=== PATIENT | male | born 1985 | race Hispanic/Latino ===

== ENCOUNTER 2017-10-23 07:31 | Inpatient (IN) | payer BC, OTHER ==
[2017-10-23 07:38] VITALS: BMI 24.3
[2017-10-23] MEDS ORDERED: Sodium Chloride 0.9% 1,000 ML IV ONE ×2 (07:45→07:54)
--- NOTE | 2017-10-23 07:45 | C.PDOC ---
History Of Present Illness 31 year old male, with history of substance abuse, is brought to ED by EMS for evaluation of reported overdose. Pt was found unresponsive on the floor at home by EMS. Pt was given Narcan 1mg IVP on field. Upon waking up, pt admits to heroin abuse. In ED, pt complains of shortness of breath associated with mild cough for the past 2 days. Denies fever, or any other complaints at this time. Time Seen by Provider: 10/23/17 07:33 Chief Complaint (Nursing): Substance Abuse History Per: Patient History/Exam Limitations: no limitations Onset/Duration Of Symptoms: Sudden Onset Current Symptoms Are (Timing): Still Present Suicide/Self Injury Attempted (Context): None Severity: None Pain Scale Rating Of: 0 Associated Symptoms: denies: Suicidal Thoughts, Suicidal Plan Involuntary Hold By: None Recent travel outside of the [place]: No Additional History Per: EMS, Family Past Medical History Reviewed: Historical Data, Nursing Documentation, Vital Signs Vital Signs: Last Vital Signs Temp 98.3 F 10/25/17 12:00 Pulse 94 H 10/25/17 11:51 Resp 26 H 10/25/17 11:51 BP 110/74 10/25/17 11:51 Pulse Ox 98 10/25/17 12:00 Family History: States: Unknown Family Hx Review Of Systems Except As Marked, All Systems Reviewed And Found Negative. Constitutional: Negative for: Fever, Chills Cardiovascular: Negative for: Chest Pain, Palpitations, Light Headedness Respiratory: Positive for: Cough, Shortness of Breath. Negative for: Hemoptysis , Sputum Gastrointestinal: Negative for: Nausea, Vomiting, Abdominal Pain Neurological: Negative for: Headache, Dizziness Psych: Negative for: Suicidal ideation Physical Exam - Physical Exam Appears: Non-toxic, No Acute Distress Skin: Normal Color, Warm, Dry Head: Atraumatic, Normacephalic Eye(s): bilateral: Abnormal Pupil (pinpoint pupils) Oral Mucosa: Moist Neck: Supple Cardiovascular: Other (tachycardic) Respiratory: Normal Breath Sounds, No Accessory Muscle Use, No Rales, No Rhonchi , No Wheezing Gastrointestinal/Abdominal: Soft, No Tenderness Extremity: Normal ROM, No Deformity Neurological/Psych: Oriented x3, Normal Speech ED Course And Treatment - Laboratory Results Result Diagrams: 10/25/17 05:59 10/25/17 05:59 ECG: Interpreted By Me, Viewed By Me ECG Rhythm: Sinus Tachycardia ECG Interpretation: No Acute Changes Rate From EC (bpm) Critical Care Time - Critical Care Note Total Time (in mins): 40 Documented critical care: time excludes all time spent performing seperately billable procedures. Medical Decision Making Medical Decision Making: Plan: Blood work Urinalysis Chest X-ray EKG Influenza AB IV fluids Reassess Disposition - Disposition Disposition: HOSPITALIZED Disposition Time: 01:00 Condition: CRITICAL - Clinical Impression Clinical Impression: Overdose, Pneumonia, CHF (congestive heart failure), NYHA class I, NSTEMI (non- ST elevated myocardial infarction) - Scribe Statement The provider has reviewed the documentation as recorded by the Scribe Rajani Luis All medical record entries made by the Scribe were at my direction and personally dictated by me. I have reviewed the chart and agree that the record accurately reflects my personal performance of the history, physical exam, medical decision making, and the department course for this patient. I have also personally directed, reviewed, and agree with the discharge instructions and disposition. Decision To Admit - Pt Status Changed To: Hospital Disposition Of: Inpatient - Admit Certification Admit to Inpatient:: After my assessment, the patient will require hospitalization for at least two midnights. This is because of the severity of symptoms shown, intensity of services needed, and/or the medical risk in this patient being treated as an outpatient. - InPatient: Physician Admission Certification: I certify that this patient requires 2 or more midnights of care for the following reason:: needs icu - . Bed Request Type: ICU Admitting Physician: Vinod Luis Patient Diagnosis: Overdose, Pneumonia, CHF (congestive heart failure), NYHA class I, NSTEMI (non- ST elevated myocardial infarction)
[2017-10-23 07:51] LABS: VENOUS BLOOD GAS BASE EXCESS -3.7 mmol/L (0.0-2.0); VENOUS BLOOD GAS PCO2 50 mmHg (40-60); VENOUS BLOOD GAS PO2 16 mm/Hg (30-55); VENOUS BLOOD PH 7.28 (7.32-7.43)
[2017-10-23] MEDS ORDERED: Azithromycin 500 MG in Sodium Chloride 0.9% 250 ML IVPB STA (07:52)
[2017-10-23] MEDS ORDERED: cefTRIAXone 2 GM in Sodium Chloride 0.9% 100 ML IVPB STA (07:52)
[2017-10-23] MEDS ORDERED: Sodium Chloride 0.9% 2,000 ML ONE (07:55)
[2017-10-23 07:57] LABS: BASO % 0.2 % (0.0-2.0); EOS % 0.1 % (0.0-4.0); HEMOGLOBIN 14.6 g/dL (12.0-18.0); LYMPH # 0.5 K/uL (1.0-4.3); LYMPH % 5.7 % (20.0-40.0); MEAN CELL VOLUME 78.3 fL (80.0-94.0); MEAN CORPUSCULAR HEMOGLOBIN 26.9 pg (27.0-31.0); MEAN CORPUSCULAR HGB CONC 34.3 g/dL (33.0-37.0); MEAN PLATELET VOLUME 8.3 fL (7.2-11.7); MONO # 0.5 K/uL (0.0-0.8); MONO % 5.1 % (0.0-10.0); NEUT # 8.4 K/uL (1.8-7.0); NEUT % 88.9 % (50.0-75.0); NRBC % 0.2 % (0.0-2.0); PLATELET COUNT 175 K/uL (130-400); RBC 5.45 Mil/uL (4.40-5.90); RED CELL DISTRIBUTION WIDTH 15.5 % (11.5-14.5); WHITE BLOOD COUNT 9.4 K/uL (4.8-10.8)
[2017-10-23 08:06] LABS: ACETAMINOPHEN < 10.0 ug/mL (10.0-30.0); ALB/GLOB RATIO 1.3 (1.0-2.1); ALBUMIN 4.1 g/dL (3.5-5.0); ALT/SGPT 277 U/L (21-72); AST/SGOT 189 U/L (17-59); BLOOD UREA NITROGEN 22 mg/dL (9-20); CALCIUM 8.6 mg/dl (8.6-10.4); GFR AFRICAN-AMERICAN > 60; GFR NON-AFRICAN AMERICAN 58; SALICYLATE < 1.0 mg/dL 1
[2017-10-23] MEDS ORDERED: metroNIDAZOLE IV 500 mg/100 ml 500 MG/100 ML BAG IVPB STA (08:14)
[2017-10-23 08:19] LABS: B-TYPE NATRIURETIC PEPTIDE 4670 pg/mL (0-450)
[2017-10-23 08:21] LABS: INR 1.4; PROTHROMBIN TIME 16.2 SECONDS (9.7-12.2)
--- NOTE | 2017-10-23 08:22 | RAD ---
HISTORY: chest pain COMPARISON: None available. TECHNIQUE: Chest, one view. FINDINGS: LUNGS: Patchy airspace opacities throughout the right darlene thorax with slight sparing of the right lung apex ; appearance worrisome for pneumonia/ edema. Correlate clinically. Recommend continued close interval follow-up to resolution. Please note that chest x-ray has limited sensitivity for the detection of pulmonary masses. PLEURA: No significant pleural effusion identified. No definite pneumothorax . CARDIOVASCULAR: The cardiomediastinal silhouette appears within normal limits of size. OSSEOUS STRUCTURES: No acute osseous abnormality identified. VISUALIZED UPPER ABDOMEN: Unremarkable. OTHER FINDINGS: None. IMPRESSION: Patchy airspace opacities throughout the right darlene thorax with slight sparing of the right lung apex ; appearance worrisome for pneumonia/ edema. Correlate clinically. Recommend continued close interval follow-up to resolution.
[2017-10-23 08:28] LABS: SQUAMOUS EPITHIAL 2 /hpf (0-5); URINE BACTERIA RARE (<OCC); URINE BILIRUBIN NEGATIVE (NEGATIVE); URINE BLOOD 1+ (NEGATIVE); URINE CLARITY Clear (Clear); URINE COLOR Yellow (YELLOW); URINE GLUCOSE (UA) NORMAL (Normal); URINE LEUKOCYTE ESTERASE NEG Leu/uL (Negative); URINE NITRATE NEGATIVE (NEGATIVE); URINE PROTEIN 1+ mg/dL (NEGATIVE); URINE UROBILINOGEN NORMAL mg/dL (0.2-1.0)
[2017-10-23] MEDS ORDERED: Iodixanol 320 MG/ML 100 ML BOTTLE IV ONE (08:38)
[2017-10-23 08:40] LABS: BANDS 1 % (0-2); LYMPHOCYTE 4 % (20-40); MONOCYTE 2 % (0-10); NEUTROPHIL 93 % (50-75); NUCLEATED RED BLOOD CELL 1 % (0-0); PLATELET ESTIMATE NORMAL (NORMAL); TOTAL CELLS COUNTED 100
[2017-10-23 08:40] LABS: BARBITURATES, UR NEGATIVE (NEGATIVE); BENZODIAZEPINES, UR NEGATIVE (NEGATIVE); PHENCYCLIDINE, UR NEGATIVE (NEGATIVE)
[2017-10-23 08:41] LABS: ANISOCYTOSIS SLIGHT
[2017-10-23] MEDS ORDERED: Enoxaparin 150 mg Syringe SC STA (08:42)
[2017-10-23 08:44] LABS: OPIATES, UR POSITIVE (NEGATIVE)
[2017-10-23 08:46] LABS: ABG ALLEN TEST POS; ARTERIAL BLOOD GAS HCO3 22.7 mmol/L (21-28); ARTERIAL BLOOD GAS O2 SAT 94.2 % (95-98); ARTERIAL BLOOD GAS PCO2 46 mm/Hg (35-45); ARTERIAL BLOOD GAS PH 7.32 (7.35-7.45); ARTERIAL BLOOD GAS PO2 60 mm/Hg (80-100); ARTERIAL BLOOD GAS TCO2 25.1 mmol/L (22-28)
[2017-10-23] MEDS ORDERED: Enoxaparin 80 mg Syringe ONE (09:03)
[2017-10-23] MEDS ORDERED: Piperacillin/Tazobact 3.375 GM in Sodium Chloride 100 ML IVPB STA (09:10)
[2017-10-23] MEDS ORDERED: Piperacill/Tazo 3.375gm in Dex 3.375 GM/50 ML BAG IVPB ONE (10:00)
--- NOTE | 2017-10-23 10:07 | CP.PCM.CON ---
History of Present Illness - History of Present Illness History of Present Illness: 31 y/o male with pmx of polysubstance abuse presents to [facility] after being found down on the floor after snorting heroin. Patient denies ever being admitted to hospital for heroin relates medical complications. Patient notes he was off heroin for 6 weeks and tried 2 bags today. Patient c/o left chest pain, denies cocaine,denies any fevers, denies any chest pain, denies any headaches, ( +)cough, tolerating bi-pap. denies having tremors when not using heroin Review of Systems - Review of Systems Systems not reviewed;Unavailable: Altered Mental Status - Constitutional Constitutional: absent: Sleep Apnea, Weight Loss, Weakness - Cardiovascular Cardiovascular: absent: Chest Pain, Chest Pain with Activity - Respiratory Respiratory: Cough, Pain on Inspiration - Gastrointestinal Gastrointestinal: absent: Diarrhea, Hematochezia Past Patient History - Past Social History Smoking Status: Never Smoked - PSYCHIATRIC Hx Substance Use: Yes - SURGICAL HISTORY Hx Surgeries: No - ANESTHESIA Hx Anesthesia: No Meds Allergies/Adverse Reactions: Allergies Allergy/AdvReac Type Severity Reaction Status Date / Time No Known Allergies Allergy Verified 10/23/17 07:39 - Medications Medications: Current Medications Famotidine (Pepcid) 20 mg IVP Q12 [facility] Azithromycin 500 mg/ Sodium (Chloride) 250 mls @ 250 mls/hr IVPB DAILY [facility] Ceftriaxone Sodium 1 gm/ (Sodium Chloride) 100 mls @ 100 mls/hr IVPB Q12H [facility] Metronidazole (Flagyl) 500 mg in 100 mls @ 100 mls/hr IVPB Q8H [facility] Piperacillin Sod/Tazobactam Sod (Zosyn 3.375 Gm Iv Premix) 3.375 gm in 50 mls @ 50 mls/hr IVPB ONCE ONE Stop: 10/23/17 10:59 Saccharomyces Boulardii (Florastor) 250 mg PO BID [facility] Physical Exam - Constitutional Appears: Non-toxic - Head Exam Head Exam: ATRAUMATIC, NORMAL INSPECTION, NORMOCEPHALIC - Eye Exam Eye Exam: Normal appearance Pupil Exam: PERRL - ENT Exam ENT Exam: Mucous Membranes Moist - Respiratory Exam Respiratory Exam: Rhonchi - Cardiovascular Exam Cardiovascular Exam: REGULAR RHYTHM, +S1, +S2, Systolic Murmur - GI/Abdominal Exam GI & Abdominal Exam: Normal Bowel Sounds, Soft - Extremities Exam Extremities exam: Positive for: normal inspection Results - Vital Signs Recent Vital Signs: Last Vital Signs Temp 99.8 F H 10/23/17 08:17 Pulse 146 H 10/23/17 09:20 Resp 49 H 10/23/17 09:20 BP 111/69 10/23/17 09:20 Pulse Ox 90 L 10/23/17 09:20 - Labs Result Diagrams: 10/23/17 07:46 10/23/17 07:46 Labs: Laboratory Results - last 24 hr 10/23/17 10/23/17 10/23/17 07:46 07:46 07:46 WBC 9.4 RBC 5.45 Hgb 14.6 Hct 42.7 MCV 78.3 L MCH 26.9 L MCHC 34.3 RDW 15.5 H Plt Count 175 MPV 8.3 Neut % (Auto) 88.9 H Lymph % (Auto) 5.7 L [place] % (Auto) 5.1 Eos % (Auto) 0.1 Baso % (Auto) 0.2 Neut # 8.4 H Lymph # 0.5 L [place] # 0.5 Eos # 0.0 Baso # 0.0 Neutrophils % (Manual) 93 H Band Neutrophils % 1 Lymphocytes % (Manual) 4 L Monocytes % (Manual) 2 Nucleated RBC % 1 H Platelet Estimate Normal Anisocytosis (manual) Slight PT 16.2 H INR 1.4 APTT 27 D-Dimer, Quantitative 2034 H Puncture Site pCO2 pO2 HCO3 ABG pH ABG Total CO2 ABG O2 Saturation ABG Base Excess Jamarcus Test ABG Potassium VBG pH VBG pCO2 VBG HCO3 VBG Total CO2 VBG O2 Sat (Calc) VBG Base Excess VBG Potassium A-a O2 Difference Respiratory Index Glucose Lactate Vent Mode FiO2 Inspiratory BiPAP Expiratory BiPAP Crit Value Called To Crit Value Called By Crit Value Read Back Blood Gas Notified Time Sodium 133 Potassium 4.8 Chloride 92 L Carbon Dioxide 23 Anion Gap 22 H BUN 22 H Creatinine 1.4 Est GFR ( Amer) > 60 Est GFR (Non-Af Amer) 58 Random Glucose 178 H Calcium 8.6 Total Bilirubin 3.0 H AST 189 H ALT 277 H Alkaline Phosphatase 73 Troponin I 0.6920 H* NT-Pro-B Natriuret Pep 4670 H Total Protein 7.2 Albumin 4.1 Globulin 3.1 Albumin/Globulin Ratio 1.3 Arterial Blood Potassium Venous Blood Potassium Urine Color Urine Clarity Urine pH Ur Specific [place] Urine Protein Urine Glucose (UA) Urine Ketones Urine Blood Urine Nitrate Urine Bilirubin Urine Urobilinogen Ur Leukocyte Esterase Urine WBC (Auto) Urine RBC (Auto) Ur Squamous Epith Cells Urine Bacteria Hyaline Casts Salicylates Urine Opiates Screen Urine Methadone Screen Acetaminophen Ur Barbiturates Screen Ur Phencyclidine Scrn Ur Amphetamines Screen U Benzodiazepines Scrn U Oth Cocaine Metabols U Cannabinoids Screen Alcohol, Quantitative < 10 Influenza Typ A,B (EIA) 10/23/17 10/23/17 10/23/17 07:46 07:47 08:10 WBC RBC Hgb Hct MCV MCH MCHC RDW Plt Count MPV Neut % (Auto) Lymph % (Auto) [place] % (Auto) Eos % (Auto) Baso % (Auto) Neut # Lymph # [place] # Eos # Baso # Neutrophils % (Manual) Band Neutrophils % Lymphocytes % (Manual) Monocytes % (Manual) Nucleated RBC % Platelet Estimate Anisocytosis (manual) PT INR APTT D-Dimer, Quantitative Puncture Site pCO2 pO2 16 L HCO3 ABG pH ABG Total CO2 ABG O2 Saturation ABG Base Excess Jamarcus Test ABG Potassium VBG pH 7.28 L VBG pCO2 50 VBG HCO3 19.8 VBG Total CO2 25.0 VBG O2 Sat (Calc) 25.5 L VBG Base Excess -3.7 L VBG Potassium 4.7 A-a O2 Difference Respiratory Index Glucose 192 H Lactate 8.2 H* Vent Mode FiO2 Inspiratory BiPAP Expiratory BiPAP Crit Value Called To Dr valadez Crit Value Called By Daniel petty mohs surgeon/general dermatologist Crit Value Read Back Y Blood Gas Notified Time 750 Sodium 133.0 Potassium Chloride 96.0 L Carbon Dioxide Anion Gap BUN Creatinine Est GFR ( Amer) Est GFR (Non-Af Amer) Random Glucose Calcium Total Bilirubin AST ALT Alkaline Phosphatase Troponin I NT-Pro-B Natriuret Pep Total Protein Albumin Globulin Albumin/Globulin Ratio Arterial Blood Potassium Venous Blood Potassium 4.7 Urine Color Urine Clarity Urine pH Ur Specific [place] Urine Protein Urine Glucose (UA) Urine Ketones Urine Blood Urine Nitrate Urine Bilirubin Urine Urobilinogen Ur Leukocyte Esterase Urine WBC (Auto) Urine RBC (Auto) Ur Squamous Epith Cells Urine Bacteria Hyaline Casts Salicylates < 1.0 Urine Opiates Screen Urine Methadone Screen Acetaminophen < 10.0 L Ur Barbiturates Screen Ur Phencyclidine Scrn Ur Amphetamines Screen U Benzodiazepines Scrn U Oth Cocaine Metabols U Cannabinoids Screen Alcohol, Quantitative Influenza Typ A,B (EIA) Negative for flu a/b 10/23/17 10/23/17 10/23/17 08:14 08:14 08:43 WBC RBC Hgb Hct MCV MCH MCHC RDW Plt Count MPV Neut % (Auto) Lymph % (Auto) [place] % (Auto) Eos % (Auto) Baso % (Auto) Neut # Lymph # [place] # Eos # Baso # Neutrophils % (Manual) Band Neutrophils % Lymphocytes % (Manual) Monocytes % (Manual) Nucleated RBC % Platelet Estimate Anisocytosis (manual) PT INR APTT D-Dimer, Quantitative Puncture Site Rra pCO2 46 H pO2 60 L HCO3 22.7 ABG pH 7.32 L ABG Total CO2 25.1 ABG O2 Saturation 94.2 L ABG Base Excess -2.6 L Jamarcus Test Pos ABG Potassium 3.8 VBG pH VBG pCO2 VBG HCO3 VBG Total CO2 VBG O2 Sat (Calc) VBG Base Excess VBG Potassium A-a O2 Difference 596.0 Respiratory Index 9.9 Glucose 140 H Lactate 2.1 Vent Mode Bipap FiO2 100.0 Inspiratory BiPAP 10 Expiratory BiPAP 5 Crit Value Called To Crit Value Called By Crit Value Read Back Blood Gas Notified Time Sodium 134.0 Potassium Chloride 106.0 Carbon Dioxide Anion Gap BUN Creatinine Est GFR ( Amer) Est GFR (Non-Af Amer) Random Glucose Calcium Total Bilirubin AST ALT Alkaline Phosphatase Troponin I NT-Pro-B Natriuret Pep Total Protein Albumin Globulin Albumin/Globulin Ratio Arterial Blood Potassium 3.8 Venous Blood Potassium Urine Color Yellow Urine Clarity Clear Urine pH 5.0 Ur Specific [place] 1.013 Urine Protein 1+ H Urine Glucose (UA) Normal Urine Ketones Trace Urine Blood 1+ H Urine Nitrate Negative Urine Bilirubin Negative Urine Urobilinogen Normal Ur Leukocyte Esterase Neg Urine WBC (Auto) 2 Urine RBC (Auto) 3 Ur Squamous Epith Cells 2 Urine Bacteria Rare Hyaline Casts 6-10 H Salicylates Urine Opiates Screen Positive H Urine Methadone Screen Negative Acetaminophen Ur Barbiturates Screen Negative Ur Phencyclidine Scrn Negative Ur Amphetamines Screen Negative U Benzodiazepines Scrn Negative U Oth Cocaine Metabols Negative U Cannabinoids Screen Negative Alcohol, Quantitative Influenza Typ A,B (EIA) Assessment & Plan (1) Respiratory failure with hypoxia and hypercapnia Status: Acute (2) Heroin abuse Status: Acute (3) Systolic heart failure secondary to coronary artery disease Status: Acute (4) CAD (coronary artery disease), elim ira coronary artery Status: Acute - Assessment and Plan (Free Text) Assessment: HYpoxic and hypercapneci respiratory failure: continue bi-pap to keep spo2 >92 and pH b/w 7.35-7.45, continue bronchodilatros (atrovent), solumedrol -severe aspiration/sepsis: contineu vanco + zosyn, check sputum culture and obtain serial lactic, -CAD/NSTEMI: start asa, lovenox theraputic and b-blockers, obtain cardiology eval, likely cocaine induced r/o ischemic, check utox, no signs of shock -cardiology eval, echo pending -DVT ppx lovenox -PUD ppx protonix -heroin abuse: Patient notes he does not inject only snorts--check utox, patient advised to not use any recreation al drugs and consider drug rehab -Patient remains critical and will benefit from ICU level care -avoid fluid overloaded states cc time 36 minutes - - Date & Time Date: 10/23/17 Time: 10:19
--- NOTE | 2017-10-23 10:26 | CP.PCM.HP ---
Addendum entered and electronically signed by Cassie Mendoza DO 10/23/17 18:08: please disregard Assessment/plan in signed note please use Addendum for Assessment and plan 31 yo male present to the ER by ambulance after he was found down by his unconscious around 6am, last seen normal around 3am.. Pt responded to 1 mg narcan on the field. Pt admints doing 2 bags of heroins after being off it for the past 6 weeks. Patient states he had heroin and (10/21 and 10/22). Pt has been complaining of SOB and fever 102.2 10/22/17 for the past 2day. Pt denies any PMH or surgical Hx, denies in other substance abuse disorder and currently complaining of retrosternal non radiating chest pain, SOB , non productive cough. Pt in ICU on bipap. Neuro Neurologically intact A&Ox3 UDS: + for opiates Psych - history of substance abuse disorder Consult psych: Dr. Kramer Cardio: NSTEMI w/ elevated troponin 0.6920 HR: 139 BP: 137/71 Serial troponin 2pm and 8pm Serial ekg 2pm and 8pm Meds: Therapeutic lovenox 70mg, ASA 325 mg PO single dose, ASA 81 mg PO daily MERCEDEZ, coreg 3.125 mg PO BID MERCEDEZ, Elevated ProBnp 4670 2D echo waiting official read Consult play writer: Dr Ibrahim Respiratory: Respiratory distress O2 sat: 93% on bipap Vent Settings I/E: 12/5 FIO2: 100 ABG: pH 7.41/pCO2 39/pO2 56/ HCO3 24.8 CXray: right sided pneumonia, secondary to aspiration most likely Labs: order urine legionella, urine strep pneumoniae, mycoplasama IgG and IgM, neg. Influenza typ A and B Meds: start ceftriaxone 100mls @ 100mls/hr, Azithromycin 250 mls @ 250 mls/hr, zosyn @ 200mls/Hr IVPb Q6H MERCEDEZ, solu-medrol 125 mg IV Q12 MERCEDEZ, Atrovent Hfa 2puff IH RQ6 MERCEDEZ, lasix 20 mg IVP daily MERCEDEZ, lovenox 70 mg Elevated D-dimer: 2035 CT chest: no evidence of central or segmental pulmonary embolism. Extensive airspace consolidations worrisome for pneumonia right greater than left. B/L lower extremities venous doppler: pending official read Renal BUN/Cr: 22/1.4 Fluids, electrolytes, nutrition Electrolytes WNL except for mentioned below: Cl: 92 Fluids: d/c normal saline Nutrition: Follow chemistry Infectious disease WBC: 9.4, gas lactate 8.2 now 1.6 Cultures: (-) influenza type A and B Urine legionella pending result Urine strep pneumoniae pending result Mycoplasma IgG and IgM pending result Meds: start ceftriaxone 100mls @ 100mls/hr, Azithromycin 250 mls @ 250 mls/ hr, zosyn @ 200mls/Hr IVPb Q6H MERCEDEZ, Consult ID Dr. aTdeo Hematology H&H: 14.6/42.7 follow H&H Plt: 175 PT/PTT/INR: 16.2/27/1.4 D-Dimer: 2035 CT chest: no evidence of central or segmental pulmonary embolism. Extensive airspace consolidations worrisome for pneumonia right greater than left. B/L lower extremities venous doppler: pending official read Meds: start lovenox 70mg GI AST/ALT: 189/277 Tbili: 3.0 Prophylaxis GI: pepcid DVT: lovenox , SCDs Original Note: <Cassie Mendoza - Last Filed: 10/23/17 14:05> History of Present Illness - History of Present Illness History of Present Illness: CC: AMS, respiratory distress 31 yo male present to the ER by ambulance after he was found down by his unconscious around 6am. stated vomitted food. He was last seen normal around 3am. Pt responded to 1 mg narcan on the field. Pt admints doing 2 bags of heroins after being off it for the past 6 weeks. Patient states he had heroin and (10/21 and 10/22) per . Pt has been complaining of SOB and fever 102.2 10/22/17 for the past 2day. Pt denies any PMH or surgical Hx , denies in other substance abuse disorder and currently complaining of retrosternal non radiating chest pain, SOB, non productive cough. Denies any headache, fevers, cocaine use. Pt in ICU on BiPAP. Present on Admission - Present on Admission Any Indicators Present on Admission: No History of DVT/PE: No History of Uncontrolled Diabetes: No Urinary Catheter: No Decubitus Ulcer Present: No Past Patient History - Past Social History Smoking Status: Never Smoked - PSYCHIATRIC Hx Substance Use: Yes - SURGICAL HISTORY Hx Surgeries: No - ANESTHESIA Hx Anesthesia: No Meds Allergies/Adverse Reactions: Allergies Allergy/AdvReac Type Severity Reaction Status Date / Time No Known Allergies Allergy Verified 10/23/17 07:39 Physical Exam - Head Exam Head Exam: ATRAUMATIC, NORMAL INSPECTION - Eye Exam Eye Exam: EOMI, Normal appearance - ENT Exam ENT Exam: Mucous Membranes Moist - Neck Exam Neck exam: Positive for: Full Rom, Normal Inspection. Negative for: Tenderness , Thyromegaly - Respiratory Exam Respiratory Exam: Clear to Auscultation Bilateral, NORMAL BREATHING PATTERN. absent: Accessory Muscle Use - Cardiovascular Exam Cardiovascular Exam: Tachycardia, REGULAR RHYTHM, +S1, +S2. absent: Bradycardia - GI/Abdominal Exam GI & Abdominal Exam: Normal Bowel Sounds, Soft. absent: Organomegaly, Rebound, Rigid, Tenderness - Rectal Exam Rectal Exam: NORMAL INSPECTION. absent: Bloody Stool, Hemorrhoids - Extremities Exam Extremities exam: Positive for: full ROM. Negative for: pedal edema - Neurological Exam Neurological exam: Alert, CN II-XII Intact - Psychiatric Exam Psychiatric exam: Normal Affect, Normal Mood - Skin Skin Exam: Dry, Intact, Normal Color Results - Vital Signs Recent Vital Signs: Last Vital Signs Temp 99.8 F H 10/23/17 08:17 Pulse 146 H 10/23/17 09:20 Resp 49 H 10/23/17 09:20 BP 111/69 10/23/17 09:20 Pulse Ox 90 L 10/23/17 09:20 - Labs Result Diagrams: 10/23/17 07:46 10/23/17 07:46 Labs: Laboratory Results - last 24 hr 10/23/17 10/23/17 10/23/17 07:43 07:46 07:46 WBC 9.4 RBC 5.45 Hgb 14.6 Hct 42.7 MCV 78.3 L MCH 26.9 L MCHC 34.3 RDW 15.5 H Plt Count 175 MPV 8.3 Neut % (Auto) 88.9 H Lymph % (Auto) 5.7 L [place] % (Auto) 5.1 Eos % (Auto) 0.1 Baso % (Auto) 0.2 Neut # 8.4 H Lymph # 0.5 L [place] # 0.5 Eos # 0.0 Baso # 0.0 Neutrophils % (Manual) 93 H Band Neutrophils % 1 Lymphocytes % (Manual) 4 L Monocytes % (Manual) 2 Nucleated RBC % 1 H Platelet Estimate Normal Anisocytosis (manual) Slight PT 16.2 H INR 1.4 APTT 27 D-Dimer, Quantitative 2034 H Puncture Site pCO2 pO2 HCO3 ABG pH ABG Total CO2 ABG O2 Saturation ABG Base Excess Jamarcus Test ABG Potassium VBG pH VBG pCO2 VBG HCO3 VBG Total CO2 VBG O2 Sat (Calc) VBG Base Excess VBG Potassium A-a O2 Difference Respiratory Index Glucose Lactate Vent Mode FiO2 Inspiratory BiPAP Expiratory BiPAP Crit Value Called To Crit Value Called By Crit Value Read Back Blood Gas Notified Time Sodium Potassium Chloride Carbon Dioxide Anion Gap BUN Creatinine Est GFR ( Amer) Est GFR (Non-Af Amer) POC Glucose (mg/dL) 165 H Random Glucose Calcium Total Bilirubin AST ALT Alkaline Phosphatase Troponin I NT-Pro-B Natriuret Pep Total Protein Albumin Globulin Albumin/Globulin Ratio Arterial Blood Potassium Venous Blood Potassium Urine Color Urine Clarity Urine pH Ur Specific [place] Urine Protein Urine Glucose (UA) Urine Ketones Urine Blood Urine Nitrate Urine Bilirubin Urine Urobilinogen Ur Leukocyte Esterase Urine WBC (Auto) Urine RBC (Auto) Ur Squamous Epith Cells Urine Bacteria Hyaline Casts Salicylates Urine Opiates Screen Urine Methadone Screen Acetaminophen Ur Barbiturates Screen Ur Phencyclidine Scrn Ur Amphetamines Screen U Benzodiazepines Scrn U Oth Cocaine Metabols U Cannabinoids Screen Alcohol, Quantitative Influenza Typ A,B (EIA) 10/23/17 10/23/17 10/23/17 07:46 07:46 07:47 WBC RBC Hgb Hct MCV MCH MCHC RDW Plt Count MPV Neut % (Auto) Lymph % (Auto) [place] % (Auto) Eos % (Auto) Baso % (Auto) Neut # Lymph # [place] # Eos # Baso # Neutrophils % (Manual) Band Neutrophils % Lymphocytes % (Manual) Monocytes % (Manual) Nucleated RBC % Platelet Estimate Anisocytosis (manual) PT INR APTT D-Dimer, Quantitative Puncture Site pCO2 pO2 16 L HCO3 ABG pH ABG Total CO2 ABG O2 Saturation ABG Base Excess Jamarcus Test ABG Potassium VBG pH 7.28 L VBG pCO2 50 VBG HCO3 19.8 VBG Total CO2 25.0 VBG O2 Sat (Calc) 25.5 L VBG Base Excess -3.7 L VBG Potassium 4.7 A-a O2 Difference Respiratory Index Glucose 192 H Lactate 8.2 H* Vent Mode FiO2 Inspiratory BiPAP Expiratory BiPAP Crit Value Called To Dr valadez Crit Value Called By Daniel petty account retention representative Crit Value Read Back Y Blood Gas Notified Time 750 Sodium 133 133.0 Potassium 4.8 Chloride 92 L 96.0 L Carbon Dioxide 23 Anion Gap 22 H BUN 22 H Creatinine 1.4 Est GFR ( Amer) > 60 Est GFR (Non-Af Amer) 58 POC Glucose (mg/dL) Random Glucose 178 H Calcium 8.6 Total Bilirubin 3.0 H AST 189 H ALT 277 H Alkaline Phosphatase 73 Troponin I 0.6920 H* NT-Pro-B Natriuret Pep 4670 H Total Protein 7.2 Albumin 4.1 Globulin 3.1 Albumin/Globulin Ratio 1.3 Arterial Blood Potassium Venous Blood Potassium 4.7 Urine Color Urine Clarity Urine pH Ur Specific [place] Urine Protein Urine Glucose (UA) Urine Ketones Urine Blood Urine Nitrate Urine Bilirubin Urine Urobilinogen Ur Leukocyte Esterase Urine WBC (Auto) Urine RBC (Auto) Ur Squamous Epith Cells Urine Bacteria Hyaline Casts Salicylates < 1.0 Urine Opiates Screen Urine Methadone Screen Acetaminophen < 10.0 L Ur Barbiturates Screen Ur Phencyclidine Scrn Ur Amphetamines Screen U Benzodiazepines Scrn U Oth Cocaine Metabols U Cannabinoids Screen Alcohol, Quantitative < 10 Influenza Typ A,B (EIA) 10/23/17 10/23/17 10/23/17 08:10 08:14 08:14 WBC RBC Hgb Hct MCV MCH MCHC RDW Plt Count MPV Neut % (Auto) Lymph % (Auto) [place] % (Auto) Eos % (Auto) Baso % (Auto) Neut # Lymph # [place] # Eos # Baso # Neutrophils % (Manual) Band Neutrophils % Lymphocytes % (Manual) Monocytes % (Manual) Nucleated RBC % Platelet Estimate Anisocytosis (manual) PT INR APTT D-Dimer, Quantitative Puncture Site pCO2 pO2 HCO3 ABG pH ABG Total CO2 ABG O2 Saturation ABG Base Excess Jamarcus Test ABG Potassium VBG pH VBG pCO2 VBG HCO3 VBG Total CO2 VBG O2 Sat (Calc) VBG Base Excess VBG Potassium A-a O2 Difference Respiratory Index Glucose Lactate Vent Mode FiO2 Inspiratory BiPAP Expiratory BiPAP Crit Value Called To Crit Value Called By Crit Value Read Back Blood Gas Notified Time Sodium Potassium Chloride Carbon Dioxide Anion Gap BUN Creatinine Est GFR ( Amer) Est GFR (Non-Af Amer) POC Glucose (mg/dL) Random Glucose Calcium Total Bilirubin AST ALT Alkaline Phosphatase Troponin I NT-Pro-B Natriuret Pep Total Protein Albumin Globulin Albumin/Globulin Ratio Arterial Blood Potassium Venous Blood Potassium Urine Color Yellow Urine Clarity Clear Urine pH 5.0 Ur Specific [place] 1.013 Urine Protein 1+ H Urine Glucose (UA) Normal Urine Ketones Trace Urine Blood 1+ H Urine Nitrate Negative Urine Bilirubin Negative Urine Urobilinogen Normal Ur Leukocyte Esterase Neg Urine WBC (Auto) 2 Urine RBC (Auto) 3 Ur Squamous Epith Cells 2 Urine Bacteria Rare Hyaline Casts 6-10 H Salicylates Urine Opiates Screen Positive H Urine Methadone Screen Negative Acetaminophen Ur Barbiturates Screen Negative Ur Phencyclidine Scrn Negative Ur Amphetamines Screen Negative U Benzodiazepines Scrn Negative U Oth Cocaine Metabols Negative U Cannabinoids Screen Negative Alcohol, Quantitative Influenza Typ A,B (EIA) Negative for flu a/b 10/23/17 08:43 WBC RBC Hgb Hct MCV MCH MCHC RDW Plt Count MPV Neut % (Auto) Lymph % (Auto) [place] % (Auto) Eos % (Auto) Baso % (Auto) Neut # Lymph # [place] # Eos # Baso # Neutrophils % (Manual) Band Neutrophils % Lymphocytes % (Manual) Monocytes % (Manual) Nucleated RBC % Platelet Estimate Anisocytosis (manual) PT INR APTT D-Dimer, Quantitative Puncture Site Rra pCO2 46 H pO2 60 L HCO3 22.7 ABG pH 7.32 L ABG Total CO2 25.1 ABG O2 Saturation 94.2 L ABG Base Excess -2.6 L Jamarcus Test Pos ABG Potassium 3.8 VBG pH VBG pCO2 VBG HCO3 VBG Total CO2 VBG O2 Sat (Calc) VBG Base Excess VBG Potassium A-a O2 Difference 596.0 Respiratory Index 9.9 Glucose 140 H Lactate 2.1 Vent Mode Bipap FiO2 100.0 Inspiratory BiPAP 10 Expiratory BiPAP 5 Crit Value Called To Crit Value Called By Crit Value Read Back Blood Gas Notified Time Sodium 134.0 Potassium Chloride 106.0 Carbon Dioxide Anion Gap BUN Creatinine Est GFR ( Amer) Est GFR (Non-Af Amer) POC Glucose (mg/dL) Random Glucose Calcium Total Bilirubin AST ALT Alkaline Phosphatase Troponin I NT-Pro-B Natriuret Pep Total Protein Albumin Globulin Albumin/Globulin Ratio Arterial Blood Potassium 3.8 Venous Blood Potassium Urine Color Urine Clarity Urine pH Ur Specific [place] Urine Protein Urine Glucose (UA) Urine Ketones Urine Blood Urine Nitrate Urine Bilirubin Urine Urobilinogen Ur Leukocyte Esterase Urine WBC (Auto) Urine RBC (Auto) Ur Squamous Epith Cells Urine Bacteria Hyaline Casts Salicylates Urine Opiates Screen Urine Methadone Screen Acetaminophen Ur Barbiturates Screen Ur Phencyclidine Scrn Ur Amphetamines Screen U Benzodiazepines Scrn U Oth Cocaine Metabols U Cannabinoids Screen Alcohol, Quantitative Influenza Typ A,B (EIA) Assessment & Plan - Assessment and Plan (Free Text) Assessment: Assessment Hypokalemia s/p Cardiac Arrest UTI Septic shock Hypertension (chronic) Arthritis Hyperparathyroidism Vesico-cecal fistula Ileostomy w/ Colostomy bag GERD b/l nephrostomy tubes Neuro: off sedation for extubation Cardio s/p ROSC from PEA Pulm 10/22 extubation HiFlow 40%, no stridor ABG post extubation: Duonebs 3cc INH RQ6H Hydrocoritsone 100mg IV Q8H GI wound care for ileostomy 10/22 per deck supervisor: Glucerna 1.5 to goal rate of 30cc/hr for 720cc total, 1080 kcal, 59 gm protein, 546cc free H2O Reglan 10mg PO Q6H PRN : wound care for nephrostomies. No discharge as per nursing. Renal: Anticipating todays CMP. Arterial blood potassium 2.2. Ordered 6 bags of potassium 20 meq in 100 mls @ 50 mls/hr IVPB Q2H I/O: +270.8 Endo Novolog SC Q6H Nephro I/O ID Lactobacillus acidophilus 1 cap QD Merrem 500mg Q12H Vancomycin 1gm Q12H Prophylaxis: DVT: Heparin SC Q8. SCDs GI: Protonix 40mg PO QAM 1/2 NS @75cc/hr Dr. Samuel Mendoza DO PGY1 - Date & Time Date: 10/23/17 Time: 14:05 <Vinod Luis - Last Filed: 10/24/17 12:51> Results - Vital Signs Recent Vital Signs: Last Vital Signs Temp 99.5 F 10/24/17 12:00 Pulse 118 H 10/24/17 12:00 Resp 44 H 10/24/17 12:00 BP 112/64 10/24/17 11:50 Pulse Ox 94 L 10/24/17 12:00 - Labs Result Diagrams: 10/24/17 06:38 10/24/17 06:38 Labs: Laboratory Results - last 24 hr 10/23/17 10/23/17 10/23/17 14:52 14:52 14:52 WBC RBC Hgb Hct MCV MCH MCHC RDW Plt Count MPV Neut % (Auto) Lymph % (Auto) [place] % (Auto) Eos % (Auto) Baso % (Auto) Neut # Lymph # [place] # Eos # Baso # Neutrophils % (Manual) Band Neutrophils % Lymphocytes % (Manual) Monocytes % (Manual) Toxic Granulation Platelet Estimate Large Platelets Polychromasia Hypochromasia (manual) Anisocytosis (manual) Microcytosis (manual) Puncture Site pCO2 pO2 HCO3 ABG pH ABG Total CO2 ABG O2 Saturation ABG Base Excess Jamarcus Test ABG Potassium Sodium Chloride Glucose Lactate Liter Flow Potassium Carbon Dioxide Anion Gap BUN Creatinine Est GFR ( Amer) Est GFR (Non-Af Amer) Random Glucose Calcium Phosphorus Magnesium Total Bilirubin AST ALT Alkaline Phosphatase Troponin I 0.9940 H* Total Protein Albumin Globulin Albumin/Globulin Ratio Triglycerides Cholesterol LDL Cholesterol Direct HDL Cholesterol Free T4 TSH 3rd Generation Arterial Blood Potassium Hepatitis A IgM Ab Negative Hep Bs Antigen Negative Hep B Core IgM Ab Negative Hepatitis C Antibody Negative HIV 1&2 Antibody Screen Negative 10/23/17 10/24/17 10/24/17 20:12 00:32 06:38 WBC RBC Hgb Hct MCV MCH MCHC RDW Plt Count MPV Neut % (Auto) Lymph % (Auto) [place] % (Auto) Eos % (Auto) Baso % (Auto) Neut # Lymph # [place] # Eos # Baso # Neutrophils % (Manual) Band Neutrophils % Lymphocytes % (Manual) Monocytes % (Manual) Toxic Granulation Platelet Estimate Large Platelets Polychromasia Hypochromasia (manual) Anisocytosis (manual) Microcytosis (manual) Puncture Site Rr pCO2 40 pO2 63 L HCO3 29.3 H ABG pH 7.48 H ABG Total CO2 31.0 H ABG O2 Saturation 96.0 ABG Base Excess 5.8 H Jamarcus Test Pos ABG Potassium 3.3 L Sodium 135.0 133 Chloride 100.0 95 L Glucose 171 H Lactate 1.7 Liter Flow 15.0 Potassium 3.8 Carbon Dioxide 30 Anion Gap 12 BUN 18 Creatinine 0.7 L Est GFR ( Amer) > 60 Est GFR (Non-Af Amer) > 60 Random Glucose 143 H Calcium 9.0 Phosphorus 2.0 L Magnesium 1.6 Total Bilirubin 2.3 H AST 145 H D ALT 264 H Alkaline Phosphatase 41 Troponin I 0.6540 H* Total Protein 6.9 Albumin 3.7 Globulin 3.2 Albumin/Globulin Ratio 1.1 Triglycerides 55 D Cholesterol 124 LDL Cholesterol Direct < 30 HDL Cholesterol 47 Free T4 TSH 3rd Generation 0.15 L Arterial Blood Potassium 3.3 L Hepatitis A IgM Ab Hep Bs Antigen Hep B Core IgM Ab Hepatitis C Antibody HIV 1&2 Antibody Screen 10/24/17 10/24/17 06:38 06:38 WBC 7.4 RBC 4.99 Hgb 13.5 Hct 38.8 MCV 77.8 L MCH 27.0 MCHC 34.7 RDW 15.4 H Plt Count 166 MPV 9.2 Neut % (Auto) 89.1 H Lymph % (Auto) 7.0 L [place] % (Auto) 3.8 Eos % (Auto) 0.0 Baso % (Auto) 0.1 Neut # 6.6 Lymph # 0.5 L [place] # 0.3 Eos # 0.0 Baso # 0.0 Neutrophils % (Manual) 69 Band Neutrophils % 21 H* Lymphocytes % (Manual) 6 L Monocytes % (Manual) 4 Toxic Granulation Present Platelet Estimate Normal Large Platelets Present Polychromasia Slight Hypochromasia (manual) Slight Anisocytosis (manual) Slight Microcytosis (manual) Slight Puncture Site pCO2 pO2 HCO3 ABG pH ABG Total CO2 ABG O2 Saturation ABG Base Excess Jamarcus Test ABG Potassium Sodium Chloride Glucose Lactate Liter Flow Potassium Carbon Dioxide Anion Gap BUN Creatinine Est GFR ( Amer) Est GFR (Non-Af Amer) Random Glucose Calcium Phosphorus Magnesium Total Bilirubin AST ALT Alkaline Phosphatase Troponin I Total Protein Albumin Globulin Albumin/Globulin Ratio Triglycerides Cholesterol LDL Cholesterol Direct HDL Cholesterol Free T4 0.83 TSH 3rd Generation Arterial Blood Potassium Hepatitis A IgM Ab Hep Bs Antigen Hep B Core IgM Ab Hepatitis C Antibody HIV 1&2 Antibody Screen Attending/Attestation - Attestation I have personally seen and examined this patient.: Yes I have fully participated in the care of the patient.: Yes I have reviewed all pertinent clinical information: Yes Notes (Text): 10/24/17 12:50 Patient was seen and examined in the ICU Bed 5 shortly after his arrival there on 10/23/17. History, Physical, Assessment and Plan were thoroughly gone over with Dr. Eng. Vinod Luis D.O.
--- NOTE | 2017-10-23 10:32 | CT ---
CTA chest PE protocol Indication: sob elevated dimer Technique: Contiguous axial images were obtained through the chest with intravenous contrast enhancement. Sagittal and coronal reconstructions were generated and reviewed. This CT exam was performed using 1 or more of the falling dose reduction techniques: Automated exposure control, adjustment of the MAA and/or kV according to patient size, and/or use of iterative reconstruction technique. IV Contrast: 100 mL Visipaque Radiation dose (DLP): 417.75 MGy-cm. Comparison: Chest x-ray performed earlier the same day. Findings: Visualized portions of the inferior thyroid gland appear unremarkable. The mediastinal and hilar vascular structures appear within normal limits. The heart appears within normal limits of size. No large central or segmental pulmonary embolus evident. Confluent airspace consolidations throughout the right greater than left darlene thoraces with relative sparing of the apices. No pleural effusion. No pneumothorax. Limited visualized portions of the upper abdomen appear grossly unremarkable. No acute osseous abnormality is detected. Impression: Extensive confluent airspace consolidations worrisome for pneumonia throughout the right greater than left darlene thoraces with relative sparing of the apices. Recommend follow-up to complete resolution. No large central or segmental pulmonary embolus evident.
[2017-10-23] MEDS ORDERED: Ipratropium 17 mcg/puff-200 puff/12.5 gm HFA Inh IH SCH (10:45)
[2017-10-23] MEDS: Saccharomyces Boulardi 250 mg Cap PO SCH ×2 (10:56→17:27)
[2017-10-23 11:17] LABS: ABG ALLEN TEST POS; ARTERIAL BLOOD GAS HCO3 24.8 mmol/L (21-28); ARTERIAL BLOOD GAS PCO2 39 mm/Hg (35-45); ARTERIAL BLOOD GAS PH 7.41 (7.35-7.45); ARTERIAL BLOOD GAS PO2 56 mm/Hg (80-100); ARTERIAL BLOOD GAS TCO2 25.9 mmol/L (22-28)
[2017-10-23] MEDS ORDERED: metroNIDAZOLE IV 500 mg/100 ml 500 MG/100 ML BAG IVPB SCH (14:00)
[2017-10-23] MEDS: Piperacill/Tazo 3.375gm in Dex 3.375 GM/50 ML BAG IVPB SCH ×2 (14:23→19:37)
[2017-10-23 15:40] LABS: HEPATITIS B SURFACE AG NEGATIVE (NEGATIVE)
[2017-10-23 15:46] LABS: HEPATITIS A IGM NEGATIVE (NEGATIVE); HEPATITIS B CORE AB Negative (NEGATIVE)
[2017-10-23 15:57] LABS: HEPATITIS C ANTIBODY Negative (NEGATIVE)
--- NOTE | 2017-10-23 18:41 | CP.PCM.CON ---
History of Present Illness - History of Present Illness History of Present Illness: 31 yo male with hx of substance abuse has been having fever and progressive SOB x 2- 3 days admits to periods of unconsciousness and vomiting after eating denies travel, pets, ill contacts Uses heroin but denies IVDU Review of Systems - Constitutional Constitutional: As Per HPI, Chills, Fatigue, Fever - EENT Eyes: absent: As Per HPI, Blind Spots, Blurred Vision, Change in Vision, Decreased Night Vision, Diplopia, Discharge, Dry Eye, Exophthalmos, Floaters, Irritation, Itchy Eyes, Loss of Peripheral Vision, Pain, Photophobia, Requires Corrective Lenses, Sees Flashes, Spots in Vision, Tunnel Vision, Other Visual Disturbances, Loss of Vision, Other Ears: absent: As Per HPI, Decreased Hearing, Ear Discharge, Ear Pain, Tinnitus, Abnormal Hearing, Disequilibrium, Dizziness, Other Nose/Mouth/Throat: absent: As Per HPI, Epistaxis, Nasal Congestion, Nasal Discharge, Nasal Obstruction, Nasal Trauma, Nose Pain, Post Nasal Drip, Sinus Pain, Sinus Pressure, Bleeding Gums, Change in Voice, Dental Pain, Dry Mouth, Dysphagia, Halitosis, Hoarsness, Lip Swelling, Mouth Lesions, Mouth Pain, Odynophagia, Sore Throat, Throat Swelling, Tongue Swelling, Facial Pain, Neck Pain, Neck Mass, Other - Cardiovascular Cardiovascular: absent: As Per HPI, Acrocyanosis, Chest Pain, Chest Pain at Rest , Chest Pain with Activity, Claudication, Diaphoresis, Dyspnea, Dyspnea on Exertion, Edema, Irregular Heart Rhythm, Pain Radiating to Arm/Neck/Jaw, Leg Edema, Leg Ulcers, Lightheadedness, Orthopnea, Palpitations, Paroxysmal Nocturnal Dyspnea, Pedal Edema, Radiating Pain, Rapid Heart Rate, Slow Heart Rate, Syncope, Other - Respiratory Respiratory: As Per HPI, Cough, Dyspnea. absent: Hemoptysis - Gastrointestinal Gastrointestinal: absent: As Per HPI, Abdominal Pain, Belching, Bloating, Change in Bowel Habits, Change in Stool Character, Coffee Ground Emesis, Constipation, Cramping, Diarrhea, Dyspepsia, Dysphagia, Early Satiety, Excessive Flatus, Fecal Incontinence, Heartburn, Hematemesis, Hematochezia, Loose Stools, Melena, Nausea, Odynophagia, Temesmus, Vomiting, Other - Genitourinary Genitourinary: absent: As Per HPI, Change in Urinary Stream, Difficulty Urinating, Dysuria, Flank Pain, Hematuria, Pyuria, Nocturia, Urinary Incontinence, Urinary Frequency, Urinary Hesitance, Urinary Urgency, Voiding Freq/Small Amts, Freq UTI, Hx Renal/Bladder Calculi, Hx /Renal Surgery, Bladder Distension, Other - Musculoskeletal Musculoskeletal: absent: As Per HPI, Abnormal Gait, Arthralgias, Atrophy, Back Pain, Deformity, Joint Swelling, Limited Range of Motion, Loss of Height, Muscle Cramps, Muscle Weakness, Myalgias, Neck Pain, Numbness, Radiating Pain into Limb, Stiffness, Tingling, Other - Integumentary Integumentary: absent: As Per HPI, Acne, Alopecia, Bleeding Lesions, Change in Hair, Change in Nails, Change in Pigmentation, Changing Lesions, Dry Skin, Erythema, Furuncle, Hirsutism, Lesions, New Lesions, Non-Healing Lesions, Photosensitivity, Pruritus, Rash, Skin Pain, Skin Ulcer, Sores, Striae, Swelling , Unusual Bruising, Wounds, Jaundice, Other - Neurological Neurological: As Per HPI - Psychiatric Psychiatric: absent: As Per HPI, Abnormal Sleep Pattern, Anhedonia, Anxiety, Auditory Hallucinations, Behavioral Changes, Change in Appetite, Change in Libido, Confusion, Depression, Difficulty Concentrating, Hallucinations, Homicidal Ideation, Hopelessness, Irritability, Memory Loss, Mood Swings, Panic Attacks, Paranoia, Suicidal Ideation, Visual Hallucinations, Tactile Hallucinations, Other - Endocrine Endocrine: absent: As Per HPI, Change in Body Appearance, Change in Libido, Cold Intolorance, Deepening of Voice, Excessive Sweating, Fatigue, Flushing, Heat Intolorance, Increase in Ring/Shoe/Hat Size, Palpitations, Polydipsia, Polyphagia, Polyuria, Other - Hematologic/Lymphatic Hematologic: absent: As Per HPI, Easy Bleeding, Easy Bruising, Lymphadenopathy, Other Past Patient History - Past Medical History & Family History Past Medical History?: No - Past Social History Smoking Status: Never Smoked - MUSCULOSKELETAL/RHEUMATOLOGICAL Hx Falls: No - PSYCHIATRIC Hx Substance Use: Yes (heroin every few weeks x1year) - SURGICAL HISTORY Hx Surgeries: No - ANESTHESIA Hx Anesthesia: No Meds Allergies/Adverse Reactions: Allergies Allergy/AdvReac Type Severity Reaction Status Date / Time No Known Allergies Allergy Verified 10/23/17 07:39 - Medications Medications: Current Medications Aspirin (Aspirin Chewable) 81 mg PO DAILY [facility] Last Admin: 10/23/17 14:19 Dose: 81 mg Carvedilol (Coreg) 3.125 mg PO BID [facility] Last Admin: 10/23/17 17:27 Dose: Not Given Enoxaparin Sodium (Lovenox) 70 mg SC Q12H [facility] Famotidine (Pepcid) 20 mg IVP Q12 [facility] Last Admin: 10/23/17 12:20 Dose: 20 mg Furosemide (Lasix) 20 mg IVP DAILY [facility] Last Admin: 10/23/17 14:14 Dose: Not Given Azithromycin 500 mg/ Sodium (Chloride) 250 mls @ 250 mls/hr IVPB DAILY [facility] Piperacillin Sod/Tazobactam Sod (Zosyn 3.375 Gm Iv Premix) 3.375 gm in 50 mls @ 200 mls/hr IVPB Q6H [facility] Last Admin: 10/23/17 14:23 Dose: Not Given Ipratropium Sage (Atrovent) 0.5 mg IH RQ6 PRN PRN Reason: Shortness of Breath Methylprednisolone (Solu-Medrol) 125 mg IV Q12 [facility] Last Admin: 10/23/17 11:20 Dose: 125 mg Saccharomyces Boulardii (Florastor) 250 mg PO BID [facility] Last Admin: 10/23/17 17:27 Dose: Not Given Physical Exam - Constitutional Appears: In Acute Distress - Head Exam Head Exam: ATRAUMATIC, NORMAL INSPECTION, NORMOCEPHALIC - Eye Exam Eye Exam: PERRL. absent: Scleral icterus - ENT Exam ENT Exam: Mucous Membranes Dry - Neck Exam Neck exam: Negative for: Lymphadenopathy, Thyromegaly - Respiratory Exam Respiratory Exam: Decreased Breath Sounds, Rales, Rhonchi - Cardiovascular Exam Cardiovascular Exam: Tachycardia, REGULAR RHYTHM, +S1, +S2 - GI/Abdominal Exam GI & Abdominal Exam: Diminished Bowel Sounds, Distended, Soft. absent: Guarding , Rebound, Rigid, Tenderness - Rectal Exam Rectal Exam: Deferred - Exam Exam: NORMAL INSPECTION - Extremities Exam Extremities exam: Positive for: pedal pulses present. Negative for: calf tenderness, pedal edema, tenderness - Back Exam Back exam: absent: CVA tenderness (L), CVA tenderness (R) - Neurological Exam Neurological exam: Alert, CN II-XII Intact, Oriented x3, Reflexes Normal - Psychiatric Exam Psychiatric exam: Depressed - Skin Skin Exam: Dry, Intact Results - Vital Signs Recent Vital Signs: Last Vital Signs Temp 98.3 F 10/23/17 12:00 Pulse 121 H 10/23/17 18:20 Resp 51 H 10/23/17 18:20 BP 119/78 10/23/17 18:20 Pulse Ox 87 L 10/23/17 18:20 - Labs Result Diagrams: 10/23/17 07:46 10/23/17 07:46 Labs: Laboratory Results - last 24 hr 10/23/17 10/23/17 10/23/17 07:43 07:46 07:46 WBC 9.4 RBC 5.45 Hgb 14.6 Hct 42.7 MCV 78.3 L MCH 26.9 L MCHC 34.3 RDW 15.5 H Plt Count 175 MPV 8.3 Neut % (Auto) 88.9 H Lymph % (Auto) 5.7 L [place] % (Auto) 5.1 Eos % (Auto) 0.1 Baso % (Auto) 0.2 Neut # 8.4 H Lymph # 0.5 L [place] # 0.5 Eos # 0.0 Baso # 0.0 Neutrophils % (Manual) 93 H Band Neutrophils % 1 Lymphocytes % (Manual) 4 L Monocytes % (Manual) 2 Nucleated RBC % 1 H Platelet Estimate Normal Anisocytosis (manual) Slight PT 16.2 H INR 1.4 APTT 27 D-Dimer, Quantitative 2034 H Puncture Site pCO2 pO2 HCO3 ABG pH ABG Total CO2 ABG O2 Saturation ABG Base Excess Jamarcus Test ABG Potassium VBG pH VBG pCO2 VBG HCO3 VBG Total CO2 VBG O2 Sat (Calc) VBG Base Excess VBG Potassium A-a O2 Difference Respiratory Index Glucose Lactate Vent Mode FiO2 Inspiratory BiPAP Expiratory BiPAP Crit Value Called To Crit Value Called By Crit Value Read Back Blood Gas Notified Time Sodium Potassium Chloride Carbon Dioxide Anion Gap BUN Creatinine Est GFR ( Amer) Est GFR (Non-Af Amer) POC Glucose (mg/dL) 165 H Random Glucose Calcium Total Bilirubin AST ALT Alkaline Phosphatase Troponin I NT-Pro-B Natriuret Pep Total Protein Albumin Globulin Albumin/Globulin Ratio Arterial Blood Potassium Venous Blood Potassium Urine Color Urine Clarity Urine pH Ur Specific [place] Urine Protein Urine Glucose (UA) Urine Ketones Urine Blood Urine Nitrate Urine Bilirubin Urine Urobilinogen Ur Leukocyte Esterase Urine WBC (Auto) Urine RBC (Auto) Ur Squamous Epith Cells Urine Bacteria Hyaline Casts Salicylates Urine Opiates Screen Urine Methadone Screen Acetaminophen Ur Barbiturates Screen Ur Phencyclidine Scrn Ur Amphetamines Screen U Benzodiazepines Scrn U Oth Cocaine Metabols U Cannabinoids Screen Alcohol, Quantitative Hepatitis A IgM Ab Hep Bs Antigen Hep B Core IgM Ab Hepatitis C Antibody HIV 1&2 Antibody Screen Influenza Typ A,B (EIA) 10/23/17 10/23/17 10/23/17 07:46 07:46 07:47 WBC RBC Hgb Hct MCV MCH MCHC RDW Plt Count MPV Neut % (Auto) Lymph % (Auto) [place] % (Auto) Eos % (Auto) Baso % (Auto) Neut # Lymph # [place] # Eos # Baso # Neutrophils % (Manual) Band Neutrophils % Lymphocytes % (Manual) Monocytes % (Manual) Nucleated RBC % Platelet Estimate Anisocytosis (manual) PT INR APTT D-Dimer, Quantitative Puncture Site pCO2 pO2 16 L HCO3 ABG pH ABG Total CO2 ABG O2 Saturation ABG Base Excess Jamarcus Test ABG Potassium VBG pH 7.28 L VBG pCO2 50 VBG HCO3 19.8 VBG Total CO2 25.0 VBG O2 Sat (Calc) 25.5 L VBG Base Excess -3.7 L VBG Potassium 4.7 A-a O2 Difference Respiratory Index Glucose 192 H Lactate 8.2 H* Vent Mode FiO2 Inspiratory BiPAP Expiratory BiPAP Crit Value Called To Dr valadez Crit Value Called By Daniel petty airframe and powerplant technician Crit Value Read Back Y Blood Gas Notified Time 750 Sodium 133 133.0 Potassium 4.8 Chloride 92 L 96.0 L Carbon Dioxide 23 Anion Gap 22 H BUN 22 H Creatinine 1.4 Est GFR ( Amer) > 60 Est GFR (Non-Af Amer) 58 POC Glucose (mg/dL) Random Glucose 178 H Calcium 8.6 Total Bilirubin 3.0 H AST 189 H ALT 277 H Alkaline Phosphatase 73 Troponin I 0.6920 H* NT-Pro-B Natriuret Pep 4670 H Total Protein 7.2 Albumin 4.1 Globulin 3.1 Albumin/Globulin Ratio 1.3 Arterial Blood Potassium Venous Blood Potassium 4.7 Urine Color Urine Clarity Urine pH Ur Specific [place] Urine Protein Urine Glucose (UA) Urine Ketones Urine Blood Urine Nitrate Urine Bilirubin Urine Urobilinogen Ur Leukocyte Esterase Urine WBC (Auto) Urine RBC (Auto) Ur Squamous Epith Cells Urine Bacteria Hyaline Casts Salicylates < 1.0 Urine Opiates Screen Urine Methadone Screen Acetaminophen < 10.0 L Ur Barbiturates Screen Ur Phencyclidine Scrn Ur Amphetamines Screen U Benzodiazepines Scrn U Oth Cocaine Metabols U Cannabinoids Screen Alcohol, Quantitative < 10 Hepatitis A IgM Ab Hep Bs Antigen Hep B Core IgM Ab Hepatitis C Antibody HIV 1&2 Antibody Screen Influenza Typ A,B (EIA) 10/23/17 10/23/17 10/23/17 08:10 08:14 08:14 WBC RBC Hgb Hct MCV MCH MCHC RDW Plt Count MPV Neut % (Auto) Lymph % (Auto) [place] % (Auto) Eos % (Auto) Baso % (Auto) Neut # Lymph # [place] # Eos # Baso # Neutrophils % (Manual) Band Neutrophils % Lymphocytes % (Manual) Monocytes % (Manual) Nucleated RBC % Platelet Estimate Anisocytosis (manual) PT INR APTT D-Dimer, Quantitative Puncture Site pCO2 pO2 HCO3 ABG pH ABG Total CO2 ABG O2 Saturation ABG Base Excess Jamarcus Test ABG Potassium VBG pH VBG pCO2 VBG HCO3 VBG Total CO2 VBG O2 Sat (Calc) VBG Base Excess VBG Potassium A-a O2 Difference Respiratory Index Glucose Lactate Vent Mode FiO2 Inspiratory BiPAP Expiratory BiPAP Crit Value Called To Crit Value Called By Crit Value Read Back Blood Gas Notified Time Sodium Potassium Chloride Carbon Dioxide Anion Gap BUN Creatinine Est GFR ( Amer) Est GFR (Non-Af Amer) POC Glucose (mg/dL) Random Glucose Calcium Total Bilirubin AST ALT Alkaline Phosphatase Troponin I NT-Pro-B Natriuret Pep Total Protein Albumin Globulin Albumin/Globulin Ratio Arterial Blood Potassium Venous Blood Potassium Urine Color Yellow Urine Clarity Clear Urine pH 5.0 Ur Specific [place] 1.013 Urine Protein 1+ H Urine Glucose (UA) Normal Urine Ketones Trace Urine Blood 1+ H Urine Nitrate Negative Urine Bilirubin Negative Urine Urobilinogen Normal Ur Leukocyte Esterase Neg Urine WBC (Auto) 2 Urine RBC (Auto) 3 Ur Squamous Epith Cells 2 Urine Bacteria Rare Hyaline Casts 6-10 H Salicylates Urine Opiates Screen Positive H Urine Methadone Screen Negative Acetaminophen Ur Barbiturates Screen Negative Ur Phencyclidine Scrn Negative Ur Amphetamines Screen Negative U Benzodiazepines Scrn Negative U Oth Cocaine Metabols Negative U Cannabinoids Screen Negative Alcohol, Quantitative Hepatitis A IgM Ab Hep Bs Antigen Hep B Core IgM Ab Hepatitis C Antibody HIV 1&2 Antibody Screen Influenza Typ A,B (EIA) Negative for flu a/b 10/23/17 10/23/17 10/23/17 08:43 11:14 14:52 WBC RBC Hgb Hct MCV MCH MCHC RDW Plt Count MPV Neut % (Auto) Lymph % (Auto) [place] % (Auto) Eos % (Auto) Baso % (Auto) Neut # Lymph # [place] # Eos # Baso # Neutrophils % (Manual) Band Neutrophils % Lymphocytes % (Manual) Monocytes % (Manual) Nucleated RBC % Platelet Estimate Anisocytosis (manual) PT INR APTT D-Dimer, Quantitative Puncture Site Rra Lr pCO2 46 H 39 pO2 60 L 56 L HCO3 22.7 24.8 ABG pH 7.32 L 7.41 ABG Total CO2 25.1 25.9 ABG O2 Saturation 94.2 L 94.0 L ABG Base Excess -2.6 L 0.1 Jamarcus Test Pos Pos ABG Potassium 3.8 3.4 L VBG pH VBG pCO2 VBG HCO3 VBG Total CO2 VBG O2 Sat (Calc) VBG Base Excess VBG Potassium A-a O2 Difference 596.0 608.0 Respiratory Index 9.9 10.9 Glucose 140 H 95 Lactate 2.1 1.6 Vent Mode Bipap Bipap FiO2 100.0 100.0 Inspiratory BiPAP 10 12 Expiratory BiPAP 5 5 Crit Value Called To Crit Value Called By Crit Value Read Back Blood Gas Notified Time Sodium 134.0 136.0 Potassium Chloride 106.0 105.0 Carbon Dioxide Anion Gap BUN Creatinine Est GFR ( Amer) Est GFR (Non-Af Amer) POC Glucose (mg/dL) Random Glucose Calcium Total Bilirubin AST ALT Alkaline Phosphatase Troponin I 0.9940 H* NT-Pro-B Natriuret Pep Total Protein Albumin Globulin Albumin/Globulin Ratio Arterial Blood Potassium 3.8 3.4 L Venous Blood Potassium Urine Color Urine Clarity Urine pH Ur Specific [place] Urine Protein Urine Glucose (UA) Urine Ketones Urine Blood Urine Nitrate Urine Bilirubin Urine Urobilinogen Ur Leukocyte Esterase Urine WBC (Auto) Urine RBC (Auto) Ur Squamous Epith Cells Urine Bacteria Hyaline Casts Salicylates Urine Opiates Screen Urine Methadone Screen Acetaminophen Ur Barbiturates Screen Ur Phencyclidine Scrn Ur Amphetamines Screen U Benzodiazepines Scrn U Oth Cocaine Metabols U Cannabinoids Screen Alcohol, Quantitative Hepatitis A IgM Ab Hep Bs Antigen Hep B Core IgM Ab Hepatitis C Antibody HIV 1&2 Antibody Screen Influenza Typ A,B (EIA) 10/23/17 10/23/17 14:52 14:52 WBC RBC Hgb Hct MCV MCH MCHC RDW Plt Count MPV Neut % (Auto) Lymph % (Auto) [place] % (Auto) Eos % (Auto) Baso % (Auto) Neut # Lymph # [place] # Eos # Baso # Neutrophils % (Manual) Band Neutrophils % Lymphocytes % (Manual) Monocytes % (Manual) Nucleated RBC % Platelet Estimate Anisocytosis (manual) PT INR APTT D-Dimer, Quantitative Puncture Site pCO2 pO2 HCO3 ABG pH ABG Total CO2 ABG O2 Saturation ABG Base Excess Jamarcus Test ABG Potassium VBG pH VBG pCO2 VBG HCO3 VBG Total CO2 VBG O2 Sat (Calc) VBG Base Excess VBG Potassium A-a O2 Difference Respiratory Index Glucose Lactate Vent Mode FiO2 Inspiratory BiPAP Expiratory BiPAP Crit Value Called To Crit Value Called By Crit Value Read Back Blood Gas Notified Time Sodium Potassium Chloride Carbon Dioxide Anion Gap BUN Creatinine Est GFR ( Amer) Est GFR (Non-Af Amer) POC Glucose (mg/dL) Random Glucose Calcium Total Bilirubin AST ALT Alkaline Phosphatase Troponin I NT-Pro-B Natriuret Pep Total Protein Albumin Globulin Albumin/Globulin Ratio Arterial Blood Potassium Venous Blood Potassium Urine Color Urine Clarity Urine pH Ur Specific [place] Urine Protein Urine Glucose (UA) Urine Ketones Urine Blood Urine Nitrate Urine Bilirubin Urine Urobilinogen Ur Leukocyte Esterase Urine WBC (Auto) Urine RBC (Auto) Ur Squamous Epith Cells Urine Bacteria Hyaline Casts Salicylates Urine Opiates Screen Urine Methadone Screen Acetaminophen Ur Barbiturates Screen Ur Phencyclidine Scrn Ur Amphetamines Screen U Benzodiazepines Scrn U Oth Cocaine Metabols U Cannabinoids Screen Alcohol, Quantitative Hepatitis A IgM Ab Negative Hep Bs Antigen Negative Hep B Core IgM Ab Negative Hepatitis C Antibody Negative HIV 1&2 Antibody Screen Negative Influenza Typ A,B (EIA) Assessment & Plan (1) Pneumonia Status: Acute (2) Heroin abuse Status: Acute (3) Respiratory failure with hypoxia and hypercapnia Status: Acute - Assessment and Plan (Free Text) Assessment: cont zosyn and zmax for strep, staph anaerobes add tamiflu empirically despite neg rapid flu add vanco empirically for pneumonia - etiology to be determined
[2017-10-23] MEDS ORDERED: Enoxaparin 100 mg Syringe SC SCH (20:00)
[2017-10-23] MEDS: Vancomycin 1 gm/NS 200 ml 1 GM/200 ML BAG IVPB SCH (20:13)
[2017-10-23] MEDS ORDERED: Enoxaparin 80 mg Syringe SC SCH (20:15)
--- NOTE | 2017-10-23 22:41 | CON ---
DATE: REASON FOR CONSULTATION: Shortness of breath and elevated cardiac enzymes. HISTORY OF PRESENT ILLNESS: The patient is a 31-year-old male originally from [place] who has no prior significant past medical history, presented because of shortness of breath after heroin abuse. Patient did abuse heroin in the past, but without any health problems. The patient is a nonsmoker. 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 He was admitted to ICU because of pneumonia, tachycardia and significant shortness of breath. SOCIAL HISTORY: Patient is a nonsmoker. He is a heroin abuser. He is studying Public Policy at [employer]. MEDICATIONS: Atrovent inhaler 2 puffs q. 6 hours, Zithromax at 100 mg intravenously daily, Rocephin 1 g intravenously q. 12 hours, Flagyl 500 mg intravenously q. 8 hours, Lovenox 70 mg subcutaneous twice a day, Solu-Medrol 125 mg intravenously q. 12 hours, 20 mg intravenously q. 12 hours. REVIEW OF SYSTEMS: The patient is noted to have low-grade fever. The patient denies any hemoptysis, denies any recent loss of weight. No nausea or vomiting. PHYSICAL EXAMINATION GENERAL: The patient is a middle-aged male who is tachypneic, on BiPAP. VITAL SIGNS: Blood pressure 111/69, heart rate 146 and has tachycardia on the monitor, temperature 99.8, respirations 49. HEENT: Head normocephalic. CHEST: Right basilar coarse crepitations. HEART: S1, S2 regular. ABDOMEN: Soft. EXTREMITIES: No edema. LABORATORY DATA: SMA-7: Sodium 133, potassium 4.8, chloride 92, CO2 of 23, glucose 178, BUN 22 and creatinine 1.4. Troponin 0.692, proBNP is 4670. Hemoglobin and hematocrit is 14.6 and 42.7, white count and platelet count are within normal limits. D-dimer is 2035. Influenza type A and B are negative. Urine drug screen is positive for opiates. Chest CT angio revealed extensive confluent airspace consolidation, worrisome for pneumonia throughout, right greater than left thorax, with relative sparing of the apices. No large central or segmental pulmonary embolus. Chest x-ray revealed dense right middle and lower lobe infiltrates. EKG revealed sinus tachycardia. ASSESSMENT: 1. Status post heroin abuse. 2. Consider pulmonary edema. 3. Right middle and lower lobe pneumonia. 4. Cardiomyopathy. 5. Borderline troponin elevation, unlikely represents acute myocardial injury; however, this differential diagnosis will be kept in mind. RECOMMENDATIONS: Case was discussed with the primary physician, Dr. Vinod Luis. A preliminary echo was seen during initial imaging at the bedside, which revealed diffuse cardiomyopathy. The patient will be maintained on IV Zithromax and IV Rocephin besides Solu-Medrol. Continue Lovenox at therapeutic regimen at 70 mg twice a day. Start Lasix 20 mg intravenously once a day and aspirin 81 mg once a day. Follow more serial EKGs as well as troponin levels. Obtain venous Doppler of the lower extremities at the bedside. The patient will be started on Coreg at 3.125 mg twice a day unless hypotension worsens or the patient's shortness of breath worsens. Patrice Guzman MD
--- NOTE | 2017-10-23 23:36 | PCM.PSYCH ---
Initial Psychiatric Evaluation - Initial Psychiatric Evaluation Type of Admission: Voluntary Legal Status: Capacity Current Medications: Active Medications Generic Name Dose Route Start Last Admin Trade Name Freq PRN Reason Stop Dose Admin Aspirin 81 mg 10/23/17 12:30 10/23/17 14:19 Aspirin Chewable PO 81 mg DAILY MERCEDEZ Administration Carvedilol 3.125 mg 10/23/17 18:00 10/23/17 17:27 Coreg PO Not Given BID MERCEDEZ Enoxaparin Sodium 70 mg 10/23/17 20:15 10/23/17 20:13 Lovenox SC 70 mg Q12H MRECEDEZ Administration Famotidine 20 mg 10/23/17 10:00 10/23/17 21:26 Pepcid IVP 20 mg Q12 MERCEDEZ Administration Furosemide 20 mg 10/23/17 12:30 10/23/17 14:14 Lasix IVP Not Given DAILY MERCEDEZ Azithromycin 500 mg/ Sodium 250 mls @ 250 mls/hr 10/24/17 10:00 Chloride IVPB DAILY MERC[facility] Piperacillin Sod/Tazobactam Sod 3.375 gm in 50 mls @ 200 mls/hr 10/23/17 13: 00 10/23/17 19:37 Zosyn 3.375 Gm Iv Premix IVPB 200 mls/hr Q6H MERCEDEZ Administration Vancomycin/Sodium Chloride 1 gm in 200 mls @ 133 mls/hr 10/23/17 20:00 20:13 Vancomycin 1 Gm/Ns 200 Ml IVPB 10/28/17 20:01 133 mls/hr Q12H MERCEDEZ Administration Ipratropium [place] 0.5 mg 10/23/17 14:40 Atrovent IH RQ6 PRN Shortness of Breath Methylprednisolone 125 mg 10/23/17 10:45 10/23/17 21:26 Solu-Medrol IV 125 mg Q12 MERCEDEZ Administration Oseltamivir Phosphate 75 mg 10/23/17 19:30 10/23/17 19:38 Tamiflu Cap PO 75 mg BID MERCEDEZ Administration Saccharomyces Boulardii 250 mg 10/23/17 10:00 10/23/17 17:27 Florastor PO Not Given BID MERCEDEZ Past Psychiatric History - Past Psychiatric History Previous Treatment History: None Pertinent Medical Hx (Current Medical&Sleep Prob, Allergies): Allergies Allergy/AdvReac Type Severity Reaction Status Date / Time No Known Allergies Allergy Verified 10/23/17 07:39 No Known Home Med 10/23/17 Review of Systems - Review of Systems All systems: reviewed and no additional remarkable complaints except - Psychiatric Psychiatric: Anxiety, Irritability Mental Status Examination - Personal Presentation Personal Presentation: Looks stated age - Affect Affect: Constricted, Depressed - Motor Activity Motor Activity: Calm - Reliability in Providing Information Reliability in Providing Information: Good - Speech Speech: Organized - Mood Mood: Depressed, Anxious - Formal Thought Process Formal Thought Process: No Impairment - Obsessions/Compulsions Obsessions: No Compulsions: No - Cognitive Functions Orientation: Person, Place, Situation, Time Sensorium: Alert Attention/Concentration: Attentive Abstract Thinking: [place] Estimate of Intelligence: Below average Judgement: Imparied, as evidence by: Poor judgement, Intact, as evidence by: Insight regarding need for hospitalization - Risk Risk: Diminished functioning DSM 5 DX - DSM 5 DSM 5 Diagnosis: Opioid use d/o severe Depressive disorder
[2017-10-24 00:44] LABS: ABG ALLEN TEST POS; ARTERIAL BLOOD GAS HCO3 29.3 mmol/L (21-28); ARTERIAL BLOOD GAS PCO2 40 mm/Hg (35-45); ARTERIAL BLOOD GAS PH 7.48 (7.35-7.45); ARTERIAL BLOOD GAS PO2 63 mm/Hg (80-100)
[2017-10-24] MEDS: Piperacill/Tazo 3.375gm in Dex 3.375 GM/50 ML BAG IVPB SCH ×4 (00:46→18:15)
[2017-10-24 06:46] LABS: BASO % 0.1 % (0.0-2.0); HEMOGLOBIN 13.5 g/dL (12.0-18.0); LYMPH # 0.5 K/uL (1.0-4.3); MEAN CELL VOLUME 77.8 fL (80.0-94.0); MEAN CORPUSCULAR HGB CONC 34.7 g/dL (33.0-37.0); MEAN PLATELET VOLUME 9.2 fL (7.2-11.7); MONO # 0.3 K/uL (0.0-0.8); MONO % 3.8 % (0.0-10.0); NEUT # 6.6 K/uL (1.8-7.0); NEUT % 89.1 % (50.0-75.0); NRBC % 0.3 % (0.0-2.0); PLATELET COUNT 166 K/uL (130-400); RBC 4.99 Mil/uL (4.40-5.90); RED CELL DISTRIBUTION WIDTH 15.4 % (11.5-14.5); WHITE BLOOD COUNT 7.4 K/uL (4.8-10.8)
[2017-10-24 07:09] LABS: ALB/GLOB RATIO 1.1 (1.0-2.1); ALBUMIN 3.7 g/dL (3.5-5.0); ALT/SGPT 264 U/L (21-72); AST/SGOT 145 U/L (17-59); BLOOD UREA NITROGEN 18 mg/dL (9-20); GFR AFRICAN-AMERICAN > 60; GFR NON-AFRICAN AMERICAN > 60; HDL CHOLESTEROL 47 mg/dL (30-70); MAGNESIUM 1.6 mg/dL (1.6-2.3)
[2017-10-24] MEDS: Vancomycin 1 gm/NS 200 ml 1 GM/200 ML BAG IVPB SCH ×2 (07:55→19:59)
[2017-10-24 07:57] LABS: LDL CHOLESTEROL < 30 mg/dL (0-129)
[2017-10-24] MEDS ORDERED: Enoxaparin 100 mg Syringe SC SCH (08:15)
--- NOTE | 2017-10-24 08:54 | RAD ---
HISTORY: SOB COMPARISON: Chest x-ray performed 10/23/17 TECHNIQUE: Chest, one view. FINDINGS: LUNGS: Extensive right and less evident left-sided patchy airspace consolidations remain worrisome for pneumonia. Relative sparing of the lung apices. PLEURA: No significant pleural effusion identified. No definite pneumothorax . CARDIOVASCULAR: Stable. OSSEOUS STRUCTURES: No acute osseous abnormality identified. VISUALIZED UPPER ABDOMEN: Unremarkable. OTHER FINDINGS: None. IMPRESSION: Extensive right and less evident left-sided patchy airspace consolidations remain worrisome for pneumonia. Relative sparing of the lung apices.
[2017-10-24 09:20] LABS: BANDS 21 % (0-2); LYMPHOCYTE 6 % (20-40); MONOCYTE 4 % (0-10); NEUTROPHIL 69 % (50-75); PLATELET ESTIMATE NORMAL (NORMAL); TOTAL CELLS COUNTED 100
[2017-10-24 09:21] LABS: ANISOCYTOSIS SLIGHT; HYPOCHROMIC SLIGHT; POLYCHROMIC SLIGHT
[2017-10-24 09:22] LABS: LARGE PLATELETS PRESENT; MICROCYTOSIS SLIGHT; TOXIC GRANULATION PRESENT
--- NOTE | 2017-10-24 09:24 | CP.CCUPN ---
CCU Subjective - Physician Review Events Since Last Encounter (Free Text): 10/24/17 09:24 History: 31-year-old male with no past medical history admitted to the hospital with worsening shortness of breath, lethargic. Positive for heroine abuse. X-ray of the chest and a CT of the lungs showing definite evidence for diffuse pneumonia bilateral, more on the right side. Negative for pulmonary embolism. Patient is still on full dose anticoagulation. Yesterday patient had a severe hypoxia, placed on BiPAP, but patient did not tolerate and placed on nonrebreather. Patient is currently receiving high flow O2 with 100%. Tolerating. Comfortable. Mild tachypnea. Vital signs otherwise stable. Chest good air entry bilaterally, no wheezing minimally noted irregular. nontender abdomen. day catheter noted x-rays repeated showing evidence of mild improvement. blood gas analysis minimal improvement. saturation 97% currently patient is on antibiotic, antiviral, and Solu-Medrol. He is also receiving Lasix, Lovenox. In my opinion patient is currently having severe acute pneumonia bilateral, will continue to monitor, spoke to the patient and . Critical Care Time Spent (in minutes): 45 CCU Objective - Vital Signs / Intake & Output Vital Signs (Last 4 hours): Vital Signs Temp Pulse Resp BP Pulse Ox 10/24/17 08:45 36 H 10/24/17 08:40 109 H 35 H 97 10/24/17 08:30 112 H 39 H 96 10/24/17 08:20 117 H 29 H 94 L 10/24/17 08:10 110 H 30 H 95 10/24/17 08:00 98.8 F 117 H 29 H 94 L 10/24/17 07:50 110 H 41 H 118/80 94 L 10/24/17 07:40 99 H 31 H 95 10/24/17 07:30 119 H 25 H 97 10/24/17 07:20 97 H 37 H 95 10/24/17 07:10 106 H 40 H 95 10/24/17 07:00 104 H 41 H 96 10/24/17 06:50 111 H 36 H 130/85 94 L 10/24/17 06:40 118 H 34 H 97 10/24/17 06:30 106 H 36 H 96 10/24/17 06:20 98 H 37 H 96 10/24/17 06:10 112 H 32 H 96 10/24/17 06:00 108 H 41 H 95 10/24/17 05:50 114 H 37 H 125/91 H 94 L 10/24/17 05:40 107 H 40 H 94 L 10/24/17 05:30 107 H 40 H 95 Intake and Output (Last 8hrs): Intake & Output 10/23/17 10/24/17 10/24/17 22:59 06:59 14:59 Intake Total 150 50 0 Output Total 2295 425 80 Balance -2145 -375 -80 Weight 142 lb 3.2 oz Intake: Intake, IV Amount 50 50 Left Antecubital 0 Right Antecubital 50 50 Oral 100 0 0 Output: Urine 2295 425 80 Urethral (Day) 2295 425 80 Other: # Bowel Movements 0 - Medications Active Medications: Active Medications Generic Name Dose Route Start Last Admin Trade Name Freq PRN Reason Stop Dose Admin Aspirin 81 mg 10/23/17 12:30 10/23/17 14:19 Aspirin Chewable PO 81 mg DAILY MERCEDEZ Administration Carvedilol 3.125 mg 10/23/17 18:00 10/23/17 17:27 Coreg PO Not Given BID [facility] Enoxaparin Sodium 70 mg 10/24/17 08:15 10/24/17 08:03 Lovenox SC 70 mg Q12H MERCEDEZ Administration Famotidine 20 mg 10/23/17 10:00 10/23/17 21:26 Pepcid IVP 20 mg Q12 MERCEDEZ Administration Furosemide 20 mg 10/23/17 12:30 10/23/17 14:14 Lasix IVP Not Given DAILY [facility] Azithromycin 500 mg/ Sodium 250 mls @ 250 mls/hr 10/24/17 10:00 Chloride IVPB DAILY [facility] Piperacillin Sod/Tazobactam Sod 3.375 gm in 50 mls @ 200 mls/hr 10/23/17 13: 00 10/24/17 06:30 Zosyn 3.375 Gm Iv Premix IVPB 200 mls/hr Q6H MERCEDEZ Administration Vancomycin/Sodium Chloride 1 gm in 200 mls @ 133 mls/hr 10/23/17 20:00 07:55 Vancomycin 1 Gm/Ns 200 Ml IVPB 10/28/17 20:01 133 mls/hr Q12H MERCEDEZ Administration Ipratropium Arnett 0.5 mg 10/23/17 14:40 Atrovent IH RQ6 PRN Shortness of Breath Methylprednisolone 40 mg 10/24/17 10:00 Solu-Medrol IV Q12 MERCEDEZ Oseltamivir Phosphate 75 mg 10/23/17 19:30 10/23/17 19:38 Tamiflu Cap PO 75 mg BID MERCEDEZ Administration Saccharomyces Myrondii 250 mg 10/23/17 10:00 10/23/17 17:27 Florastor PO Not Given BID MERCEDEZ - Patient Studies Lab Studies: Lab Studies 10/24/17 10/24/17 10/24/17 Range/Units 06:38 06:38 06:38 WBC 7.4 (4.8-10.8) K/uL RBC 4.99 (4.40-5.90) Mil/uL Hgb 13.5 (12.0-18.0) g/dL Hct 38.8 (35.0-51.0) % MCV 77.8 L (80.0-94.0) fL MCH 27.0 (27.0-31.0) pg MCHC 34.7 (33.0-37.0) g/dL RDW 15.4 H (11.5-14.5) % Plt Count 166 (130-400) K/uL MPV 9.2 (7.2-11.7) fL Neut % (Auto) 89.1 H (50.0-75.0) % Lymph % (Auto) 7.0 L (20.0-40.0) % [place] % (Auto) 3.8 (0.0-10.0) % Eos % (Auto) 0.0 (0.0-4.0) % Baso % (Auto) 0.1 (0.0-2.0) % Neut # 6.6 (1.8-7.0) K/uL Lymph # 0.5 L (1.0-4.3) K/uL [place] # 0.3 (0.0-0.8) K/uL Eos # 0.0 (0.0-0.7) K/uL Baso # 0.0 (0.0-0.2) K/uL Neutrophils % (Manual) 69 (50-75) % Band Neutrophils % 21 H* (0-2) % Lymphocytes % (Manual) 6 L (20-40) % Monocytes % (Manual) 4 (0-10) % Toxic Granulation Present Platelet Estimate Normal (NORMAL) Large Platelets Present Polychromasia Slight Hypochromasia (manual) Slight Anisocytosis (manual) Slight Microcytosis (manual) Slight Puncture Site pCO2 (35-45) mm/Hg pO2 (80-100) mm/Hg HCO3 (21-28) mmol/L ABG pH (7.35-7.45) ABG Total CO2 (22-28) mmol/L ABG O2 Saturation (95-98) % ABG Base Excess (-2.0-3.0) mmol/L Jamarcus Test ABG Potassium (3.6-5.2) mmol/L A-a O2 Difference mm/Hg Respiratory Index Sodium 133 (132-148) mmol/l Chloride 95 L (98-107) mmol/L Glucose (75-110) mg/dl Lactate (0.7-2.1) mmol/L Liter Flow Vent Mode FiO2 % Inspiratory BiPAP Expiratory BiPAP Potassium 3.8 (3.6-5.2) mmol/L Carbon Dioxide 30 (22-30) mmol/L Anion Gap 12 (10-20) BUN 18 (9-20) mg/dL Creatinine 0.7 L (0.8-1.5) mg/dL Est GFR ( Amer) > 60 Est GFR (Non-Af Amer) > 60 POC Glucose (mg/dL) (65-110) mg/dL Random Glucose 143 H (75-110) mg/dL Calcium 9.0 (8.6-10.4) mg/dl Phosphorus 2.0 L (2.5-4.5) mg/dL Magnesium 1.6 (1.6-2.3) mg/dL Total Bilirubin 2.3 H (0.2-1.3) mg/dL AST 145 H D (17-59) U/L ALT 264 H (21-72) U/L Alkaline Phosphatase 41 (38-126) U/L Troponin I (0.00-0.120) ng/mL Total Protein 6.9 (6.3-8.3) g/dL Albumin 3.7 (3.5-5.0) g/dL Globulin 3.2 (2.2-3.9) gm/dL Albumin/Globulin Ratio 1.1 (1.0-2.1) Triglycerides 55 D (0-149) mg/dL Cholesterol 124 (0-199) mg/dL LDL Cholesterol Direct < 30 (0-129) mg/dL HDL Cholesterol 47 (30-70) mg/dL Free T4 0.83 (0.78-2.19) ng/dL TSH 3rd Generation 0.15 L (0.46-4.68) mIU/L Arterial Blood Potassium (3.6-5.2) mmol/L Hepatitis A IgM Ab (NEGATIVE) Hep Bs Antigen (NEGATIVE) Hep B Core IgM Ab (NEGATIVE) Hepatitis C Antibody (NEGATIVE) HIV 1&2 Antibody Screen (NEGATIVE) 10/24/17 10/23/17 10/23/17 Range/Units 00:32 20:12 14:52 WBC (4.8-10.8) K/uL RBC (4.40-5.90) Mil/uL Hgb (12.0-18.0) g/dL Hct (35.0-51.0) % MCV (80.0-94.0) fL MCH (27.0-31.0) pg MCHC (33.0-37.0) g/dL RDW (11.5-14.5) % Plt Count (130-400) K/uL MPV (7.2-11.7) fL Neut % (Auto) (50.0-75.0) % Lymph % (Auto) (20.0-40.0) % [place] % (Auto) (0.0-10.0) % Eos % (Auto) (0.0-4.0) % Baso % (Auto) (0.0-2.0) % Neut # (1.8-7.0) K/uL Lymph # (1.0-4.3) K/uL [place] # (0.0-0.8) K/uL Eos # (0.0-0.7) K/uL Baso # (0.0-0.2) K/uL Neutrophils % (Manual) (50-75) % Band Neutrophils % (0-2) % Lymphocytes % (Manual) (20-40) % Monocytes % (Manual) (0-10) % Toxic Granulation Platelet Estimate (NORMAL) Large Platelets Polychromasia Hypochromasia (manual) Anisocytosis (manual) Microcytosis (manual) Puncture Site Rr pCO2 40 (35-45) mm/Hg pO2 63 L (80-100) mm/Hg HCO3 29.3 H (21-28) mmol/L ABG pH 7.48 H (7.35-7.45) ABG Total CO2 31.0 H (22-28) mmol/L ABG O2 Saturation 96.0 (95-98) % ABG Base Excess 5.8 H (-2.0-3.0) mmol/L Jamarcus Test Pos ABG Potassium 3.3 L (3.6-5.2) mmol/L A-a O2 Difference mm/Hg Respiratory Index Sodium 135.0 (132-148) mmol/l Chloride 100.0 (98-107) mmol/L Glucose 171 H (75-110) mg/dl Lactate 1.7 (0.7-2.1) mmol/L Liter Flow 15.0 Vent Mode FiO2 % Inspiratory BiPAP Expiratory BiPAP Potassium (3.6-5.2) mmol/L Carbon Dioxide (22-30) mmol/L Anion Gap (10-20) BUN (9-20) mg/dL Creatinine (0.8-1.5) mg/dL Est GFR ( Amer) Est GFR (Non-Af Amer) POC Glucose (mg/dL) (65-110) mg/dL Random Glucose (75-110) mg/dL Calcium (8.6-10.4) mg/dl Phosphorus (2.5-4.5) mg/dL Magnesium (1.6-2.3) mg/dL Total Bilirubin (0.2-1.3) mg/dL AST (17-59) U/L ALT (21-72) U/L Alkaline Phosphatase (38-126) U/L Troponin I 0.6540 H* (0.00-0.120) ng/mL Total Protein (6.3-8.3) g/dL Albumin (3.5-5.0) g/dL Globulin (2.2-3.9) gm/dL Albumin/Globulin Ratio (1.0-2.1) Triglycerides (0-149) mg/dL Cholesterol (0-199) mg/dL LDL Cholesterol Direct (0-129) mg/dL HDL Cholesterol (30-70) mg/dL Free T4 (0.78-2.19) ng/dL TSH 3rd Generation (0.46-4.68) mIU/L Arterial Blood Potassium 3.3 L (3.6-5.2) mmol/L Hepatitis A IgM Ab (NEGATIVE) Hep Bs Antigen (NEGATIVE) Hep B Core IgM Ab (NEGATIVE) Hepatitis C Antibody (NEGATIVE) HIV 1&2 Antibody Screen Negative (NEGATIVE) 10/23/17 10/23/17 10/23/17 Range/Units 14:52 14:52 11:14 WBC (4.8-10.8) K/uL RBC (4.40-5.90) Mil/uL Hgb (12.0-18.0) g/dL Hct (35.0-51.0) % MCV (80.0-94.0) fL MCH (27.0-31.0) pg MCHC (33.0-37.0) g/dL RDW (11.5-14.5) % Plt Count (130-400) K/uL MPV (7.2-11.7) fL Neut % (Auto) (50.0-75.0) % Lymph % (Auto) (20.0-40.0) % [place] % (Auto) (0.0-10.0) % Eos % (Auto) (0.0-4.0) % Baso % (Auto) (0.0-2.0) % Neut # (1.8-7.0) K/uL Lymph # (1.0-4.3) K/uL [place] # (0.0-0.8) K/uL Eos # (0.0-0.7) K/uL Baso # (0.0-0.2) K/uL Neutrophils % (Manual) (50-75) % Band Neutrophils % (0-2) % Lymphocytes % (Manual) (20-40) % Monocytes % (Manual) (0-10) % Toxic Granulation Platelet Estimate (NORMAL) Large Platelets Polychromasia Hypochromasia (manual) Anisocytosis (manual) Microcytosis (manual) Puncture Site Lr pCO2 39 (35-45) mm/Hg pO2 56 L (80-100) mm/Hg HCO3 24.8 (21-28) mmol/L ABG pH 7.41 (7.35-7.45) ABG Total CO2 25.9 (22-28) mmol/L ABG O2 Saturation 94.0 L (95-98) % ABG Base Excess 0.1 (-2.0-3.0) mmol/L Jamarcus Test Pos ABG Potassium 3.4 L (3.6-5.2) mmol/L A-a O2 Difference 608.0 mm/Hg Respiratory Index 10.9 Sodium 136.0 (132-148) mmol/l Chloride 105.0 (98-107) mmol/L Glucose 95 (75-110) mg/dl Lactate 1.6 (0.7-2.1) mmol/L Liter Flow Vent Mode Bipap FiO2 100.0 % Inspiratory BiPAP 12 Expiratory BiPAP 5 Potassium (3.6-5.2) mmol/L Carbon Dioxide (22-30) mmol/L Anion Gap (10-20) BUN (9-20) mg/dL Creatinine (0.8-1.5) mg/dL Est GFR ( Amer) Est GFR (Non-Af Amer) POC Glucose (mg/dL) (65-110) mg/dL Random Glucose (75-110) mg/dL Calcium (8.6-10.4) mg/dl Phosphorus (2.5-4.5) mg/dL Magnesium (1.6-2.3) mg/dL Total Bilirubin (0.2-1.3) mg/dL AST (17-59) U/L ALT (21-72) U/L Alkaline Phosphatase (38-126) U/L Troponin I 0.9940 H* (0.00-0.120) ng/mL Total Protein (6.3-8.3) g/dL Albumin (3.5-5.0) g/dL Globulin (2.2-3.9) gm/dL Albumin/Globulin Ratio (1.0-2.1) Triglycerides (0-149) mg/dL Cholesterol (0-199) mg/dL LDL Cholesterol Direct (0-129) mg/dL HDL Cholesterol (30-70) mg/dL Free T4 (0.78-2.19) ng/dL TSH 3rd Generation (0.46-4.68) mIU/L Arterial Blood Potassium 3.4 L (3.6-5.2) mmol/L Hepatitis A IgM Ab Negative (NEGATIVE) Hep Bs Antigen Negative (NEGATIVE) Hep B Core IgM Ab Negative (NEGATIVE) Hepatitis C Antibody Negative (NEGATIVE) HIV 1&2 Antibody Screen (NEGATIVE) 10/23/17 Range/Units 07:43 WBC (4.8-10.8) K/uL RBC (4.40-5.90) Mil/uL Hgb (12.0-18.0) g/dL Hct (35.0-51.0) % MCV (80.0-94.0) fL MCH (27.0-31.0) pg MCHC (33.0-37.0) g/dL RDW (11.5-14.5) % Plt Count (130-400) K/uL MPV (7.2-11.7) fL Neut % (Auto) (50.0-75.0) % Lymph % (Auto) (20.0-40.0) % [place] % (Auto) (0.0-10.0) % Eos % (Auto) (0.0-4.0) % Baso % (Auto) (0.0-2.0) % Neut # (1.8-7.0) K/uL Lymph # (1.0-4.3) K/uL [place] # (0.0-0.8) K/uL Eos # (0.0-0.7) K/uL Baso # (0.0-0.2) K/uL Neutrophils % (Manual) (50-75) % Band Neutrophils % (0-2) % Lymphocytes % (Manual) (20-40) % Monocytes % (Manual) (0-10) % Toxic Granulation Platelet Estimate (NORMAL) Large Platelets Polychromasia Hypochromasia (manual) Anisocytosis (manual) Microcytosis (manual) Puncture Site pCO2 (35-45) mm/Hg pO2 (80-100) mm/Hg HCO3 (21-28) mmol/L ABG pH (7.35-7.45) ABG Total CO2 (22-28) mmol/L ABG O2 Saturation (95-98) % ABG Base Excess (-2.0-3.0) mmol/L Jamarcus Test ABG Potassium (3.6-5.2) mmol/L A-a O2 Difference mm/Hg Respiratory Index Sodium (132-148) mmol/l Chloride (98-107) mmol/L Glucose (75-110) mg/dl Lactate (0.7-2.1) mmol/L Liter Flow Vent Mode FiO2 % Inspiratory BiPAP Expiratory BiPAP Potassium (3.6-5.2) mmol/L Carbon Dioxide (22-30) mmol/L Anion Gap (10-20) BUN (9-20) mg/dL Creatinine (0.8-1.5) mg/dL Est GFR ( Amer) Est GFR (Non-Af Amer) POC Glucose (mg/dL) 165 H (65-110) mg/dL Random Glucose (75-110) mg/dL Calcium (8.6-10.4) mg/dl Phosphorus (2.5-4.5) mg/dL Magnesium (1.6-2.3) mg/dL Total Bilirubin (0.2-1.3) mg/dL AST (17-59) U/L ALT (21-72) U/L Alkaline Phosphatase (38-126) U/L Troponin I (0.00-0.120) ng/mL Total Protein (6.3-8.3) g/dL Albumin (3.5-5.0) g/dL Globulin (2.2-3.9) gm/dL Albumin/Globulin Ratio (1.0-2.1) Triglycerides (0-149) mg/dL Cholesterol (0-199) mg/dL LDL Cholesterol Direct (0-129) mg/dL HDL Cholesterol (30-70) mg/dL Free T4 (0.78-2.19) ng/dL TSH 3rd Generation (0.46-4.68) mIU/L Arterial Blood Potassium (3.6-5.2) mmol/L Hepatitis A IgM Ab (NEGATIVE) Hep Bs Antigen (NEGATIVE) Hep B Core IgM Ab (NEGATIVE) Hepatitis C Antibody (NEGATIVE) HIV 1&2 Antibody Screen (NEGATIVE) Laboratory Results - last 24 hr 10/23/17 10/23/17 10/23/17 07:43 11:14 14:52 WBC RBC Hgb Hct MCV MCH MCHC RDW Plt Count MPV Neut % (Auto) Lymph % (Auto) [place] % (Auto) Eos % (Auto) Baso % (Auto) Neut # Lymph # [place] # Eos # Baso # Neutrophils % (Manual) Band Neutrophils % Lymphocytes % (Manual) Monocytes % (Manual) Toxic Granulation Platelet Estimate Large Platelets Polychromasia Hypochromasia (manual) Anisocytosis (manual) Microcytosis (manual) Puncture Site Lr pCO2 39 pO2 56 L HCO3 24.8 ABG pH 7.41 ABG Total CO2 25.9 ABG O2 Saturation 94.0 L ABG Base Excess 0.1 Jamarcus Test Pos ABG Potassium 3.4 L A-a O2 Difference 608.0 Respiratory Index 10.9 Sodium 136.0 Chloride 105.0 Glucose 95 Lactate 1.6 Liter Flow Vent Mode Bipap FiO2 100.0 Inspiratory BiPAP 12 Expiratory BiPAP 5 Potassium Carbon Dioxide Anion Gap BUN Creatinine Est GFR ( Amer) Est GFR (Non-Af Amer) POC Glucose (mg/dL) 165 H Random Glucose Calcium Phosphorus Magnesium Total Bilirubin AST ALT Alkaline Phosphatase Troponin I 0.9940 H* Total Protein Albumin Globulin Albumin/Globulin Ratio Triglycerides Cholesterol LDL Cholesterol Direct HDL Cholesterol Free T4 TSH 3rd Generation Arterial Blood Potassium 3.4 L Hepatitis A IgM Ab Hep Bs Antigen Hep B Core IgM Ab Hepatitis C Antibody HIV 1&2 Antibody Screen 10/23/17 10/23/17 10/23/17 14:52 14:52 20:12 WBC RBC Hgb Hct MCV MCH MCHC RDW Plt Count MPV Neut % (Auto) Lymph % (Auto) [place] % (Auto) Eos % (Auto) Baso % (Auto) Neut # Lymph # [place] # Eos # Baso # Neutrophils % (Manual) Band Neutrophils % Lymphocytes % (Manual) Monocytes % (Manual) Toxic Granulation Platelet Estimate Large Platelets Polychromasia Hypochromasia (manual) Anisocytosis (manual) Microcytosis (manual) Puncture Site pCO2 pO2 HCO3 ABG pH ABG Total CO2 ABG O2 Saturation ABG Base Excess Jamarcus Test ABG Potassium A-a O2 Difference Respiratory Index Sodium Chloride Glucose Lactate Liter Flow Vent Mode FiO2 Inspiratory BiPAP Expiratory BiPAP Potassium Carbon Dioxide Anion Gap BUN Creatinine Est GFR ( Amer) Est GFR (Non-Af Amer) POC Glucose (mg/dL) Random Glucose Calcium Phosphorus Magnesium Total Bilirubin AST ALT Alkaline Phosphatase Troponin I 0.6540 H* Total Protein Albumin Globulin Albumin/Globulin Ratio Triglycerides Cholesterol LDL Cholesterol Direct HDL Cholesterol Free T4 TSH 3rd Generation Arterial Blood Potassium Hepatitis A IgM Ab Negative Hep Bs Antigen Negative Hep B Core IgM Ab Negative Hepatitis C Antibody Negative HIV 1&2 Antibody Screen Negative 10/24/17 10/24/17 10/24/17 00:32 06:38 06:38 WBC RBC Hgb Hct MCV MCH MCHC RDW Plt Count MPV Neut % (Auto) Lymph % (Auto) [place] % (Auto) Eos % (Auto) Baso % (Auto) Neut # Lymph # [place] # Eos # Baso # Neutrophils % (Manual) Band Neutrophils % Lymphocytes % (Manual) Monocytes % (Manual) Toxic Granulation Platelet Estimate Large Platelets Polychromasia Hypochromasia (manual) Anisocytosis (manual) Microcytosis (manual) Puncture Site Rr pCO2 40 pO2 63 L HCO3 29.3 H ABG pH 7.48 H ABG Total CO2 31.0 H ABG O2 Saturation 96.0 ABG Base Excess 5.8 H Jamarcus Test Pos ABG Potassium 3.3 L A-a O2 Difference Respiratory Index Sodium 135.0 133 Chloride 100.0 95 L Glucose 171 H Lactate 1.7 Liter Flow 15.0 Vent Mode FiO2 Inspiratory BiPAP Expiratory BiPAP Potassium 3.8 Carbon Dioxide 30 Anion Gap 12 BUN 18 Creatinine 0.7 L Est GFR ( Amer) > 60 Est GFR (Non-Af Amer) > 60 POC Glucose (mg/dL) Random Glucose 143 H Calcium 9.0 Phosphorus 2.0 L Magnesium 1.6 Total Bilirubin 2.3 H AST 145 H D ALT 264 H Alkaline Phosphatase 41 Troponin I Total Protein 6.9 Albumin 3.7 Globulin 3.2 Albumin/Globulin Ratio 1.1 Triglycerides 55 D Cholesterol 124 LDL Cholesterol Direct < 30 HDL Cholesterol 47 Free T4 0.83 TSH 3rd Generation 0.15 L Arterial Blood Potassium 3.3 L Hepatitis A IgM Ab Hep Bs Antigen Hep B Core IgM Ab Hepatitis C Antibody HIV 1&2 Antibody Screen 10/24/17 06:38 WBC 7.4 RBC 4.99 Hgb 13.5 Hct 38.8 MCV 77.8 L MCH 27.0 MCHC 34.7 RDW 15.4 H Plt Count 166 MPV 9.2 Neut % (Auto) 89.1 H Lymph % (Auto) 7.0 L [place] % (Auto) 3.8 Eos % (Auto) 0.0 Baso % (Auto) 0.1 Neut # 6.6 Lymph # 0.5 L [place] # 0.3 Eos # 0.0 Baso # 0.0 Neutrophils % (Manual) 69 Band Neutrophils % 21 H* Lymphocytes % (Manual) 6 L Monocytes % (Manual) 4 Toxic Granulation Present Platelet Estimate Normal Large Platelets Present Polychromasia Slight Hypochromasia (manual) Slight Anisocytosis (manual) Slight Microcytosis (manual) Slight Puncture Site pCO2 pO2 HCO3 ABG pH ABG Total CO2 ABG O2 Saturation ABG Base Excess Jamarcus Test ABG Potassium A-a O2 Difference Respiratory Index Sodium Chloride Glucose Lactate Liter Flow Vent Mode FiO2 Inspiratory BiPAP Expiratory BiPAP Potassium Carbon Dioxide Anion Gap BUN Creatinine Est GFR ( Amer) Est GFR (Non-Af Amer) POC Glucose (mg/dL) Random Glucose Calcium Phosphorus Magnesium Total Bilirubin AST ALT Alkaline Phosphatase Troponin I Total Protein Albumin Globulin Albumin/Globulin Ratio Triglycerides Cholesterol LDL Cholesterol Direct HDL Cholesterol Free T4 TSH 3rd Generation Arterial Blood Potassium Hepatitis A IgM Ab Hep Bs Antigen Hep B Core IgM Ab Hepatitis C Antibody HIV 1&2 Antibody Screen EKG/Cardiology Studies: Cardiology / EKG Studies 10/23/17 20:00 EKG [ELECTROCARDIOGRAM] Routine Comment: Mode Of Transportation: PORTABLE Reason For Exam: Elevated Troponin Fingerstick Blood Sugar Results: 165
[2017-10-24] MEDS: Saccharomyces Boulardi 250 mg Cap PO SCH ×2 (09:52→17:20)
[2017-10-24] MEDS: MethylPREDNISolone 40 mg Vial IV SCH ×2 (09:53→21:33)
[2017-10-24] MEDS: Azithromycin 500 MG in Sodium Chloride 0.9% 250 ML IVPB SCH (09:54)
--- NOTE | 2017-10-24 13:21 | CP.PCM.PN ---
Subjective - Date & Time of Evaluation Date of Evaluation: 10/24/17 Time of Evaluation: 01:00 - Subjective Subjective: Hospitalist Progress Note Patient was seen and examined at 1:00 PM 10/24/17 ICU Bed #5. 31 year old male who collapsed at home after heroin overdose and became awake after Narcan administration in the field was admitted to [facility] ICU on 10/23/17 for treatment and evaluation of Respiratory Distress, Right Sided Pneumonia Likely Secondary to Aspiration, Elevated Troponin. Currently upon FULL ROS; NO chest pain NO palpitations Dyspnea is much better on High Flow Oxygen Can not take in deep breath secondary to coughing which is occasionally productive of white nonbloody sputum NO dysphagia/odynophagia NO abdominal pain NO n/v/d/c: has not moved his bowels since admission as per patient NO burning/pain with urination NO paresthesias NO new changes in vision NO new changes in hearing NO headache Exam: HEENT: NCA, EOMI, PERRLA, NO pharyngeal erythema/exudate, NO thyromegaly, NO cervicaly/supraclavicular/submandibular lymphadenopathy Cardio: NS1 and NS2, NO M/R/G Resp: decreased breath sound throughout the lung [place] and patient not taking in deep breaths secondary to fear of cough GI: BSx4, ND, NT, NO HSM, NO guarding/rebound tenderness, Soft Ext: Pulses are strong and equal, Capillary Refill is 2 seconds Neuro: CN II through XII are grossly intact Assessment and Plan: 1). Respiratory Distress Likely secondary to Opiate Overdose and Aspiration Pneumonia Doing better on High Flow Oxygen Solumedrol 40 mg IV Q12H 2). Right Pneumonia, Aspiration Azithromycin 500 mg IV Q24H (10/23/17) Tamiflu 75 mg PO 2x/day (Day 2 of 5) Zosyn 3.375 gm IV Q6H (10/23/17) Vancomycin 1 gm IV Q12H (10/23/17) F/U Vancomycin Trough at 7:30 AM 10/25/17: Shoot for a Trough of 15 considering the Aspiration Pneumonia F/U Urine Strep Pneumoniae Ag F/U Urine Legionella Ag Rapid Influenza is NEGATIVE F/U Mycoplasma IgG and IgM Blood Culture results are pending Urine Culture results are pending ID Dr. Lynn 3). Elevated D-Dimer CT Chest PE Protocol: NO PULMONARY EMBOLISM. Confluent air space consolidation throughout Right > Left Hemithorax Bilateral Venous Dopplers LE: NO DVT 4). Elevated Troponin/Elevated ProBNP/Cardiomyopathy Echocardiogram 10/23/17 shows Cardiomyopathy: F/U Official Report and patient will need REPEAT ECHO in 2 weeks Lasix 20 mg IV 1x/day ASA 81 mg PO 1x/day Coreg 3.125 mg PO 2x/day Lovenox 70 mg SC Q12H Troponin declining Will order for 4 PM and 10 PM tonight 10/24/17 and as part of morning labs Cardiology Dr. Guzman 5). Elevated LFTs Hepatitis Panel is NEGATIVE HIV is NEGATIVE 6). Heroin Use Psychiatry Dr. Kramer 7). Prophylaxis Florastor 250 mg PO 2x/day Pepcid 20 mg IV Q12H Lovenox 70 mg SC Q12H Objective - Vital Signs/Intake and Output Vital Signs (last 24 hours): Temp Pulse Resp BP Pulse Ox 99.5 F 118 H 44 H 112/64 94 L 10/24/17 12:00 10/24/17 12:00 10/24/17 12:00 10/24/17 11:50 10/24/17 12:00 Intake and Output: 10/24/17 10/24/17 06:59 18:59 Intake Total 150 400 Output Total 620 855 Balance -470 -455 - Medications Medications: Current Medications Aspirin (Aspirin Chewable) 81 mg PO DAILY [facility] Last Admin: 10/24/17 09:51 Dose: 81 mg Carvedilol (Coreg) 3.125 mg PO BID [facility] Last Admin: 10/24/17 09:52 Dose: 3.125 mg Enoxaparin Sodium (Lovenox) 70 mg SC Q12H [facility] Last Admin: 10/24/17 08:03 Dose: 70 mg Famotidine (Pepcid) 20 mg IVP Q12 [facility] Last Admin: 10/24/17 09:52 Dose: 20 mg Furosemide (Lasix) 20 mg IVP DAILY [facility] Last Admin: 10/24/17 09:52 Dose: 20 mg Azithromycin 500 mg/ Sodium (Chloride) 250 mls @ 250 mls/hr IVPB DAILY [facility] Last Admin: 10/24/17 09:54 Dose: 250 mls/hr Piperacillin Sod/Tazobactam Sod (Zosyn 3.375 Gm Iv Premix) 3.375 gm in 50 mls @ 200 mls/hr IVPB Q6H [facility] Last Admin: 10/24/17 12:13 Dose: 200 mls/hr Vancomycin/Sodium Chloride (Vancomycin 1 Gm/Ns 200 Ml) 1 gm in 200 mls @ 133 mls/hr IVPB Q12H [facility] Stop: 10/28/17 20:01 Last Admin: 10/24/17 07:55 Dose: 133 mls/hr Ipratropium [place] (Atrovent) 0.5 mg IH RQ6 PRN PRN Reason: Shortness of Breath Methylprednisolone (Solu-Medrol) 40 mg IV Q12 [facility] Last Admin: 10/24/17 09:53 Dose: 40 mg Oseltamivir Phosphate (Tamiflu Cap) 75 mg PO BID [facility] Last Admin: 10/24/17 09:56 Dose: 75 mg Saccharomyces Boulardii (Florastor) 250 mg PO BID [facility] Last Admin: 10/24/17 09:52 Dose: 250 mg - Labs Labs: 10/24/17 06:38 10/24/17 06:38 PT 16.2 SECONDS (9.7-12.2) H 10/23/17 07:46 INR 1.4 10/23/17 07:46 APTT 27 SECONDS (21-34) 10/23/17 07:46
--- NOTE | 2017-10-24 20:06 | PN ---
DATE: FOLLOWUP SUBJECTIVE: The patient is still tachypneic and tachycardic. He is doing chest breathing because of sharp chest pain, especially on the right side of the posterior chest wall. No reported ventricular arrhythmia or hypotension. PHYSICAL EXAMINATION VITAL SIGNS: The most recent blood pressure is 112/64, heart rate 98, respiration 33, temperature 98.8. HEENT: Normocephalic. CHEST: Very poor inspiratory effort and absent breath sounds over the right base. HEART: S1 and S2 regular. ABDOMEN: Soft. EXTREMITIES: No edema. LABORATORY DATA: SMA-7: Sodium 136, potassium 3.8, chloride 95, CO2 30, glucose 143, BUN 18 and creatinine 0.7. Troponin is 0.994 and 0.654. Hemoglobin and hematocrit is 13.5 and 38.8, white count and platelet count are 7.4 and 166,000. Venous Doppler of the lower extremities was performed; however, the reports are still pending. Chest x-ray revealed dense right middle lobe infiltrate with possible consolidation with right lower lobe infiltrate. Official report of the echocardiogram is still pending; however, my own views consistent with severe global hypokinesis. ASSESSMENT: 1. Cardiomyopathy. 2. Borderline troponin elevation. 3. Right lower lobe and middle lobe pneumonia. 4. Heroin abuse. RECOMMENDATIONS: Continue therapeutic subcutaneous Lovenox at 70 mg twice a day, aspirin 81 mg once a day, Lasix 20 mg intravenously once a day, Coreg 3.125 mg once a day. Continue IV Zosyn, IV vancomycin and IV Zithromax. Continue Solu-Medrol at 20 mg intravenously q.12 hours. The overall picture is consistent with cardiomyopathy either drug-induced or viral; however, in view of borderline troponin elevation, eventually cardiac cath will be presented after some degree of resolution of the patient's current pneumonia. Patrice Guzman MD
[2017-10-24] MEDS: Enoxaparin 80 mg Syringe SC SCH (20:07)
[2017-10-25] MEDS: Piperacill/Tazo 3.375gm in Dex 3.375 GM/50 ML BAG IVPB SCH ×4 (00:39→18:11)
[2017-10-25 06:03] LABS: BASO % 0.1 % (0.0-2.0); HEMOGLOBIN 12.7 g/dL (12.0-18.0); LYMPH # 0.7 K/uL (1.0-4.3); LYMPH % 9.3 % (20.0-40.0); MEAN CELL VOLUME 76.9 fL (80.0-94.0); MEAN CORPUSCULAR HEMOGLOBIN 26.7 pg (27.0-31.0); MEAN CORPUSCULAR HGB CONC 34.7 g/dL (33.0-37.0); MONO # 0.4 K/uL (0.0-0.8); MONO % 5.5 % (0.0-10.0); NEUT # 6.8 K/uL (1.8-7.0); NEUT % 85.1 % (50.0-75.0); PLATELET COUNT 210 K/uL (130-400); RBC 4.77 Mil/uL (4.40-5.90); RED CELL DISTRIBUTION WIDTH 14.9 % (11.5-14.5)
[2017-10-25 06:52] LABS: ALB/GLOB RATIO 1.1 (1.0-2.1); ALBUMIN 3.5 g/dL (3.5-5.0); ALT/SGPT 211 U/L (21-72); AST/SGOT 63 U/L (17-59); BLOOD UREA NITROGEN 25 mg/dL (9-20); CALCIUM 8.8 mg/dl (8.6-10.4); GFR AFRICAN-AMERICAN > 60; GFR NON-AFRICAN AMERICAN > 60; MAGNESIUM 1.8 mg/dL (1.6-2.3)
--- NOTE | 2017-10-25 08:07 | CP.CCUPN ---
CCU Subjective - Physician Review Events Since Last Encounter (Free Text): 10/25/17 08:05 History: 31-year-old male with no past medical history admitted to the hospital with worsening shortness of breath, lethargic. Positive for heroine abuse. X-ray of the chest and a CT of the lungs showing definite evidence for diffuse pneumonia bilateral, more on the right side. Negative for pulmonary embolism. Patient is still on full dose anticoagulation. patient had a severe hypoxia, placed on BiPAP, but patient did not tolerate and placed on nonrebreather. Patient is currently receiving high flow O2 with 80%. spo2 better Tolerating. Comfortable. Mild tachypnea. Vital signs otherwise stable. Chest good air entry bilaterally, no wheezing minimally noted irregular. nontender abdomen. day catheter noted x-rays repeated showing evidence of improvement. blood gas analysis minimal improvement. saturation 97% currently patient is on antibiotic, antiviral, and Solu-Medrol. He is also receiving Lasix, Lovenox. In my opinion patient is currently having severe acute pneumonia with improvement CCU Objective - Vital Signs / Intake & Output Vital Signs (Last 4 hours): Vital Signs Pulse Resp BP Pulse Ox 10/25/17 07:10 78 38 H 95 10/25/17 07:00 80 24 120/81 96 10/25/17 06:50 83 30 H 120/81 93 L 10/25/17 06:40 93 H 32 H 96 10/25/17 06:30 85 40 H 93 L 10/25/17 06:20 85 28 H 96 10/25/17 06:10 83 16 95 10/25/17 06:00 93 H 17 94 L 10/25/17 05:50 80 24 118/80 95 10/25/17 05:40 83 25 H 95 10/25/17 05:30 85 27 H 96 10/25/17 05:20 97 H 20 92 L 10/25/17 05:10 103 H 28 H 94 L 10/25/17 05:04 18 10/25/17 05:00 78 29 H 95 10/25/17 04:51 88 14 121/67 98 10/25/17 04:50 95 H 21 92 L 10/25/17 04:40 75 27 H 96 10/25/17 04:30 79 29 H 96 10/25/17 04:20 80 30 H 96 10/25/17 04:10 80 27 H 96 Intake and Output (Last 8hrs): Intake & Output 10/24/17 10/25/17 10/25/17 22:59 06:59 14:59 Intake Total 1120 50 50 Output Total 605 305 Balance 515 -255 50 Weight 134 lb 4.8 oz Intake: Intake, IV Amount 200 50 50 Right Antecubital 200 50 50 Oral 920 0 Output: Urine 605 305 Urethral (Day) 605 305 Other: # Bowel Movements 0 - Medications Active Medications: Active Medications Generic Name Dose Route Start Last Admin Trade Name Freq PRN Reason Stop Dose Admin Aspirin 81 mg 10/23/17 12:30 10/24/17 09:51 Aspirin Chewable PO 81 mg DAILY [facility] Administration Carvedilol 3.125 mg 10/23/17 18:00 10/24/17 17:20 Coreg PO 3.125 mg BID [facility] Administration Enoxaparin Sodium 70 mg 10/24/17 20:15 10/24/17 20:07 Lovenox SC 70 mg Q12H [facility] Administration Famotidine 20 mg 10/23/17 10:00 10/24/17 21:33 Pepcid IVP 20 mg Q12 [facility] Administration Furosemide 20 mg 10/23/17 12:30 10/24/17 09:52 Lasix IVP 20 mg DAILY [facility] Administration Azithromycin 500 mg/ Sodium 250 mls @ 250 mls/hr 10/24/17 10:00 10/24/17 09: 54 Chloride IVPB 250 mls/hr DAILY [facility] Administration Piperacillin Sod/Tazobactam Sod 3.375 gm in 50 mls @ 200 mls/hr 10/23/17 13: 00 10/25/17 06:31 Zosyn 3.375 Gm Iv Premix IVPB 200 mls/hr Q6H [facility] Administration Vancomycin/Sodium Chloride 1 gm in 200 mls @ 133 mls/hr 10/23/17 20:00 19:59 Vancomycin 1 Gm/Ns 200 Ml IVPB 10/28/17 20:01 133 mls/hr Q12H [facility] Administration Ipratropium [place] 0.5 mg 10/23/17 14:40 Atrovent IH RQ6 PRN Shortness of Breath Methylprednisolone 40 mg 10/24/17 10:00 10/24/17 21:33 Solu-Medrol IV 40 mg Q12 [facility] Administration Oseltamivir Phosphate 75 mg 10/23/17 19:30 10/24/17 17:20 Tamiflu Cap PO 75 mg BID [facility] Administration Saccharomyces Boulardii 250 mg 10/23/17 10:00 10/24/17 17:20 Florastor PO 250 mg BID [facility] Administration - Patient Studies Lab Studies: Microbiology Studies 10/23/17 21:11 MRSA Culture (Admit) - Final Nose MRSA NOT DETECTED 10/23/17 08:15 Urine Culture - Final Urine,Day No Growth (<1,000 CFU/ML) Lab Studies 10/25/17 10/25/17 10/24/17 Range/Units 05:59 05:59 21:51 WBC 8.0 (4.8-10.8) K/uL RBC 4.77 (4.40-5.90) Mil/uL Hgb 12.7 (12.0-18.0) g/dL Hct 36.7 (35.0-51.0) % MCV 76.9 L (80.0-94.0) fL MCH 26.7 L (27.0-31.0) pg MCHC 34.7 (33.0-37.0) g/dL RDW 14.9 H (11.5-14.5) % Plt Count 210 (130-400) K/uL MPV 9.0 (7.2-11.7) fL Neut % (Auto) 85.1 H (50.0-75.0) % Lymph % (Auto) 9.3 L (20.0-40.0) % [place] % (Auto) 5.5 (0.0-10.0) % Eos % (Auto) 0.0 (0.0-4.0) % Baso % (Auto) 0.1 (0.0-2.0) % Neut # 6.8 (1.8-7.0) K/uL Lymph # 0.7 L (1.0-4.3) K/uL [place] # 0.4 (0.0-0.8) K/uL Eos # 0.0 (0.0-0.7) K/uL Baso # 0.0 (0.0-0.2) K/uL Neutrophils % (Manual) (50-75) % Band Neutrophils % (0-2) % Lymphocytes % (Manual) (20-40) % Monocytes % (Manual) (0-10) % Toxic Granulation Platelet Estimate (NORMAL) Large Platelets Polychromasia Hypochromasia (manual) Anisocytosis (manual) Microcytosis (manual) Sodium 133 (132-148) mmol/L Potassium 3.4 L (3.6-5.2) mmol/L Chloride 94 L (98-107) mmol/L Carbon Dioxide 34 H (22-30) mmol/L Anion Gap 9 L (10-20) BUN 25 H (9-20) mg/dL Creatinine 0.8 (0.8-1.5) mg/dL Est GFR ( Amer) > 60 Est GFR (Non-Af Amer) > 60 Random Glucose 148 H (75-110) mg/dL Calcium 8.8 (8.6-10.4) mg/dl Phosphorus 2.8 (2.5-4.5) mg/dL Magnesium 1.8 (1.6-2.3) mg/dL Total Bilirubin 1.5 H (0.2-1.3) mg/dL AST 63 H D (17-59) U/L ALT 211 H D (21-72) U/L Alkaline Phosphatase 44 (38-126) U/L Troponin I 0.2320 H* 0.2630 H* (0.00-0.120) ng/mL Total Protein 6.6 (6.3-8.3) g/dL Albumin 3.5 (3.5-5.0) g/dL Globulin 3.2 (2.2-3.9) gm/dL Albumin/Globulin Ratio 1.1 (1.0-2.1) Ur L.pneumophila Ag (NEGATIVE) 10/24/17 10/24/17 10/23/17 Range/Units 15:58 06:38 09:25 WBC (4.8-10.8) K/uL RBC (4.40-5.90) Mil/uL Hgb (12.0-18.0) g/dL Hct (35.0-51.0) % MCV (80.0-94.0) fL MCH (27.0-31.0) pg MCHC (33.0-37.0) g/dL RDW (11.5-14.5) % Plt Count (130-400) K/uL MPV (7.2-11.7) fL Neut % (Auto) (50.0-75.0) % Lymph % (Auto) (20.0-40.0) % [place] % (Auto) (0.0-10.0) % Eos % (Auto) (0.0-4.0) % Baso % (Auto) (0.0-2.0) % Neut # (1.8-7.0) K/uL Lymph # (1.0-4.3) K/uL [place] # (0.0-0.8) K/uL Eos # (0.0-0.7) K/uL Baso # (0.0-0.2) K/uL Neutrophils % (Manual) 69 (50-75) % Band Neutrophils % 21 H* (0-2) % Lymphocytes % (Manual) 6 L (20-40) % Monocytes % (Manual) 4 (0-10) % Toxic Granulation Present Platelet Estimate Normal (NORMAL) Large Platelets Present Polychromasia Slight Hypochromasia (manual) Slight Anisocytosis (manual) Slight Microcytosis (manual) Slight Sodium (132-148) mmol/L Potassium (3.6-5.2) mmol/L Chloride (98-107) mmol/L Carbon Dioxide (22-30) mmol/L Anion Gap (10-20) BUN (9-20) mg/dL Creatinine (0.8-1.5) mg/dL Est GFR ( Amer) Est GFR (Non-Af Amer) Random Glucose (75-110) mg/dL Calcium (8.6-10.4) mg/dl Phosphorus (2.5-4.5) mg/dL Magnesium (1.6-2.3) mg/dL Total Bilirubin (0.2-1.3) mg/dL AST (17-59) U/L ALT (21-72) U/L Alkaline Phosphatase (38-126) U/L Troponin I 0.2830 H* (0.00-0.120) ng/mL Total Protein (6.3-8.3) g/dL Albumin (3.5-5.0) g/dL Globulin (2.2-3.9) gm/dL Albumin/Globulin Ratio (1.0-2.1) Ur L.pneumophila Ag Negative (NEGATIVE) Laboratory Results - last 24 hr 10/23/17 10/24/17 10/24/17 09:25 06:38 15:58 WBC RBC Hgb Hct MCV MCH MCHC RDW Plt Count MPV Neut % (Auto) Lymph % (Auto) [place] % (Auto) Eos % (Auto) Baso % (Auto) Neut # Lymph # [place] # Eos # Baso # Neutrophils % (Manual) 69 Band Neutrophils % 21 H* Lymphocytes % (Manual) 6 L Monocytes % (Manual) 4 Toxic Granulation Present Platelet Estimate Normal Large Platelets Present Polychromasia Slight Hypochromasia (manual) Slight Anisocytosis (manual) Slight Microcytosis (manual) Slight Sodium Potassium Chloride Carbon Dioxide Anion Gap BUN Creatinine Est GFR ( Amer) Est GFR (Non-Af Amer) Random Glucose Calcium Phosphorus Magnesium Total Bilirubin AST ALT Alkaline Phosphatase Troponin I 0.2830 H* Total Protein Albumin Globulin Albumin/Globulin Ratio Ur L.pneumophila Ag Negative 10/24/17 10/25/17 10/25/17 21:51 05:59 05:59 WBC 8.0 RBC 4.77 Hgb 12.7 Hct 36.7 MCV 76.9 L MCH 26.7 L MCHC 34.7 RDW 14.9 H Plt Count 210 MPV 9.0 Neut % (Auto) 85.1 H Lymph % (Auto) 9.3 L [place] % (Auto) 5.5 Eos % (Auto) 0.0 Baso % (Auto) 0.1 Neut # 6.8 Lymph # 0.7 L [place] # 0.4 Eos # 0.0 Baso # 0.0 Neutrophils % (Manual) Band Neutrophils % Lymphocytes % (Manual) Monocytes % (Manual) Toxic Granulation Platelet Estimate Large Platelets Polychromasia Hypochromasia (manual) Anisocytosis (manual) Microcytosis (manual) Sodium 133 Potassium 3.4 L Chloride 94 L Carbon Dioxide 34 H Anion Gap 9 L BUN 25 H Creatinine 0.8 Est GFR ( Amer) > 60 Est GFR (Non-Af Amer) > 60 Random Glucose 148 H Calcium 8.8 Phosphorus 2.8 Magnesium 1.8 Total Bilirubin 1.5 H AST 63 H D ALT 211 H D Alkaline Phosphatase 44 Troponin I 0.2630 H* 0.2320 H* Total Protein 6.6 Albumin 3.5 Globulin 3.2 Albumin/Globulin Ratio 1.1 Ur L.pneumophila Ag Fingerstick Blood Sugar Results: 165 Critical Care Progress Note - Nutrition Nutrition: Nutrition Category Date Time Status Regular Diet [DIET] Diets 10/25/17 Breakfast Active
[2017-10-25 08:34] LABS: ANISOCYTOSIS SLIGHT; BANDS 13 % (0-2); LYMPHOCYTE 5 % (20-40); MONOCYTE 5 % (0-10); NEUTROPHIL 74 % (50-75); PLATELET ESTIMATE NORMAL (NORMAL); REACTIVE LYMPHOCYTES 3 % (0-0); TOTAL CELLS COUNTED 100
[2017-10-25 08:35] LABS: POLYCHROMIC SLIGHT
[2017-10-25 08:42] LABS: TOXIC GRANULATION PRESENT
[2017-10-25 08:44] LABS: LARGE PLATELETS PRESENT
--- NOTE | 2017-10-25 08:52 | RAD ---
HISTORY: Shortness of breath COMPARISON: October 24, 2017. Time of the most recent examination: 08:20. FINDINGS: LUNGS: Interval improvement in multifocal infiltrates particularly right upper lobe, right lower lobe. He stable findings left lung. PLEURA: No significant pleural effusion identified, no pneumothorax apparent. CARDIOVASCULAR: No radiographic findings to suggest acute or significant cardiovascular disease. OSSEOUS STRUCTURES: No significant abnormalities. VISUALIZED UPPER ABDOMEN: Normal. OTHER FINDINGS: None. IMPRESSION: Improving multifocal infiltrates affecting both right upper and right lower lobes. Stable pulmonary parenchymal findings left lung.
[2017-10-25] MEDS: Vancomycin 1 gm/NS 200 ml 1 GM/200 ML BAG IVPB SCH (08:57)
[2017-10-25] MEDS: Enoxaparin 80 mg Syringe SC SCH ×2 (08:58→20:19)
[2017-10-25] MEDS ORDERED: Potassium Chloride 20 mEq/15 ml LIQ UD PO ONE (09:00)
[2017-10-25] MEDS: Saccharomyces Boulardi 250 mg Cap PO SCH ×2 (09:02→17:36)
[2017-10-25] MEDS: MethylPREDNISolone 40 mg Vial IV SCH ×2 (09:04→21:23)
[2017-10-25] MEDS: Azithromycin 500 MG in Sodium Chloride 0.9% 250 ML IVPB SCH (10:56)
--- NOTE | 2017-10-25 14:31 | CARD ---
APPROVED REPORT EKG Measurement Heart [id number] <Conclusion> Sinus tachycardia Otherwise normal ECG
--- NOTE | 2017-10-25 14:42 | CP.PCM.PN ---
Subjective - Date & Time of Evaluation Date of Evaluation: 10/25/17 Time of Evaluation: 08:00 - Subjective Subjective: awake alert father at bedside On hi flow O2 less SOB no fever Objective - Vital Signs/Intake and Output Vital Signs (last 24 hours): Temp Pulse Resp BP Pulse Ox 98.3 F 90 34 H 118/78 89 L 10/25/17 12:00 10/25/17 13:50 10/25/17 14:02 10/25/17 13:50 10/25/17 13:50 Intake and Output: 10/25/17 10/25/17 06:59 18:59 Intake Total 370 899 Output Total 510 1445 Balance -140 -546 - Medications Medications: Current Medications Aspirin (Aspirin Chewable) 81 mg PO DAILY [facility] Last Admin: 10/25/17 09:01 Dose: 81 mg Carvedilol (Coreg) 3.125 mg PO BID [facility] Last Admin: 10/25/17 09:02 Dose: 3.125 mg Enoxaparin Sodium (Lovenox) 70 mg SC Q12H [facility] Last Admin: 10/25/17 08:58 Dose: 70 mg Famotidine (Pepcid) 20 mg IVP Q12 [facility] Last Admin: 10/25/17 09:04 Dose: 20 mg Furosemide (Lasix) 20 mg IVP DAILY [facility] Last Admin: 10/25/17 09:03 Dose: 20 mg Azithromycin 500 mg/ Sodium (Chloride) 250 mls @ 250 mls/hr IVPB DAILY [facility] Last Admin: 10/25/17 10:56 Dose: 250 mls/hr Piperacillin Sod/Tazobactam Sod (Zosyn 3.375 Gm Iv Premix) 3.375 gm in 50 mls @ 200 mls/hr IVPB Q6H [facility] Last Admin: 10/25/17 12:13 Dose: 200 mls/hr Vancomycin/Sodium Chloride (Vancomycin 1 Gm/Ns 200 Ml) 1 gm in 200 mls @ 133 mls/hr IVPB Q12H [facility] Stop: 10/28/17 20:01 Last Admin: 10/25/17 08:57 Dose: 133 mls/hr Ipratropium [place] (Atrovent) 0.5 mg IH RQ6 PRN PRN Reason: Shortness of Breath Methylprednisolone (Solu-Medrol) 40 mg IV Q12 [facility] Last Admin: 10/25/17 09:04 Dose: 40 mg Oseltamivir Phosphate (Tamiflu Cap) 75 mg PO BID [facility] Last Admin: 10/25/17 09:08 Dose: 75 mg Saccharomyces Boulardii (Florastor) 250 mg PO BID [facility] Last Admin: 10/25/17 09:02 Dose: 250 mg - Labs Labs: 10/25/17 05:59 10/25/17 05:59 PT 16.2 SECONDS (9.7-12.2) H 10/23/17 07:46 INR 1.4 10/23/17 07:46 APTT 27 SECONDS (21-34) 10/23/17 07:46 - Constitutional Appears: Non-toxic, Chronically Ill - Head Exam Head Exam: NORMOCEPHALIC - Eye Exam Eye Exam: PERRL. absent: Scleral icterus - ENT Exam ENT Exam: Mucous Membranes Dry - Neck Exam Neck Exam: absent: Lymphadenopathy - Respiratory Exam Respiratory Exam: Decreased Breath Sounds, Rales - Cardiovascular Exam Cardiovascular Exam: REGULAR RHYTHM, +S1, +S2 - GI/Abdominal Exam GI & Abdominal Exam: Distended, Soft. absent: Tenderness - Rectal Exam Rectal Exam: Deferred - Exam Exam: NORMAL INSPECTION - Extremities Exam Extremities Exam: absent: Pedal Edema - Back Exam Back Exam: absent: CVA tenderness (L), CVA tenderness (R) - Neurological Exam Neurological Exam: Alert, Awake, Oriented x3 - Psychiatric Exam Psychiatric exam: Normal Mood - Skin Skin Exam: Dry Assessment and Plan (1) Pneumonia Status: Acute (2) Heroin abuse Status: Acute (3) Respiratory failure with hypoxia and hypercapnia Status: Acute
--- NOTE | 2017-10-25 16:53 | PN ---
DATE: FOLLOWUP SUBJECTIVE: The patient is still tachypneic and orthopneic. He denies any retrosternal chest pain. PHYSICAL EXAMINATION: VITAL SIGNS: Blood pressure 118/78, heart rate 90, temperature 98.3, respirations 26. HEENT: Normocephalic. CHEST: Absent breath sounds over the bases. The patient has very poor inspiratory effort and he is splinting his breathing because of chest pain. HEART: S1 and S2 regular. No gallop or murmur or rub. ABDOMEN: Soft. EXTREMITIES: No edema. LABORATORY DATA: SMA-7: Sodium 133, potassium 3.4, chloride 94, CO2 of 34, glucose 148, BUN 25, creatinine 0.8, troponin 0.232. Hemoglobin and hematocrit 12.7 and 36.7. White count and platelet count today are within normal limit. Venous Doppler of the lower extremity: No evidence of DVT. Chest x-ray revealed right middle and lower lobe infiltrate. Blood culture negative after 24 hours. ASSESSMENT: 1. Cardiomyopathy. 2. Right middle and lower lobe pneumonia, rule out aspiration. 3. Status post unresponsiveness after using heroin with prompt response to Narcan. 4. Hypokalemia. 5. Borderline troponin elevation. RECOMMENDATIONS: Case was discussed in details with the primary physician, Dr. Luis. Workup should include myocarditis as well as possibility of underlying coronary artery disease. Continue current aspirin 81 mg once a day, continue IV Zithromax and IV vancomycin as well as IV Zosyn. Continue Solu-Medrol 40 mg intravenously q. 12 hours. Therapeutic subcutaneous Lovenox at 40 mg twice a day, Lasix 20 mg intravenously once a day, Coreg 2.125 mg twice a day. Patrice Guzman MD
--- NOTE | 2017-10-25 17:12 | CP.PCM.PN ---
Subjective - Date & Time of Evaluation Date of Evaluation: 10/25/17 Time of Evaluation: 15:15 - Subjective Subjective: Hospitalist Progress Note Patient was seen and examined at 3:15 PM 10/25/17 ICU Bed #5. 31 year old male who collapsed at home after heroin overdose and became awake after Narcan administration in the field was admitted to [facility] ICU on 10/23/17 for treatment and evaluation of Respiratory Distress, Right Sided Pneumonia Likely Secondary to Aspiration, Elevated Troponin. Currently upon FULL ROS; NO chest pain NO palpitations Dyspnea is much better on High Flow Oxygen which he is still on Taking in deep breaths easier and cough has improved NO dysphagia/odynophagia NO abdominal pain NO n/v/d: has not moved his bowels since admission (as per pateint last bowel movement was on Thursday and then he was not eating much as he was just doing heroin NO burning/pain with urination NO paresthesias NO new changes in vision NO new changes in hearing NO headache Exam: HEENT: NCA, EOMI, PERRLA, NO pharyngeal erythema/exudate, NO thyromegaly, NO cervicaly/supraclavicular/submandibular lymphadenopathy Cardio: NS1 and NS2, NO M/R/G Resp: decreased breath sound throughout the lung [place] and patient not taking in deep breaths secondary to fear of cough GI: BSx4, ND, NT, NO HSM, NO guarding/rebound tenderness, Soft Ext: Pulses are strong and equal, Capillary Refill is 2 seconds Neuro: CN II through XII are grossly intact Assessment and Plan: 1). Respiratory Distress Likely secondary to Opiate Overdose and Aspiration Pneumonia Doing better on High Flow Oxygen Solumedrol 40 mg IV Q12H 2). Right Pneumonia, Aspiration Azithromycin 500 mg IV Q24H (10/23/17) Tamiflu 75 mg PO 2x/day (Day 3 of 5) and last dose should be on 10/27/17 Zosyn 3.375 gm IV Q6H (10/23/17) Vancomycin was increased to 2 gm IV Q12H on 10/25/17 as trough 10/25/17 7:30 AM was 6.6 F/U Vancomycin Trough at 7:30 PM 10/26/17: Shoot for a Trough of 15 to 20 considering the Aspiration Pneumonia F/U Urine Strep Pneumoniae Ag Urine Legionella Ag is NEGATIVE Rapid Influenza is NEGATIVE F/U Mycoplasma IgG and IgM Blood Culture 10/23/17 is negative to date Urine Culture 10/23/17 shows NO GROWTH ID Dr. Lynn 3). Elevated D-Dimer CT Chest PE Protocol: NO PULMONARY EMBOLISM. Confluent air space consolidation throughout Right > Left Hemithorax Bilateral Venous Dopplers LE: NO DVT 4). Elevated Troponin/Elevated ProBNP/Cardiomyopathy Echocardiogram 10/23/17 shows Cardiomyopathy with severly depressed EF in the 20s : F/U Official Report Could this be secondary to Myocarditis? F/U workup for Myocarditis: Coxsackieviurus, CMV, Monospot Test, Adenovirus, HHV6, MMR, ParvoVirus B19, RSV, DISHA, ESR, and CRP. Hepatitis Panel, HIV and Influenza are already negative Patient will likely need Cardiac Catheterization later this week once respiratory status stablizes: please coordinate with Director Of Search Engine Marketing Dr. Guzman Lasix 20 mg IV 1x/day ASA 81 mg PO 1x/day Coreg 3.125 mg PO 2x/day Lovenox 70 mg SC Q12H Troponin declining 5). Elevated LFTs Hepatitis Panel is NEGATIVE HIV is NEGATIVE 6). Heroin Use Psychiatry Dr. Kramer 7). Prophylaxis Colace 100 mg PO 2x/day (for the lack of bowel movement but he has not been eating much since Thursday and just starting eating more today) Florastor 250 mg PO 2x/day Pepcid 20 mg IV Q12H Lovenox 70 mg SC Q12H Objective - Vital Signs/Intake and Output Vital Signs (last 24 hours): Temp Pulse Resp BP Pulse Ox 98.3 F 89 49 H 118/67 91 L 10/25/17 12:00 10/25/17 15:50 10/25/17 15:50 10/25/17 15:50 10/25/17 15:50 Intake and Output: 10/25/17 10/25/17 06:59 18:59 Intake Total 370 999 Output Total 510 1689 Balance -140 -690 - Medications Medications: Current Medications Aspirin (Aspirin Chewable) 81 mg PO DAILY [facility] Last Admin: 10/25/17 09:01 Dose: 81 mg Carvedilol (Coreg) 3.125 mg PO BID [facility] Last Admin: 10/25/17 09:02 Dose: 3.125 mg Docusate Sodium (Colace) 100 mg PO BID [facility] Enoxaparin Sodium (Lovenox) 70 mg SC Q12H [facility] Last Admin: 10/25/17 08:58 Dose: 70 mg Famotidine (Pepcid) 20 mg IVP Q12 [facility] Last Admin: 10/25/17 09:04 Dose: 20 mg Furosemide (Lasix) 20 mg IVP DAILY [facility] Last Admin: 10/25/17 09:03 Dose: 20 mg Azithromycin 500 mg/ Sodium (Chloride) 250 mls @ 250 mls/hr IVPB DAILY [facility] Last Admin: 10/25/17 10:56 Dose: 250 mls/hr Piperacillin Sod/Tazobactam Sod (Zosyn 3.375 Gm Iv Premix) 3.375 gm in 50 mls @ 200 mls/hr IVPB Q6H [facility] Last Admin: 10/25/17 12:13 Dose: 200 mls/hr Vancomycin HCl 2,000 mg/ (Sodium Chloride) 250 mls @ 166.6 mls/hr IVPB Q12H [facility] Ipratropium [place] (Atrovent) 0.5 mg IH RQ6 PRN PRN Reason: Shortness of Breath Methylprednisolone (Solu-Medrol) 40 mg IV Q12 [facility] Last Admin: 10/25/17 09:04 Dose: 40 mg Oseltamivir Phosphate (Tamiflu Cap) 75 mg PO BID [facility] Last Admin: 10/25/17 09:08 Dose: 75 mg Saccharomyces Boulardii (Florastor) 250 mg PO BID [facility] Last Admin: 10/25/17 09:02 Dose: 250 mg - Labs Labs: 10/25/17 05:59 10/25/17 05:59 PT 16.2 SECONDS (9.7-12.2) H 10/23/17 07:46 INR 1.4 10/23/17 07:46 APTT 27 SECONDS (21-34) 10/23/17 07:46
--- NOTE | 2017-10-25 17:46 | CP.CCUPN ---
CCU Subjective - Physician Review Events Since Last Encounter (Free Text): 10/25/17 17:45 31-year-old male with no past medical history admitted to the hospital with worsening shortness of breath, lethargic. Positive for heroine abuse. X-ray of the chest and a CT of the lungs showing definite evidence for diffuse pneumonia bilateral, more on the right side. Negative for pulmonary embolism. Patient is still on full dose anticoagulation. pt is on high flow Fi2 spo2 better Tolerating. Comfortable. Mild tachypnea. Vital signs otherwise stable. Chest good air entry bilaterally, no wheezing minimally noted irregular. nontender abdomen. day catheter noted x-rays repeated showing evidence of improvement. blood gas analysis minimal improvement. saturation 97% echo showed very low EF as cardiology currently patient is on antibiotic, antiviral, and Solu-Medrol. He is also receiving Lasix, Lovenox. In my opinion patient is currently having severe acute pneumonia with improvement cardiology eval and f/u closely monitor CCU Objective - Vital Signs / Intake & Output Vital Signs (Last 4 hours): Vital Signs Pulse Resp BP Pulse Ox 10/25/17 16:50 80 30 H 124/83 92 L 10/25/17 15:50 89 49 H 118/67 91 L 10/25/17 14:51 99 H 41 H 120/59 L 95 10/25/17 14:02 34 H 10/25/17 13:50 90 39 H 118/78 89 L Intake and Output (Last 8hrs): Intake & Output 10/25/17 10/25/17 10/25/17 06:59 14:59 22:59 Intake Total 50 899 100 Output Total 305 1440 249 Balance -255 -541 -149 Weight 134 lb 4.8 oz Intake: Intake, IV Amount 50 549 Right Antecubital 50 549 Oral 0 350 100 Output: Urine 305 1440 249 Urethral (Day) 305 1440 249 - Medications Active Medications: Active Medications Generic Name Dose Route Start Last Admin Trade Name Freq PRN Reason Stop Dose Admin Aspirin 81 mg 10/23/17 12:30 10/25/17 09:01 Aspirin Chewable PO 81 mg DAILY MERCEDEZ Administration Carvedilol 3.125 mg 10/23/17 18:00 10/25/17 17:36 Coreg PO 3.125 mg BID MERCEDEZ Administration Docusate Sodium 100 mg 10/25/17 18:00 10/25/17 17:36 Colace PO 100 mg BID MERCEDEZ Administration Enoxaparin Sodium 70 mg 10/24/17 20:15 10/25/17 08:58 Lovenox SC 70 mg Q12H MERCEDEZ Administration Famotidine 20 mg 10/23/17 10:00 10/25/17 09:04 Pepcid IVP 20 mg Q12 MERCEDEZ Administration Furosemide 20 mg 10/23/17 12:30 10/25/17 09:03 Lasix IVP 20 mg DAILY MERCEDEZ Administration Azithromycin 500 mg/ Sodium 250 mls @ 250 mls/hr 10/24/17 10:00 10/25/17 10: 56 Chloride IVPB 250 mls/hr DAILY [facility] Administration Piperacillin Sod/Tazobactam Sod 3.375 gm in 50 mls @ 200 mls/hr 10/23/17 13: 00 10/25/17 12:13 Zosyn 3.375 Gm Iv Premix IVPB 200 mls/hr Q6H MERCEDEZ Administration Vancomycin HCl 2 gm/ Sodium 500 mls @ 250 mls/hr 10/25/17 20:00 Chloride IVPB Q12H [facility] Ipratropium Redig 0.5 mg 10/23/17 14:40 Atrovent IH RQ6 PRN Shortness of Breath Methylprednisolone 40 mg 10/24/17 10:00 10/25/17 09:04 Solu-Medrol IV 40 mg Q12 [facility] Administration Oseltamivir Phosphate 75 mg 10/23/17 19:30 10/25/17 17:36 Tamiflu Cap PO 75 mg BID [facility] Administration Saccharomyces Boulardii 250 mg 10/23/17 10:00 10/25/17 17:36 Florastor PO 250 mg BID [facility] Administration - Patient Studies Lab Studies: Microbiology Studies 10/23/17 07:58 Blood Culture - Preliminary Blood NO GROWTH AFTER 24 HOURS 10/23/17 07:58 Blood Culture - Preliminary Blood NO GROWTH AFTER 24 HOURS 10/23/17 21:11 MRSA Culture (Admit) - Final Nose MRSA NOT DETECTED 10/23/17 08:15 Urine Culture - Final Urine,Day No Growth (<1,000 CFU/ML) Lab Studies 10/25/17 10/25/17 10/25/17 Range/Units 07:53 05:59 05:59 WBC 8.0 (4.8-10.8) K/uL RBC 4.77 (4.40-5.90) Mil/uL Hgb 12.7 (12.0-18.0) g/dL Hct 36.7 (35.0-51.0) % MCV 76.9 L (80.0-94.0) fL MCH 26.7 L (27.0-31.0) pg MCHC 34.7 (33.0-37.0) g/dL RDW 14.9 H (11.5-14.5) % Plt Count 210 (130-400) K/uL MPV 9.0 (7.2-11.7) fL Neut % (Auto) 85.1 H (50.0-75.0) % Lymph % (Auto) 9.3 L (20.0-40.0) % [place] % (Auto) 5.5 (0.0-10.0) % Eos % (Auto) 0.0 (0.0-4.0) % Baso % (Auto) 0.1 (0.0-2.0) % Neut # 6.8 (1.8-7.0) K/uL Lymph # 0.7 L (1.0-4.3) K/uL [place] # 0.4 (0.0-0.8) K/uL Eos # 0.0 (0.0-0.7) K/uL Baso # 0.0 (0.0-0.2) K/uL Neutrophils % (Manual) 74 (50-75) % Band Neutrophils % 13 H* (0-2) % Lymphocytes % (Manual) 5 L (20-40) % Reactive Lymphs % 3 H (0-0) % Monocytes % (Manual) 5 (0-10) % Toxic Granulation Present Platelet Estimate Normal (NORMAL) Large Platelets Present Polychromasia Slight Anisocytosis (manual) Slight Sodium 133 (132-148) mmol/L Potassium 3.4 L (3.6-5.2) mmol/L Chloride 94 L (98-107) mmol/L Carbon Dioxide 34 H (22-30) mmol/L Anion Gap 9 L (10-20) BUN 25 H (9-20) mg/dL Creatinine 0.8 (0.8-1.5) mg/dL Est GFR ( Amer) > 60 Est GFR (Non-Af Amer) > 60 Random Glucose 148 H (75-110) mg/dL Calcium 8.8 (8.6-10.4) mg/dl Phosphorus 2.8 (2.5-4.5) mg/dL Magnesium 1.8 (1.6-2.3) mg/dL Total Bilirubin 1.5 H (0.2-1.3) mg/dL AST 63 H D (17-59) U/L ALT 211 H D (21-72) U/L Alkaline Phosphatase 44 (38-126) U/L Troponin I 0.2320 H* (0.00-0.120) ng/mL Total Protein 6.6 (6.3-8.3) g/dL Albumin 3.5 (3.5-5.0) g/dL Globulin 3.2 (2.2-3.9) gm/dL Albumin/Globulin Ratio 1.1 (1.0-2.1) Vancomycin Trough 6.6 (5.0-10.0) ug/mL 10/24/17 Range/Units 21:51 WBC (4.8-10.8) K/uL RBC (4.40-5.90) Mil/uL Hgb (12.0-18.0) g/dL Hct (35.0-51.0) % MCV (80.0-94.0) fL MCH (27.0-31.0) pg MCHC (33.0-37.0) g/dL RDW (11.5-14.5) % Plt Count (130-400) K/uL MPV (7.2-11.7) fL Neut % (Auto) (50.0-75.0) % Lymph % (Auto) (20.0-40.0) % [place] % (Auto) (0.0-10.0) % Eos % (Auto) (0.0-4.0) % Baso % (Auto) (0.0-2.0) % Neut # (1.8-7.0) K/uL Lymph # (1.0-4.3) K/uL [place] # (0.0-0.8) K/uL Eos # (0.0-0.7) K/uL Baso # (0.0-0.2) K/uL Neutrophils % (Manual) (50-75) % Band Neutrophils % (0-2) % Lymphocytes % (Manual) (20-40) % Reactive Lymphs % (0-0) % Monocytes % (Manual) (0-10) % Toxic Granulation Platelet Estimate (NORMAL) Large Platelets Polychromasia Anisocytosis (manual) Sodium (132-148) mmol/L Potassium (3.6-5.2) mmol/L Chloride (98-107) mmol/L Carbon Dioxide (22-30) mmol/L Anion Gap (10-20) BUN (9-20) mg/dL Creatinine (0.8-1.5) mg/dL Est GFR ( Amer) Est GFR (Non-Af Amer) Random Glucose (75-110) mg/dL Calcium (8.6-10.4) mg/dl Phosphorus (2.5-4.5) mg/dL Magnesium (1.6-2.3) mg/dL Total Bilirubin (0.2-1.3) mg/dL AST (17-59) U/L ALT (21-72) U/L Alkaline Phosphatase (38-126) U/L Troponin I 0.2630 H* (0.00-0.120) ng/mL Total Protein (6.3-8.3) g/dL Albumin (3.5-5.0) g/dL Globulin (2.2-3.9) gm/dL Albumin/Globulin Ratio (1.0-2.1) Vancomycin Trough (5.0-10.0) ug/mL Laboratory Results - last 24 hr 10/24/17 10/25/17 10/25/17 21:51 05:59 05:59 WBC 8.0 RBC 4.77 Hgb 12.7 Hct 36.7 MCV 76.9 L MCH 26.7 L MCHC 34.7 RDW 14.9 H Plt Count 210 MPV 9.0 Neut % (Auto) 85.1 H Lymph % (Auto) 9.3 L [place] % (Auto) 5.5 Eos % (Auto) 0.0 Baso % (Auto) 0.1 Neut # 6.8 Lymph # 0.7 L [place] # 0.4 Eos # 0.0 Baso # 0.0 Neutrophils % (Manual) 74 Band Neutrophils % 13 H* Lymphocytes % (Manual) 5 L Reactive Lymphs % 3 H Monocytes % (Manual) 5 Toxic Granulation Present Platelet Estimate Normal Large Platelets Present Polychromasia Slight Anisocytosis (manual) Slight Sodium 133 Potassium 3.4 L Chloride 94 L Carbon Dioxide 34 H Anion Gap 9 L BUN 25 H Creatinine 0.8 Est GFR ( Amer) > 60 Est GFR (Non-Af Amer) > 60 Random Glucose 148 H Calcium 8.8 Phosphorus 2.8 Magnesium 1.8 Total Bilirubin 1.5 H AST 63 H D ALT 211 H D Alkaline Phosphatase 44 Troponin I 0.2630 H* 0.2320 H* Total Protein 6.6 Albumin 3.5 Globulin 3.2 Albumin/Globulin Ratio 1.1 Vancomycin Trough 10/25/17 07:53 WBC RBC Hgb Hct MCV MCH MCHC RDW Plt Count MPV Neut % (Auto) Lymph % (Auto) [place] % (Auto) Eos % (Auto) Baso % (Auto) Neut # Lymph # [place] # Eos # Baso # Neutrophils % (Manual) Band Neutrophils % Lymphocytes % (Manual) Reactive Lymphs % Monocytes % (Manual) Toxic Granulation Platelet Estimate Large Platelets Polychromasia Anisocytosis (manual) Sodium Potassium Chloride Carbon Dioxide Anion Gap BUN Creatinine Est GFR ( Amer) Est GFR (Non-Af Amer) Random Glucose Calcium Phosphorus Magnesium Total Bilirubin AST ALT Alkaline Phosphatase Troponin I Total Protein Albumin Globulin Albumin/Globulin Ratio Vancomycin Trough 6.6 Fingerstick Blood Sugar Results: 165 Critical Care Progress Note - Nutrition Nutrition: Nutrition Category Date Time Status Regular Diet [DIET] Diets 10/25/17 Breakfast Active
[2017-10-25] MEDS: SODIUM CHLORIDE 0.45% IVPB SCH (20:20)
[2017-10-25] MEDS: VANCOMYCIN IVPB SCH (20:20)
[2017-10-26] MEDS: Piperacill/Tazo 3.375gm in Dex 3.375 GM/50 ML BAG IVPB SCH ×4 (00:37→18:35)
[2017-10-26 05:59] LABS: ABG ALLEN TEST POS; ARTERIAL BLOOD GAS HCO3 30.3 mmol/L (21-28); ARTERIAL BLOOD GAS HEMOGLOBIN 12.6 g/dL (11.7-17.4); ARTERIAL BLOOD GAS O2 SAT 97.6 % (95-98); ARTERIAL BLOOD GAS PCO2 37 mm/Hg (35-45); ARTERIAL BLOOD GAS PH 7.52 (7.35-7.45); ARTERIAL BLOOD GAS PO2 71 mm/Hg (80-100); ARTERIAL BLOOD GAS TCO2 31.3 mmol/L (22-28)
[2017-10-26 06:35] LABS: BASO % 0.1 % (0.0-2.0); HEMOGLOBIN 12.7 g/dL (12.0-18.0); LYMPH # 0.7 K/uL (1.0-4.3); LYMPH % 8.6 % (20.0-40.0); MEAN CELL VOLUME 77.1 fL (80.0-94.0); MEAN CORPUSCULAR HEMOGLOBIN 26.5 pg (27.0-31.0); MEAN CORPUSCULAR HGB CONC 34.4 g/dL (33.0-37.0); MEAN PLATELET VOLUME 8.5 fL (7.2-11.7); MONO # 0.5 K/uL (0.0-0.8); MONO % 5.8 % (0.0-10.0); NEUT # 7.2 K/uL (1.8-7.0); NEUT % 85.5 % (50.0-75.0); NRBC % 0.1 % (0.0-2.0); PLATELET COUNT 239 K/uL (130-400); RBC 4.78 Mil/uL (4.40-5.90); RED CELL DISTRIBUTION WIDTH 14.5 % (11.5-14.5); WHITE BLOOD COUNT 8.4 K/uL (4.8-10.8)
[2017-10-26 06:53] LABS: ALB/GLOB RATIO 1.1 (1.0-2.1); ALBUMIN 3.4 g/dL (3.5-5.0); ALT/SGPT 192 U/L (21-72); AST/SGOT 51 U/L (17-59); BLOOD UREA NITROGEN 25 mg/dL (9-20); CALCIUM 8.7 mg/dl (8.6-10.4); GFR AFRICAN-AMERICAN > 60; GFR NON-AFRICAN AMERICAN > 60
[2017-10-26] MEDS: Enoxaparin 80 mg Syringe SC SCH ×2 (07:23→20:04)
[2017-10-26] MEDS: VANCOMYCIN IVPB SCH ×2 (07:27→20:03)
[2017-10-26] MEDS: SODIUM CHLORIDE 0.45% IVPB SCH ×2 (07:27→20:03)
[2017-10-26] MEDS: Ipratropium 0.02% Inhal Soln (0.5 mg/2.5 ml) UD IH PRN ×2 (07:40→13:23)
[2017-10-26] MEDS ORDERED: Potassium Chloride 20 mEq ER Tab PO ONE ×2 (07:55→10:00)
[2017-10-26 08:28] LABS: BANDS 11 % (0-2); EOSINOPHIL 1 % (0-4); LYMPHOCYTE 9 % (20-40); MONOCYTE 5 % (0-10); NEUTROPHIL 74 % (50-75); PLATELET ESTIMATE NORMAL (NORMAL); TOTAL CELLS COUNTED 100
--- NOTE | 2017-10-26 08:50 | RAD ---
Chest x-ray single frontal view History: Infiltrate. Comparison: 10/25/2014 Findings: Prominent diffuse increased interstitial lung markings suggestive for underlying infiltrate and or edema. Clinical correlation. More patchy increased markings at the left lung base, stable. Cardiomegaly. Impression: No significant interval change.
--- NOTE | 2017-10-26 09:01 | CARD ---
APPROVED REPORT EKG Measurement Heart [id number] <Conclusion> Sinus tachycardia Otherwise normal ECG
--- NOTE | 2017-10-26 09:08 | CARD ---
APPROVED REPORT EKG Measurement Heart [id number] <Conclusion> Sinus tachycardia Otherwise normal ECG
--- NOTE | 2017-10-26 09:40 | VASCLAB ---
PROCEDURE: Lower Extremity Venous Duplex Exam. HISTORY: elevated d-dimer. respiratory distress PRIORS: None. TECHNIQUE: Bilateral common femoral, femoral, popliteal and posterior tibial, peroneal and great saphenous veins were evaluated. Flow was assessed with color Doppler, compressibility, assessment of phasic flow and augmentation response. Report prepared by Richmond Roldan, SIMEON, RVT FINDINGS: RIGHT: 1. Common Femoral Vein: 1.1. Compressibility - Fully compressible: Thrombus - None : Flow - Phasic: Augmentation -Normal: Reflux - None. 2. Femoral Vein: 2.1. Compressibility - Fully compressible: Thrombus - None : Flow - Phasic: Augmentation -Normal: Reflux - None. 3. Popliteal Vein: 3.1. Compressibility - Fully compressible: Thrombus - None : Flow - Phasic: Augmentation -Normal: Reflux - None. 4. Posterior Tibial Vein: 4.1. Compressibility - Fully compressible: Thrombus - None: Flow - Phasic: Augmentation -Normal: Reflux - None. 5. Peroneal Vein: 5.1. Compressibility - Fully compressible: Thrombus - None: Flow - Phasic: Augmentation -Normal: Reflux - None. 6. Great Saphenous Vein: 6.1. Compressibility - Fully compressible: Thrombus - None: Flow - Phasic: Augmentation - Normal: Reflux - None. LEFT: 1. Common Femoral Vein: 1.1. Compressibility - Fully compressible: Thrombus - None: Flow - Phasic: Augmentation -Normal: Reflux - None. 2. Femoral Vein: 2.1. Compressibility - Fully compressible: Thrombus - None: Flow - Phasic: Augmentation -Normal: Reflux - None. 3. Popliteal Vein: 3.1. Compressibility - Fully compressible: Thrombus - None : Flow - Phasic: Augmentation -Normal: Reflux - None. 4. Posterior Tibial Vein: 4.1. Compressibility - Fully compressible: Thrombus - None: Flow - Phasic: Augmentation -Normal: Reflux - None. 5. Peroneal Vein: 5.1. Compressibility - Fully compressible: Thrombus - None: Flow - Phasic: Augmentation -Normal: Reflux - None. 6. Great Saphenous Vein: 6.1. Compressibility - Fully compressible: Thrombus - None: Flow - Phasic: Augmentation - Normal: Reflux - None. OTHER FINDINGS: Right: None significant. Left: None significant. IMPRESSION: Right: No evidence of deep or superficial vein thrombosis of the right lower extremity. Normal valve function noted of the right side. Left: No evidence of deep or superficial vein thrombosis of the left lower extremity. Normal valve function noted of the left side.
[2017-10-26] MEDS: Saccharomyces Boulardi 250 mg Cap PO SCH ×2 (09:57→18:38)
[2017-10-26] MEDS: MethylPREDNISolone 40 mg Vial IV SCH ×2 (09:58→21:14)
--- NOTE | 2017-10-26 10:23 | CP.CCUPN ---
<Velasquez Stewart - Last Filed: 10/26/17 18:38> CCU Subjective - Physician Review Events Since Last Encounter (Free Text): 10/26/17 10:20 patient seen and examined at bedside. Respiratory status much improved, will decrease Fi02 remove day patient able to get up to chair, looks comfortable 10/26/17 13:43 decrease Fi02 to 60 10/26/17 18:38 decreased FI02 to 55 and RR to 25 CCU Objective - Vital Signs / Intake & Output Vital Signs (Last 4 hours): Vital Signs Pulse Resp BP Pulse Ox 10/26/17 09:59 114/67 10/26/17 08:45 35 H 10/26/17 07:50 85 35 H 131/83 93 L 10/26/17 07:10 81 30 H 94 L 10/26/17 07:00 84 32 H 95 10/26/17 06:51 81 25 H 119/68 92 L 10/26/17 06:50 75 28 H 90 L 10/26/17 06:40 72 30 H 95 10/26/17 06:30 76 20 95 Intake and Output (Last 8hrs): Intake & Output 10/25/17 10/26/17 10/26/17 22:59 06:59 14:59 Intake Total 850 100 250 Output Total 529 460 250 Balance 321 -360 0 Weight 136 lb 14.4 oz Intake: Intake, IV Amount 550 250 Right Antecubital 550 250 Oral 300 100 Output: Urine 529 460 250 Urethral (Day) 529 460 250 Other: # Bowel Movements 1 1 - Physical Exam Head: Positive for: Atraumatic, Normocephalic Pupils: Positive for: PERRL Extroacular Muscles: Positive for: EOMI Conjunctiva: Positive for: Normal Mouth: Positive for: Moist Mucous Membranes Respiratory/Chest: Positive for: Clear to Auscultation Cardiovascular: Positive for: Regular Rate and Rhythm Abdomen: Positive for: Normal Bowel Sounds. Negative for: Tenderness, Distention, Peritoneal Signs Upper Extremity: Positive for: Normal Inspection. Negative for: Cyanosis, Edema Lower Extremity: Positive for: Normal Inspection. Negative for: Edema Neurological: Positive for: GCS=15, Speech Normal Skin: Positive for: Warm, Dry, Normal Color. Negative for: Rashes Psychiatric: Positive for: Alert, Oriented x 3 - Medications Active Medications: Active Medications Generic Name Dose Route Start Last Admin Trade Name Freq PRN Reason Stop Dose Admin Aspirin 81 mg 10/23/17 12:30 10/26/17 09:56 Aspirin Chewable PO 81 mg DAILY [facility] Administration Carvedilol 3.125 mg 10/23/17 18:00 10/26/17 09:57 Coreg PO 3.125 mg BID [facility] Administration Docusate Sodium 100 mg 10/25/17 18:00 10/26/17 10:04 Colace PO Not Given BID [facility] Enoxaparin Sodium 70 mg 10/24/17 20:15 10/26/17 07:23 Lovenox SC 70 mg Q12H [facility] Administration Famotidine 20 mg 10/23/17 10:00 10/26/17 09:59 Pepcid IVP 20 mg Q12 [facility] Administration Furosemide 20 mg 10/23/17 12:30 10/26/17 09:59 Lasix IVP 20 mg DAILY [facility] Administration Azithromycin 500 mg/ Sodium 250 mls @ 250 mls/hr 10/24/17 10:00 10/25/17 10: 56 Chloride IVPB 250 mls/hr DAILY [facility] Administration Piperacillin Sod/Tazobactam Sod 3.375 gm in 50 mls @ 200 mls/hr 10/23/17 13: 00 10/26/17 06:47 Zosyn 3.375 Gm Iv Premix IVPB 200 mls/hr Q6H [facility] Administration Vancomycin HCl 2 gm/ Sodium 500 mls @ 250 mls/hr 10/25/17 20:00 10/26/17 07: 27 Chloride IVPB 250 mls/hr Q12H [facility] Administration Ipratropium Sublette 0.5 mg 10/23/17 14:40 10/26/17 07:40 Atrovent IH 0.5 mg RQ6 PRN Administration Shortness of Breath Methylprednisolone 40 mg 10/24/17 10:00 10/26/17 09:58 Solu-Medrol IV 40 mg Q12 [facility] Administration Oseltamivir Phosphate 75 mg 10/23/17 19:30 10/26/17 10:01 Tamiflu Cap PO 75 mg BID [facility] Administration Saccharomyces Boulardii 250 mg 10/23/17 10:00 10/26/17 09:57 Florastor PO 250 mg BID [facility] Administration - Patient Studies Lab Studies: Microbiology Studies 01/12/18 07:58 Blood Culture - Preliminary Blood NO GROWTH AFTER 24 HOURS 10/23/17 07:58 Blood Culture - Preliminary Blood NO GROWTH AFTER 24 HOURS Lab Studies 10/26/17 10/26/17 10/26/17 Range/Units 06:25 06:25 06:25 WBC 8.4 (4.8-10.8) K/uL RBC 4.78 (4.40-5.90) Mil/uL Hgb 12.7 (12.0-18.0) g/dL Hct 36.8 (35.0-51.0) % MCV 77.1 L (80.0-94.0) fL MCH 26.5 L (27.0-31.0) pg MCHC 34.4 (33.0-37.0) g/dL RDW 14.5 (11.5-14.5) % Plt Count 239 (130-400) K/uL MPV 8.5 (7.2-11.7) fL Neut % (Auto) 85.5 H (50.0-75.0) % Lymph % (Auto) 8.6 L (20.0-40.0) % Evans % (Auto) 5.8 (0.0-10.0) % Eos % (Auto) 0.0 (0.0-4.0) % Baso % (Auto) 0.1 (0.0-2.0) % Neut # 7.2 H (1.8-7.0) K/uL Lymph # 0.7 L (1.0-4.3) K/uL Evans # 0.5 (0.0-0.8) K/uL Eos # 0.0 (0.0-0.7) K/uL Baso # 0.0 (0.0-0.2) K/uL Neutrophils % (Manual) 74 (50-75) % Band Neutrophils % 11 H* (0-2) % Lymphocytes % (Manual) 9 L (20-40) % Monocytes % (Manual) 5 (0-10) % Eosinophils % (Manual) 1 (0-4) % Platelet Estimate Normal (NORMAL) RBC Morphology Normal ESR 56 H (0-15) mm/hr Puncture Site pCO2 (35-45) mm/Hg pO2 (80-100) mm/Hg HCO3 (21-28) mmol/L ABG pH (7.35-7.45) ABG Total CO2 (22-28) mmol/L ABG O2 Saturation (95-98) % ABG Base Excess (-2.0-3.0) mmol/L ABG Hemoglobin (11.7-17.4) g/dL ABG Carboxyhemoglobin (0.5-1.5) % POC ABG HHb (Measured) (0.0-5.0) % ABG Methemoglobin (0.0-3.0) % Jamarcus Test A-a O2 Difference mm/Hg Respiratory Index Hgb O2 Saturation (95.0-98.0) % Liter Flow FiO2 % Sodium 132 (132-148) mmol/L Potassium 3.4 L (3.6-5.2) mmol/L Chloride 95 L (98-107) mmol/L Carbon Dioxide 29 (22-30) mmol/L Anion Gap 12 (10-20) BUN 25 H (9-20) mg/dL Creatinine 0.8 (0.8-1.5) mg/dL Est GFR ( Amer) > 60 Est GFR (Non-Af Amer) > 60 Random Glucose 161 H (75-110) mg/dL Calcium 8.7 (8.6-10.4) mg/dl Total Bilirubin 1.2 (0.2-1.3) mg/dL AST 51 (17-59) U/L ALT 192 H (21-72) U/L Alkaline Phosphatase 57 (38-126) U/L Troponin I 0.1550 H* (0.00-0.120) ng/mL C-React Prot High Sens > 15.00 H (1.00-3.00) mg/L Total Protein 6.4 (6.3-8.3) g/dL Albumin 3.4 L (3.5-5.0) g/dL Globulin 3.0 (2.2-3.9) gm/dL Albumin/Globulin Ratio 1.1 (1.0-2.1) Infectious Evans Assay (NEGATIVE) RSV Antigen (NEGATIVE) 10/26/17 10/26/17 Range/Units 05:55 04:00 WBC (4.8-10.8) K/uL RBC (4.40-5.90) Mil/uL Hgb (12.0-18.0) g/dL Hct (35.0-51.0) % MCV (80.0-94.0) fL MCH (27.0-31.0) pg MCHC (33.0-37.0) g/dL RDW (11.5-14.5) % Plt Count (130-400) K/uL MPV (7.2-11.7) fL Neut % (Auto) (50.0-75.0) % Lymph % (Auto) (20.0-40.0) % Evans % (Auto) (0.0-10.0) % Eos % (Auto) (0.0-4.0) % Baso % (Auto) (0.0-2.0) % Neut # (1.8-7.0) K/uL Lymph # (1.0-4.3) K/uL Evans # (0.0-0.8) K/uL Eos # (0.0-0.7) K/uL Baso # (0.0-0.2) K/uL Neutrophils % (Manual) (50-75) % Band Neutrophils % (0-2) % Lymphocytes % (Manual) (20-40) % Monocytes % (Manual) (0-10) % Eosinophils % (Manual) (0-4) % Platelet Estimate (NORMAL) RBC Morphology ESR (0-15) mm/hr Puncture Site Rr pCO2 37 (35-45) mm/Hg pO2 71 L (80-100) mm/Hg HCO3 30.3 H (21-28) mmol/L ABG pH 7.52 H (7.35-7.45) ABG Total CO2 31.3 H (22-28) mmol/L ABG O2 Saturation 97.6 (95-98) % ABG Base Excess 7.0 H (-2.0-3.0) mmol/L ABG Hemoglobin 12.6 (11.7-17.4) g/dL ABG Carboxyhemoglobin 2.0 H (0.5-1.5) % POC ABG HHb (Measured) 2.3 (0.0-5.0) % ABG Methemoglobin 1.2 (0.0-3.0) % Jamarcus Test Pos A-a O2 Difference 395.0 mm/Hg Respiratory Index 6.4 Hgb O2 Saturation 94.5 L (95.0-98.0) % Liter Flow 30.0 FiO2 70.0 % Sodium (132-148) mmol/L Potassium (3.6-5.2) mmol/L Chloride (98-107) mmol/L Carbon Dioxide (22-30) mmol/L Anion Gap (10-20) BUN (9-20) mg/dL Creatinine (0.8-1.5) mg/dL Est GFR ( Amer) Est GFR (Non-Af Amer) Random Glucose (75-110) mg/dL Calcium (8.6-10.4) mg/dl Total Bilirubin (0.2-1.3) mg/dL AST (17-59) U/L ALT (21-72) U/L Alkaline Phosphatase (38-126) U/L Troponin I (0.00-0.120) ng/mL C-React Prot High Sens (1.00-3.00) mg/L Total Protein (6.3-8.3) g/dL Albumin (3.5-5.0) g/dL Globulin (2.2-3.9) gm/dL Albumin/Globulin Ratio (1.0-2.1) Infectious Evans Assay Negative (NEGATIVE) RSV Antigen Negative (NEGATIVE) Laboratory Results - last 24 hr 10/26/17 10/26/17 10/26/17 04:00 05:55 06:25 WBC 8.4 RBC 4.78 Hgb 12.7 Hct 36.8 MCV 77.1 L MCH 26.5 L MCHC 34.4 RDW 14.5 Plt Count 239 MPV 8.5 Neut % (Auto) 85.5 H Lymph % (Auto) 8.6 L Evans % (Auto) 5.8 Eos % (Auto) 0.0 Baso % (Auto) 0.1 Neut # 7.2 H Lymph # 0.7 L Evans # 0.5 Eos # 0.0 Baso # 0.0 Neutrophils % (Manual) 74 Band Neutrophils % 11 H* Lymphocytes % (Manual) 9 L Monocytes % (Manual) 5 Eosinophils % (Manual) 1 Platelet Estimate Normal RBC Morphology Normal ESR 56 H Puncture Site Rr pCO2 37 pO2 71 L HCO3 30.3 H ABG pH 7.52 H ABG Total CO2 31.3 H ABG O2 Saturation 97.6 ABG Base Excess 7.0 H ABG Hemoglobin 12.6 ABG Carboxyhemoglobin 2.0 H POC ABG HHb (Measured) 2.3 ABG Methemoglobin 1.2 Jamarcus Test Pos A-a O2 Difference 395.0 Respiratory Index 6.4 Hgb O2 Saturation 94.5 L Liter Flow 30.0 FiO2 70.0 Sodium Potassium Chloride Carbon Dioxide Anion Gap BUN Creatinine Est GFR ( Amer) Est GFR (Non-Af Amer) Random Glucose Calcium Total Bilirubin AST ALT Alkaline Phosphatase Troponin I C-React Prot High Sens Total Protein Albumin Globulin Albumin/Globulin Ratio Infectious Evans Assay Negative RSV Antigen Negative 10/26/17 10/26/17 06:25 06:25 WBC RBC Hgb Hct MCV MCH MCHC RDW Plt Count MPV Neut % (Auto) Lymph % (Auto) Evans % (Auto) Eos % (Auto) Baso % (Auto) Neut # Lymph # Evans # Eos # Baso # Neutrophils % (Manual) Band Neutrophils % Lymphocytes % (Manual) Monocytes % (Manual) Eosinophils % (Manual) Platelet Estimate RBC Morphology ESR Puncture Site pCO2 pO2 HCO3 ABG pH ABG Total CO2 ABG O2 Saturation ABG Base Excess ABG Hemoglobin ABG Carboxyhemoglobin POC ABG HHb (Measured) ABG Methemoglobin Jamarcus Test A-a O2 Difference Respiratory Index Hgb O2 Saturation Liter Flow FiO2 Sodium 132 Potassium 3.4 L Chloride 95 L Carbon Dioxide 29 Anion Gap 12 BUN 25 H Creatinine 0.8 Est GFR ( Amer) > 60 Est GFR (Non-Af Amer) > 60 Random Glucose 161 H Calcium 8.7 Total Bilirubin 1.2 AST 51 ALT 192 H Alkaline Phosphatase 57 Troponin I 0.1550 H* C-React Prot High Sens > 15.00 H Total Protein 6.4 Albumin 3.4 L Globulin 3.0 Albumin/Globulin Ratio 1.1 Infectious Evans Assay RSV Antigen Fingerstick Blood Sugar Results: 165 Critical Care Progress Note - Nutrition Nutrition: Nutrition Category Date Time Status Regular Diet [DIET] Diets 10/25/17 Breakfast Active Assessment/Plan - Assessment and Plan (Free Text) Assessment: Neuro A/O x 3 Psych Heroine abuse Psych (Williams) Cardio Cards ([facility]) Coreg ASA Lasix Echo: normal valves, EF 40% Consider Myocarditis ([place]ox[place]ackie, CMV, Evans, Adenovirus, HHV6, MMR, Parvovirus, RSV, ESR, CRP, DISHA, Heptatits, HIV) Pulm Respiratory status improving decrease Fi02 to 60, cont solumedrol, atrovent, lasix R. Middle and Lower lobe PNA, cont zithromax, tamiflu, zosyn, vanco BC negative Serology is negative thus far ID (Mangia) GI Elevated LFTs Hep negative HIV negative day removed today ID ID (Mangia) PNA, possible myocarditis Zithromax, tamiflu, zosyn ,vanco Bandemia decreasing 13-11 PPx Pepcid Lovenox <Sotero Morgan S - Last Filed: 10/27/17 16:38> CCU Objective - Vital Signs / Intake & Output Vital Signs (Last 4 hours): Vital Signs Pulse Resp BP Pulse Ox 10/27/17 15:10 79 13 97 10/27/17 15:00 81 14 93 L 10/27/17 14:50 79 35 H 127/78 96 10/27/17 14:40 80 33 H 95 10/27/17 14:30 77 21 95 10/27/17 14:20 77 15 96 10/27/17 14:10 69 32 H 95 10/27/17 14:00 76 15 95 10/27/17 13:50 78 20 127/81 10/27/17 13:40 80 11 L 93 L 10/27/17 13:30 103 H 16 98 10/27/17 13:20 75 18 98 10/27/17 13:10 76 31 H 97 10/27/17 13:00 82 20 95 10/27/17 12:50 84 11 L 133/80 94 L 10/27/17 12:40 81 33 H 96 Intake and Output (Last 8hrs): Intake & Output 10/27/17 10/27/17 10/27/17 06:59 14:59 22:59 Intake Total 150 1450 0 Output Total 575 1700 Balance -425 -250 0 Weight 139 lb 11.2 oz Intake: Intake, IV Amount 50 850 Right Antecubital 50 850 Oral 100 600 0 Output: Urine 575 1700 Urine, Voided 575 1700 Other: # Voids Urine, Voided 1 # Bowel Movements 1 1 - Medications Active Medications: Active Medications Generic Name Dose Route Start Last Admin Trade Name Freq PRN Reason Stop Dose Admin Albuterol/Ipratropium 3 ml 10/26/17 13:53 Duoneb 3 Mg/0.5 Mg (3 Ml) Ud INH RQ6 PRN Shortness of Breath Aspirin 81 mg 10/23/17 12:30 10/27/17 09:43 Aspirin Chewable PO 81 mg DAILY [facility] Administration Carvedilol 3.125 mg 10/23/17 18:00 10/27/17 09:44 Coreg PO 3.125 mg BID [facility] Administration Docusate Sodium 100 mg 10/25/17 18:00 10/27/17 09:45 Colace PO Not Given BID [facility] Enoxaparin Sodium 70 mg 10/24/17 20:15 10/27/17 08:06 Lovenox SC 70 mg Q12H [facility] Administration Enoxaparin Sodium 40 mg 10/28/17 10:00 Lovenox SC DAILY [facility] Furosemide 20 mg 10/23/17 12:30 10/27/17 09:43 Lasix IVP 20 mg DAILY [facility] Administration Azithromycin 500 mg/ Sodium 250 mls @ 250 mls/hr 10/24/17 10:00 10/27/17 10: 39 Chloride IVPB 11/03/17 10:01 250 mls/hr DAILY [facility] Administration Piperacillin Sod/Tazobactam Sod 3.375 gm in 50 mls @ 200 mls/hr 10/23/17 13: 00 10/27/17 13:03 Zosyn 3.375 Gm Iv Premix IVPB 11/03/17 13:00 200 mls/hr Q6H [facility] Administration Vancomycin HCl 2 gm/ Sodium 500 mls @ 250 mls/hr 10/25/17 20:00 10/27/17 08: 48 Chloride IVPB 250 mls/hr Q12H [facility] Administration Ipratropium Sublette 0.5 mg 10/23/17 14:40 10/26/17 13:23 Atrovent IH 0.5 mg RQ6 PRN Administration Shortness of Breath Oseltamivir Phosphate 75 mg 10/23/17 19:30 10/27/17 09:55 Tamiflu Cap PO 10/28/17 19:31 75 mg BID [facility] Administration Prednisone 10 mg 10/31/17 10:00 Prednisone Tab PO 11/03/17 10:01 DAILY [facility] Saccharomyces Boulardii 250 mg 10/23/17 10:00 10/27/17 09:43 Florastor PO 250 mg BID [facility] Administration - Patient Studies Lab Studies: Microbiology Studies 10/23/17 07:58 Blood Culture - Preliminary Blood NO GROWTH AFTER 3 DAYS 10/23/17 07:58 Blood Culture - Preliminary Blood NO GROWTH AFTER 3 DAYS Lab Studies 10/27/17 10/27/17 10/27/17 Range/Units 07:04 07:04 07:02 WBC 7.5 (4.8-10.8) K/uL RBC 4.83 (4.40-5.90) Mil/uL Hgb 13.0 (12.0-18.0) g/dL Hct 37.6 (35.0-51.0) % MCV 77.8 L (80.0-94.0) fL MCH 26.9 L (27.0-31.0) pg MCHC 34.5 (33.0-37.0) g/dL RDW 15.0 H (11.5-14.5) % Plt Count 224 (130-400) K/uL MPV 8.5 (7.2-11.7) fL Neut % (Auto) 82.7 H (50.0-75.0) % Lymph % (Auto) 9.0 L (20.0-40.0) % Evans % (Auto) 8.2 (0.0-10.0) % Eos % (Auto) 0.0 (0.0-4.0) % Baso % (Auto) 0.1 (0.0-2.0) % Neut # 6.2 (1.8-7.0) K/uL Lymph # 0.7 L (1.0-4.3) K/uL Evans # 0.6 (0.0-0.8) K/uL Eos # 0.0 (0.0-0.7) K/uL Baso # 0.0 (0.0-0.2) K/uL Neutrophils % (Manual) 84 H (50-75) % Band Neutrophils % 1 (0-2) % Lymphocytes % (Manual) 7 L (20-40) % Monocytes % (Manual) 8 (0-10) % Platelet Estimate Normal (NORMAL) Anisocytosis (manual) Slight Sodium 133 (132-148) mmol/L Potassium 3.5 L (3.6-5.2) mmol/L Chloride 98 (98-107) mmol/L Carbon Dioxide 25 (22-30) mmol/L Anion Gap 14 (10-20) BUN 22 H (9-20) mg/dL Creatinine 0.9 (0.8-1.5) mg/dL Est GFR ( Amer) > 60 Est GFR (Non-Af Amer) > 60 Random Glucose 156 H (75-110) mg/dL Calcium 8.3 L (8.6-10.4) mg/dl Phosphorus 3.9 (2.5-4.5) mg/dL Magnesium 1.8 (1.6-2.3) mg/dL Total Bilirubin 1.2 (0.2-1.3) mg/dL AST 41 (17-59) U/L ALT 197 H (21-72) U/L Alkaline Phosphatase 56 (38-126) U/L Total Protein 6.4 (6.3-8.3) g/dL Albumin 3.4 L (3.5-5.0) g/dL Globulin 3.0 (2.2-3.9) gm/dL Albumin/Globulin Ratio 1.1 (1.0-2.1) Vancomycin Trough 12.5 H (5.0-10.0) ug/mL DISHA Nuclear Membr Pat (Negative) CMV IgG Ab U/mL CMV IgM Ab AU/mL Mumps Virus IgG Ab AU/mL Rubella IgG Antibody index Rubeola (Measles) IgG AU/mL 10/26/17 Range/Units 06:25 WBC (4.8-10.8) K/uL RBC (4.40-5.90) Mil/uL Hgb (12.0-18.0) g/dL Hct (35.0-51.0) % MCV (80.0-94.0) fL MCH (27.0-31.0) pg MCHC (33.0-37.0) g/dL RDW (11.5-14.5) % Plt Count (130-400) K/uL MPV (7.2-11.7) fL Neut % (Auto) (50.0-75.0) % Lymph % (Auto) (20.0-40.0) % Evans % (Auto) (0.0-10.0) % Eos % (Auto) (0.0-4.0) % Baso % (Auto) (0.0-2.0) % Neut # (1.8-7.0) K/uL Lymph # (1.0-4.3) K/uL Evans # (0.0-0.8) K/uL Eos # (0.0-0.7) K/uL Baso # (0.0-0.2) K/uL Neutrophils % (Manual) (50-75) % Band Neutrophils % (0-2) % Lymphocytes % (Manual) (20-40) % Monocytes % (Manual) (0-10) % Platelet Estimate (NORMAL) Anisocytosis (manual) Sodium (132-148) mmol/L Potassium (3.6-5.2) mmol/L Chloride (98-107) mmol/L Carbon Dioxide (22-30) mmol/L Anion Gap (10-20) BUN (9-20) mg/dL Creatinine (0.8-1.5) mg/dL Est GFR ( Amer) Est GFR (Non-Af Amer) Random Glucose (75-110) mg/dL Calcium (8.6-10.4) mg/dl Phosphorus (2.5-4.5) mg/dL Magnesium (1.6-2.3) mg/dL Total Bilirubin (0.2-1.3) mg/dL AST (17-59) U/L ALT (21-72) U/L Alkaline Phosphatase (38-126) U/L Total Protein (6.3-8.3) g/dL Albumin (3.5-5.0) g/dL Globulin (2.2-3.9) gm/dL Albumin/Globulin Ratio (1.0-2.1) Vancomycin Trough (5.0-10.0) ug/mL DISHA Nuclear Membr Pat Negative (Negative) CMV IgG Ab 0.64 H U/mL CMV IgM Ab <30.00 AU/mL Mumps Virus IgG Ab 184.00 AU/mL Rubella IgG Antibody 2.69 index Rubeola (Measles) IgG 206.00 AU/mL Laboratory Results - last 24 hr 10/26/17 10/27/17 10/27/17 06:25 07:02 07:04 WBC 7.5 RBC 4.83 Hgb 13.0 Hct 37.6 MCV 77.8 L MCH 26.9 L MCHC 34.5 RDW 15.0 H Plt Count 224 MPV 8.5 Neut % (Auto) 82.7 H Lymph % (Auto) 9.0 L Evans % (Auto) 8.2 Eos % (Auto) 0.0 Baso % (Auto) 0.1 Neut # 6.2 Lymph # 0.7 L Evans # 0.6 Eos # 0.0 Baso # 0.0 Neutrophils % (Manual) 84 H Band Neutrophils % 1 Lymphocytes % (Manual) 7 L Monocytes % (Manual) 8 Platelet Estimate Normal Anisocytosis (manual) Slight Sodium Potassium Chloride Carbon Dioxide Anion Gap BUN Creatinine Est GFR ( Amer) Est GFR (Non-Af Amer) Random Glucose Calcium Phosphorus Magnesium Total Bilirubin AST ALT Alkaline Phosphatase Total Protein Albumin Globulin Albumin/Globulin Ratio Vancomycin Trough 12.5 H DISHA Nuclear Membr Pat Negative CMV IgG Ab 0.64 H CMV IgM Ab <30.00 Mumps Virus IgG Ab 184.00 Rubella IgG Antibody 2.69 Rubeola (Measles) IgG 206.00 10/27/17 07:04 WBC RBC Hgb Hct MCV MCH MCHC RDW Plt Count MPV Neut % (Auto) Lymph % (Auto) Evans % (Auto) Eos % (Auto) Baso % (Auto) Neut # Lymph # Evans # Eos # Baso # Neutrophils % (Manual) Band Neutrophils % Lymphocytes % (Manual) Monocytes % (Manual) Platelet Estimate Anisocytosis (manual) Sodium 133 Potassium 3.5 L Chloride 98 Carbon Dioxide 25 Anion Gap 14 BUN 22 H Creatinine 0.9 Est GFR ( Amer) > 60 Est GFR (Non-Af Amer) > 60 Random Glucose 156 H Calcium 8.3 L Phosphorus 3.9 Magnesium 1.8 Total Bilirubin 1.2 AST 41 ALT 197 H Alkaline Phosphatase 56 Total Protein 6.4 Albumin 3.4 L Globulin 3.0 Albumin/Globulin Ratio 1.1 Vancomycin Trough DISHA Nuclear Membr Pat CMV IgG Ab CMV IgM Ab Mumps Virus IgG Ab Rubella IgG Antibody Rubeola (Measles) IgG Critical Care Progress Note - Nutrition Nutrition: Nutrition Category Date Time Status Regular Diet [DIET] Diets 10/25/17 Breakfast Active Attending/Attestation - Attestation I have personally seen and examined this patient.: Yes I have fully participated in the care of the patient.: Yes I have reviewed all pertinent clinical information: Yes Notes (Text): 10/27/17 16:37 patient seen and examined in the intensive care unit. Respiratory status improving decrease Fi02 to 50, Taper solumedrol, cont atrovent, lasix R. Middle and Lower lobe PNA, cont zithromax, tamiflu, zosyn, vanco BC negative Serology is negative thus far ID (Mangia) ejection fraction 40% Rule out myocarditis Stable for transfer to floor
[2017-10-26] MEDS: Azithromycin 500 MG in Sodium Chloride 0.9% 250 ML IVPB SCH (10:58)
--- NOTE | 2017-10-26 12:04 | CP.PCM.PN ---
Subjective - Date & Time of Evaluation Date of Evaluation: 10/26/17 Time of Evaluation: 10:00 - Subjective Subjective: no fever less sob Objective - Vital Signs/Intake and Output Vital Signs (last 24 hours): Temp Pulse Resp BP Pulse Ox 98.5 F 84 35 H 122/74 93 L 10/26/17 04:00 10/26/17 10:50 10/26/17 10:56 10/26/17 10:50 10/26/17 10:50 Intake and Output: 10/26/17 10/26/17 06:59 18:59 Intake Total 700 1100 Output Total 690 1000 Balance 10 100 - Medications Medications: Current Medications Aspirin (Aspirin Chewable) 81 mg PO DAILY [facility] Last Admin: 10/26/17 09:56 Dose: 81 mg Carvedilol (Coreg) 3.125 mg PO BID [facility] Last Admin: 10/26/17 09:57 Dose: 3.125 mg Docusate Sodium (Colace) 100 mg PO BID [facility] Last Admin: 10/26/17 10:04 Dose: Not Given Enoxaparin Sodium (Lovenox) 70 mg SC Q12H [facility] Last Admin: 10/26/17 07:23 Dose: 70 mg Famotidine (Pepcid) 20 mg IVP Q12 [facility] Last Admin: 10/26/17 09:59 Dose: 20 mg Furosemide (Lasix) 20 mg IVP DAILY [facility] Last Admin: 10/26/17 09:59 Dose: 20 mg Azithromycin 500 mg/ Sodium (Chloride) 250 mls @ 250 mls/hr IVPB DAILY [facility] Last Admin: 10/26/17 10:58 Dose: 250 mls/hr Piperacillin Sod/Tazobactam Sod (Zosyn 3.375 Gm Iv Premix) 3.375 gm in 50 mls @ 200 mls/hr IVPB Q6H [facility] Last Admin: 10/26/17 06:47 Dose: 200 mls/hr Vancomycin HCl 2 gm/ Sodium (Chloride) 500 mls @ 250 mls/hr IVPB Q12H [facility] Last Admin: 10/26/17 07:27 Dose: 250 mls/hr Ipratropium [place] (Atrovent) 0.5 mg IH RQ6 PRN PRN Reason: Shortness of Breath Last Admin: 10/26/17 07:40 Dose: 0.5 mg Methylprednisolone (Solu-Medrol) 40 mg IV Q12 [facility] Last Admin: 10/26/17 09:58 Dose: 40 mg Oseltamivir Phosphate (Tamiflu Cap) 75 mg PO BID [facility] Last Admin: 10/26/17 10:01 Dose: 75 mg Saccharomyces Boulardii (Florastor) 250 mg PO BID [facility] Last Admin: 10/26/17 09:57 Dose: 250 mg - Labs Labs: 10/26/17 06:25 10/26/17 06:25 PT 16.2 SECONDS (9.7-12.2) H 10/23/17 07:46 INR 1.4 10/23/17 07:46 APTT 27 SECONDS (21-34) 10/23/17 07:46 - Constitutional Appears: Non-toxic, Chronically Ill - Head Exam Head Exam: NORMOCEPHALIC - Eye Exam Eye Exam: PERRL - ENT Exam ENT Exam: Mucous Membranes Dry - Neck Exam Neck Exam: absent: Lymphadenopathy - Respiratory Exam Respiratory Exam: Decreased Breath Sounds - Cardiovascular Exam Cardiovascular Exam: REGULAR RHYTHM - GI/Abdominal Exam GI & Abdominal Exam: Distended, Soft - Rectal Exam Rectal Exam: Deferred - Exam Exam: NORMAL INSPECTION - Extremities Exam Extremities Exam: absent: Pedal Edema - Back Exam Back Exam: absent: CVA tenderness (L), CVA tenderness (R) Assessment and Plan (1) Pneumonia Status: Acute (2) Heroin abuse Status: Acute (3) Respiratory failure with hypoxia and hypercapnia Status: Acute
[2017-10-26] MEDS ORDERED: Albuterol-Ipratrop 3 mg / 0.5 (3 ml) UD INH PRN (13:53)
--- NOTE | 2017-10-26 14:58 | CP.PCM.PN ---
Subjective - Date & Time of Evaluation Date of Evaluation: 10/26/17 Time of Evaluation: 14:35 - Subjective Subjective: Medical Attending Note: Patient seen, examined and case discussed with ICU resident. Patient denies fever, denies chills, denies rhinorrhea, reports sweats, denies nausea, denies vomitting, denies abdominal pain, denies numbness, denies tingling. patient reports he received a stool softener last night, and it worked very well. Patient reports he served in the [employer] for 5 years for [employer]. Patient reports he started on heroin as transition from Oxycontin about one year ago. Patient had been sober for 6 weeks before he relapsed on 2 bundles of heroin. STEVEN: Denies headache, denies fever, denies cough, reports less shortness of breathe, reports sweats, denies chest pain, denies abdominal pain, denies constipation, denie palpitations, denies tingling. Objective - Vital Signs/Intake and Output Vital Signs (last 24 hours): Temp Pulse Resp BP Pulse Ox 98.5 F 84 35 H 122/74 93 L 10/26/17 04:00 10/26/17 10:50 10/26/17 13:21 10/26/17 10:50 10/26/17 10:50 Intake and Output: 10/26/17 10/26/17 06:59 18:59 Intake Total 700 1100 Output Total 690 1000 Balance 10 100 - Medications Medications: Current Medications Albuterol/Ipratropium (Duoneb 3 Mg/0.5 Mg (3 Ml) Ud) 3 ml INH RQ6 PRN PRN Reason: Shortness of Breath Aspirin (Aspirin Chewable) 81 mg PO DAILY [facility] Last Admin: 10/26/17 09:56 Dose: 81 mg Carvedilol (Coreg) 3.125 mg PO BID [facility] Last Admin: 10/26/17 09:57 Dose: 3.125 mg Docusate Sodium (Colace) 100 mg PO BID [facility] Last Admin: 10/26/17 10:04 Dose: Not Given Enoxaparin Sodium (Lovenox) 70 mg SC Q12H [facility] Last Admin: 10/26/17 07:23 Dose: 70 mg Famotidine (Pepcid) 20 mg IVP Q12 [facility] Last Admin: 10/26/17 09:59 Dose: 20 mg Furosemide (Lasix) 20 mg IVP DAILY [facility] Last Admin: 10/26/17 09:59 Dose: 20 mg Azithromycin 500 mg/ Sodium (Chloride) 250 mls @ 250 mls/hr IVPB DAILY [facility] Last Admin: 10/26/17 10:58 Dose: 250 mls/hr Piperacillin Sod/Tazobactam Sod (Zosyn 3.375 Gm Iv Premix) 3.375 gm in 50 mls @ 200 mls/hr IVPB Q6H [facility] Last Admin: 10/26/17 13:26 Dose: 200 mls/hr Vancomycin HCl 2 gm/ Sodium (Chloride) 500 mls @ 250 mls/hr IVPB Q12H [facility] Last Admin: 10/26/17 07:27 Dose: 250 mls/hr Ipratropium [place] (Atrovent) 0.5 mg IH RQ6 PRN PRN Reason: Shortness of Breath Last Admin: 10/26/17 13:23 Dose: 0.5 mg Methylprednisolone (Solu-Medrol) 40 mg IV Q12 [facility] Last Admin: 10/26/17 09:58 Dose: 40 mg Oseltamivir Phosphate (Tamiflu Cap) 75 mg PO BID [facility] Last Admin: 10/26/17 10:01 Dose: 75 mg Saccharomyces Boulardii (Florastor) 250 mg PO BID [facility] Last Admin: 10/26/17 09:57 Dose: 250 mg - Labs Labs: 10/26/17 06:25 10/26/17 06:25 PT 16.2 SECONDS (9.7-12.2) H 10/23/17 07:46 INR 1.4 10/23/17 07:46 APTT 27 SECONDS (21-34) 10/23/17 07:46 - Constitutional Appears: Non-toxic, No Acute Distress, Unkempt - Head Exam Head Exam: NORMAL INSPECTION, NORMOCEPHALIC - Eye Exam Eye Exam: EOMI, Normal appearance - ENT Exam ENT Exam: Mucous Membranes Moist - Respiratory Exam Respiratory Exam: NORMAL BREATHING PATTERN Additional comments: decreased breathe sounds - Cardiovascular Exam Cardiovascular Exam: REGULAR RHYTHM, +S1, +S2. absent: RRR - GI/Abdominal Exam GI & Abdominal Exam: Soft, Normal Bowel Sounds. absent: Distended, Firm, Guarding, Rigid, Tenderness - Extremities Exam Extremities Exam: Normal Capillary Refill, Normal Inspection. absent: Joint Swelling - Back Exam Back Exam: absent: CVA tenderness (L), CVA tenderness (R) - Neurological Exam Neurological Exam: Alert, Awake, CN II-XII Intact, Oriented x3 - Skin Skin Exam: Dry, Normal Color, Warm Assessment and Plan - Assessment and Plan (Free Text) Assessment: Assessment and Plan: 1). Acute Respiratory Distress * Likely secondary to Opiate Overdose and Aspiration Pneumonia * Doing better on High Flow Oxygen * Solumedrol 40 mg IV Q12H 2). Right Pneumonia, Aspiration * Infectious Disease (Dr. Lynn) on board-->help appreciated * Azithromycin 500 mg IV Q24H (10/23/17) * Tamiflu 75 mg PO 2x/day (Day 4 of 5) and last dose should be on 10/27/17 * Zosyn 3.375 gm IV Q6H (10/23/17) * Vancomycin was increased to 2 gm IV Q12H on 10/25/17 as trough 10/25/17 7:30 AM was 6.6 * F/U Vancomycin Trough at 7:30 PM 10/26/17: Shoot for a Trough of 15 to 20 considering the Aspiration Pneumonia * F/U Urine Strep Pneumoniae Ag * Urine Legionella Ag is NEGATIVE * Rapid Influenza is NEGATIVE * F/U Mycoplasma IgG and IgM * Blood Culture 10/23/17 no growth after 48 hours X2 * Urine Culture 10/23/17 shows NO GROWTH 3). Elevated D-Dimer * CT Chest PE Protocol: NO PULMONARY EMBOLISM. Confluent air space consolidation throughout Right > Left Hemithorax * Bilateral Venous Dopplers LE: NO DVT 4). Elevated Troponin/Elevated ProBNP/Cardiomyopathy * Cardiology (Dr. Guzman) on case-->help appreciated * Echocardiogram 10/23/17 shows Cardiomyopathy with severly depressed EF in the 20s: pending Official Report * Could this be secondary to Myocarditis? * F/U workup for Myocarditis: Coxsackieviurus, CMV, Monospot Test:negative, Adenovirus, HHV6, MMR, ParvoVirus B19, RSV:negative, DISHA, ESR, and CRP. Hepatitis Panel, and HIV and Influenza are already negative * Patient will likely need Cardiac Catheterization later this week once respiratory status stablizes: please coordinate with Rot[employer] Dr. Guzman * Lasix 20 mg IV 1x/day * ASA 81 mg PO 1x/day * Coreg 3.125 mg PO 2x/day * Lovenox 70 mg SC Q12H * Troponin declining 5). Elevated LFTs * Hepatitis Panel is NEGATIVE * HIV is NEGATIVE 6). Heroin Use * Psychiatry Dr. Kramer 7). Prophylaxis * Florastor 250 mg PO 2x/day * Pepcid 20 mg IV Q12H * Lovenox 70 mg SC Q12H
--- NOTE | 2017-10-26 16:22 | PN ---
DATE: SUBJECTIVE: The patient's shortness of breath has improved. He is able to take a deep breath. PHYSICAL EXAMINATION: VITAL SIGNS: Blood pressure 122/74, heart rate 84, respirations 35, temperature 98.5. HEENT: Normocephalic. CHEST: Diminished breath sounds over the right base. HEART: S1, S2, regular. ABDOMEN: Soft. EXTREMITIES: No edema. LABORATORY DATA: Today's troponin 0.15. SMA-7: Sodium 132, potassium 3.4, chloride 95, CO2 of 29, glucose 161, BUN 25, creatinine 0.8. Today's hemoglobin and hematocrit 12.7 and 36.8, white count 8.4, platelet count 239,000. ASSESSMENT: 1. Cardiomyopathy. 2. Borderline troponin elevation, rule out non-ST elevation myocardial infarction. 3. Status post heroin abuse. 4. Unresponsiveness and a fall documented at home. 5. Right middle and lower lobe pneumonia. RECOMMENDATIONS: I did review today's chest x-ray, which revealed resolution of the right lower lobe infiltrate with partial resolution of right middle lobe infiltrate with picture of mild CHF. Continue aspirin 81 mg once a day, IV Zithromax at 500 mg intravenously daily, IV vancomycin at 2 g intravenously q. 12 hours, IV Zosyn 3.375 g intravenously q. 6 hours, continue Lasix 20 mg intravenously once a day, Lovenox at 70 mg subcutaneous twice a day, Solu-Medrol 40 mg intravenously q. 12 hours, Coreg 3.125 mg twice a day. Blood culture if negative after 48 hours. Patrice Guzman MD
--- NOTE | 2017-10-26 18:59 | CARD ---
APPROVED REPORT EXAM: Two-dimensional and M-mode echocardiogram with Doppler and color Doppler. Other Information Quality : [employer] : INDICATION ELEVATED TROPONIN, PROBNP 2D DIMENSIONS IVSd0.7 (0.7-1.1cm)LVDd4.8 (3.9-5.9cm) PWd0.7 (0.7-1.1cm)LVDs3.9 (2.5-4.0cm) FS (%) 19.0 %LVEF (%)39.2 (>50%) M-Mode DIMENSIONS RVDd2.52 (2.1-3.2cm)Left Atrium (MM)3.28 (2.5-4.0cm) IVSd0.70 (0.7-1.1cm)Aortic Root2.74 (2.2-3.7cm) LVDd5.47 (4.0-5.6cm)Aortic Cusp Exc.1.95 (1.5-2.0cm) PWd0.67 (0.7-1.1cm)FS (%) 23 % LVDs4.19 (2.0-3.8cm)LVEF (%)46 (>50%) Mitral Valve MV E [id number]/sE/A ratio0.0 TDI E/Lateral E'0.0E/Medial E'0.0 Tricuspid Valve TR Peak [id number] Peak [id number] <Conclusion> Left ventricle: moderate diffuse systolic dysfunction; thickness: normal; size: normal; overall ejection fraction: 40%: diastolic filling pressures: elevated Mitral valve: annulus: normal: leaflets: normal: excursion: normal; no significant trans-mitral gradient: no significant incompetence: left atrium: normal Aortic valve: leaflets: normal: excursion: normal; no significant trans-aortic gradient: No significant incompetence: aortic root: normal Right sided Structures: Pulmonary valve: normal; no significant incompetence; Tricuspid valve: normal; no significant incompetence: Intra-cardiac hemodynamics: pulmonary systolic pressures: 28 mmHg; central venous pressures: normal No pericardial effusion
[2017-10-27] MEDS: Piperacill/Tazo 3.375gm in Dex 3.375 GM/50 ML BAG IVPB SCH ×4 (00:46→18:06)
[2017-10-27 07:11] LABS: BASO % 0.1 % (0.0-2.0); LYMPH # 0.7 K/uL (1.0-4.3); MEAN CELL VOLUME 77.8 fL (80.0-94.0); MEAN CORPUSCULAR HEMOGLOBIN 26.9 pg (27.0-31.0); MEAN CORPUSCULAR HGB CONC 34.5 g/dL (33.0-37.0); MEAN PLATELET VOLUME 8.5 fL (7.2-11.7); MONO # 0.6 K/uL (0.0-0.8); MONO % 8.2 % (0.0-10.0); NEUT # 6.2 K/uL (1.8-7.0); NEUT % 82.7 % (50.0-75.0); PLATELET COUNT 224 K/uL (130-400); RBC 4.83 Mil/uL (4.40-5.90); WHITE BLOOD COUNT 7.5 K/uL (4.8-10.8)
[2017-10-27 07:38] LABS: ALB/GLOB RATIO 1.1 (1.0-2.1); ALBUMIN 3.4 g/dL (3.5-5.0); ALT/SGPT 197 U/L (21-72); AST/SGOT 41 U/L (17-59); BLOOD UREA NITROGEN 22 mg/dL (9-20); CALCIUM 8.3 mg/dl (8.6-10.4); GFR AFRICAN-AMERICAN > 60; GFR NON-AFRICAN AMERICAN > 60; MAGNESIUM 1.8 mg/dL (1.6-2.3)
[2017-10-27] MEDS: Enoxaparin 80 mg Syringe SC SCH (08:06)
[2017-10-27 08:47] LABS: BANDS 1 % (0-2); LYMPHOCYTE 7 % (20-40); MONOCYTE 8 % (0-10); NEUTROPHIL 84 % (50-75); TOTAL CELLS COUNTED 100
[2017-10-27 08:48] LABS: ANISOCYTOSIS SLIGHT; PLATELET ESTIMATE NORMAL (NORMAL)
[2017-10-27] MEDS: SODIUM CHLORIDE 0.45% IVPB SCH ×2 (08:48→19:47)
[2017-10-27] MEDS: VANCOMYCIN IVPB SCH ×2 (08:48→19:47)
[2017-10-27] MEDS: Saccharomyces Boulardi 250 mg Cap PO SCH ×2 (09:43→17:15)
[2017-10-27] MEDS: MethylPREDNISolone 40 mg Vial IV SCH (09:45)
[2017-10-27] MEDS: Azithromycin 500 MG in Sodium Chloride 0.9% 250 ML IVPB SCH (10:39)
[2017-10-27] MEDS ORDERED: Potassium Chloride 20 mEq ER Tab PO ONE (11:03)
--- NOTE | 2017-10-27 12:04 | CP.PCM.PN ---
Subjective - Date & Time of Evaluation Date of Evaluation: 10/27/17 Time of Evaluation: 07:00 - Subjective Subjective: awake alert NAD remains afebrile less SOB IV antibiotics to continue for 7 days Objective - Vital Signs/Intake and Output Vital Signs (last 24 hours): Temp Pulse Resp BP Pulse Ox 985.9 F H 56 L 27 H 126/73 97 10/27/17 08:00 10/27/17 11:00 10/27/17 11:31 10/27/17 09:51 10/27/17 11:00 Intake and Output: 10/27/17 10/27/17 06:59 18:59 Intake Total 850 1200 Output Total 576 1200 Balance 274 0 - Medications Medications: Current Medications Albuterol/Ipratropium (Duoneb 3 Mg/0.5 Mg (3 Ml) Ud) 3 ml INH RQ6 PRN PRN Reason: Shortness of Breath Aspirin (Aspirin Chewable) 81 mg PO DAILY [facility] Last Admin: 10/27/17 09:43 Dose: 81 mg Carvedilol (Coreg) 3.125 mg PO BID [facility] Last Admin: 10/27/17 09:44 Dose: 3.125 mg Docusate Sodium (Colace) 100 mg PO BID [facility] Last Admin: 10/27/17 09:45 Dose: Not Given Enoxaparin Sodium (Lovenox) 70 mg SC Q12H [facility] Last Admin: 10/27/17 08:06 Dose: 70 mg Famotidine (Pepcid) 20 mg IVP Q12 [facility] Last Admin: 10/27/17 09:45 Dose: 20 mg Furosemide (Lasix) 20 mg IVP DAILY [facility] Last Admin: 10/27/17 09:43 Dose: 20 mg Azithromycin 500 mg/ Sodium (Chloride) 250 mls @ 250 mls/hr IVPB DAILY [facility] Last Admin: 10/27/17 10:39 Dose: 250 mls/hr Piperacillin Sod/Tazobactam Sod (Zosyn 3.375 Gm Iv Premix) 3.375 gm in 50 mls @ 200 mls/hr IVPB Q6H [facility] Last Admin: 10/27/17 06:15 Dose: 200 mls/hr Vancomycin HCl 2 gm/ Sodium (Chloride) 500 mls @ 250 mls/hr IVPB Q12H [facility] Last Admin: 10/27/17 08:48 Dose: 250 mls/hr Ipratropium [place] (Atrovent) 0.5 mg IH RQ6 PRN PRN Reason: Shortness of Breath Last Admin: 10/26/17 13:23 Dose: 0.5 mg Methylprednisolone (Solu-Medrol) 40 mg IV Q12 [facility] Last Admin: 10/27/17 09:45 Dose: 40 mg Oseltamivir Phosphate (Tamiflu Cap) 75 mg PO BID [facility] Last Admin: 10/27/17 09:55 Dose: 75 mg Saccharomyces Boulardii (Florastor) 250 mg PO BID [facility] Last Admin: 10/27/17 09:43 Dose: 250 mg - Labs Labs: 10/27/17 07:02 10/27/17 07:04 PT 16.2 SECONDS (9.7-12.2) H 10/23/17 07:46 INR 1.4 10/23/17 07:46 APTT 27 SECONDS (21-34) 10/23/17 07:46 - Constitutional Appears: Non-toxic, Chronically Ill - Head Exam Head Exam: NORMOCEPHALIC - Eye Exam Eye Exam: PERRL. absent: Scleral icterus - ENT Exam ENT Exam: Mucous Membranes Dry - Neck Exam Neck Exam: absent: Lymphadenopathy - Respiratory Exam Respiratory Exam: Decreased Breath Sounds - Cardiovascular Exam Cardiovascular Exam: REGULAR RHYTHM - GI/Abdominal Exam GI & Abdominal Exam: Distended, Soft - Rectal Exam Rectal Exam: Deferred - Exam Exam: NORMAL INSPECTION - Extremities Exam Extremities Exam: absent: Pedal Edema - Back Exam Back Exam: absent: CVA tenderness (L), CVA tenderness (R) - Neurological Exam Neurological Exam: Alert, Awake, Oriented x3 Neuro motor strength exam: Left Upper Extremity: 5, Right Upper Extremity: 5, Left Lower Extremity: 5, Right Lower Extremity: 5 - Psychiatric Exam Psychiatric exam: Normal Mood - Skin Skin Exam: Dry Assessment and Plan (1) Pneumonia Status: Acute (2) Heroin abuse Status: Acute (3) Respiratory failure with hypoxia and hypercapnia Status: Acute
--- NOTE | 2017-10-27 12:06 | CP.CCUPN ---
<Velasquez Stewart - Last Filed: 10/27/17 12:05> CCU Subjective - Physician Review Events Since Last Encounter (Free Text): 10/27/17 12:05 patient seen and examined at bedside. Stable for transfer to [facility] No need for further ICU care at this time CCU Objective - Vital Signs / Intake & Output Vital Signs (Last 4 hours): Vital Signs Pulse Resp BP Pulse Ox 10/27/17 11:31 27 H 10/27/17 11:00 56 L 27 H 97 10/27/17 10:50 82 20 95 10/27/17 10:40 73 36 H 93 L 10/27/17 10:30 69 29 H 98 10/27/17 10:20 63 27 H 98 10/27/17 10:10 56 L 29 H 96 10/27/17 10:00 72 31 H 96 10/27/17 09:51 71 33 H 126/73 97 10/27/17 09:50 77 26 H 97 10/27/17 09:43 78 19 123/71 98 10/27/17 09:40 73 29 H 97 10/27/17 09:30 77 26 H 97 10/27/17 09:20 90 35 H 99 10/27/17 09:10 78 33 H 96 10/27/17 09:00 78 33 H 97 10/27/17 08:51 78 32 H 119/68 97 10/27/17 08:50 78 33 H 10/27/17 08:40 80 26 H 96 10/27/17 08:30 91 H 26 H 94 L 10/27/17 08:20 81 22 98 10/27/17 08:10 74 20 96 Intake and Output (Last 8hrs): Intake & Output 10/26/17 10/27/17 10/27/17 22:59 06:59 14:59 Intake Total 883 488 8301 Output Total 1 575 1200 Balance 849 -425 0 Weight 139 lb 11.2 oz Intake: Intake, IV Amount 550 50 800 Right Antecubital 550 50 800 Oral 300 100 400 Output: Urine 575 1200 Urine, Voided 575 1200 Urine/Stool Mix 1 Other: # Voids Urine, Voided 1 1 # Bowel Movements 1 1 - Physical Exam Head: Positive for: Atraumatic, Normocephalic Pupils: Positive for: PERRL Extroacular Muscles: Positive for: EOMI Conjunctiva: Positive for: Normal Mouth: Positive for: Moist Mucous Membranes Respiratory/Chest: Positive for: Clear to Auscultation Cardiovascular: Positive for: Regular Rate and Rhythm Abdomen: Positive for: Normal Bowel Sounds. Negative for: Tenderness, Distention, Peritoneal Signs Upper Extremity: Positive for: Normal Inspection. Negative for: Cyanosis, Edema Lower Extremity: Positive for: Normal Inspection. Negative for: Edema Neurological: Positive for: GCS=15, Speech Normal Skin: Positive for: Warm, Dry, Normal Color. Negative for: Rashes Psychiatric: Positive for: Alert, Oriented x 3 - Medications Active Medications: Active Medications Generic Name Dose Route Start Last Admin Trade Name Freq PRN Reason Stop Dose Admin Albuterol/Ipratropium 3 ml 10/26/17 13:53 Duoneb 3 Mg/0.5 Mg (3 Ml) Ud INH RQ6 PRN Shortness of Breath Aspirin 81 mg 10/23/17 12:30 10/27/17 09:43 Aspirin Chewable PO 81 mg DAILY [facility] Administration Carvedilol 3.125 mg 10/23/17 18:00 10/27/17 09:44 Coreg PO 3.125 mg BID [facility] Administration Docusate Sodium 100 mg 10/25/17 18:00 10/27/17 09:45 Colace PO Not Given BID [facility] Enoxaparin Sodium 70 mg 10/24/17 20:15 10/27/17 08:06 Lovenox SC 70 mg Q12H [facility] Administration Famotidine 20 mg 10/23/17 10:00 10/27/17 09:45 Pepcid IVP 20 mg Q12 [facility] Administration Furosemide 20 mg 10/23/17 12:30 10/27/17 09:43 Lasix IVP 20 mg DAILY [facility] Administration Azithromycin 500 mg/ Sodium 250 mls @ 250 mls/hr 10/24/17 10:00 10/27/17 10: 39 Chloride IVPB 250 mls/hr DAILY [facility] Administration Piperacillin Sod/Tazobactam Sod 3.375 gm in 50 mls @ 200 mls/hr 10/23/17 13: 00 10/27/17 06:15 Zosyn 3.375 Gm Iv Premix IVPB 200 mls/hr Q6H [facility] Administration Vancomycin HCl 2 gm/ Sodium 500 mls @ 250 mls/hr 10/25/17 20:00 10/27/17 08: 48 Chloride IVPB 250 mls/hr Q12H [facility] Administration Ipratropium Rippey 0.5 mg 10/23/17 14:40 10/26/17 13:23 Atrovent IH 0.5 mg RQ6 PRN Administration Shortness of Breath Methylprednisolone 40 mg 10/24/17 10:00 10/27/17 09:45 Solu-Medrol IV 40 mg Q12 [facility] Administration Oseltamivir Phosphate 75 mg 10/23/17 19:30 10/27/17 09:55 Tamiflu Cap PO 75 mg BID [facility] Administration Saccharomyces Boulardii 250 mg 10/23/17 10:00 10/27/17 09:43 Florastor PO 250 mg BID [facility] Administration - Patient Studies Lab Studies: Microbiology Studies 10/23/17 07:58 Blood Culture - Preliminary Blood NO GROWTH AFTER 3 DAYS 10/23/17 07:58 Blood Culture - Preliminary Blood NO GROWTH AFTER 3 DAYS Lab Studies 10/27/17 10/27/17 10/27/17 Range/Units 07:04 07:04 07:02 WBC 7.5 (4.8-10.8) K/uL RBC 4.83 (4.40-5.90) Mil/uL Hgb 13.0 (12.0-18.0) g/dL Hct 37.6 (35.0-51.0) % MCV 77.8 L (80.0-94.0) fL MCH 26.9 L (27.0-31.0) pg MCHC 34.5 (33.0-37.0) g/dL RDW 15.0 H (11.5-14.5) % Plt Count 224 (130-400) K/uL MPV 8.5 (7.2-11.7) fL Neut % (Auto) 82.7 H (50.0-75.0) % Lymph % (Auto) 9.0 L (20.0-40.0) % [place] % (Auto) 8.2 (0.0-10.0) % Eos % (Auto) 0.0 (0.0-4.0) % Baso % (Auto) 0.1 (0.0-2.0) % Neut # 6.2 (1.8-7.0) K/uL Lymph # 0.7 L (1.0-4.3) K/uL [place] # 0.6 (0.0-0.8) K/uL Eos # 0.0 (0.0-0.7) K/uL Baso # 0.0 (0.0-0.2) K/uL Neutrophils % (Manual) 84 H (50-75) % Band Neutrophils % 1 (0-2) % Lymphocytes % (Manual) 7 L (20-40) % Monocytes % (Manual) 8 (0-10) % Platelet Estimate Normal (NORMAL) Anisocytosis (manual) Slight Sodium 133 (132-148) mmol/L Potassium 3.5 L (3.6-5.2) mmol/L Chloride 98 (98-107) mmol/L Carbon Dioxide 25 (22-30) mmol/L Anion Gap 14 (10-20) BUN 22 H (9-20) mg/dL Creatinine 0.9 (0.8-1.5) mg/dL Est GFR ( Amer) > 60 Est GFR (Non-Af Amer) > 60 Random Glucose 156 H (75-110) mg/dL Calcium 8.3 L (8.6-10.4) mg/dl Phosphorus 3.9 (2.5-4.5) mg/dL Magnesium 1.8 (1.6-2.3) mg/dL Total Bilirubin 1.2 (0.2-1.3) mg/dL AST 41 (17-59) U/L ALT 197 H (21-72) U/L Alkaline Phosphatase 56 (38-126) U/L Total Protein 6.4 (6.3-8.3) g/dL Albumin 3.4 L (3.5-5.0) g/dL Globulin 3.0 (2.2-3.9) gm/dL Albumin/Globulin Ratio 1.1 (1.0-2.1) Vancomycin Trough 12.5 H (5.0-10.0) ug/mL Mumps Virus IgG Ab AU/mL 10/26/17 Range/Units 06:25 WBC (4.8-10.8) K/uL RBC (4.40-5.90) Mil/uL Hgb (12.0-18.0) g/dL Hct (35.0-51.0) % MCV (80.0-94.0) fL MCH (27.0-31.0) pg MCHC (33.0-37.0) g/dL RDW (11.5-14.5) % Plt Count (130-400) K/uL MPV (7.2-11.7) fL Neut % (Auto) (50.0-75.0) % Lymph % (Auto) (20.0-40.0) % [place] % (Auto) (0.0-10.0) % Eos % (Auto) (0.0-4.0) % Baso % (Auto) (0.0-2.0) % Neut # (1.8-7.0) K/uL Lymph # (1.0-4.3) K/uL [place] # (0.0-0.8) K/uL Eos # (0.0-0.7) K/uL Baso # (0.0-0.2) K/uL Neutrophils % (Manual) (50-75) % Band Neutrophils % (0-2) % Lymphocytes % (Manual) (20-40) % Monocytes % (Manual) (0-10) % Platelet Estimate (NORMAL) Anisocytosis (manual) Sodium (132-148) mmol/L Potassium (3.6-5.2) mmol/L Chloride (98-107) mmol/L Carbon Dioxide (22-30) mmol/L Anion Gap (10-20) BUN (9-20) mg/dL Creatinine (0.8-1.5) mg/dL Est GFR ( Amer) Est GFR (Non-Af Amer) Random Glucose (75-110) mg/dL Calcium (8.6-10.4) mg/dl Phosphorus (2.5-4.5) mg/dL Magnesium (1.6-2.3) mg/dL Total Bilirubin (0.2-1.3) mg/dL AST (17-59) U/L ALT (21-72) U/L Alkaline Phosphatase (38-126) U/L Total Protein (6.3-8.3) g/dL Albumin (3.5-5.0) g/dL Globulin (2.2-3.9) gm/dL Albumin/Globulin Ratio (1.0-2.1) Vancomycin Trough (5.0-10.0) ug/mL Mumps Virus IgG Ab 184.00 AU/mL Laboratory Results - last 24 hr 10/26/17 10/27/17 10/27/17 06:25 07:02 07:04 WBC 7.5 RBC 4.83 Hgb 13.0 Hct 37.6 MCV 77.8 L MCH 26.9 L MCHC 34.5 RDW 15.0 H Plt Count 224 MPV 8.5 Neut % (Auto) 82.7 H Lymph % (Auto) 9.0 L [place] % (Auto) 8.2 Eos % (Auto) 0.0 Baso % (Auto) 0.1 Neut # 6.2 Lymph # 0.7 L [place] # 0.6 Eos # 0.0 Baso # 0.0 Neutrophils % (Manual) 84 H Band Neutrophils % 1 Lymphocytes % (Manual) 7 L Monocytes % (Manual) 8 Platelet Estimate Normal Anisocytosis (manual) Slight Sodium Potassium Chloride Carbon Dioxide Anion Gap BUN Creatinine Est GFR ( Amer) Est GFR (Non-Af Amer) Random Glucose Calcium Phosphorus Magnesium Total Bilirubin AST ALT Alkaline Phosphatase Total Protein Albumin Globulin Albumin/Globulin Ratio Vancomycin Trough 12.5 H Mumps Virus IgG Ab 184.00 10/27/17 07:04 WBC RBC Hgb Hct MCV MCH MCHC RDW Plt Count MPV Neut % (Auto) Lymph % (Auto) [place] % (Auto) Eos % (Auto) Baso % (Auto) Neut # Lymph # [place] # Eos # Baso # Neutrophils % (Manual) Band Neutrophils % Lymphocytes % (Manual) Monocytes % (Manual) Platelet Estimate Anisocytosis (manual) Sodium 133 Potassium 3.5 L Chloride 98 Carbon Dioxide 25 Anion Gap 14 BUN 22 H Creatinine 0.9 Est GFR ( Amer) > 60 Est GFR (Non-Af Amer) > 60 Random Glucose 156 H Calcium 8.3 L Phosphorus 3.9 Magnesium 1.8 Total Bilirubin 1.2 AST 41 ALT 197 H Alkaline Phosphatase 56 Total Protein 6.4 Albumin 3.4 L Globulin 3.0 Albumin/Globulin Ratio 1.1 Vancomycin Trough Mumps Virus IgG Ab Fingerstick Blood Sugar Results: 165 Critical Care Progress Note - Nutrition Nutrition: Nutrition Category Date Time Status Regular Diet [DIET] Diets 10/25/17 Breakfast Active <Sotero Morgan S - Last Filed: 10/27/17 16:40> CCU Objective - Vital Signs / Intake & Output Vital Signs (Last 4 hours): Vital Signs Pulse Resp BP Pulse Ox 10/27/17 15:10 79 13 97 10/27/17 15:00 81 14 93 L 10/27/17 14:50 79 35 H 127/78 96 10/27/17 14:40 80 33 H 95 10/27/17 14:30 77 21 95 10/27/17 14:20 77 15 96 10/27/17 14:10 69 32 H 95 10/27/17 14:00 76 15 95 10/27/17 13:50 78 20 127/81 10/27/17 13:40 80 11 L 93 L 10/27/17 13:30 103 H 16 98 10/27/17 13:20 75 18 98 10/27/17 13:10 76 31 H 97 10/27/17 13:00 82 20 95 10/27/17 12:50 84 11 L 133/80 94 L 10/27/17 12:40 81 33 H 96 Intake and Output (Last 8hrs): Intake & Output 10/27/17 10/27/17 10/27/17 06:59 14:59 22:59 Intake Total 150 1450 0 Output Total 575 1700 Balance -425 -250 0 Weight 139 lb 11.2 oz Intake: Intake, IV Amount 50 850 Right Antecubital 50 850 Oral 100 600 0 Output: Urine 575 1700 Urine, Voided 575 1700 Other: # Voids Urine, Voided 1 # Bowel Movements 1 1 - Medications Active Medications: Active Medications Generic Name Dose Route Start Last Admin Trade Name Freq PRN Reason Stop Dose Admin Albuterol/Ipratropium 3 ml 10/26/17 13:53 Duoneb 3 Mg/0.5 Mg (3 Ml) Ud INH RQ6 PRN Shortness of Breath Aspirin 81 mg 10/23/17 12:30 10/27/17 09:43 Aspirin Chewable PO 81 mg DAILY [facility] Administration Carvedilol 3.125 mg 10/23/17 18:00 10/27/17 09:44 Coreg PO 3.125 mg BID [facility] Administration Docusate Sodium 100 mg 10/25/17 18:00 10/27/17 09:45 Colace PO Not Given BID [facility] Enoxaparin Sodium 70 mg 10/24/17 20:15 10/27/17 08:06 Lovenox SC 70 mg Q12H [facility] Administration Enoxaparin Sodium 40 mg 10/28/17 10:00 Lovenox SC DAILY [facility] Furosemide 20 mg 10/23/17 12:30 10/27/17 09:43 Lasix IVP 20 mg DAILY [facility] Administration Azithromycin 500 mg/ Sodium 250 mls @ 250 mls/hr 10/24/17 10:00 10/27/17 10: 39 Chloride IVPB 11/03/17 10:01 250 mls/hr DAILY [facility] Administration Piperacillin Sod/Tazobactam Sod 3.375 gm in 50 mls @ 200 mls/hr 10/23/17 13: 00 10/27/17 13:03 Zosyn 3.375 Gm Iv Premix IVPB 11/03/17 13:00 200 mls/hr Q6H [facility] Administration Vancomycin HCl 2 gm/ Sodium 500 mls @ 250 mls/hr 10/25/17 20:00 10/27/17 08: 48 Chloride IVPB 250 mls/hr Q12H [facility] Administration Ipratropium Rippey 0.5 mg 10/23/17 14:40 10/26/17 13:23 Atrovent IH 0.5 mg RQ6 PRN Administration Shortness of Breath Oseltamivir Phosphate 75 mg 10/23/17 19:30 10/27/17 09:55 Tamiflu Cap PO 10/28/17 19:31 75 mg BID [facility] Administration Prednisone 10 mg 10/31/17 10:00 Prednisone Tab PO 11/03/17 10:01 DAILY [facility] Saccharomyces Boulardii 250 mg 10/23/17 10:00 10/27/17 09:43 Florastor PO 250 mg BID [facility] Administration - Patient Studies Lab Studies: Microbiology Studies 10/23/17 07:58 Blood Culture - Preliminary Blood NO GROWTH AFTER 3 DAYS 10/23/17 07:58 Blood Culture - Preliminary Blood NO GROWTH AFTER 3 DAYS Lab Studies 10/27/17 10/27/17 10/27/17 Range/Units 07:04 07:04 07:02 WBC 7.5 (4.8-10.8) K/uL RBC 4.83 (4.40-5.90) Mil/uL Hgb 13.0 (12.0-18.0) g/dL Hct 37.6 (35.0-51.0) % MCV 77.8 L (80.0-94.0) fL MCH 26.9 L (27.0-31.0) pg MCHC 34.5 (33.0-37.0) g/dL RDW 15.0 H (11.5-14.5) % Plt Count 224 (130-400) K/uL MPV 8.5 (7.2-11.7) fL Neut % (Auto) 82.7 H (50.0-75.0) % Lymph % (Auto) 9.0 L (20.0-40.0) % [place] % (Auto) 8.2 (0.0-10.0) % Eos % (Auto) 0.0 (0.0-4.0) % Baso % (Auto) 0.1 (0.0-2.0) % Neut # 6.2 (1.8-7.0) K/uL Lymph # 0.7 L (1.0-4.3) K/uL [place] # 0.6 (0.0-0.8) K/uL Eos # 0.0 (0.0-0.7) K/uL Baso # 0.0 (0.0-0.2) K/uL Neutrophils % (Manual) 84 H (50-75) % Band Neutrophils % 1 (0-2) % Lymphocytes % (Manual) 7 L (20-40) % Monocytes % (Manual) 8 (0-10) % Platelet Estimate Normal (NORMAL) Anisocytosis (manual) Slight Sodium 133 (132-148) mmol/L Potassium 3.5 L (3.6-5.2) mmol/L Chloride 98 (98-107) mmol/L Carbon Dioxide 25 (22-30) mmol/L Anion Gap 14 (10-20) BUN 22 H (9-20) mg/dL Creatinine 0.9 (0.8-1.5) mg/dL Est GFR ( Amer) > 60 Est GFR (Non-Af Amer) > 60 Random Glucose 156 H (75-110) mg/dL Calcium 8.3 L (8.6-10.4) mg/dl Phosphorus 3.9 (2.5-4.5) mg/dL Magnesium 1.8 (1.6-2.3) mg/dL Total Bilirubin 1.2 (0.2-1.3) mg/dL AST 41 (17-59) U/L ALT 197 H (21-72) U/L Alkaline Phosphatase 56 (38-126) U/L Total Protein 6.4 (6.3-8.3) g/dL Albumin 3.4 L (3.5-5.0) g/dL Globulin 3.0 (2.2-3.9) gm/dL Albumin/Globulin Ratio 1.1 (1.0-2.1) Vancomycin Trough 12.5 H (5.0-10.0) ug/mL [facility] Nuclear Membr Pat (Negative) CMV IgG Ab U/mL CMV IgM Ab AU/mL Mumps Virus IgG Ab AU/mL Rubella IgG Antibody index Rubeola (Measles) IgG AU/mL 10/26/17 Range/Units 06:25 WBC (4.8-10.8) K/uL RBC (4.40-5.90) Mil/uL Hgb (12.0-18.0) g/dL Hct (35.0-51.0) % MCV (80.0-94.0) fL MCH (27.0-31.0) pg MCHC (33.0-37.0) g/dL RDW (11.5-14.5) % Plt Count (130-400) K/uL MPV (7.2-11.7) fL Neut % (Auto) (50.0-75.0) % Lymph % (Auto) (20.0-40.0) % [place] % (Auto) (0.0-10.0) % Eos % (Auto) (0.0-4.0) % Baso % (Auto) (0.0-2.0) % Neut # (1.8-7.0) K/uL Lymph # (1.0-4.3) K/uL [place] # (0.0-0.8) K/uL Eos # (0.0-0.7) K/uL Baso # (0.0-0.2) K/uL Neutrophils % (Manual) (50-75) % Band Neutrophils % (0-2) % Lymphocytes % (Manual) (20-40) % Monocytes % (Manual) (0-10) % Platelet Estimate (NORMAL) Anisocytosis (manual) Sodium (132-148) mmol/L Potassium (3.6-5.2) mmol/L Chloride (98-107) mmol/L Carbon Dioxide (22-30) mmol/L Anion Gap (10-20) BUN (9-20) mg/dL Creatinine (0.8-1.5) mg/dL Est GFR ( Amer) Est GFR (Non-Af Amer) Random Glucose (75-110) mg/dL Calcium (8.6-10.4) mg/dl Phosphorus (2.5-4.5) mg/dL Magnesium (1.6-2.3) mg/dL Total Bilirubin (0.2-1.3) mg/dL AST (17-59) U/L ALT (21-72) U/L Alkaline Phosphatase (38-126) U/L Total Protein (6.3-8.3) g/dL Albumin (3.5-5.0) g/dL Globulin (2.2-3.9) gm/dL Albumin/Globulin Ratio (1.0-2.1) Vancomycin Trough (5.0-10.0) ug/mL [facility] Nuclear Membr Pat Negative (Negative) CMV IgG Ab 0.64 H U/mL CMV IgM Ab <30.00 AU/mL Mumps Virus IgG Ab 184.00 AU/mL Rubella IgG Antibody 2.69 index Rubeola (Measles) IgG 206.00 AU/mL Laboratory Results - last 24 hr 10/26/17 10/27/17 10/27/17 06:25 07:02 07:04 WBC 7.5 RBC 4.83 Hgb 13.0 Hct 37.6 MCV 77.8 L MCH 26.9 L MCHC 34.5 RDW 15.0 H Plt Count 224 MPV 8.5 Neut % (Auto) 82.7 H Lymph % (Auto) 9.0 L [place] % (Auto) 8.2 Eos % (Auto) 0.0 Baso % (Auto) 0.1 Neut # 6.2 Lymph # 0.7 L [place] # 0.6 Eos # 0.0 Baso # 0.0 Neutrophils % (Manual) 84 H Band Neutrophils % 1 Lymphocytes % (Manual) 7 L Monocytes % (Manual) 8 Platelet Estimate Normal Anisocytosis (manual) Slight Sodium Potassium Chloride Carbon Dioxide Anion Gap BUN Creatinine Est GFR ( Amer) Est GFR (Non-Af Amer) Random Glucose Calcium Phosphorus Magnesium Total Bilirubin AST ALT Alkaline Phosphatase Total Protein Albumin Globulin Albumin/Globulin Ratio Vancomycin Trough 12.5 H DISHA Nuclear Membr Pat Negative CMV IgG Ab 0.64 H CMV IgM Ab <30.00 Mumps Virus IgG Ab 184.00 Rubella IgG Antibody 2.69 Rubeola (Measles) IgG 206.00 10/27/17 07:04 WBC RBC Hgb Hct MCV MCH MCHC RDW Plt Count MPV Neut % (Auto) Lymph % (Auto) [place] % (Auto) Eos % (Auto) Baso % (Auto) Neut # Lymph # [place] # Eos # Baso # Neutrophils % (Manual) Band Neutrophils % Lymphocytes % (Manual) Monocytes % (Manual) Platelet Estimate Anisocytosis (manual) Sodium 133 Potassium 3.5 L Chloride 98 Carbon Dioxide 25 Anion Gap 14 BUN 22 H Creatinine 0.9 Est GFR ( Amer) > 60 Est GFR (Non-Af Amer) > 60 Random Glucose 156 H Calcium 8.3 L Phosphorus 3.9 Magnesium 1.8 Total Bilirubin 1.2 AST 41 ALT 197 H Alkaline Phosphatase 56 Total Protein 6.4 Albumin 3.4 L Globulin 3.0 Albumin/Globulin Ratio 1.1 Vancomycin Trough DIS[facility] Nuclear Membr Pat CMV IgG Ab CMV IgM Ab Mumps Virus IgG Ab Rubella IgG Antibody Rubeola (Measles) IgG Critical Care Progress Note - Nutrition Nutrition: Nutrition Category Date Time Status Regular Diet [DIET] Diets 10/25/17 Breakfast Active Attending/Attestation - Attestation I have personally seen and examined this patient.: Yes I have fully participated in the care of the patient.: Yes I have reviewed all pertinent clinical information: Yes Notes (Text): 10/27/17 16:39 patient seen and examined in the intensive care unit. Case discussed with house staff in the morning. 10/27/17 16:37 Respiratory status improving decrease Fi02 to 50, Taper solumedrol, cont atrovent, lasix R. Middle and Lower lobe PNA, cont zithromax, tamiflu, zosyn, vanco BC negative Serology is negative thus far ID (Mangia) ejection fraction 40% Rule out myocarditis Stable for transfer to floor
--- NOTE | 2017-10-27 12:48 | CP.PCM.PN ---
Subjective - Date & Time of Evaluation Date of Evaluation: 10/27/17 Time of Evaluation: 12:40 - Subjective Subjective: Medical Attending Note: Patient seen and examined this morning. Patient denies headache, denies chest pain, denies palpitations, patient reports he is able to take deep breaths, denies abdominal pain, denies nausea, denies constipation. Patient is on Vasoperm currently at bedside. Patient's is at bedside. Objective - Vital Signs/Intake and Output Vital Signs (last 24 hours): Temp Pulse Resp BP Pulse Ox 985.9 F H 56 L 27 H 126/73 97 10/27/17 08:00 10/27/17 11:00 10/27/17 11:31 10/27/17 09:51 10/27/17 11:00 Intake and Output: 10/27/17 10/27/17 06:59 18:59 Intake Total 850 1200 Output Total 576 1200 Balance 274 0 - Medications Medications: Current Medications Albuterol/Ipratropium (Duoneb 3 Mg/0.5 Mg (3 Ml) Ud) 3 ml INH RQ6 PRN PRN Reason: Shortness of Breath Aspirin (Aspirin Chewable) 81 mg PO DAILY [facility] Last Admin: 10/27/17 09:43 Dose: 81 mg Carvedilol (Coreg) 3.125 mg PO BID [facility] Last Admin: 10/27/17 09:44 Dose: 3.125 mg Docusate Sodium (Colace) 100 mg PO BID [facility] Last Admin: 10/27/17 09:45 Dose: Not Given Enoxaparin Sodium (Lovenox) 70 mg SC Q12H [facility] Last Admin: 10/27/17 08:06 Dose: 70 mg Famotidine (Pepcid) 20 mg IVP Q12 [facility] Last Admin: 10/27/17 09:45 Dose: 20 mg Furosemide (Lasix) 20 mg IVP DAILY [facility] Last Admin: 10/27/17 09:43 Dose: 20 mg Azithromycin 500 mg/ Sodium (Chloride) 250 mls @ 250 mls/hr IVPB DAILY [facility] Last Admin: 10/27/17 10:39 Dose: 250 mls/hr Piperacillin Sod/Tazobactam Sod (Zosyn 3.375 Gm Iv Premix) 3.375 gm in 50 mls @ 200 mls/hr IVPB Q6H [facility] Last Admin: 10/27/17 06:15 Dose: 200 mls/hr Vancomycin HCl 2 gm/ Sodium (Chloride) 500 mls @ 250 mls/hr IVPB Q12H [facility] Last Admin: 10/27/17 08:48 Dose: 250 mls/hr Ipratropium [place] (Atrovent) 0.5 mg IH RQ6 PRN PRN Reason: Shortness of Breath Last Admin: 10/26/17 13:23 Dose: 0.5 mg Methylprednisolone (Solu-Medrol) 40 mg IV Q12 [facility] Last Admin: 10/27/17 09:45 Dose: 40 mg Oseltamivir Phosphate (Tamiflu Cap) 75 mg PO BID [facility] Last Admin: 10/27/17 09:55 Dose: 75 mg Saccharomyces Boulardii (Florastor) 250 mg PO BID [facility] Last Admin: 10/27/17 09:43 Dose: 250 mg - Labs Labs: 10/27/17 07:02 10/27/17 07:04 PT 16.2 SECONDS (9.7-12.2) H 10/23/17 07:46 INR 1.4 10/23/17 07:46 APTT 27 SECONDS (21-34) 10/23/17 07:46 - Constitutional Appears: Non-toxic, No Acute Distress - Head Exam Head Exam: NORMAL INSPECTION - Eye Exam Eye Exam: EOMI - ENT Exam ENT Exam: Mucous Membranes Moist - Respiratory Exam Respiratory Exam: Decreased Breath Sounds, NORMAL BREATHING PATTERN. absent: Rales, Wheezes - Cardiovascular Exam Cardiovascular Exam: REGULAR RHYTHM, +S1, +S2 - GI/Abdominal Exam GI & Abdominal Exam: Soft, Normal Bowel Sounds. absent: Distended, Firm, Guarding, Rigid, Tenderness, Diminished Bowel Sounds, Rebound - Neurological Exam Neurological Exam: Alert, Awake, Oriented x3 - Psychiatric Exam Psychiatric exam: Normal Affect, Normal Mood - Skin Skin Exam: Dry, Intact, Normal Color, Warm Assessment and Plan (1) Respiratory failure with hypoxia and hypercapnia Status: Acute (2) Pneumonia Status: Acute (3) Heroin abuse Status: Acute (4) NSTEMI (non-ST elevated myocardial infarction) Status: Acute (5) Transaminitis Status: Acute (6) Prophylactic measure Status: Acute Attending/Attestation - Attestation I have personally seen and examined this patient.: Yes I have fully participated in the care of the patient.: Yes I have reviewed all pertinent clinical information, including history, physical exam and plan: Yes Notes (Text): 1). Acute Respiratory Distress * Likely secondary to Opiate Overdose and Aspiration Pneumonia * Doing better on High Flow Oxygen * Will d/c high flow and monitor patient on Nasal Cannula on 3-4 Liters * Solumedrol 40 mg IV Q12H (10/24-10/27) * Prednisone 20mg PO daily X3 days, then Prednisone 10mg PO daily 3 days 2). Right Pneumonia, Aspiration * Infectious Disease (Dr. Lynn) on board-->help appreciated * Recommends for IV antibiotics to continue for 7 days (to end on 11/03/17) * Antibiotics: * Azithromycin 500 mg IV Q24H (start on 10/23/17) * Zosyn 3.375 gm IV Q6H (start on 10/23/17) * Vancomycin was increased to 2 gm IV Q12H on 10/25/17 - Follow-up vancomycin trough on 10/29/17 - Trough of 15 to 20 considering the Aspiration Pneumonia * Tamiflu 75 mg PO 2x/day to finish tomorrow 10/28/17 to complete 5 days * Urine Legionella Ag is NEGATIVE * Rapid Influenza is NEGATIVE * Infectious Dyer Assay: negative * HIV 1 and 2: negative * RSV: negative * Pending Mycoplasma IgM and Strep Pneumonia * Blood Culture 10/23/17 no growth after 3 days * Urine Culture 10/23/17 shows NO GROWTH * MRSA 10/13/17: MRSA not 3). Elevated D-Dimer * CT Chest PE Protocol: NO PULMONARY EMBOLISM. Confluent air space consolidation throughout Right > Left Hemithorax * Bilateral Venous Dopplers LE: NO DVT 4). Elevated Troponin Elevated ProBNP Cardiomyopathy * Cardiology (Dr. Guzman) on case-->help appreciated * Discussed with cardiology, patient will need cardiac cath. * Echocardiogram 10/23/17: left ventricle moderate diffuse systolic dysfunction ; thickness; normal; size; normal; overall ejection fraction: 40% diastolic filling pressure elevated. Mitral valve annulus: normal, leaflets: normal, excursion: normal, no significant trasmitral gradient: no significant incompetece: left atrium: normal; aortic valve: leaflefts: normal: excursion normal no significant; further findings per official report * F/U workup for Myocarditis: Coxsackieviurus, CMV, Monospot Test:negative, Adenovirus, HHV6, MMR, ParvoVirus B19, RSV:negative, DISHA, ESR, and CRP. Hepatitis Panel, and HIV and Influenza are already negative * Lasix 20 mg IV 1x/day * ASA 81 mg PO 1x/day * Coreg 3.125 mg PO 2x/day * Troponin declining * Lovenox 40mg subqdaily 5). Elevated LFTs * Hepatitis Panel is NEGATIVE * HIV is NEGATIVE * LFTs normalizing 6). Heroin Use * Psychiatry Dr. Kramer on board * Will need to follow-up with [facility]ry to [facility]). Prophylaxis * Florastor 250 mg PO 2x/day * Pepcid 20 mg IV Q12H * ovenox 40mg subq daily Disposition: patient is stable to transfer to floors when bed is available. Patient will need IV antibiotics for 7 days (to end 11/03/17) Discussed with cardiology, patient will need cardiac catherization.
[2017-10-27 13:26] LABS: RUBELLA AB (IGG) 2.69 index
--- NOTE | 2017-10-27 16:06 | PN ---
DATE: FOLLOWUP SUBJECTIVE: The patient's shortness of breath has improved. He denies any substernal chest pain. PHYSICAL EXAMINATION: VITAL SIGNS: Blood pressure 127/78, heart rate 79, respirations 13, temperature 98.7. HEENT: Normocephalic. CHEST: Diminished breath sounds over the right base. HEART: S1 and S2 regular. ABDOMEN: Soft. EXTREMITIES: There is no edema. LABORATORY DATA: SMA-7: Sodium 133, potassium 3.5, chloride 98, CO2 of 25, glucose 156, BUN 22, creatinine 0.9. CBC: WBC 7.5, hemoglobin 13, hematocrit 37.6, platelet count 224,000. ASSESSMENT: 1. Cardiomyopathy. 2. Status post heroin abuse. 3. Improving right middle and lower lobe pneumonia. Questionable aspiration. RECOMMENDATIONS: Continue aspirin 81 mg once a day. Continue IV Zithromax at 500 mg daily, IV vancomycin at 2 g intravenously q. 12 hours and IV Zosyn 3.375 g intravenously q. 6 hours. The patient's potassium was supplemented today with 20 mEq of oral K-Dur. Continue prednisone 10 mg once a day, Coreg 3.125 mg twice a day, aspirin 81 mg once a day. The case was discussed with Dr. Maguire. Subcutaneous Lovenox can be changed to 40 mg daily. Cardiac catheterization was discussed with the patient and his . The patient understood the risks involved and agreed for the procedure. The procedure was also discussed and informed to the patient's father for an extensive period of time. The procedure was initially scheduled for this coming Thursday in the afternoon. Patrice Guzman MD
[2017-10-28] MEDS: Piperacill/Tazo 3.375gm in Dex 3.375 GM/50 ML BAG IVPB SCH ×4 (01:33→18:04)
[2017-10-28 06:43] LABS: BASO % 0.2 % (0.0-2.0); EOS # 0.1 K/uL (0.0-0.7); EOS % 1.1 % (0.0-4.0); HEMOGLOBIN 13.1 g/dL (12.0-18.0); LYMPH # 1.7 K/uL (1.0-4.3); LYMPH % 21.3 % (20.0-40.0); MEAN CELL VOLUME 77.1 fL (80.0-94.0); MEAN CORPUSCULAR HEMOGLOBIN 26.8 pg (27.0-31.0); MEAN CORPUSCULAR HGB CONC 34.7 g/dL (33.0-37.0); MEAN PLATELET VOLUME 8.2 fL (7.2-11.7); MONO # 1.2 K/uL (0.0-0.8); MONO % 14.9 % (0.0-10.0); NEUT # 4.9 K/uL (1.8-7.0); NEUT % 62.5 % (50.0-75.0); RBC 4.91 Mil/uL (4.40-5.90); RED CELL DISTRIBUTION WIDTH 14.9 % (11.5-14.5); WHITE BLOOD COUNT 7.8 K/uL (4.8-10.8)
[2017-10-28 07:16] LABS: ALB/GLOB RATIO 1.2 (1.0-2.1); ALBUMIN 3.1 g/dL (3.5-5.0); ALT/SGPT 151 U/L (21-72); AST/SGOT 30 U/L (17-59); BLOOD UREA NITROGEN 22 mg/dL (9-20); CALCIUM 8.3 mg/dl (8.6-10.4); GFR AFRICAN-AMERICAN > 60; GFR NON-AFRICAN AMERICAN > 60
[2017-10-28] MEDS: VANCOMYCIN IVPB SCH ×2 (07:59→19:50)
[2017-10-28] MEDS: SODIUM CHLORIDE 0.45% IVPB SCH ×2 (07:59→19:50)
[2017-10-28] MEDS ORDERED: Enoxaparin 40 mg Syringe SC SCH (10:00)
[2017-10-28] MEDS ORDERED: Potassium Chloride 20 mEq ER Tab PO ONE (10:15)
[2017-10-28] MEDS: Azithromycin 500 MG in Sodium Chloride 0.9% 250 ML IVPB SCH (10:21)
[2017-10-28] MEDS: Saccharomyces Boulardi 250 mg Cap PO SCH ×2 (10:23→18:04)
[2017-10-28] MEDS: Enoxaparin 40 mg Syringe SC SCH (10:23)
[2017-10-28 10:43] LABS: B-TYPE NATRIURETIC PEPTIDE 225 pg/mL (0-450)
[2017-10-28 13:48] LABS: PARVOVIRUS B19 AB (IGG) 3.3 (<0.9); PARVOVIRUS B19 AB (IGM) 0.3 (<0.9)
--- NOTE | 2017-10-28 16:24 | CP.PCM.PN ---
Subjective - Date & Time of Evaluation Date of Evaluation: 10/28/17 Time of Evaluation: 09:00 - Subjective Subjective: AFEBRILE ALERT NO CHEST CLOE OR SOB Objective - Vital Signs/Intake and Output Vital Signs (last 24 hours): Temp Pulse Resp BP Pulse Ox 99.1 F 73 24 112/72 97 10/28/17 16:00 10/28/17 16:00 10/28/17 16:00 10/28/17 16:00 10/28/17 16:00 Intake and Output: 10/28/17 10/28/17 06:59 18:59 Intake Total 1330 1640 Output Total 1050 2100 Balance 280 -460 - Medications Medications: Current Medications Albuterol/Ipratropium (Duoneb 3 Mg/0.5 Mg (3 Ml) Ud) 3 ml INH RQ6 PRN PRN Reason: Shortness of Breath Aspirin (Aspirin Chewable) 81 mg PO DAILY [facility] Last Admin: 10/28/17 10:23 Dose: 81 mg Carvedilol (Coreg) 3.125 mg PO BID [facility] Last Admin: 10/28/17 10:24 Dose: 3.125 mg Docusate Sodium (Colace) 100 mg PO BID [facility] Last Admin: 10/28/17 10:23 Dose: Not Given Enoxaparin Sodium (Lovenox) 40 mg SC DAILY [facility] Last Admin: 10/28/17 10:23 Dose: 40 mg Furosemide (Lasix) 20 mg IVP DAILY [facility] Last Admin: 10/28/17 10:24 Dose: 20 mg Azithromycin 500 mg/ Sodium (Chloride) 250 mls @ 250 mls/hr IVPB DAILY [facility] Stop: 11/03/17 10:01 Last Admin: 10/28/17 10:21 Dose: 250 mls/hr Piperacillin Sod/Tazobactam Sod (Zosyn 3.375 Gm Iv Premix) 3.375 gm in 50 mls @ 200 mls/hr IVPB Q6H [facility] Stop: 11/03/17 13:00 Last Admin: 10/28/17 13:03 Dose: 200 mls/hr Vancomycin HCl 2 gm/ Sodium (Chloride) 500 mls @ 250 mls/hr IVPB Q12H [facility] Last Admin: 10/28/17 07:59 Dose: 250 mls/hr Ipratropium [place] (Atrovent) 0.5 mg IH RQ6 PRN PRN Reason: Shortness of Breath Last Admin: 10/26/17 13:23 Dose: 0.5 mg Prednisone (Prednisone Tab) 10 mg PO DAILY [facility] Stop: 11/03/17 10:01 Prednisone (Prednisone Tab) 20 mg PO DAILY [facility] Stop: 10/31/17 10:01 Last Admin: 10/28/17 10:23 Dose: 20 mg Saccharomyces Boulardii (Florastor) 250 mg PO BID [facility] Last Admin: 10/28/17 10:23 Dose: 250 mg - Labs Labs: 10/28/17 06:27 10/28/17 06:30 PT 16.2 SECONDS (9.7-12.2) H 10/23/17 07:46 INR 1.4 10/23/17 07:46 APTT 27 SECONDS (21-34) 10/23/17 07:46 - Constitutional Appears: Non-toxic, Chronically Ill - Head Exam Head Exam: NORMOCEPHALIC - Eye Exam Eye Exam: PERRL - ENT Exam ENT Exam: Mucous Membranes Dry - Neck Exam Neck Exam: absent: Lymphadenopathy - Respiratory Exam Respiratory Exam: Decreased Breath Sounds - Cardiovascular Exam Cardiovascular Exam: REGULAR RHYTHM - GI/Abdominal Exam GI & Abdominal Exam: Distended, Soft - Rectal Exam Rectal Exam: Deferred - Exam Exam: NORMAL INSPECTION - Extremities Exam Extremities Exam: absent: Pedal Edema - Back Exam Back Exam: absent: CVA tenderness (L), CVA tenderness (R) Assessment and Plan (1) Pneumonia Status: Acute (2) Heroin abuse Status: Acute (3) Respiratory failure with hypoxia and hypercapnia Status: Acute - Assessment and Plan (Free Text) Assessment: S/P RESP FAILURE PNEUMONIA CARDIOMYOPATHY HEROIN USE IV ANTIBIOTICS TO CONT CATH ON THURSDAY
--- NOTE | 2017-10-28 17:14 | PN ---
DATE: SUBJECTIVE: The patient's shortness of breath has improved. He is experiencing productive cough. He denies any retrosternal chest pain. PHYSICAL EXAMINATION: VITAL SIGNS: Blood pressure 113/83, heart rate 93, temperature 98.4, respirations 20. HEENT: Normocephalic. CHEST: Bibasilar rhonchi. HEART: S1, S2, regular. ABDOMEN: Soft. EXTREMITIES: No edema. LABORATORY DATA: SMA-7: Sodium 134, potassium 3.3, chloride 100, CO2 of 25, glucose 94, BUN 22, creatinine 1.0. Hemoglobin and hematocrit 13.1 and 37.8, white count and platelet count are 7.8 and 220,000. ASSESSMENT: 1. Cardiomyopathy. 2. Pneumonia. 3. Borderline troponin elevation. 4. Hypokalemia. 5. Status post heroin abuse. RECOMMENDATIONS: Continue aspirin 81 mg once a day, continue IV Zithromax at 500 mg daily, IV vancomycin at 1 g q. 12 hours, continue Zosyn 3.375 g intravenously q. 6 hours, to continue Lasix 20 mg intravenously once a day, subcutaneous Lovenox at 40 mg once a day, prednisone at 20 mg once a day, Coreg 3.125 mg twice a day. The patient is scheduled for cardiac catheterization on Thursday. The procedure and its risks were explained to the patient and his father. Patrice Guzman MD
--- NOTE | 2017-10-28 20:37 | CP.PCM.PN ---
<Gary Mike - Last Filed: 10/28/17 21:11> Subjective - Date & Time of Evaluation Date of Evaluation: 10/28/17 Time of Evaluation: 08:35 - Subjective Subjective: Patient was seen and examined at bedside this morning. Per nursing no acute events occurred overnight. The patient reports feeling much better than yesterday. The patient does report a dry cough and difficulty sleeping last night. The patient denies any chest pain, abdominal pain, lightheadedness, dizziness, changes in vision, chills, vomiting, syncopal episodes, or any other complaints. Objective - Vital Signs/Intake and Output Vital Signs (last 24 hours): Temp Pulse Resp BP Pulse Ox 98.6 F 73 24 112/72 97 10/28/17 20:00 10/28/17 16:00 10/28/17 16:00 10/28/17 16:00 10/28/17 16:00 Intake and Output: 10/28/17 10/29/17 18:59 06:59 Intake Total 1930 Output Total 2100 Balance -170 - Medications Medications: Current Medications Albuterol/Ipratropium (Duoneb 3 Mg/0.5 Mg (3 Ml) Ud) 3 ml INH RQ6 PRN PRN Reason: Shortness of Breath Aspirin (Aspirin Chewable) 81 mg PO DAILY [facility] Last Admin: 10/28/17 10:23 Dose: 81 mg Carvedilol (Coreg) 3.125 mg PO BID [facility] Last Admin: 10/28/17 18:03 Dose: 3.125 mg Docusate Sodium (Colace) 100 mg PO BID [facility] Last Admin: 10/28/17 18:03 Dose: Not Given Enoxaparin Sodium (Lovenox) 40 mg SC DAILY [facility] Last Admin: 10/28/17 10:23 Dose: 40 mg Furosemide (Lasix) 20 mg IVP DAILY [facility] Last Admin: 10/28/17 10:24 Dose: 20 mg Azithromycin 500 mg/ Sodium (Chloride) 250 mls @ 250 mls/hr IVPB DAILY [facility] Stop: 11/03/17 10:01 Last Admin: 10/28/17 10:21 Dose: 250 mls/hr Piperacillin Sod/Tazobactam Sod (Zosyn 3.375 Gm Iv Premix) 3.375 gm in 50 mls @ 200 mls/hr IVPB Q6H [facility] Stop: 11/03/17 13:00 Last Admin: 10/28/17 18:04 Dose: 200 mls/hr Vancomycin HCl 2 gm/ Sodium (Chloride) 500 mls @ 250 mls/hr IVPB Q12H [facility] Last Admin: 10/28/17 19:50 Dose: 250 mls/hr Ipratropium [place] (Atrovent) 0.5 mg IH RQ6 PRN PRN Reason: Shortness of Breath Last Admin: 10/26/17 13:23 Dose: 0.5 mg Prednisone (Prednisone Tab) 10 mg PO DAILY [facility] Stop: 11/03/17 10:01 Prednisone (Prednisone Tab) 20 mg PO DAILY [facility] Stop: 10/31/17 10:01 Last Admin: 10/28/17 10:23 Dose: 20 mg Saccharomyces Boulardii (Florastor) 250 mg PO BID [facility] Last Admin: 10/28/17 18:04 Dose: 250 mg - Labs Labs: 10/28/17 06:27 10/28/17 06:30 PT 16.2 SECONDS (9.7-12.2) H 10/23/17 07:46 INR 1.4 10/23/17 07:46 APTT 27 SECONDS (21-34) 10/23/17 07:46 - Head Exam Head Exam: ATRAUMATIC, NORMAL INSPECTION, NORMOCEPHALIC - Eye Exam Eye Exam: EOMI, Normal appearance, PERRL. absent: Periorbital tenderness Pupil Exam: NORMAL ACCOMODATION, PERRL. absent: Irregular, Unequal - ENT Exam ENT Exam: Mucous Membranes Moist, Normal Oropharynx - Neck Exam Neck Exam: Normal Inspection. absent: Lymphadenopathy, Thyromegaly - Respiratory Exam Respiratory Exam: Decreased Breath Sounds. absent: Clear to Ausculation Bilateral, NORMAL BREATHING PATTERN Additional comments: Coarse breath sounds heard in the anterior and posterior lung [place]. - Cardiovascular Exam Cardiovascular Exam: REGULAR RHYTHM, RRR, +S1, +S2. absent: Gallop, Rubs - GI/Abdominal Exam GI & Abdominal Exam: Soft, Normal Bowel Sounds. absent: Hyperactive Bowel Sounds - Extremities Exam Extremities Exam: Full ROM, Normal Inspection. absent: Joint Swelling, Pedal Edema, Tenderness - Back Exam Back Exam: NORMAL INSPECTION. absent: CVA tenderness (L), CVA tenderness (R), paraspinal tenderness - Neurological Exam Neurological Exam: Alert, Awake, CN II-XII Intact, Normal Gait, Oriented x3 - Psychiatric Exam Psychiatric exam: Normal Affect, Normal Mood. absent: Depressed - Skin Skin Exam: Dry, Normal Color, Warm Assessment and Plan - Assessment and Plan (Free Text) Plan: 1). Acute Respiratory Distress ( Resolved) * Likely secondary to Opiate Overdose and Aspiration Pneumonia * Continue on Nasal Cannula on 3-4 Liters * Continue Prednisone 20mg PO daily X3 days, then Prednisone 10mg PO daily 3 days 2). Right Pneumonia, Aspiration * Infectious Disease (Dr. Lynn) on board-->help appreciated * Will complete antibiotics on 11/03/17 * Antibiotics: * Continue Azithromycin 500 mg IV Q24H (start on 10/23/17) * Continue Zosyn 3.375 gm IV Q6H (start on 10/23/17) * Continue Vancomycin was increased to 2 gm IV Q12H on 10/25/17 - Follow-up vancomycin trough on 10/29/17 - Trough of 15 to 20 considering the Aspiration Pneumonia * Continue Tamiflu 75 mg PO 2x/day to finish tomorrow 10/28/17 to complete 5 days * Urine Legionella Ag is NEGATIVE * Rapid Influenza is NEGATIVE * Infectious Dare Assay: negative * HIV 1 and 2: negative * RSV: negative * Pending Mycoplasma IgM and Strep Pneumonia * Blood Culture 10/23/17 no growth after 3 days * Urine Culture 10/23/17 shows NO GROWTH * MRSA 10/13/17: MRSA not 3). Elevated D-Dimer * CT Chest PE Protocol: NO PULMONARY EMBOLISM. Confluent air space consolidation throughout Right > Left Hemithorax * Bilateral Venous Dopplers LE: NO DVT 4). Elevated Troponin Elevated ProBNP Cardiomyopathy * Cardiology (Dr. Guzman) on case-->help appreciated * Discussed with cardiology, patient will need cardiac cath. * Echocardiogram 10/23/17: left ventricle moderate diffuse systolic dysfunction ; thickness; normal; size; normal; overall ejection fraction: 40% diastolic filling pressure elevated. Mitral valve annulus: normal, leaflets: normal, excursion: normal, no significant trasmitral gradient: no significant incompetece: left atrium: normal; aortic valve: leaflefts: normal: excursion normal no significant; further findings per official report * F/U workup for Myocarditis: Coxsackieviurus, CMV, Monospot Test:negative, Adenovirus, HHV6, MMR, ParvoVirus B19, RSV:negative, DISHA, ESR, and CRP. Hepatitis Panel, and HIV and Influenza are already negative * Continue Lasix 20 mg IV 1x/day * Continue ASA 81 mg PO 1x/day * Continue Coreg 3.125 mg PO 2x/day * Troponin declining * Continue Lovenox 40mg subqdaily 5). Elevated LFTs * Hepatitis Panel is NEGATIVE * HIV is NEGATIVE * LFTs normalizing 6). Heroin Use * Psychiatry Dr. Kramer on board * Will need to follow-up with psychiatry to see patient is eligible for [facility] 7). Prophylaxis * Florastor 250 mg PO 2x/day * Pepcid 20 mg IV Q12H * ovenox 40mg subq daily Disposition: patient is stable to transfer to floors when bed is available. Patient will need IV antibiotics for 7 days (to end 11/03/17) Discussed with cardiology, patient will need cardiac catherization scheduled to be done Thursday10/30/17 Tentatively. <Erika Maguire V - Last Filed: 10/29/17 09:06> Objective - Vital Signs/Intake and Output Vital Signs (last 24 hours): Temp Pulse Resp BP Pulse Ox 98.3 F 75 21 131/85 96 10/29/17 08:00 10/29/17 08:00 10/29/17 08:00 10/29/17 08:00 10/29/17 08:00 Intake and Output: 10/29/17 10/29/17 06:59 18:59 Intake Total 600 Output Total 400 Balance 200 - Medications Medications: Current Medications Albuterol/Ipratropium (Duoneb 3 Mg/0.5 Mg (3 Ml) Ud) 3 ml INH RQ6 PRN PRN Reason: Shortness of Breath Aspirin (Aspirin Chewable) 81 mg PO DAILY [facility] Last Admin: 10/28/17 10:23 Dose: 81 mg Benzonatate (Tessalon Perles) 100 mg PO TID [facility] Carvedilol (Coreg) 3.125 mg PO BID [facility] Last Admin: 10/28/17 18:03 Dose: 3.125 mg Docusate Sodium (Colace) 100 mg PO BID [facility] Last Admin: 10/28/17 18:03 Dose: Not Given Enoxaparin Sodium (Lovenox) 40 mg SC DAILY [facility] Stop: 10/29/17 10:00 Last Admin: 10/28/17 10:23 Dose: 40 mg Furosemide (Lasix) 20 mg IVP DAILY [facility] Last Admin: 10/28/17 10:24 Dose: 20 mg Piperacillin Sod/Tazobactam Sod (Zosyn 3.375 Gm Iv Premix) 3.375 gm in 50 mls @ 200 mls/hr IVPB Q6H [facility] Stop: 11/03/17 13:00 Last Admin: 10/29/17 06:30 Dose: 200 mls/hr Azithromycin 500 mg/ Dextrose 250 mls @ 250 mls/hr IVPB DAILY [facility] Stop: 11/03/17 10:01 Potassium Chloride (Potassium Chloride 20 Meq/100 Ml) 20 meq in 100 mls @ 50 mls/hr IVPB ONCE ONE Stop: 10/29/17 10:51 Ipratropium [place] (Atrovent) 0.5 mg IH RQ6 PRN PRN Reason: Shortness of Breath Last Admin: 10/26/17 13:23 Dose: 0.5 mg Potassium Chloride (K-Dur 20 Meq Er Tab) 20 meq PO ONCE ONE Stop: 10/29/17 08:55 Potassium Chloride (K-Dur 20 Meq Er Tab) 40 meq PO ONCE ONE Stop: 10/29/17 12:53 Prednisone (Prednisone Tab) 10 mg PO DAILY [facility] Stop: 11/03/17 10:01 Prednisone (Prednisone Tab) 20 mg PO DAILY [facility] Stop: 10/31/17 10:01 Last Admin: 10/28/17 10:23 Dose: 20 mg Saccharomyces Boulardii (Florastor) 250 mg PO BID [facility] Last Admin: 10/28/17 18:04 Dose: 250 mg - Labs Labs: 10/29/17 07:39 10/29/17 07:39 PT 16.2 SECONDS (9.7-12.2) H 10/23/17 07:46 INR 1.4 10/23/17 07:46 APTT 27 SECONDS (21-34) 10/23/17 07:46 Assessment and Plan (1) Respiratory failure with hypoxia and hypercapnia Status: Acute (2) Pneumonia Status: Acute (3) Heroin abuse Status: Acute (4) NSTEMI (non-ST elevated myocardial infarction) Status: Acute (5) Transaminitis Status: Acute (6) Prophylactic measure Status: Acute Attending/Attestation - Attestation I have personally seen and examined this patient.: Yes I have fully participated in the care of the patient.: Yes I have reviewed all pertinent clinical information, including history, physical exam and plan: Yes Notes (Text): This is late computer entry for 10/28/17. Patient seen, examined and case discussed with day-time resident. Patient seen during rounds. Patient reports breathing is better. Patient has been on nasal cannula since yesterday afternoon. Patient has not needed Bipap. Patient is started on prednisone taper. Patient is currently on IV antibiotics to cover for aspiration pneumonia until the . patient is scheduled for cardiac cath for Thursday with cardiology. Assessment/plan 1). Acute Respiratory Distress * Likely secondary to Opiate Overdose and Aspiration Pneumonia * Doing better on High Flow Oxygen * Will d/c high flow 10/27 and monitor patient on Nasal Cannula on 3-4 Liters * Solumedrol 40 mg IV Q12H (10/24-10/27) * Prednisone 20mg PO daily X3 days (10/28/18-10/31/18), then Prednisone 10mg PO daily 3 days(11/01-) 2). Right Pneumonia, Aspiration * Infectious Disease (Dr. Lynn) on board-->help appreciated * Recommends for IV antibiotics to continue for 7 days (to end on 11/03/17) * Antibiotics: * Azithromycin 500 mg IV Q24H (start on 10/23/17) * Zosyn 3.375 gm IV Q6H (start on 10/23/17) * Vancomycin was increased to 2 gm IV Q12H on 10/25/17 * Tamiflu 75 mg PO 2x/day to finish today 10/28/17 to complete 5 days * Urine Legionella Ag is NEGATIVE * Rapid Influenza is NEGATIVE * Infectious Dare Assay: negative * HIV 1 and 2: negative * RSV: negative * Pending Mycoplasma IgM and Strep Pneumonia * Blood Culture 10/23/17 no growth after 3 days * Urine Culture 10/23/17 shows NO GROWTH * MRSA 10/13/17: MRSA not 3). Elevated D-Dimer * CT Chest PE Protocol: NO PULMONARY EMBOLISM. Confluent air space consolidation throughout Right > Left Hemithorax * Bilateral Venous Dopplers LE: NO DVT 4). Elevated Troponin Elevated ProBNP Cardiomyopathy * Cardiology (Dr. Guzman) on case-->help appreciated * Discussed with cardiology, patient will need cardiac cath. patient is scheduled for this 10/30/17. * Echocardiogram 10/23/17: left ventricle moderate diffuse systolic dysfunction ; thickness; normal; size; normal; overall ejection fraction: 40% diastolic filling pressure elevated. Mitral valve annulus: normal, leaflets: normal, excursion: normal, no significant trasmitral gradient: no significant incompetece: left atrium: normal; aortic valve: leaflefts: normal: excursion normal no significant; further findings per official report * F/U workup for Myocarditis: Coxsackieviurus, CMV, Monospot Test:negative, Adenovirus, HHV6, MMR, ParvoVirus B19, RSV:negative, DISHA, ESR, and CRP. Hepatitis Panel, and HIV and Influenza are already negative * Lasix 20 mg IV 1x/day * ASA 81 mg PO 1x/day * Coreg 3.125 mg PO 2x/day * Troponin declining * Lovenox 40mg subqdaily 5). Elevated LFTs * Hepatitis Panel is NEGATIVE * HIV is NEGATIVE * LFTs normalizing 6). Heroin Use * Psychiatry Dr. Kramer on board * Will need to follow-up with psychiatry to see patient is eligible for maintenance program 7). Prophylaxis * Florastor 250 mg PO 2x/day * Pepcid 20 mg IV Q12H * Lovenox 40mg subq daily Disposition: patient is stable to transfer to floors when bed is available. Patient will need IV antibiotics for 7 days (to end 11/03/17) Discussed with cardiology, patient will need cardiac catherization.
[2017-10-29] MEDS: Piperacill/Tazo 3.375gm in Dex 3.375 GM/50 ML BAG IVPB SCH ×4 (01:00→18:00)
[2017-10-29 07:48] LABS: BASO % 0.2 % (0.0-2.0); EOS # 0.2 K/uL (0.0-0.7); EOS % 2.5 % (0.0-4.0); HEMOGLOBIN 13.4 g/dL (12.0-18.0); LYMPH # 1.7 K/uL (1.0-4.3); LYMPH % 24.1 % (20.0-40.0); MEAN CELL VOLUME 77.1 fL (80.0-94.0); MEAN CORPUSCULAR HEMOGLOBIN 26.9 pg (27.0-31.0); MEAN CORPUSCULAR HGB CONC 34.9 g/dL (33.0-37.0); MEAN PLATELET VOLUME 7.9 fL (7.2-11.7); MONO # 0.8 K/uL (0.0-0.8); NEUT # 4.2 K/uL (1.8-7.0); NEUT % 61.2 % (50.0-75.0); NRBC % 0.1 % (0.0-2.0); RED CELL DISTRIBUTION WIDTH 14.6 % (11.5-14.5); WHITE BLOOD COUNT 6.9 K/uL (4.8-10.8)
[2017-10-29 08:30] LABS: ALB/GLOB RATIO 1.1 (1.0-2.1); ALBUMIN 3.3 g/dL (3.5-5.0); ALT/SGPT 123 U/L (21-72); AST/SGOT 23 U/L (17-59); BLOOD UREA NITROGEN 14 mg/dL (9-20); CALCIUM 8.5 mg/dl (8.6-10.4); GFR AFRICAN-AMERICAN > 60; GFR NON-AFRICAN AMERICAN > 60; MAGNESIUM 1.9 mg/dL (1.6-2.3)
[2017-10-29] MEDS ORDERED: Potassium Chloride 20 mEq ER Tab PO ONE ×3 (08:52→12:52)
--- NOTE | 2017-10-29 09:09 | CP.PCM.PN ---
Subjective - Date & Time of Evaluation Date of Evaluation: 10/29/17 Time of Evaluation: 08:50 - Subjective Subjective: Medical Attending note: Patient seen and examined this morning. Patient reports he is breathing better with mild cough. Patient denies chest pain, denies palpitations, denies abdominal pain, denies nausea, denies vomitting, denies dysuria, and denies constipation. Objective - Vital Signs/Intake and Output Vital Signs (last 24 hours): Temp Pulse Resp BP Pulse Ox 98.3 F 75 21 131/85 96 10/29/17 08:00 10/29/17 08:00 10/29/17 08:00 10/29/17 08:00 10/29/17 08:00 Intake and Output: 10/29/17 10/29/17 06:59 18:59 Intake Total 600 Output Total 400 Balance 200 - Medications Medications: Current Medications Albuterol/Ipratropium (Duoneb 3 Mg/0.5 Mg (3 Ml) Ud) 3 ml INH RQ6 PRN PRN Reason: Shortness of Breath Aspirin (Aspirin Chewable) 81 mg PO DAILY [facility] Last Admin: 10/28/17 10:23 Dose: 81 mg Benzonatate (Tessalon Perles) 100 mg PO TID [facility] Carvedilol (Coreg) 3.125 mg PO BID [facility] Last Admin: 10/28/17 18:03 Dose: 3.125 mg Docusate Sodium (Colace) 100 mg PO BID [facility] Last Admin: 10/28/17 18:03 Dose: Not Given Enoxaparin Sodium (Lovenox) 40 mg SC DAILY [facility] Stop: 10/29/17 10:00 Last Admin: 10/28/17 10:23 Dose: 40 mg Furosemide (Lasix) 20 mg IVP DAILY [facility] Last Admin: 10/28/17 10:24 Dose: 20 mg Piperacillin Sod/Tazobactam Sod (Zosyn 3.375 Gm Iv Premix) 3.375 gm in 50 mls @ 200 mls/hr IVPB Q6H [facility] Stop: 11/03/17 13:00 Last Admin: 10/29/17 06:30 Dose: 200 mls/hr Azithromycin 500 mg/ Dextrose 250 mls @ 250 mls/hr IVPB DAILY [facility] Stop: 11/03/17 10:01 Potassium Chloride (Potassium Chloride 20 Meq/100 Ml) 20 meq in 100 mls @ 50 mls/hr IVPB ONCE ONE Stop: 10/29/17 10:51 Ipratropium [place] (Atrovent) 0.5 mg IH RQ6 PRN PRN Reason: Shortness of Breath Last Admin: 10/26/17 13:23 Dose: 0.5 mg Potassium Chloride (K-Dur 20 Meq Er Tab) 40 meq PO ONCE ONE Stop: 10/29/17 12:53 Prednisone (Prednisone Tab) 10 mg PO DAILY [facility] Stop: 11/03/17 10:01 Prednisone (Prednisone Tab) 20 mg PO DAILY [facility] Stop: 10/31/17 10:01 Last Admin: 10/28/17 10:23 Dose: 20 mg Saccharomyces Boulardii (Florastor) 250 mg PO BID [facility] Last Admin: 10/28/17 18:04 Dose: 250 mg - Labs Labs: 10/29/17 07:39 10/29/17 07:39 PT 16.2 SECONDS (9.7-12.2) H 10/23/17 07:46 INR 1.4 10/23/17 07:46 APTT 27 SECONDS (21-34) 10/23/17 07:46 - Constitutional Appears: Non-toxic, No Acute Distress - Head Exam Head Exam: NORMAL INSPECTION - Eye Exam Eye Exam: EOMI - ENT Exam ENT Exam: Mucous Membranes Moist - Respiratory Exam Respiratory Exam: Decreased Breath Sounds (right lower base; improving), NORMAL BREATHING PATTERN. absent: Rales, Wheezes, Respiratory Distress - Cardiovascular Exam Cardiovascular Exam: REGULAR RHYTHM, +S1, +S2 - GI/Abdominal Exam GI & Abdominal Exam: Soft, Normal Bowel Sounds. absent: Distended, Firm, Guarding, Rigid, Tenderness, Rebound - Extremities Exam Extremities Exam: absent: Pedal Edema, Tenderness - Neurological Exam Neurological Exam: Alert, Awake, Oriented x3 Neuro motor strength exam: Left Upper Extremity: 5, Right Upper Extremity: 5, Left Lower Extremity: 5, Right Lower Extremity: 5 - Psychiatric Exam Psychiatric exam: Normal Affect, Normal Mood - Skin Skin Exam: Dry, Normal Color, Warm Assessment and Plan (1) Respiratory failure with hypoxia and hypercapnia Status: Acute (2) Pneumonia Status: Acute (3) Heroin abuse Status: Acute (4) NSTEMI (non-ST elevated myocardial infarction) Status: Acute (5) Transaminitis Status: Acute (6) Prophylactic measure Status: Acute Attending/Attestation - Attestation I have personally seen and examined this patient.: Yes I have fully participated in the care of the patient.: Yes I have reviewed all pertinent clinical information, including history, physical exam and plan: Yes Notes (Text): Assessment/plan 1). Acute Respiratory Distress * Likely secondary to Opiate Overdose and Aspiration Pneumonia * Pulmonary on board (Dr. Morgan) case discussed-->help appreciated * Doing better on High Flow Oxygen * Will d/c high flow 10/27 and monitor patient on Nasal Cannula on 3-4 Liters * Solumedrol 40 mg IV Q12H (10/24-10/27) * Prednisone 20mg PO daily X3 days (10/28/18-10/31/18), then Prednisone 10mg PO daily 3 days(11/01-) 2). Right Pneumonia, Aspiration * Infectious Disease (Dr. Lynn) on board-->help appreciated * Recommends for IV antibiotics to continue for 7 days (to end on 11/03/17) * Antibiotics: * Azithromycin 500 mg IV Q24H (start on 10/23/17) * Zosyn 3.375 gm IV Q6H (start on 10/23/17) * Vancomycin was increased to 2 gm IV Q12H on 10/25/17 * To finish all antibiotics by 11/03/17 * Completed Tamiflu * Urine Legionella Ag is NEGATIVE * Rapid Influenza is NEGATIVE * Infectious [place] Assay: negative * HIV 1 and 2: negative * RSV: negative * Pending Mycoplasma IgM and Strep Pneumonia * Blood Culture 10/23/17 no growth after 3 days * Urine Culture 10/23/17 shows NO GROWTH * MRSA 10/13/17: MRSA not 3). Elevated D-Dimer * CT Chest PE Protocol: NO PULMONARY EMBOLISM. Confluent air space consolidation throughout Right > Left Hemithorax * Bilateral Venous Dopplers LE: NO DVT 4). Elevated Troponin Elevated ProBNP Cardiomyopathy * Cardiology (Dr. Guzman) on case-->help appreciated * Discussed with cardiology, patient will need cardiac cath. patient is scheduled for this 10/30/17. * Npo after midnight * Echocardiogram 10/23/17: left ventricle moderate diffuse systolic dysfunction ; thickness; normal; size; normal; overall ejection fraction: 40% diastolic filling pressure elevated. Mitral valve annulus: normal, leaflets: normal, excursion: normal, no significant trasmitral gradient: no significant incompetece: left atrium: normal; aortic valve: leaflefts: normal: excursion normal no significant; further findings per official report * F/U workup for Myocarditis: Coxsackieviurus: pending, CMV: IgG positive only, Monospot Test:negative, Adenovirus: pending, HHV6: pending, MMR, ParvoVirus B19 : igG positive only, RSV:negative, DISHA: negative, ESR:56, and CRP. Hepatitis Panel, and HIV and Influenza are already negative * Lasix 20 mg IV 1x/day * ASA 81 mg PO 1x/day * Coreg 3.125 mg PO 2x/day * Troponin declining 5). Elevated LFTs * Hepatitis Panel is NEGATIVE * HIV is NEGATIVE * LFTs normalizing 6). Heroin Use * Psychiatry Dr. Kramer on board * Will need to follow-up with psychiatry to see patient is eligible for maintenance program * Discussed with psych today who will come see the patient to discuss outpatient options to maintain sobriety 7). Prophylaxis * Florastor 250 mg PO 2x/day * Pepcid 20 mg IV Q12H * Hold Lovenox 40mg subq daily for cardiac cath tomorrow. Disposition: patient is stable to transfer to floors when bed is available. Patient will need IV antibiotics for 7 days (to end 11/03/17) Discussed with cardiology, patient will need cardiac catherization.
[2017-10-29] MEDS: Enoxaparin 40 mg Syringe SC SCH (09:14)
[2017-10-29] MEDS: Saccharomyces Boulardi 250 mg Cap PO SCH ×2 (09:16→17:07)
[2017-10-29] MEDS: Vancomycin 1 GM in Sodium Chloride 0.9% 200 ML IVPB SCH ×3 (10:30→21:28)
--- NOTE | 2017-10-29 17:15 | CP.PCM.CON ---
History of Present Illness - History of Present Illness History of Present Illness: Pt is a 31 year old male with PMHx of Opioid use disorder who was admited on 09/28 for acute respiratory distress, pneumonia, elevated troponin and elevated D-dimer after being found down at home, after heroin use, and responding to narcan. Pulmonary consult was called for pneumonia and respiratory distress. Today, pt is sitting up in chair comfortably. SpO2 96% on Room air. States he is feeling much better and has no acute complaints at this time. Denies shortness of breath, cough, fever, chills, chest pain, hemoptysis. PMHx: Opioid use disorder PSHx: denies Allergies: NKDA Social: + heroin use. denies tobacco use. Exam: Pt in NAD Lungs: diminished breath sounds A/P: Pneumonia possibly seconary to aspiration spO2 96% on RA Afebrile Pt NAD Continue Duoneb treatments as needed continue antibiotics- Azithromcin 500mg IVPB daily, Zosyn 3.375 gm IVPB Q6H, vancomycin 1gm IVPB Q12H 10/26/17- CXR: Improving multifocal infiltrates in right upper and right lower lobe. Stable parenchymal findings in left lung. 10/24/17 CXR: Extensive Right and less left sided patchy consolidation concerning for pneumonia. 10/23/17 Chest CTA: Extensive confluent airspace consolidations worrisome for pneumonia throughout the R >L hemithoraces with relative sparing of the apices. Recommend follow up to complete resolution. No large central or segmental pulmonary embolus event. 10/26/17 ABG: pCO2 37, pO2 71, HCO3 30.3, pH 7.52 10/23/17 Echocardiogram: LV moderate diffuse systolic dysfunction; overall EF 40% . thickness normal; size normal; diastolic filling pressures elevated. Please see full report. Rubella, Rubeola, mycoplasma, parvovirus B19, CMV: IgG positive, IgM negative Legionella, RSV, influenza, mono, HIV negative HSV 6, coxsackie B and strep pneumo pending Past Patient History - Past Medical History & Family History Past Medical History?: No - Past Social History Smoking Status: Never Smoked - MUSCULOSKELETAL/RHEUMATOLOGICAL Hx Falls: No - PSYCHIATRIC Hx Substance Use: Yes (heroin every few weeks x1year) - SURGICAL HISTORY Hx Surgeries: No - ANESTHESIA Hx Anesthesia: No Meds Allergies/Adverse Reactions: Allergies Allergy/AdvReac Type Severity Reaction Status Date / Time No Known Allergies Allergy Verified 10/23/17 07:39 - Medications Medications: Current Medications Albuterol/Ipratropium (Duoneb 3 Mg/0.5 Mg (3 Ml) Ud) 3 ml INH RQ6 PRN PRN Reason: Shortness of Breath Aspirin (Aspirin Chewable) 81 mg PO DAILY [facility] Last Admin: 10/29/17 09:16 Dose: 81 mg Benzonatate (Tessalon Perles) 100 mg PO TID [facility] Last Admin: 10/29/17 17:07 Dose: 100 mg Carvedilol (Coreg) 3.125 mg PO BID [facility] Last Admin: 10/29/17 17:07 Dose: 3.125 mg Docusate Sodium (Colace) 100 mg PO BID [facility] Last Admin: 10/29/17 17:07 Dose: Not Given Piperacillin Sod/Tazobactam Sod (Zosyn 3.375 Gm Iv Premix) 3.375 gm in 50 mls @ 200 mls/hr IVPB Q6H [facility] Stop: 11/03/17 13:00 Last Admin: 10/29/17 13:05 Dose: 200 mls/hr Azithromycin 500 mg/ Dextrose 250 mls @ 250 mls/hr IVPB DAILY [facility] Stop: 11/03/17 10:01 Last Admin: 10/29/17 09:38 Dose: 250 mls/hr Vancomycin HCl 1 gm/ Sodium (Chloride) 200 mls @ 133.333 mls/hr IVPB Q12H [facility] Stop: 11/03/17 10:01 Last Admin: 10/29/17 10:43 Dose: 133.333 mls/hr Ipratropium [place] (Atrovent) 0.5 mg IH RQ6 PRN PRN Reason: Shortness of Breath Last Admin: 10/26/17 13:23 Dose: 0.5 mg Prednisone (Prednisone Tab) 10 mg PO DAILY [facility] Stop: 11/03/17 10:01 Prednisone (Prednisone Tab) 20 mg PO DAILY [facility] Stop: 10/31/17 10:01 Last Admin: 10/29/17 09:16 Dose: 20 mg Saccharomyces Boulardii (Florastor) 250 mg PO BID [facility] Last Admin: 10/29/17 17:07 Dose: 250 mg Results - Vital Signs Recent Vital Signs: Last Vital Signs Temp 98.1 F 10/29/17 16:00 Pulse 93 H 10/29/17 16:00 Resp 20 10/29/17 16:00 BP 134/88 10/29/17 16:00 Pulse Ox 97 10/29/17 16:00 - Labs Result Diagrams: 10/29/17 07:39 10/29/17 07:39 Labs: Laboratory Results - last 24 hr 10/29/17 10/29/17 10/29/17 06:36 07:39 07:39 WBC 6.9 RBC 5.00 Hgb 13.4 Hct 38.5 MCV 77.1 L MCH 26.9 L MCHC 34.9 RDW 14.6 H Plt Count 247 MPV 7.9 Neut % (Auto) 61.2 Lymph % (Auto) 24.1 Roberts % (Auto) 12.0 H Eos % (Auto) 2.5 Baso % (Auto) 0.2 Neut # 4.2 Lymph # 1.7 Roberts # 0.8 Eos # 0.2 Baso # 0.0 Sodium 132 Potassium 3.0 L Chloride 101 Carbon Dioxide 23 Anion Gap 11 BUN 14 Creatinine 0.8 Est GFR ( Amer) > 60 Est GFR (Non-Af Amer) > 60 Random Glucose 95 Calcium 8.5 L Phosphorus 3.3 Magnesium 1.9 Total Bilirubin 0.7 AST 23 ALT 123 H Alkaline Phosphatase 64 Total Protein 6.1 L Albumin 3.3 L Globulin 2.9 Albumin/Globulin Ratio 1.1 Vancomycin Trough 16.8 H
[2017-10-29 18:51] LABS: ADENOVIRUS AB 1:16 (<1:8)
--- NOTE | 2017-10-29 19:39 | CP.PCM.PN ---
Subjective - Date & Time of Evaluation Date of Evaluation: 10/29/17 Time of Evaluation: 08:00 - Subjective Subjective: no fever chills cough or sob denies chest pain iv rx renewed Objective - Vital Signs/Intake and Output Vital Signs (last 24 hours): Temp Pulse Resp BP Pulse Ox 98.1 F 93 H 20 134/88 97 10/29/17 16:00 10/29/17 16:00 10/29/17 16:00 10/29/17 16:00 10/29/17 16:00 Intake and Output: 10/29/17 10/30/17 18:59 06:59 Intake Total 1920 Output Total 1100 Balance 820 - Medications Medications: Current Medications Albuterol/Ipratropium (Duoneb 3 Mg/0.5 Mg (3 Ml) Ud) 3 ml INH RQ6 PRN PRN Reason: Shortness of Breath Aspirin (Aspirin Chewable) 81 mg PO DAILY [facility] Last Admin: 10/29/17 09:16 Dose: 81 mg Benzonatate (Tessalon Perles) 100 mg PO TID [facility] Last Admin: 10/29/17 17:07 Dose: 100 mg Carvedilol (Coreg) 3.125 mg PO BID [facility] Last Admin: 10/29/17 17:07 Dose: 3.125 mg Docusate Sodium (Colace) 100 mg PO BID [facility] Last Admin: 10/29/17 17:07 Dose: Not Given Piperacillin Sod/Tazobactam Sod (Zosyn 3.375 Gm Iv Premix) 3.375 gm in 50 mls @ 200 mls/hr IVPB Q6H [facility] Stop: 11/03/17 13:00 Last Admin: 10/29/17 18:00 Dose: 200 mls/hr Azithromycin 500 mg/ Dextrose 250 mls @ 250 mls/hr IVPB DAILY [facility] Stop: 11/03/17 10:01 Last Admin: 10/29/17 09:38 Dose: 250 mls/hr Vancomycin HCl 1 gm/ Sodium (Chloride) 200 mls @ 133.333 mls/hr IVPB Q12H [facility] Stop: 11/03/17 10:01 Last Admin: 10/29/17 10:43 Dose: 133.333 mls/hr Ipratropium [place] (Atrovent) 0.5 mg IH RQ6 PRN PRN Reason: Shortness of Breath Last Admin: 10/26/17 13:23 Dose: 0.5 mg Prednisone (Prednisone Tab) 10 mg PO DAILY [facility] Stop: 11/03/17 10:01 Prednisone (Prednisone Tab) 20 mg PO DAILY [facility] Stop: 10/31/17 10:01 Last Admin: 10/29/17 09:16 Dose: 20 mg Saccharomyces Boulardii (Florastor) 250 mg PO BID [facility] Last Admin: 10/29/17 17:07 Dose: 250 mg - Labs Labs: 10/29/17 07:39 10/29/17 07:39 PT 16.2 SECONDS (9.7-12.2) H 10/23/17 07:46 INR 1.4 10/23/17 07:46 APTT 27 SECONDS (21-34) 10/23/17 07:46 - Constitutional Appears: Non-toxic, Chronically Ill - Head Exam Head Exam: NORMOCEPHALIC - Eye Exam Eye Exam: PERRL - ENT Exam ENT Exam: Mucous Membranes Dry - Neck Exam Neck Exam: absent: Lymphadenopathy - Respiratory Exam Respiratory Exam: Decreased Breath Sounds - Cardiovascular Exam Cardiovascular Exam: REGULAR RHYTHM - GI/Abdominal Exam GI & Abdominal Exam: Soft. absent: Tenderness Assessment and Plan (1) Pneumonia Status: Acute (2) Heroin abuse Status: Acute (3) Respiratory failure with hypoxia and hypercapnia Status: Acute - Assessment and Plan (Free Text) Assessment: for cath in am cont iv antibiotics
[2017-10-29 22:36] LABS: INTERPRETATION PAST INFECTION
[2017-10-30] MEDS: Piperacill/Tazo 3.375gm in Dex 3.375 GM/50 ML BAG IVPB SCH ×4 (00:18→18:02)
[2017-10-30 07:02] LABS: BASO % 0.2 % (0.0-2.0); EOS # 0.2 K/uL (0.0-0.7); EOS % 2.2 % (0.0-4.0); HEMOGLOBIN 13.6 g/dL (12.0-18.0); LYMPH # 2.6 K/uL (1.0-4.3); MEAN CELL VOLUME 77.7 fL (80.0-94.0); MEAN CORPUSCULAR HEMOGLOBIN 26.9 pg (27.0-31.0); MEAN CORPUSCULAR HGB CONC 34.6 g/dL (33.0-37.0); MEAN PLATELET VOLUME 8.2 fL (7.2-11.7); MONO % 9.1 % (0.0-10.0); NEUT # 7.3 K/uL (1.8-7.0); NEUT % 65.5 % (50.0-75.0); NRBC % 0.1 % (0.0-2.0); RBC 5.08 Mil/uL (4.40-5.90); WHITE BLOOD COUNT 11.1 K/uL (4.8-10.8)
[2017-10-30 07:06] LABS: PROTHROMBIN TIME 10.8 SECONDS (9.7-12.2)
[2017-10-30 07:35] LABS: ALB/GLOB RATIO 1.2 (1.0-2.1); ALBUMIN 3.4 g/dL (3.5-5.0); ALT/SGPT 171 U/L (21-72); AST/SGOT 41 U/L (17-59); BLOOD UREA NITROGEN 13 mg/dL (9-20); CALCIUM 8.9 mg/dl (8.6-10.4); GFR AFRICAN-AMERICAN > 60; GFR NON-AFRICAN AMERICAN > 60; MAGNESIUM 1.7 mg/dL (1.6-2.3)
--- NOTE | 2017-10-30 08:41 | PN ---
DATE: 10/29/2017 SUBJECTIVE: The patient's shortness of breath has improved. She is still experiencing dry cough. No retrosternal chest pain. No reported ventricular arrhythmia. PHYSICAL EXAMINATION: VITAL SIGNS: Blood pressure 124/91, heart rate 83, temperature 97.8, and respirations 22. HEENT: Normocephalic. NECK: No JVD. CHEST: Bibasilar rhonchi. HEART: S1 and S2 regular. ABDOMEN: Soft. EXTREMITIES: No edema. LABORATORY DATA: SMA-7, sodium 132, potassium 3.0, chloride 101, CO2 23, glucose 95, BUN 14, creatinine 0.8. Hemoglobin and hematocrit 13.4 and 38.5, white count and platelet count 6.9 and 247,000. DISHA nuclear membrane pattern is negative. ASSESSMENT: 1. Cardiomyopathy. 2. Borderline troponin elevation. 3. Pneumonia. 4. Status post heroin abuse. 5. Hypokalemia. RECOMMENDATIONS: Continue aspirin 81 mg once a day, Zithromax 500 mg intravenously daily, Coreg 3.125 mg twice a day. Lasix will be discontinued. Continue prednisone at 20 mg once a day, IV vancomycin 1 g q.12 hours, Zosyn 3.375 g intravenously q.6 hours. The patient received K-Dur 20 mEq orally today. I will add 20 mEq of intravenous KCl as an additional replacement. The patient will be kept n.p.o. after liquid breakfast for cardiac catheterization tomorrow. Patrice Guzman MD
[2017-10-30] MEDS: Saccharomyces Boulardi 250 mg Cap PO SCH ×2 (09:25→17:41)
[2017-10-30] MEDS: Vancomycin 1 GM in Sodium Chloride 0.9% 200 ML IVPB SCH ×2 (09:26→22:14)
--- NOTE | 2017-10-30 12:16 | CP.PCM.PN ---
Subjective - Date & Time of Evaluation Date of Evaluation: 10/30/17 Time of Evaluation: 07:00 - Subjective Subjective: the patient seen and examined Breathing and cough much improved Afebrile No chest pain Being treated for pneumonia Oxygenation much improved For cardiac catheter Continue antibiotics Followup chest x-ray Objective - Vital Signs/Intake and Output Vital Signs (last 24 hours): Temp Pulse Resp BP Pulse Ox 98.7 F 75 26 H 124/87 100 10/30/17 08:00 10/30/17 08:00 10/30/17 08:00 10/30/17 08:00 10/30/17 08:00 Intake and Output: 10/30/17 10/30/17 06:59 18:59 Intake Total 260 Balance 260 - Medications Medications: Current Medications Albuterol/Ipratropium (Duoneb 3 Mg/0.5 Mg (3 Ml) Ud) 3 ml INH RQ6 PRN PRN Reason: Shortness of Breath Aspirin (Aspirin Chewable) 81 mg PO [facility]ILY [facility] Last Admin: 10/30/17 09:25 Dose: 81 mg Benzonatate (Tessalon Perles) 100 mg PO TID [facility] Last Admin: 10/30/17 09:25 Dose: 100 mg Carvedilol (Coreg) 3.125 mg PO BID [facility] Last Admin: 10/30/17 09:31 Dose: 3.125 mg Docusate Sodium (Colace) 100 mg PO BID [facility] Last Admin: 10/30/17 09:25 Dose: 100 mg Piperacillin Sod/Tazobactam Sod (Zosyn 3.375 Gm Iv Premix) 3.375 gm in 50 mls @ 200 mls/hr IVPB Q6H [facility] Stop: 11/03/17 13:00 Last Admin: 10/30/17 06:23 Dose: 200 mls/hr Azithromycin 500 mg/ Dextrose 250 mls @ 250 mls/hr IVPB DAILY [facility] Stop: 11/03/17 10:01 Last Admin: 10/30/17 09:26 Dose: 250 mls/hr Vancomycin HCl 1 gm/ Sodium (Chloride) 200 mls @ 133.333 mls/hr IVPB Q12H [facility] Stop: 11/03/17 10:01 Last Admin: 10/30/17 09:26 Dose: 133.333 mls/hr Ipratropium [place] (Atrovent) 0.5 mg IH RQ6 PRN PRN Reason: Shortness of Breath Last Admin: 10/26/17 13:23 Dose: 0.5 mg Prednisone (Prednisone Tab) 10 mg PO DAILY [facility] Stop: 11/03/17 10:01 Prednisone (Prednisone Tab) 20 mg PO DAILY [facility] Stop: 10/31/17 10:01 Last Admin: 10/30/17 09:25 Dose: 20 mg Saccharomyces Boulardii (Florastor) 250 mg PO BID [facility] Last Admin: 10/30/17 09:25 Dose: 250 mg - Labs Labs: 10/30/17 06:52 10/30/17 06:52 PT 10.8 SECONDS (9.7-12.2) 10/30/17 06:52 INR 1.0 10/30/17 06:52 APTT 25 SECONDS (21-34) 10/30/17 06:52
--- NOTE | 2017-10-30 13:45 | CP.PCM.PN ---
Subjective - Date & Time of Evaluation Date of Evaluation: 10/30/17 Time of Evaluation: 09:00 - Subjective Subjective: awake alert comfortable NAD less cough no fever chest pain (-) Objective - Vital Signs/Intake and Output Vital Signs (last 24 hours): Temp Pulse Resp BP Pulse Ox 98.6 F 86 16 128/80 100 10/30/17 12:00 10/30/17 12:00 10/30/17 12:00 10/30/17 12:00 10/30/17 08:00 Intake and Output: 10/30/17 10/30/17 06:59 18:59 Intake Total 260 Balance 260 - Medications Medications: Current Medications Albuterol/Ipratropium (Duoneb 3 Mg/0.5 Mg (3 Ml) Ud) 3 ml INH RQ6 PRN PRN Reason: Shortness of Breath Aspirin (Aspirin Chewable) 81 mg PO DAILY [facility] Last Admin: 10/30/17 09:25 Dose: 81 mg Benzonatate (Tessalon Perles) 100 mg PO TID [facility] Last Admin: 10/30/17 09:25 Dose: 100 mg Carvedilol (Coreg) 3.125 mg PO BID [facility] Last Admin: 10/30/17 09:31 Dose: 3.125 mg Docusate Sodium (Colace) 100 mg PO BID [facility] Last Admin: 10/30/17 09:25 Dose: 100 mg Piperacillin Sod/Tazobactam Sod (Zosyn 3.375 Gm Iv Premix) 3.375 gm in 50 mls @ 200 mls/hr IVPB Q6H [facility] Stop: 11/03/17 13:00 Last Admin: 10/30/17 06:23 Dose: 200 mls/hr Azithromycin 500 mg/ Dextrose 250 mls @ 250 mls/hr IVPB DAILY [facility] Stop: 11/03/17 10:01 Last Admin: 10/30/17 09:26 Dose: 250 mls/hr Vancomycin HCl 1 gm/ Sodium (Chloride) 200 mls @ 133.333 mls/hr IVPB Q12H [facility] Stop: 11/03/17 10:01 Last Admin: 10/30/17 09:26 Dose: 133.333 mls/hr Ipratropium [place] (Atrovent) 0.5 mg IH RQ6 PRN PRN Reason: Shortness of Breath Last Admin: 10/26/17 13:23 Dose: 0.5 mg Prednisone (Prednisone Tab) 10 mg PO DAILY [facility] Stop: 11/03/17 10:01 Prednisone (Prednisone Tab) 20 mg PO DAILY [facility] Stop: 10/31/17 10:01 Last Admin: 10/30/17 09:25 Dose: 20 mg Saccharomyces Boulardii (Florastor) 250 mg PO BID [facility] Last Admin: 10/30/17 09:25 Dose: 250 mg - Labs Labs: 10/30/17 06:52 10/30/17 06:52 PT 10.8 SECONDS (9.7-12.2) 10/30/17 06:52 INR 1.0 10/30/17 06:52 APTT 25 SECONDS (21-34) 10/30/17 06:52 - Constitutional Appears: Non-toxic, Chronically Ill - Head Exam Head Exam: NORMOCEPHALIC - Eye Exam Eye Exam: PERRL. absent: Scleral icterus - ENT Exam ENT Exam: Mucous Membranes Dry - Neck Exam Neck Exam: absent: Lymphadenopathy - Respiratory Exam Respiratory Exam: Decreased Breath Sounds - Cardiovascular Exam Cardiovascular Exam: REGULAR RHYTHM - GI/Abdominal Exam GI & Abdominal Exam: Distended, Soft. absent: Tenderness - Rectal Exam Rectal Exam: Deferred - Exam Exam: NORMAL INSPECTION - Extremities Exam Extremities Exam: absent: Pedal Edema - Back Exam Back Exam: absent: CVA tenderness (L), CVA tenderness (R) - Neurological Exam Neurological Exam: Alert, Awake, Oriented x3 Neuro motor strength exam: Left Upper Extremity: 5, Right Upper Extremity: 5, Left Lower Extremity: 5, Right Lower Extremity: 5 - Psychiatric Exam Psychiatric exam: Anxious, Normal Mood - Skin Skin Exam: Dry Assessment and Plan (1) Pneumonia Status: Acute (2) Heroin abuse Status: Acute (3) Respiratory failure with hypoxia and hypercapnia Status: Acute - Assessment and Plan (Free Text) Assessment: s/p resp failure, heroin use resolving pneumonia r/o cardiomyopathy r/o ischemia for cath
[2017-10-30] MEDS ORDERED: Midazolam 2 MG/2 ML VIAL ONE (16:10)
--- NOTE | 2017-10-30 19:00 | CP.PCM.PN ---
<CeePearblossom - Last Filed: 10/30/17 19:55> Subjective - Date & Time of Evaluation Date of Evaluation: 10/30/17 Time of Evaluation: 07:00 - Subjective Subjective: Patient seen and examined at bedside. Per nursing no acute events occurred overnight. The patient reports feeling better. The patient is tolerating diet with no complaints and had one bowel movement that was normal in consistency. The patient denies any chest pain, abdominal pain, fevers, chills, nauseous, vomiting, changes in vision, headaches, dizziness , syncopal episodes, or any other complaints. Objective - Vital Signs/Intake and Output Vital Signs (last 24 hours): Temp Pulse Resp BP Pulse Ox 98.8 F 73 27 H 116/68 98 10/30/17 16:54 10/30/17 18:04 10/30/17 18:04 10/30/17 18:04 10/30/17 16:54 Intake and Output: 10/30/17 10/30/17 06:59 18:59 Intake Total 930 Output Total 800 Balance 130 - Medications Medications: Current Medications Albuterol/Ipratropium (Duoneb 3 Mg/0.5 Mg (3 Ml) Ud) 3 ml INH RQ6 PRN PRN Reason: Shortness of Breath Aspirin (Aspirin Chewable) 81 mg PO DAILY [facility] Last Admin: 10/30/17 09:25 Dose: 81 mg Benzonatate (Tessalon Perles) 100 mg PO TID [facility] Last Admin: 10/30/17 17:41 Dose: 100 mg Carvedilol (Coreg) 3.125 mg PO BID [facility] Last Admin: 10/30/17 17:41 Dose: 3.125 mg Docusate Sodium (Colace) 100 mg PO BID [facility] Last Admin: 10/30/17 17:41 Dose: 100 mg Piperacillin Sod/Tazobactam Sod (Zosyn 3.375 Gm Iv Premix) 3.375 gm in 50 mls @ 200 mls/hr IVPB Q6H [facility] Stop: 11/03/17 13:00 Last Admin: 10/30/17 18:02 Dose: 200 mls/hr Azithromycin 500 mg/ Dextrose 250 mls @ 250 mls/hr IVPB DAILY [facility] Stop: 11/03/17 10:01 Last Admin: 01/19/18 09:26 Dose: 250 mls/hr Vancomycin HCl 1 gm/ Sodium (Chloride) 200 mls @ 133.333 mls/hr IVPB Q12H [facility] Stop: 11/03/17 10:01 Last Admin: 10/30/17 09:26 Dose: 133.333 mls/hr Ipratropium [place] (Atrovent) 0.5 mg IH RQ6 PRN PRN Reason: Shortness of Breath Last Admin: 10/26/17 13:23 Dose: 0.5 mg Prednisone (Prednisone Tab) 10 mg PO DAILY [facility] Stop: 11/03/17 10:01 Prednisone (Prednisone Tab) 20 mg PO DAILY [facility] Stop: 10/31/17 10:01 Last Admin: 10/30/17 09:25 Dose: 20 mg Saccharomyces Boulardii (Florastor) 250 mg PO BID [facility] Last Admin: 10/30/17 17:41 Dose: 250 mg - Labs Labs: 10/30/17 06:52 10/30/17 06:52 PT 10.8 SECONDS (9.7-12.2) 10/30/17 06:52 INR 1.0 10/30/17 06:52 APTT 25 SECONDS (21-34) 10/30/17 06:52 - Head Exam Head Exam: ATRAUMATIC, NORMAL INSPECTION, NORMOCEPHALIC - Eye Exam Eye Exam: EOMI, Normal appearance, PERRL. absent: Periorbital tenderness Pupil Exam: NORMAL ACCOMODATION, PERRL. absent: Irregular, Unequal - ENT Exam ENT Exam: Mucous Membranes Moist, Normal Exam, Normal Oropharynx - Neck Exam Neck Exam: absent: Lymphadenopathy, Thyromegaly - Respiratory Exam Respiratory Exam: Clear to Ausculation Bilateral, NORMAL BREATHING PATTERN. absent: Prolonged Expiratory Phase, Respiratory Distress - Cardiovascular Exam Cardiovascular Exam: REGULAR RHYTHM, RRR, +S1, +S2. absent: Gallop, Rubs - GI/Abdominal Exam GI & Abdominal Exam: Soft, Normal Bowel Sounds. absent: Rigid, Hyperactive Bowel Sounds - Extremities Exam Extremities Exam: Full ROM, Normal Inspection. absent: Joint Swelling, Pedal Edema - Back Exam Back Exam: NORMAL INSPECTION. absent: CVA tenderness (L), CVA tenderness (R), paraspinal tenderness - Neurological Exam Neurological Exam: Alert, Awake, CN II-XII Intact, Normal Gait - Psychiatric Exam Psychiatric exam: Normal Affect, Normal Mood - Skin Skin Exam: Dry, Intact, Normal Color, Warm Assessment and Plan - Assessment and Plan (Free Text) Plan: Assessment/plan 1). Acute Respiratory Distress * Likely secondary to Opiate Overdose and Aspiration Pneumonia * Pulmonary on board (Dr. Morgan) case discussed-->help appreciated * Continue Nasal Cannula on 3-4 Liters * Solumedrol 40 mg IV Q12H (10/24-10/27) * Prednisone 20mg PO daily X3 days (10/28/18-10/31/18), then Prednisone 10mg PO daily 3 days(11/01-) 2). Right Pneumonia, Aspiration * Infectious Disease (Dr. Lynn) on board-->help appreciated * Recommends for IV antibiotics to continue for 7 days (to end on 11/03/17) * Antibiotics: * Azithromycin 500 mg IV Q24H (start on 10/23/17) * Zosyn 3.375 gm IV Q6H (start on 10/23/17) * Vancomycin was increased to 1 gm IV Q12H on 10/25/17 * To finish all antibiotics by 11/03/17 * Completed Tamiflu * Urine Legionella Ag is NEGATIVE * Rapid Influenza is NEGATIVE * Infectious [place] Assay: negative * HIV 1 and 2: negative * RSV: negative * Pending Mycoplasma IgM and Strep Pneumonia * Blood Culture 10/23/17 no growth after 5 days * Urine Culture :negative * MRSA 10/13/17:negative 3). Elevated D-Dimer * CT Chest PE Protocol: NO PULMONARY EMBOLISM. Confluent air space consolidation throughout Right > Left Hemithorax * Bilateral Venous Dopplers LE: NO DVT 4). Elevated Troponin Elevated ProBNP Cardiomyopathy * Cardiology (Dr. Guzman) on case-->help appreciated * Discussed with cardiology, cardiac cath completed today. Will f/u with results. * Echocardiogram 10/23/17: left ventricle moderate diffuse systolic dysfunction ; thickness; normal; size; normal; overall ejection fraction: 40% diastolic filling pressure elevated. Mitral valve annulus: normal, leaflets: normal, excursion: normal, no significant trasmitral gradient: no significant incompetece: left atrium: normal; aortic valve: leaflefts: normal: excursion normal no significant; further findings per official report * F/U workup for Myocarditis: Coxsackieviurus: pending, CMV: IgG positive only, Monospot Test:negative, Adenovirus: showe past or recent infection, HHV6: postive for previous infection, MMR, ParvoVirus B19: igG positive only, RSV: negative, DISHA: negative, ESR:56, and CRP. Hepatitis Panel, and HIV and Influenza are already negative * ASA 81 mg PO 1x/day * Coreg 3.125 mg PO 2x/day * Troponin declining 5). Elevated LFTs * Hepatitis Panel is NEGATIVE * HIV is NEGATIVE * LFTs normalizing 6). Heroin Use * Psychiatry Dr. Kramer on board * Will need to follow-up with psychiatry to see patient is eligible for maintenance program * Discussed with psych today who will come see the patient to discuss outpatient options to maintain sobriety 7). Prophylaxis * Florastor 250 mg PO 2x/day * Lovenox 40mg subq daily held for cardiac cath today. Can restart tomorrow. Disposition: patient is stable to transfer to floors when bed is available. Patient will need IV antibiotics for 7 days (to end 11/03/17) Cardiac catherization completed. Will f/u with results. <Erika Maguire V - Last Filed: 10/31/17 09:01> Objective - Vital Signs/Intake and Output Vital Signs (last 24 hours): Temp Pulse Resp BP Pulse Ox 98.6 F 71 22 108/75 96 10/31/17 08:00 10/31/17 08:00 10/31/17 08:00 10/31/17 08:00 10/31/17 08:00 Intake and Output: 10/31/17 10/31/17 06:59 18:59 Intake Total 500 Output Total 800 Balance -300 - Medications Medications: Current Medications Albuterol/Ipratropium (Duoneb 3 Mg/0.5 Mg (3 Ml) Ud) 3 ml INH RQ6 PRN PRN Reason: Shortness of Breath Aspirin (Aspirin Chewable) 81 mg PO DAILY [facility] Last Admin: 10/30/17 09:25 Dose: 81 mg Benzonatate (Tessalon Perles) 100 mg PO TID [facility] Last Admin: 10/30/17 17:41 Dose: 100 mg Carvedilol (Coreg) 3.125 mg PO BID [facility] Last Admin: 10/30/17 17:41 Dose: 3.125 mg Docusate Sodium (Colace) 100 mg PO BID [facility] Last Admin: 10/30/17 17:41 Dose: 100 mg Piperacillin Sod/Tazobactam Sod (Zosyn 3.375 Gm Iv Premix) 3.375 gm in 50 mls @ 200 mls/hr IVPB Q6H [facility] Stop: 11/03/17 13:00 Last Admin: 10/31/17 06:19 Dose: 200 mls/hr Azithromycin 500 mg/ Dextrose 250 mls @ 250 mls/hr IVPB DAILY [facility] Stop: 11/03/17 10:01 Last Admin: 10/30/17 09:26 Dose: 250 mls/hr Vancomycin HCl 1 gm/ Sodium (Chloride) 200 mls @ 133.333 mls/hr IVPB Q12H [facility] Stop: 11/03/17 10:01 Last Admin: 10/30/17 22:14 Dose: 133.333 mls/hr Ipratropium [place] (Atrovent) 0.5 mg IH RQ6 PRN PRN Reason: Shortness of Breath Last Admin: 10/26/17 13:23 Dose: 0.5 mg Prednisone (Prednisone Tab) 10 mg PO DAILY [facility] Stop: 11/03/17 10:01 Prednisone (Prednisone Tab) 20 mg PO DAILY [facility] Stop: 10/31/17 10:01 Last Admin: 10/30/17 09:25 Dose: 20 mg Saccharomyces Boulardii (Florastor) 250 mg PO BID [facility] Last Admin: 10/30/17 17:41 Dose: 250 mg - Labs Labs: 10/30/17 06:52 10/30/17 06:52 PT 10.8 SECONDS (9.7-12.2) 10/30/17 06:52 INR 1.0 10/30/17 06:52 APTT 25 SECONDS (21-34) 10/30/17 06:52 Assessment and Plan (1) Respiratory failure with hypoxia and hypercapnia Status: Acute (2) Pneumonia Status: Acute (3) Heroin abuse Status: Acute (4) NSTEMI (non-ST elevated myocardial infarction) Status: Acute (5) Transaminitis Status: Acute (6) Prophylactic measure Status: Acute Attending/Attestation - Attestation I have personally seen and examined this patient.: Yes I have fully participated in the care of the patient.: Yes I have reviewed all pertinent clinical information, including history, physical exam and plan: Yes Notes (Text): This is late computer entry for 10/30/17. Patient seen, examined and case discussed with day-time resident. Patient denies acute complaints report improving shortness of breathe. Patient went for cardiac cath and discussed with cardiology reports normal coronaries and normal ejection fraction. Assessment/plan 1). Acute Respiratory Distress * Likely secondary to Opiate Overdose and Aspiration Pneumonia * Pulmonary on board (Dr. Morgan) case discussed-->help appreciated * Doing better on High Flow Oxygen * Will d/c high flow 10/27 and monitor patient on Nasal Cannula on 3-4 Liters * Solumedrol 40 mg IV Q12H (10/24-10/27) * Prednisone 20mg PO daily X3 days (10/28/18-10/31/18), then Prednisone 10mg PO daily 3 days(11/01-) 2). Right Pneumonia, Aspiration * Infectious Disease (Dr. Lynn) on board-->help appreciated * Recommends for IV antibiotics to continue for 7 days (to end on 11/03/17) * Antibiotics: * Azithromycin 500 mg IV Q24H (start on 10/23/17) * Zosyn 3.375 gm IV Q6H (start on 10/23/17) * Vancomycin was increased to 2 gm IV Q12H on 10/25/17 * To finish all antibiotics by 11/03/17 * Completed Tamiflu * Urine Legionella Ag is NEGATIVE * Rapid Influenza is NEGATIVE * Infectious [place] Assay: negative * HIV 1 and 2: negative * RSV: negative * Pending Mycoplasma IgM and Strep Pneumonia * Blood Culture 10/23/17 no growth after 3 days * Urine Culture 10/23/17 shows NO GROWTH * MRSA 10/13/17: MRSA not 3). Elevated D-Dimer * CT Chest PE Protocol: NO PULMONARY EMBOLISM. Confluent air space consolidation throughout Right > Left Hemithorax * Bilateral Venous Dopplers LE: NO DVT 4). Elevated Troponin Elevated ProBNP Cardiomyopathy * Cardiology (Dr. Guzman) on case-->help appreciated * Discussed with cardiology, patient will need cardiac cath. patient is scheduled for this 10/30/17. * Npo after midnight * Echocardiogram 10/23/17: left ventricle moderate diffuse systolic dysfunction ; thickness; normal; size; normal; overall ejection fraction: 40% diastolic filling pressure elevated. Mitral valve annulus: normal, leaflets: normal, excursion: normal, no significant trasmitral gradient: no significant incompetece: left atrium: normal; aortic valve: leaflefts: normal: excursion normal no significant; further findings per official report * F/U workup for Myocarditis: Coxsackieviurus: pending, CMV: IgG positive only, Monospot Test:negative, Adenovirus: pending, HHV6: pending, MMR, ParvoVirus B19 : igG positive only, RSV:negative, DISHA: negative, ESR:56, and CRP. Hepatitis Panel, and HIV and Influenza are already negative * Lasix 20 mg IV 1x/day * ASA 81 mg PO 1x/day * Coreg 3.125 mg PO 2x/day * Troponin declining 5). Elevated LFTs * Hepatitis Panel is NEGATIVE * HIV is NEGATIVE * LFTs normalizing 6). Heroin Use * Psychiatry Dr. Kramer on board * Will need to follow-up with psychiatry to see patient is eligible for maintenance program * Discussed with psych today who will come see the patient to discuss outpatient options to maintain sobriety 7). Prophylaxis * Florastor 250 mg PO 2x/day * Pepcid 20 mg IV Q12H * Hold Lovenox 40mg subq daily for cardiac cath tomorrow. Disposition: patient is stable to transfer to floors when bed is available. Patient will need IV antibiotics for 7 days (to end 11/03/17) Discussed with cardiology, patient went and complete cardiac cath.
[2017-10-31] MEDS: Piperacill/Tazo 3.375gm in Dex 3.375 GM/50 ML BAG IVPB SCH ×4 (00:40→18:18)
--- NOTE | 2017-10-31 02:24 | CARDCATH ---
PROCEDURE DATE: INDICATIONS: The patient is a 31-year-old male who has a history of heroin abuse. The patient unresponsiveness, which was reversed by Narcan, and the patient was found to have cardiomyopathy. Cardiac enzymes were elevated, and cardiac catheterization was recommended. The procedure and its risks were explained to the patient, who understood and agreed for the procedure. PROCEDURE IN DETAIL: After local infiltration with 1% lidocaine, a 6-[place] sheath was placed in the right femoral artery. Left and right coronary angiography was performed with 6-[place] JL4 and JR Kenneth diagnostic catheter. Left ventriculogram was performed with a 6-[place] pigtail catheter. The patient tolerated the procedure well without any complications. ANGIOGRAPHIC FINDINGS: Selective injection of left coronary artery revealed left main to be a normal vessel. Left main bifurcated into medium-sized LAD, medium-sized ramus, and a medium-sized circumflex artery. The entire left coronary circulation was angiographically unremarkable. Selective injection of right coronary artery revealed medium-sized dominant vessel that was angiographically unremarkable. Left ventriculogram was performed in the LEE projection. It revealed normal wall motion; overall ejection fraction estimated at 55%. CONCLUSION: Unremarkable coronary circulation and normal left ventricular systolic function. RECOMMENDATIONS: The patient will be maintained on antibiotic therapy for his pneumonia. No further cardiac workup will be needed. The patient was strongly advised to abstain from future drug abuse. Patrice Guzman MD cc: Vinod Luis DO
--- NOTE | 2017-10-31 09:04 | CP.PCM.PN ---
Subjective - Date & Time of Evaluation Date of Evaluation: 10/31/17 Time of Evaluation: 08:55 - Subjective Subjective: Medical Attending Note: Patient seen and examined. Patient denies fever, denies cough, denies chest pain, denies palpitations, denies abdominal pain, denies nausea, denies vomitting and reports breathing is better. Patient reports this has been and eye opening experience. Objective - Vital Signs/Intake and Output Vital Signs (last 24 hours): Temp Pulse Resp BP Pulse Ox 98.6 F 71 22 108/75 96 10/31/17 08:00 10/31/17 08:00 10/31/17 08:00 10/31/17 08:00 10/31/17 08:00 Intake and Output: 10/31/17 10/31/17 06:59 18:59 Intake Total 500 Output Total 800 Balance -300 - Medications Medications: Current Medications Albuterol/Ipratropium (Duoneb 3 Mg/0.5 Mg (3 Ml) Ud) 3 ml INH RQ6 PRN PRN Reason: Shortness of Breath Aspirin (Aspirin Chewable) 81 mg PO DAILY [facility] Last Admin: 10/30/17 09:25 Dose: 81 mg Benzonatate (Tessalon Perles) 100 mg PO TID [facility] Last Admin: 10/30/17 17:41 Dose: 100 mg Carvedilol (Coreg) 3.125 mg PO BID [facility] Last Admin: 10/30/17 17:41 Dose: 3.125 mg Docusate Sodium (Colace) 100 mg PO BID [facility] Last Admin: 10/30/17 17:41 Dose: 100 mg Piperacillin Sod/Tazobactam Sod (Zosyn 3.375 Gm Iv Premix) 3.375 gm in 50 mls @ 200 mls/hr IVPB Q6H [facility] Stop: 11/03/17 13:00 Last Admin: 10/31/17 06:19 Dose: 200 mls/hr Azithromycin 500 mg/ Dextrose 250 mls @ 250 mls/hr IVPB DAILY [facility] Stop: 11/03/17 10:01 Last Admin: 10/30/17 09:26 Dose: 250 mls/hr Vancomycin HCl 1 gm/ Sodium (Chloride) 200 mls @ 133.333 mls/hr IVPB Q12H [facility] Stop: 11/03/17 10:01 Last Admin: 10/30/17 22:14 Dose: 133.333 mls/hr Ipratropium [place] (Atrovent) 0.5 mg IH RQ6 PRN PRN Reason: Shortness of Breath Last Admin: 10/26/17 13:23 Dose: 0.5 mg Prednisone (Prednisone Tab) 10 mg PO DAILY [facility] Stop: 11/03/17 10:01 Prednisone (Prednisone Tab) 20 mg PO DAILY [facility] Stop: 10/31/17 10:01 Last Admin: 10/30/17 09:25 Dose: 20 mg Saccharomyces Boulardii (Florastor) 250 mg PO BID [facility] Last Admin: 10/30/17 17:41 Dose: 250 mg - Labs Labs: 10/30/17 06:52 10/30/17 06:52 PT 10.8 SECONDS (9.7-12.2) 10/30/17 06:52 INR 1.0 10/30/17 06:52 APTT 25 SECONDS (21-34) 10/30/17 06:52 - Constitutional Appears: Non-toxic, No Acute Distress - Head Exam Head Exam: NORMAL INSPECTION - Eye Exam Eye Exam: EOMI - ENT Exam ENT Exam: Mucous Membranes Moist - Respiratory Exam Respiratory Exam: Clear to Ausculation Bilateral, NORMAL BREATHING PATTERN. absent: Rales, Rhonchi, Wheezes - Cardiovascular Exam Cardiovascular Exam: REGULAR RHYTHM, +S1, +S2 - GI/Abdominal Exam GI & Abdominal Exam: Soft, Normal Bowel Sounds. absent: Distended, Firm, Guarding, Rigid, Tenderness, Rebound - Extremities Exam Extremities Exam: absent: Pedal Edema, Tenderness - Neurological Exam Neurological Exam: Alert, Awake, Oriented x3 - Psychiatric Exam Psychiatric exam: Normal Affect, Normal Mood - Skin Skin Exam: Dry, Normal Color, Warm Assessment and Plan (1) Respiratory failure with hypoxia and hypercapnia Status: Acute (2) Pneumonia Status: Acute (3) Heroin abuse Status: Acute (4) NSTEMI (non-ST elevated myocardial infarction) Status: Acute (5) Transaminitis Status: Acute (6) Prophylactic measure Status: Acute Attending/Attestation - Attestation I have personally seen and examined this patient.: Yes I have fully participated in the care of the patient.: Yes I have reviewed all pertinent clinical information, including history, physical exam and plan: Yes Notes (Text): Assessment/plan 1). Acute Respiratory Distress * Likely secondary to Opiate Overdose and Aspiration Pneumonia * Pulmonary on board (Dr. Morgan) case discussed-->help appreciated * Doing better on High Flow Oxygen * Will d/c high flow 10/27 and monitor patient on Nasal Cannula on 3-4 Liters * Solumedrol 40 mg IV Q12H (10/24-10/27) * Prednisone 20mg PO daily X3 days (10/28/18-10/31/18) * Prednisone 10mg PO daily 3 days(11/01-) 2). Right Pneumonia, Aspiration * Infectious Disease (Dr. Lynn) on board-->help appreciated * Recommends for IV antibiotics to continue for 7 days (to end on 11/03/17) * Antibiotics: * Azithromycin 500 mg IV Q24H (start on 10/23/17) * Zosyn 3.375 gm IV Q6H (start on 10/23/17) * Vancomycin was increased to 2 gm IV Q12H on 10/25/17 * To finish all antibiotics by 11/03/17 * Completed Tamiflu * Urine Legionella Ag is NEGATIVE * Rapid Influenza is NEGATIVE * Infectious [place] Assay: negative * HIV 1 and 2: negative * RSV: negative * Pending Mycoplasma IgM and Strep Pneumonia * Blood Culture 10/23/17 no growth after 3 days * Urine Culture 10/23/17 shows NO GROWTH * MRSA 10/13/17: MRSA not 3). Elevated D-Dimer * CT Chest PE Protocol: NO PULMONARY EMBOLISM. Confluent air space consolidation throughout Right > Left Hemithorax * Bilateral Venous Dopplers LE: NO DVT 4). Elevated Troponin Elevated ProBNP Cardiomyopathy * Cardiology (Dr. Guzman) on case-->help appreciated * Discussed with cardiology, patient underwent cardiac cath 10/30/17. Will be maintained on antibiotic therapy for his pneumonia. No further cardiac workup will be needed. Strongly advised to abstain from future drug abuse. * Echocardiogram 10/23/17: left ventricle moderate diffuse systolic dysfunction ; thickness; normal; size; normal; overall ejection fraction: 40% diastolic filling pressure elevated. Mitral valve annulus: normal, leaflets: normal, excursion: normal, no significant trasmitral gradient: no significant incompetece: left atrium: normal; aortic valve: leaflefts: normal: excursion normal no significant; further findings per official report * F/U workup for Myocarditis: Coxsackieviurus: pending, CMV: IgG positive only, Monospot Test:negative, Adenovirus: pending, HHV6: pending, MMR, ParvoVirus B19 : igG positive only, RSV:negative, DISHA: negative, ESR:56, and CRP. Hepatitis Panel, and HIV and Influenza are already negative * Lasix 20 mg IV 1x/day * ASA 81 mg PO 1x/day * Coreg 3.125 mg PO 2x/day * Troponin declining 5). Elevated LFTs * Hepatitis Panel is NEGATIVE * HIV is NEGATIVE * LFTs normalizing 6). Heroin Use * Psychiatry Dr. Kramer on board * Will need to follow-up with psychiatry to see patient is eligible for maintenance program * Discussed with psych 10/29-10/30 who will come see the patient to discuss outpatient options to maintain sobriety 7). Prophylaxis * Florastor 250 mg PO 2x/day * Pepcid 20 mg IV Q12H * Restart DVT PPx Disposition: patient is stable to transfer to floors when bed is available. Patient will need IV antibiotics for 7 days (to end 11/03/17)
[2017-10-31] MEDS: Saccharomyces Boulardi 250 mg Cap PO SCH ×2 (10:57→18:18)
[2017-10-31] MEDS: Vancomycin 1 GM in Sodium Chloride 0.9% 200 ML IVPB SCH ×2 (10:58→22:26)
--- NOTE | 2017-10-31 20:39 | PN ---
DATE: SUBJECTIVE: Patient denies any chest pain, shortness of breath, or groin bleeding. PHYSICAL EXAMINATION: VITAL SIGNS: Blood pressure 136/81, heart rate 74, temperature 98.8, and respirations 18. HEENT: Normocephalic. NECK: No JVD. CHEST: Clear. HEART: S1 and S2, regular. ABDOMEN: Soft. EXTREMITIES: No edema or groin hematoma. LABORATORY DATA: Blood culture is negative after 5 days. ASSESSMENT: 1. Status post unresponsiveness related to heroin abuse. 2. Cardiomyopathy, which has improved. 3. Aspiration pneumonia. RECOMMENDATIONS: Continue aspirin 81 mg once a day, continue IV Zithromax 500 mg daily, IV Zosyn 3.375 g intravenously q. 6 hours, vancomycin 1 g q. 12 hours, Coreg at 3.125 mg twice a day, and prednisone 10 mg once a day. I discussed the case with the patient and his parent at the bedside and will request for repeat echocardiographic study on Thursday. In the meantime, I asked the nurse to remove the femoral dressing. Patrice Guzman MD
[2017-11-01] MEDS: Piperacill/Tazo 3.375gm in Dex 3.375 GM/50 ML BAG IVPB SCH ×4 (06:05→18:28)
[2017-11-01 08:32] LABS: BASO % 0.2 % (0.0-2.0); EOS # 0.1 K/uL (0.0-0.7); EOS % 1.3 % (0.0-4.0); HEMOGLOBIN 13.8 g/dL (12.0-18.0); LYMPH # 2.6 K/uL (1.0-4.3); MEAN CELL VOLUME 78.6 fL (80.0-94.0); MEAN CORPUSCULAR HEMOGLOBIN 27.1 pg (27.0-31.0); MEAN CORPUSCULAR HGB CONC 34.4 g/dL (33.0-37.0); MONO # 0.6 K/uL (0.0-0.8); MONO % 6.5 % (0.0-10.0); NEUT # 6.6 K/uL (1.8-7.0); RBC 5.08 Mil/uL (4.40-5.90); RED CELL DISTRIBUTION WIDTH 15.6 % (11.5-14.5)
[2017-11-01] MEDS: Vancomycin 1 GM in Sodium Chloride 0.9% 200 ML IVPB SCH ×2 (09:00→21:37)
[2017-11-01 09:04] LABS: ALB/GLOB RATIO 1.3 (1.0-2.1); ALBUMIN 3.7 g/dL (3.5-5.0); ALT/SGPT 208 U/L (21-72); AST/SGOT 47 U/L (17-59); BLOOD UREA NITROGEN 17 mg/dL (9-20); CALCIUM 8.8 mg/dl (8.6-10.4); GFR AFRICAN-AMERICAN > 60; GFR NON-AFRICAN AMERICAN > 60; MAGNESIUM 1.9 mg/dL (1.6-2.3)
[2017-11-01] MEDS: Saccharomyces Boulardi 250 mg Cap PO SCH ×2 (10:24→18:27)
[2017-11-01] MEDS: Enoxaparin 40 mg Syringe SC SCH (10:26)
--- NOTE | 2017-11-01 16:10 | CP.PCM.PN ---
Subjective - Date & Time of Evaluation Date of Evaluation: 11/01/17 Time of Evaluation: 07:00 - Subjective Subjective: iv rx in progress feels better no fever less sob Objective - Vital Signs/Intake and Output Vital Signs (last 24 hours): Temp Pulse Resp BP Pulse Ox 97.4 F L 67 20 126/87 98 11/01/17 15:06 11/01/17 15:06 11/01/17 15:06 11/01/17 15:06 11/01/17 15:06 Intake and Output: 11/01/17 11/01/17 06:59 18:59 Intake Total 500 Output Total 800 Balance -300 - Medications Medications: Current Medications Albuterol/Ipratropium (Duoneb 3 Mg/0.5 Mg (3 Ml) Ud) 3 ml INH RQ6 PRN PRN Reason: Shortness of Breath Aspirin (Aspirin Chewable) 81 mg PO DAILY [facility] Last Admin: 11/01/17 10:27 Dose: 81 mg Benzonatate (Tessalon Perles) 100 mg PO TID [facility] Last Admin: 11/01/17 14:19 Dose: 100 mg Carvedilol (Coreg) 3.125 mg PO BID [facility] Last Admin: 11/01/17 10:24 Dose: 3.125 mg Docusate Sodium (Colace) 100 mg PO BID [facility] Last Admin: 11/01/17 10:31 Dose: Not Given Enoxaparin Sodium (Lovenox) 40 mg SC DAILY [facility] Last Admin: 11/01/17 10:26 Dose: 40 mg Piperacillin Sod/Tazobactam Sod (Zosyn 3.375 Gm Iv Premix) 3.375 gm in 50 mls @ 200 mls/hr IVPB Q6H [facility] Stop: 11/03/17 13:00 Last Admin: 11/01/17 13:00 Dose: 200 mls/hr Azithromycin 500 mg/ Dextrose 250 mls @ 250 mls/hr IVPB DAILY [facility] Stop: 11/03/17 10:01 Last Admin: 11/01/17 10:26 Dose: 250 mls/hr Vancomycin HCl 1 gm/ Sodium (Chloride) 200 mls @ 133.333 mls/hr IVPB Q12H [facility] Stop: 11/03/17 10:01 Last Admin: 11/01/17 09:00 Dose: 133.333 mls/hr Ipratropium [place] (Atrovent) 0.5 mg IH RQ6 PRN PRN Reason: Shortness of Breath Last Admin: 10/26/17 13:23 Dose: 0.5 mg Prednisone (Prednisone Tab) 10 mg PO DAILY [facility] Stop: 11/03/17 10:01 Last Admin: 11/01/17 10:24 Dose: 10 mg Saccharomyces Boulardii (Florastor) 250 mg PO BID [facility] Last Admin: 11/01/17 10:24 Dose: 250 mg - Labs Labs: 11/01/17 08:16 11/01/17 08:16 PT 10.8 SECONDS (9.7-12.2) 10/30/17 06:52 INR 1.0 10/30/17 06:52 APTT 25 SECONDS (21-34) 10/30/17 06:52 - Constitutional Appears: Non-toxic, Chronically Ill - Head Exam Head Exam: NORMOCEPHALIC - Eye Exam Eye Exam: PERRL. absent: Scleral icterus - ENT Exam ENT Exam: Mucous Membranes Dry - Neck Exam Neck Exam: absent: Lymphadenopathy - Respiratory Exam Respiratory Exam: Decreased Breath Sounds, Rhonchi - Cardiovascular Exam Cardiovascular Exam: REGULAR RHYTHM, +S1, +S2 - GI/Abdominal Exam GI & Abdominal Exam: Distended, Soft. absent: Tenderness - Rectal Exam Rectal Exam: Deferred - Exam Exam: NORMAL INSPECTION - Extremities Exam Extremities Exam: absent: Pedal Edema - Back Exam Back Exam: absent: CVA tenderness (L), CVA tenderness (R) - Neurological Exam Neurological Exam: Alert, Awake, Oriented x3 - Psychiatric Exam Psychiatric exam: Normal Mood - Skin Skin Exam: Dry Assessment and Plan (1) Pneumonia Status: Acute (2) Heroin abuse Status: Acute (3) Respiratory failure with hypoxia and hypercapnia Status: Acute - Assessment and Plan (Free Text) Assessment: cardiac cath reporetedly normal CXR improving echo reportedly neg for vegetations IV rx to cont
--- NOTE | 2017-11-01 19:47 | CP.PCM.PN ---
<Darrell Arambula - Last Filed: 11/01/17 19:48> Subjective - Date & Time of Evaluation Date of Evaluation: 11/01/17 Time of Evaluation: 08:00 - Subjective Subjective: PGY2 Medicine Progress Note for Dr. Maguire Patient seen and examined at bedside, no acute overnight events. Patient reports feeling significantly better. He is tolerating diet, reports breathing well, no pain on inspiration (improved), with normal bowel movements (last this morning). Denies f/c, chest pain, abdominal pain, n/v, changes in vision, headaches, dizziness, or any additional acute complaints. Objective - Vital Signs/Intake and Output Vital Signs (last 24 hours): Temp Pulse Resp BP Pulse Ox 97.4 F L 67 20 149/78 98 11/01/17 15:06 11/01/17 15:06 11/01/17 15:06 11/01/17 18:34 11/01/17 15:06 Intake and Output: 11/01/17 11/02/17 18:59 06:59 Intake Total 900 Output Total 1000 Balance -100 - Medications Medications: Current Medications Albuterol/Ipratropium (Duoneb 3 Mg/0.5 Mg (3 Ml) Ud) 3 ml INH RQ6 PRN PRN Reason: Shortness of Breath Aspirin (Aspirin Chewable) 81 mg PO DAILY [facility] Last Admin: 11/01/17 10:27 Dose: 81 mg Benzonatate (Tessalon Perles) 100 mg PO TID [facility] Last Admin: 11/01/17 18:27 Dose: 100 mg Carvedilol (Coreg) 3.125 mg PO BID [facility] Last Admin: 11/01/17 18:27 Dose: 3.125 mg Docusate Sodium (Colace) 100 mg PO BID [facility] Last Admin: 11/01/17 18:27 Dose: Not Given Enoxaparin Sodium (Lovenox) 40 mg SC DAILY [facility] Last Admin: 11/01/17 10:26 Dose: 40 mg Piperacillin Sod/Tazobactam Sod (Zosyn 3.375 Gm Iv Premix) 3.375 gm in 50 mls @ 200 mls/hr IVPB Q6H [facility] Stop: 11/03/17 13:00 Last Admin: 11/01/17 18:28 Dose: 200 mls/hr Azithromycin 500 mg/ Dextrose 250 mls @ 250 mls/hr IVPB DAILY [facility] Stop: 11/03/17 10:01 Last Admin: 11/01/17 10:26 Dose: 250 mls/hr Vancomycin HCl 1 gm/ Sodium (Chloride) 200 mls @ 133.333 mls/hr IVPB Q12H [facility] Stop: 11/03/17 10:01 Last Admin: 11/01/17 09:00 Dose: 133.333 mls/hr Ipratropium [place] (Atrovent) 0.5 mg IH RQ6 PRN PRN Reason: Shortness of Breath Last Admin: 10/26/17 13:23 Dose: 0.5 mg Prednisone (Prednisone Tab) 10 mg PO DAILY [facility] Stop: 11/03/17 10:01 Last Admin: 11/01/17 10:24 Dose: 10 mg Saccharomyces Boulardii (Florastor) 250 mg PO BID [facility] Last Admin: 11/01/17 18:27 Dose: 250 mg - Labs Labs: 11/01/17 08:16 11/01/17 08:16 PT 10.8 SECONDS (9.7-12.2) 10/30/17 06:52 INR 1.0 10/30/17 06:52 APTT 25 SECONDS (21-34) 10/30/17 06:52 - Additional Findings Additional findings: - Constitutional Appears: Non-toxic, No Acute Distress - Head Exam Head Exam: NORMAL INSPECTION - Eye Exam Eye Exam: EOMI - ENT Exam ENT Exam: Mucous Membranes Moist - Respiratory Exam Respiratory Exam: Clear to Ausculation Bilateral, NORMAL BREATHING PATTERN. absent: Rales, Rhonchi, Wheezes - Cardiovascular Exam Cardiovascular Exam: REGULAR RHYTHM, +S1, +S2 - GI/Abdominal Exam GI & Abdominal Exam: Soft, Normal Bowel Sounds. absent: Distended, Firm, Guarding, Rigid, Tenderness - Extremities Exam Extremities Exam: absent: Pedal Edema, Tenderness - Neurological Exam Neurological Exam: Alert, Awake, Oriented x3 - Psychiatric Exam Psychiatric exam: Normal Affect, Normal Mood - Skin Skin Exam: Dry, Normal Color, Warm Assessment and Plan - Assessment and Plan (Free Text) Assessment: 1). Acute Respiratory Distress 11/01: Resolved, patient reports breathing is much improved. * Likely secondary to Opiate Overdose and Aspiration Pneumonia * Pulmonary on board (Dr. Morgan) case discussed-->help appreciated * Continue Nasal Cannula on 3-4 Liters * Solumedrol 40 mg IV Q12H (10/24-10/27) * Prednisone 20mg PO daily X3 days (10/28/18-10/31/18), then Prednisone 10mg PO daily 3 days(11/01-) 2). Right Pneumonia, Aspiration 11/01: WBC 10, patient reports he feels much improved. f/u Vanco trough, optimal level 10-20. +Coxsachie 1:8H. * Infectious Disease (Dr. Lynn) on board-->help appreciated * Recommends for IV antibiotics to continue for 7 days (to end on 11/03/17) * Antibiotics: * Azithromycin 500 mg IV Q24H (start on 10/23/17) * Zosyn 3.375 gm IV Q6H (start on 10/23/17) * Vancomycin was increased to 1 gm IV Q12H on 10/25/17 * To finish all antibiotics by 11/03/17 * Completed Tamiflu * Urine Legionella Ag is NEGATIVE * Rapid Influenza is NEGATIVE * Infectious [place] Assay: negative * HIV 1 and 2: negative * RSV: negative * Pending Mycoplasma IgM and Strep Pneumonia * Blood Culture 10/23/17 no growth after 5 days * Urine Culture :negative * MRSA 10/13/17:negative 3). Elevated D-Dimer * CT Chest PE Protocol: NO PULMONARY EMBOLISM. Confluent air space consolidation throughout Right > Left Hemithorax * Bilateral Venous Dopplers LE: NO DVT 4). Elevated Troponin Elevated ProBNP Cardiomyopathy 11/01: Plan for Dr. Bond to perform Echo in AM. Cardiac cath negative. * Cardiology (Dr. Guzman) on case-->help appreciated * Discussed with cardiology, cardiac cath completed today. Will f/u with results. * Echocardiogram 10/23/17: left ventricle moderate diffuse systolic dysfunction ; thickness; normal; size; normal; overall ejection fraction: 40% diastolic filling pressure elevated. Mitral valve annulus: normal, leaflets: normal, excursion: normal, no significant trasmitral gradient: no significant incompetece: left atrium: normal; aortic valve: leaflefts: normal: excursion normal no significant; further findings per official report * F/U workup for Myocarditis: Coxsackieviurus: pending, CMV: IgG positive only, Monospot Test:negative, Adenovirus: showe past or recent infection, HHV6: postive for previous infection, MMR, ParvoVirus B19: igG positive only, RSV: negative, DISHA: negative, ESR:56, and CRP. Hepatitis Panel, and HIV and Influenza are already negative * ASA 81 mg PO 1x/day * Coreg 3.125 mg PO 2x/day * Troponin declining 5). Elevated LFTs * Hepatitis Panel is NEGATIVE * HIV is NEGATIVE * LFTs normalizing 6). Heroin Use * Psychiatry Dr. Kramer on board * Will need to follow-up with psychiatry to see patient is eligible for maintenance program * Discussed with psych today who will come see the patient to discuss outpatient options to maintain sobriety 7). Prophylaxis * Florastor 250 mg PO 2x/day * Lovenox 40mg subq daily held for cardiac cath today. Can restart tomorrow. Disposition: Patient will need IV antibiotics for 7 days (to end 11/03/17) Cardiac catherization completed - negative. Case discussed with Dr. Ting Arambula, PGY2 <Erika Maguire V - Last Filed: 11/01/17 22:58> Objective - Vital Signs/Intake and Output Vital Signs (last 24 hours): Temp Pulse Resp BP Pulse Ox 97.4 F L 67 20 149/78 98 11/01/17 15:06 11/01/17 15:06 11/01/17 15:06 11/01/17 18:34 11/01/17 15:06 Intake and Output: 11/01/17 11/02/17 18:59 06:59 Intake Total 900 Output Total 1000 Balance -100 - Medications Medications: Current Medications Albuterol/Ipratropium (Duoneb 3 Mg/0.5 Mg (3 Ml) Ud) 3 ml INH RQ6 PRN PRN Reason: Shortness of Breath Aspirin (Aspirin Chewable) 81 mg PO DAILY [facility] Last Admin: 11/01/17 10:27 Dose: 81 mg Benzonatate (Tessalon Perles) 100 mg PO TID [facility] Last Admin: 11/01/17 18:27 Dose: 100 mg Carvedilol (Coreg) 3.125 mg PO BID [facility] Last Admin: 11/01/17 18:27 Dose: 3.125 mg Docusate Sodium (Colace) 100 mg PO BID [facility] Last Admin: 01/21/18 18:27 Dose: Not Given Enoxaparin Sodium (Lovenox) 40 mg SC DAILY [facility] Last Admin: 11/01/17 10:26 Dose: 40 mg Piperacillin Sod/Tazobactam Sod (Zosyn 3.375 Gm Iv Premix) 3.375 gm in 50 mls @ 200 mls/hr IVPB Q6H [facility] Stop: 11/03/17 13:00 Last Admin: 11/01/17 18:28 Dose: 200 mls/hr Azithromycin 500 mg/ Dextrose 250 mls @ 250 mls/hr IVPB DAILY [facility] Stop: 11/03/17 10:01 Last Admin: 11/01/17 10:26 Dose: 250 mls/hr Vancomycin HCl 1 gm/ Sodium (Chloride) 200 mls @ 133.333 mls/hr IVPB Q12H [facility] Stop: 11/03/17 10:01 Last Admin: 11/01/17 21:37 Dose: 133.333 mls/hr Ipratropium [place] (Atrovent) 0.5 mg IH RQ6 PRN PRN Reason: Shortness of Breath Last Admin: 10/26/17 13:23 Dose: 0.5 mg Prednisone (Prednisone Tab) 10 mg PO DAILY [facility] Stop: 11/03/17 10:01 Last Admin: 11/01/17 10:24 Dose: 10 mg Saccharomyces Boulardii (Florastor) 250 mg PO BID [facility] Last Admin: 11/01/17 18:27 Dose: 250 mg - Labs Labs: 11/01/17 08:16 11/01/17 08:16 PT 10.8 SECONDS (9.7-12.2) 10/30/17 06:52 INR 1.0 10/30/17 06:52 APTT 25 SECONDS (21-34) 10/30/17 06:52 Assessment and Plan (1) Respiratory failure with hypoxia and hypercapnia Status: Acute (2) Pneumonia Status: Acute (3) Heroin abuse Status: Acute (4) NSTEMI (non-ST elevated myocardial infarction) Status: Acute (5) Transaminitis Status: Acute (6) Prophylactic measure Status: Acute Attending/Attestation - Attestation I have personally seen and examined this patient.: Yes I have fully participated in the care of the patient.: Yes I have reviewed all pertinent clinical information, including history, physical exam and plan: Yes Notes (Text): Patient seen, examined and case discussed with day-time resident. Patient seen this morning. Patient transferred from ICU to 6th floor. Patient denies acute complaints. Patient reports he is improving. Patient to have a repeat echocardiogram tomorrow per cardiology. Patient to continue IV antibiotics until 11/03/17. Patient's plan is to move back home with his parents in [place] and will need outpatient resources for narcotic anonymous. Please follow-up with psychiatry and social science analyst. Assessment/Plan 1). Acute Respiratory Distress * Likely secondary to Opiate Overdose and Aspiration Pneumonia * Pulmonary on board (Dr. Morgan) case discussed-->help appreciated * Doing better on High Flow Oxygen * Will d/c high flow 10/27 and monitor patient on Nasal Cannula on 3-4 Liters * Solumedrol 40 mg IV Q12H (10/24-10/27) * Prednisone 20mg PO daily X3 days (10/28/18-10/31/18) * Prednisone 10mg PO daily 3 days(11/01-) 2). Right Pneumonia, Aspiration * Infectious Disease (Dr. Lynn) on board-->help appreciated * Recommends for IV antibiotics to continue for 7 days (to end on 11/03/17) * Antibiotics: * Azithromycin 500 mg IV Q24H (start on 10/23/17) * Zosyn 3.375 gm IV Q6H (start on 10/23/17) * Vancomycin was increased to 2 gm IV Q12H on 10/25/17 * To finish all antibiotics by 11/03/17 * Completed Tamiflu * Urine Legionella Ag is NEGATIVE * Rapid Influenza is NEGATIVE * Infectious [place] Assay: negative * HIV 1 and 2: negative * RSV: negative * Pending Mycoplasma IgM and Strep Pneumonia * Blood Culture 10/23/17 no growth after 3 days * Urine Culture 10/23/17 shows NO GROWTH * MRSA 10/13/17: MRSA not 3). Elevated D-Dimer * CT Chest PE Protocol: NO PULMONARY EMBOLISM. Confluent air space consolidation throughout Right > Left Hemithorax * Bilateral Venous Dopplers LE: NO DVT 4). Elevated Troponin Elevated ProBNP Cardiomyopathy * Cardiology (Dr. Guzman) on case-->help appreciated * Discussed with cardiology, patient underwent cardiac cath 10/30/17. Will be maintained on antibiotic therapy for his pneumonia. No further cardiac workup will be needed. Strongly advised to abstain from future drug abuse. * Echocardiogram 10/23/17: left ventricle moderate diffuse systolic dysfunction ; thickness; normal; size; normal; overall ejection fraction: 40% diastolic filling pressure elevated. Mitral valve annulus: normal, leaflets: normal, excursion: normal, no significant trasmitral gradient: no significant incompetece: left atrium: normal; aortic valve: leaflefts: normal: excursion normal no significant; further findings per official report * F/U workup for Myocarditis: Coxsackieviurus: pending, CMV: IgG positive only, Monospot Test:negative, Adenovirus: pending, HHV6: pending, MMR, ParvoVirus B19 : igG positive only, RSV:negative, DISHA: negative, ESR:56, and CRP. Hepatitis Panel, and HIV and Influenza are already negative * Lasix 20 mg IV 1x/day * ASA 81 mg PO 1x/day * Coreg 3.125 mg PO 2x/day * Troponin declining 5). Elevated LFTs * Hepatitis Panel is NEGATIVE * HIV is NEGATIVE * LFTs normalizing 6). Heroin Use * Psychiatry Dr. Kramer on board * Will need to follow-up with psychiatry to see patient is eligible for maintenance program * Discussed with psych 10/29-10/30 who will come see the patient to discuss outpatient options to maintain sobriety 7). Prophylaxis * Florastor 250 mg PO 2x/day * Pepcid 20 mg IV Q12H * Restart DVT PPx Disposition: patient ordered for echocardiogram for tomorrow. Patient will need IV antibiotics for 7 days (to end 11/03/17)
--- NOTE | 2017-11-01 22:46 | PN ---
DATE: SUBJECTIVE: Patient denies any chest pain or shortness of breath. He is ambulating. PHYSICAL EXAMINATION: VITAL SIGNS: Blood pressure 126/87, heart rate 67, temperature 97.4, respirations 20. HEENT: Normocephalic. CHEST: Clear. HEART: S1, S2 regular. ABDOMEN: Soft. EXTREMITIES: No hematoma. No pedal edema. LABORATORY DATA: White count 10, hemoglobin and hematocrit 13.8 and 39.9, platelet count . SMA-7: Sodium 130, potassium 4.1, chloride 97, CO2 of 23, glucose 130, BUN 17, creatinine 0.8. ASSESSMENT: 1. Improved cardiomyopathy. 2. Status post heroin abuse. 3. Anemia. 4. Hyponatremia. CONDITIONS: Continue IV Zithromax, IV Zosyn, and IV vancomycin. Continue prednisone 10 mg once a day, Coreg 3.125 mg twice a day, aspirin 81 mg once a day. A repeat echocardiographic study is scheduled for tomorrow. Patrice Guzman MD
[2017-11-02] MEDS: Piperacill/Tazo 3.375gm in Dex 3.375 GM/50 ML BAG IVPB SCH ×4 (00:15→18:35)
[2017-11-02 07:30] LABS: BASO % 0.3 % (0.0-2.0); EOS # 0.1 K/uL (0.0-0.7); HEMOGLOBIN 13.7 g/dL (12.0-18.0); LYMPH # 2.6 K/uL (1.0-4.3); LYMPH % 27.2 % (20.0-40.0); MEAN CORPUSCULAR HEMOGLOBIN 26.5 pg (27.0-31.0); MEAN PLATELET VOLUME 7.7 fL (7.2-11.7); MONO # 0.8 K/uL (0.0-0.8); MONO % 8.2 % (0.0-10.0); NEUT % 63.3 % (50.0-75.0); RBC 5.17 Mil/uL (4.40-5.90); RED CELL DISTRIBUTION WIDTH 15.3 % (11.5-14.5); WHITE BLOOD COUNT 9.5 K/uL (4.8-10.8)
[2017-11-02 08:00] LABS: ALB/GLOB RATIO 1.2 (1.0-2.1); ALBUMIN 3.6 g/dL (3.5-5.0); ALT/SGPT 262 U/L (21-72); AST/SGOT 71 U/L (17-59); BLOOD UREA NITROGEN 15 mg/dL (9-20); CALCIUM 9.3 mg/dl (8.6-10.4); GFR AFRICAN-AMERICAN > 60; GFR NON-AFRICAN AMERICAN > 60; MAGNESIUM 1.8 mg/dL (1.6-2.3)
[2017-11-02] MEDS: Vancomycin 1 GM in Sodium Chloride 0.9% 200 ML IVPB SCH ×2 (09:14→13:23)
[2017-11-02] MEDS: Saccharomyces Boulardi 250 mg Cap PO SCH ×2 (09:55→18:08)
[2017-11-02] MEDS: Enoxaparin 40 mg Syringe SC SCH (09:56)
--- NOTE | 2017-11-02 11:15 | CP.PCM.PN ---
<Gary Mike - Last Filed: 11/02/17 17:57> Subjective - Date & Time of Evaluation Date of Evaluation: 11/02/17 Time of Evaluation: 09:15 - Subjective Subjective: Gary Johnston-PGY-1 Patient was seen and examined at bedside. Per nursing no acute events occurred overnight. The patient reports tolerating diet with no complaints. The patient also reports one bowel movement yesterday. The patient denies any chest pain, shortness of breath, fevers, chills, nausea, vomiting, headaches, abdominal pain, syncopal episodes, or any other complaints. Objective - Vital Signs/Intake and Output Vital Signs (last 24 hours): Temp Pulse Resp BP Pulse Ox 98.1 F 89 20 110/76 99 11/02/17 09:04 11/02/17 09:55 11/02/17 09:04 11/02/17 09:55 11/02/17 09:04 Intake and Output: 11/02/17 11/02/17 06:59 18:59 Intake Total 730 Balance 730 - Medications Medications: Current Medications Albuterol/Ipratropium (Duoneb 3 Mg/0.5 Mg (3 Ml) Ud) 3 ml INH RQ6 PRN PRN Reason: Shortness of Breath Aspirin (Aspirin Chewable) 81 mg PO DAILY [facility] Last Admin: 11/02/17 09:55 Dose: 81 mg Benzonatate (Tessalon Perles) 100 mg PO TID [facility] Last Admin: 11/02/17 09:55 Dose: 100 mg Carvedilol (Coreg) 3.125 mg PO BID [facility] Last Admin: 11/02/17 09:56 Dose: 3.125 mg Docusate Sodium (Colace) 100 mg PO BID [facility] Last Admin: 11/02/17 09:16 Dose: Not Given Enoxaparin Sodium (Lovenox) 40 mg SC DAILY [facility] Last Admin: 11/02/17 09:56 Dose: 40 mg Piperacillin Sod/Tazobactam Sod (Zosyn 3.375 Gm Iv Premix) 3.375 gm in 50 mls @ 200 mls/hr IVPB Q6H [facility] Stop: 11/03/17 13:00 Last Admin: 11/02/17 06:23 Dose: 200 mls/hr Azithromycin 500 mg/ Dextrose 250 mls @ 250 mls/hr IVPB DAILY [facility] Stop: 11/03/17 10:01 Last Admin: 11/02/17 09:56 Dose: 250 mls/hr Vancomycin HCl 1 gm/ Sodium (Chloride) 200 mls @ 133.333 mls/hr IVPB Q12H [facility] Stop: 11/03/17 10:01 Last Admin: 11/01/17 21:37 Dose: 133.333 mls/hr Ipratropium [place] (Atrovent) 0.5 mg IH RQ6 PRN PRN Reason: Shortness of Breath Last Admin: 10/26/17 13:23 Dose: 0.5 mg Prednisone (Prednisone Tab) 10 mg PO DAILY [facility] Stop: 11/03/17 10:01 Last Admin: 11/02/17 09:55 Dose: 10 mg Saccharomyces Boulardii (Florastor) 250 mg PO BID [facility] Last Admin: 11/02/17 09:55 Dose: 250 mg - Labs Labs: 11/02/17 06:58 11/02/17 06:58 PT 10.8 SECONDS (9.7-12.2) 10/30/17 06:52 INR 1.0 10/30/17 06:52 APTT 25 SECONDS (21-34) 10/30/17 06:52 - Head Exam Head Exam: ATRAUMATIC, NORMAL INSPECTION, NORMOCEPHALIC - Eye Exam Eye Exam: EOMI, Normal appearance, PERRL. absent: Nystagmus, Periorbital tenderness Pupil Exam: NORMAL ACCOMODATION, PERRL. absent: Irregular, Unequal - ENT Exam ENT Exam: Mucous Membranes Moist, Normal Oropharynx - Neck Exam Neck Exam: Full ROM, Normal Inspection. absent: Lymphadenopathy, Thyromegaly - Respiratory Exam Respiratory Exam: Clear to Ausculation Bilateral, NORMAL BREATHING PATTERN. absent: Chest Wall Tenderness, Prolonged Expiratory Phase, Respiratory Distress - Cardiovascular Exam Cardiovascular Exam: REGULAR RHYTHM, RRR, +S1, +S2. absent: Gallop, Rubs - GI/Abdominal Exam GI & Abdominal Exam: Soft, Normal Bowel Sounds. absent: Rigid, Hyperactive Bowel Sounds - Back Exam Back Exam: NORMAL INSPECTION. absent: CVA tenderness (L), CVA tenderness (R), paraspinal tenderness - Neurological Exam Neurological Exam: Alert, Awake, CN II-XII Intact, Normal Gait, Oriented x3 - Psychiatric Exam Psychiatric exam: Normal Affect, Normal Mood - Skin Skin Exam: Dry, Intact, Normal Color, Warm Assessment and Plan - Assessment and Plan (Free Text) Plan: Assessment/Plan 1). Acute Respiratory Distress * Likely secondary to Opiate Overdose and Aspiration Pneumonia * Pulmonary on board (Dr. Morgan) case discussed-->help appreciated * Doing better on High Flow Oxygen * Solumedrol 40 mg IV Q12H (10/24-10/27) * Prednisone 20mg PO daily X3 days (10/28/18-10/31/18) * Prednisone 10mg PO daily 3 days(11/01-) 2). Right Pneumonia, Aspiration * Infectious Disease (Dr. Lynn) on board-->help appreciated * Recommends for IV antibiotics to continue for 7 days (to end on 11/03/17) * Antibiotics: * Azithromycin 500 mg IV Q24H (start on 10/23/17) * Zosyn 3.375 gm IV Q6H (start on 10/23/17) * Vancomycin was increased to 2 gm IV Q12H on 10/25/17 * To finish all antibiotics by 11/03/17 * Completed Tamiflu * Urine Legionella Ag is NEGATIVE * Rapid Influenza is NEGATIVE * Infectious Burnett Assay: negative * HIV 1 and 2: negative * RSV: negative * Pending Mycoplasma IgM and Strep Pneumonia * Blood Culture 10/23/17 no growth after 5 days * Urine Culture negative * MRSA 10/13/17: MRSA not * Will f/u with Dr. Lynn about the positive Coxsackie virus titer. 3). Elevated D-Dimer * CT Chest PE Protocol: NO PULMONARY EMBOLISM. Confluent air space consolidation throughout Right > Left Hemithorax * Bilateral Venous Dopplers LE: NO DVT 4). Elevated Troponin Elevated ProBNP Cardiomyopathy * Cardiology (Dr. Guzman) on case-->help appreciated * Discussed with cardiology, patient underwent cardiac cath 10/30/17. Will be maintained on antibiotic therapy for his pneumonia. No further cardiac workup will be needed. Strongly advised to abstain from future drug abuse. * Echocardiogram 10/23/17: left ventricle moderate diffuse systolic dysfunction ; thickness; normal; size; normal; overall ejection fraction: 40% diastolic filling pressure elevated. Mitral valve annulus: normal, leaflets: normal, excursion: normal, no significant trasmitral gradient: no significant incompetece: left atrium: normal; aortic valve: leaflefts: normal: excursion normal no significant; further findings per official report * Repeat echocardiogram taken. Not read yet. Will f/u with results. * F/U workup for Myocarditis: Coxsackieviurus: positive (1:8 H), CMV: IgG positive only, Monospot Test:negative, Adenovirus: pending, HHV6: pending, MMR, ParvoVirus B19: igG positive only, RSV:negative, DISHA: negative, ESR:56, and CRP. Hepatitis Panel, and HIV and Influenza are already negative * Lasix 20 mg IV 1x/day * ASA 81 mg PO 1x/day * Coreg 3.125 mg PO 2x/day * Troponin declining 5). Elevated LFTs * Hepatitis Panel is NEGATIVE * HIV is NEGATIVE * LFTs normalizing 6). Heroin Use * Psychiatry Dr. Kramer on board * Will need to follow-up with psychiatry to see patient is eligible for maintenance program * Attending discussed with social work provided patient with Narcotics anonymous information in order to stay sober. Patient will be moving to [place], [place] with family. 7). Prophylaxis * Florastor 250 mg PO 2x/day * Pepcid 20 mg IV Q12H * Restart DVT PPx Disposition: Patient will need IV antibiotics for 7 days (to end 11/03/17) Patient expected to be discharged tomorrow. <Vinod Luis - Last Filed: 11/02/17 19:53> Objective - Vital Signs/Intake and Output Vital Signs (last 24 hours): Temp Pulse Resp BP Pulse Ox 98.2 F 75 20 118/75 98 11/02/17 15:22 11/02/17 15:22 11/02/17 15:22 11/02/17 15:22 11/02/17 15:22 Intake and Output: 11/02/17 11/03/17 18:59 06:59 Intake Total 1000 Output Total 700 Balance 300 - Medications Medications: Current Medications Albuterol/Ipratropium (Duoneb 3 Mg/0.5 Mg (3 Ml) Ud) 3 ml INH RQ6 PRN PRN Reason: Shortness of Breath Aspirin (Aspirin Chewable) 81 mg PO DAILY [facility] Last Admin: 11/02/17 09:55 Dose: 81 mg Benzonatate (Tessalon Perles) 100 mg PO TID [facility] Last Admin: 11/02/17 18:08 Dose: 100 mg Carvedilol (Coreg) 3.125 mg PO BID [facility] Last Admin: 11/02/17 18:08 Dose: 3.125 mg Docusate Sodium (Colace) 100 mg PO BID [facility] Last Admin: 11/02/17 18:09 Dose: Not Given Enoxaparin Sodium (Lovenox) 40 mg SC DAILY [facility] Last Admin: 11/02/17 09:56 Dose: 40 mg Piperacillin Sod/Tazobactam Sod (Zosyn 3.375 Gm Iv Premix) 3.375 gm in 50 mls @ 200 mls/hr IVPB Q6H [facility] Stop: 11/03/17 13:00 Last Admin: 11/02/17 18:35 Dose: 200 mls/hr Azithromycin 500 mg/ Dextrose 250 mls @ 250 mls/hr IVPB DAILY [facility] Stop: 11/03/17 10:01 Last Admin: 11/02/17 09:56 Dose: 250 mls/hr Vancomycin HCl 1 gm/ Sodium (Chloride) 200 mls @ 133.333 mls/hr IVPB Q12H [facility] Stop: 11/03/17 10:01 Last Admin: 11/02/17 13:23 Dose: 133.333 mls/hr Ipratropium [place] (Atrovent) 0.5 mg IH RQ6 PRN PRN Reason: Shortness of Breath Last Admin: 10/26/17 13:23 Dose: 0.5 mg Prednisone (Prednisone Tab) 10 mg PO DAILY [facility] Stop: 11/03/17 10:01 Last Admin: 11/02/17 09:55 Dose: 10 mg Saccharomyces Boulardii (Florastor) 250 mg PO BID [facility] Last Admin: 11/02/17 18:08 Dose: 250 mg - Labs Labs: 11/02/17 06:58 11/02/17 06:58 PT 10.8 SECONDS (9.7-12.2) 10/30/17 06:52 INR 1.0 10/30/17 06:52 APTT 25 SECONDS (21-34) 10/30/17 06:52 Attending/Attestation - Attestation I have personally seen and examined this patient.: Yes I have fully participated in the care of the patient.: Yes I have reviewed all pertinent clinical information, including history, physical exam and plan: Yes Notes (Text): 11/02/17 19:50 Patient was seen and examined at 11:30 AM 11/02/17 661 B Exam, assessment and plan were gone over with the resident. Coxsackievirus was Positive. Patient already being treated with Steroid Taper with Prednisone. Will need to follow up with repeat Echocardiogram ordered over with the weekend but still not performed as of today 10/31/17 to make sure that there is improvement in cardiac function. Will speak with Echo lab on morning to make sure that it is done. Plan for discharge 11/03/17 evening once IV antibiotic treatment is completed. Vinod Luis D.O.
--- NOTE | 2017-11-02 11:30 | CP.PCM.PN ---
Subjective - Date & Time of Evaluation Date of Evaluation: 11/02/17 Time of Evaluation: 08:00 - Subjective Subjective: improving for RAFAEL ? today cont IV antibiotics follow up CXR Objective - Vital Signs/Intake and Output Vital Signs (last 24 hours): Temp Pulse Resp BP Pulse Ox 98.1 F 89 20 110/76 99 11/02/17 09:04 11/02/17 09:55 11/02/17 09:04 11/02/17 09:55 11/02/17 09:04 Intake and Output: 11/02/17 11/02/17 06:59 18:59 Intake Total 730 Balance 730 - Medications Medications: Current Medications Albuterol/Ipratropium (Duoneb 3 Mg/0.5 Mg (3 Ml) Ud) 3 ml INH RQ6 PRN PRN Reason: Shortness of Breath Aspirin (Aspirin Chewable) 81 mg PO DAILY [facility] Last Admin: 11/02/17 09:55 Dose: 81 mg Benzonatate (Tessalon Perles) 100 mg PO TID [facility] Last Admin: 11/02/17 09:55 Dose: 100 mg Carvedilol (Coreg) 3.125 mg PO BID [facility] Last Admin: 11/02/17 09:56 Dose: 3.125 mg Docusate Sodium (Colace) 100 mg PO BID [facility] Last Admin: 11/02/17 09:16 Dose: Not Given Enoxaparin Sodium (Lovenox) 40 mg SC DAILY [facility] Last Admin: 11/02/17 09:56 Dose: 40 mg Piperacillin Sod/Tazobactam Sod (Zosyn 3.375 Gm Iv Premix) 3.375 gm in 50 mls @ 200 mls/hr IVPB Q6H [facility] Stop: 11/03/17 13:00 Last Admin: 11/02/17 06:23 Dose: 200 mls/hr Azithromycin 500 mg/ Dextrose 250 mls @ 250 mls/hr IVPB DAILY [facility] Stop: 11/03/17 10:01 Last Admin: 11/02/17 09:56 Dose: 250 mls/hr Vancomycin HCl 1 gm/ Sodium (Chloride) 200 mls @ 133.333 mls/hr IVPB Q12H [facility] Stop: 11/03/17 10:01 Last Admin: 11/01/17 21:37 Dose: 133.333 mls/hr Ipratropium [place] (Atrovent) 0.5 mg IH RQ6 PRN PRN Reason: Shortness of Breath Last Admin: 10/26/17 13:23 Dose: 0.5 mg Prednisone (Prednisone Tab) 10 mg PO DAILY [facility] Stop: 11/03/17 10:01 Last Admin: 11/02/17 09:55 Dose: 10 mg Saccharomyces Boulardii (Florastor) 250 mg PO BID [facility] Last Admin: 11/02/17 09:55 Dose: 250 mg - Labs Labs: 11/02/17 06:58 11/02/17 06:58 PT 10.8 SECONDS (9.7-12.2) 10/30/17 06:52 INR 1.0 10/30/17 06:52 APTT 25 SECONDS (21-34) 10/30/17 06:52 - Constitutional Appears: Non-toxic, Chronically Ill - Head Exam Head Exam: NORMOCEPHALIC - Eye Exam Eye Exam: PERRL. absent: Scleral icterus - ENT Exam ENT Exam: Mucous Membranes Dry - Neck Exam Neck Exam: absent: Lymphadenopathy - Respiratory Exam Respiratory Exam: Decreased Breath Sounds - Cardiovascular Exam Cardiovascular Exam: REGULAR RHYTHM, +S1, +S2 - GI/Abdominal Exam GI & Abdominal Exam: Distended, Soft - Rectal Exam Rectal Exam: Deferred - Exam Exam: NORMAL INSPECTION - Extremities Exam Extremities Exam: absent: Calf Tenderness, Pedal Edema, Tenderness - Back Exam Back Exam: absent: CVA tenderness (L), CVA tenderness (R) - Neurological Exam Neurological Exam: Alert, Awake, Oriented x3 Neuro motor strength exam: Left Upper Extremity: 5, Right Upper Extremity: 5, Left Lower Extremity: 5, Right Lower Extremity: 5 Assessment and Plan (1) Pneumonia Status: Acute (2) Heroin abuse Status: Acute (3) Respiratory failure with hypoxia and hypercapnia Status: Acute
--- NOTE | 2017-11-02 14:16 | RAD ---
Chest x-ray single frontal view History: Pneumonia. Comparison: 10/26/2017 Findings: No focal infiltrate or effusion. Right hilar prominence. Small nodular density in the left midlung zone may represent vessel on end. Heart size within normal limits. Degenerative changes in the spine. Impression: No focal infiltrate or effusion. Right hilar prominence. Small nodular density in the left midlung zone may represent vessel on end.
--- NOTE | 2017-11-02 18:02 | CP.PCM.PN ---
Subjective - Date & Time of Evaluation Date of Evaluation: 11/02/17 Time of Evaluation: 10:35 - Subjective Subjective: Pt was seen and evaluated at bedside. pt is sitting up in chair comfortably. SpO2 99% on Room air. States he is feeling much better and has no acute complaints at this time. Denies shortness of breath, cough, fever, chills, chest pain, hemoptysis. Lungs: clear breath sounds. No wheezes, rhonchi or rales A/P: Pneumonia, Improving spO2 99% on RA Afebrile Duoneb treatments as needed continue antibiotics as per ID- Azithromcin 500mg IVPB daily, Zosyn 3.375 gm IVPB Q6H, vancomycin 1gm IVPB Q12H 11/02/17 CXR: No focal infilatrate or effusion. Right hilar prominence. Small nodular density in left midlung zone may represent vessel on end. 10/26/17- CXR: Improving multifocal infiltrates in right upper and right lower lobe. Stable parenchymal findings in left lung. 10/24/17 CXR: Extensive Right and less left sided patchy consolidation concerning for pneumonia. 10/23/17 Chest CTA: Extensive confluent airspace consolidations worrisome for pneumonia throughout the R >L hemithoraces with relative sparing of the apices. Recommend follow up to complete resolution. No large central or segmental pulmonary embolus event. 10/26/17 ABG: pCO2 37, pO2 71, HCO3 30.3, pH 7.52 10/23/17 Echocardiogram: LV moderate diffuse systolic dysfunction; overall EF 40% . thickness normal; size normal; diastolic filling pressures elevated. Please see full report. Rubella, Rubeola, mycoplasma, parvovirus B19, CMV: IgG positive, IgM negative Legionella, RSV, influenza, mono, HIV, strep pneumo negative HSV 6: past infection coxsackie B1: 1:8-past or recent infection; coxsackie B2-6: negative Objective - Vital Signs/Intake and Output Vital Signs (last 24 hours): Temp Pulse Resp BP Pulse Ox 98.2 F 75 20 118/75 98 11/02/17 15:22 11/02/17 15:22 11/02/17 15:22 11/02/17 15:22 11/02/17 15:22 Intake and Output: 11/02/17 11/02/17 06:59 18:59 Intake Total 730 1000 Output Total 700 Balance 730 300 - Medications Medications: Current Medications Albuterol/Ipratropium (Duoneb 3 Mg/0.5 Mg (3 Ml) Ud) 3 ml INH RQ6 PRN PRN Reason: Shortness of Breath Aspirin (Aspirin Chewable) 81 mg PO DAILY [facility] Last Admin: 11/02/17 09:55 Dose: 81 mg Benzonatate (Tessalon Perles) 100 mg PO TID [facility] Last Admin: 11/02/17 13:41 Dose: 100 mg Carvedilol (Coreg) 3.125 mg PO BID [facility] Last Admin: 11/02/17 09:56 Dose: 3.125 mg Docusate Sodium (Colace) 100 mg PO BID [facility] Last Admin: 11/02/17 09:16 Dose: Not Given Enoxaparin Sodium (Lovenox) 40 mg SC DAILY [facility] Last Admin: 11/02/17 09:56 Dose: 40 mg Piperacillin Sod/Tazobactam Sod (Zosyn 3.375 Gm Iv Premix) 3.375 gm in 50 mls @ 200 mls/hr IVPB Q6H [facility] Stop: 11/03/17 13:00 Last Admin: 11/02/17 12:40 Dose: 200 mls/hr Azithromycin 500 mg/ Dextrose 250 mls @ 250 mls/hr IVPB DAILY [facility] Stop: 11/03/17 10:01 Last Admin: 11/02/17 09:56 Dose: 250 mls/hr Vancomycin HCl 1 gm/ Sodium (Chloride) 200 mls @ 133.333 mls/hr IVPB Q12H [facility] Stop: 11/03/17 10:01 Last Admin: 11/02/17 13:23 Dose: 133.333 mls/hr Ipratropium [place] (Atrovent) 0.5 mg IH RQ6 PRN PRN Reason: Shortness of Breath Last Admin: 10/26/17 13:23 Dose: 0.5 mg Prednisone (Prednisone Tab) 10 mg PO DAILY [facility] Stop: 11/03/17 10:01 Last Admin: 11/02/17 09:55 Dose: 10 mg Saccharomyces Boulardii (Florastor) 250 mg PO BID [facility] Last Admin: 11/02/17 09:55 Dose: 250 mg - Labs Labs: 11/02/17 06:58 11/02/17 06:58 PT 10.8 SECONDS (9.7-12.2) 10/30/17 06:52 INR 1.0 10/30/17 06:52 APTT 25 SECONDS (21-34) 10/30/17 06:52
--- NOTE | 2017-11-02 18:40 | PN ---
DATE: SUBJECTIVE: The patient denies chest pain. He is ambulatory. No palpitation or dizziness. PHYSICAL EXAMINATION: VITAL SIGNS: Blood pressure 110/76, heart rate 89, temperature 98.1, respirations 20. HEENT: Normocephalic. CHEST: Clear. HEART: S1, S2 regular. EXTREMITIES: No edema. LABORATORY DATA: SMA-7: Sodium 132, potassium 4, chloride 98, CO2 of 24, glucose 87, BUN 15, creatinine 0.9. AST and ALT are 71 and 262 respectively. Today's hemoglobin and hematocrit 13.7 and 40.3, white count and platelet count are within normal limits. Today's chest x-ray was unremarkable except for prominent central vasculature. ASSESSMENT: 1. Cardiomyopathy, which has improved. 2. Right middle and lower lobe pneumonia, which is resolving. 3. Improved hyponatremia. 4. Elevated liver enzymes. 5. Status post heroin abuse. RECOMMENDATIONS: Continue current aspirin, Atrovent, IV Zithromax, IV vancomycin and IV Zosyn. Continue prednisone at 10 mg once a day, Lovenox 20 mg subcutaneously once a day, Coreg is 3.125 mg twice a day. The patient is awaiting a followup echocardiographic study. Patrice Guzman MD
[2017-11-03] MEDS: Piperacill/Tazo 3.375gm in Dex 3.375 GM/50 ML BAG IVPB SCH ×2 (00:16→06:18)
[2017-11-03] MEDS: Vancomycin 1 GM in Sodium Chloride 0.9% 200 ML IVPB SCH ×2 (00:17→12:21)
[2017-11-03 06:18] LABS: BASO % 0.2 % (0.0-2.0); EOS # 0.1 K/uL (0.0-0.7); EOS % 1.3 % (0.0-4.0); HEMOGLOBIN 13.4 g/dL (12.0-18.0); LYMPH # 2.9 K/uL (1.0-4.3); LYMPH % 28.6 % (20.0-40.0); MEAN CELL VOLUME 78.4 fL (80.0-94.0); MEAN CORPUSCULAR HEMOGLOBIN 26.9 pg (27.0-31.0); MEAN CORPUSCULAR HGB CONC 34.3 g/dL (33.0-37.0); MEAN PLATELET VOLUME 7.6 fL (7.2-11.7); MONO # 0.8 K/uL (0.0-0.8); MONO % 8.3 % (0.0-10.0); NEUT # 6.2 K/uL (1.8-7.0); NEUT % 61.6 % (50.0-75.0); RBC 4.99 Mil/uL (4.40-5.90); RED CELL DISTRIBUTION WIDTH 15.3 % (11.5-14.5); WHITE BLOOD COUNT 10.1 K/uL (4.8-10.8)
[2017-11-03 06:34] LABS: ALB/GLOB RATIO 1.2 (1.0-2.1); ALBUMIN 3.6 g/dL (3.5-5.0); ALT/SGPT 320 U/L (21-72); AST/SGOT 79 U/L (17-59); BLOOD UREA NITROGEN 18 mg/dL (9-20); GFR AFRICAN-AMERICAN > 60; GFR NON-AFRICAN AMERICAN > 60; MAGNESIUM 1.9 mg/dL (1.6-2.3)
[2017-11-03] MEDS: Enoxaparin 40 mg Syringe SC SCH (10:13)
[2017-11-03] MEDS: Saccharomyces Boulardi 250 mg Cap PO SCH ×2 (10:13→18:32)
--- NOTE | 2017-11-03 10:22 | CP.PCM.DIS ---
<CeeGary - Last Filed: 11/03/17 19:15> Provider - Provider Date of Admission: 10/23/17 09:10 Attending physician: Vinod Luis MD Primary care physician: PMD: None Consults: Psychiatry: Dr. Kramer Cardiology: Dr. See Infectious Disease: Dr. Lynn Pulmonary: Dr. Morgan Time Spent in preparation of Discharge (in minutes): 45 Hospital Course - Lab Results Lab Results: Micro Results 10/23/17 07:58 Blood Blood Culture - Final NO GROWTH AFTER 5 DAYS 10/23/17 07:58 Blood Gram Stain - Final TEST NOT PERFORMED 10/23/17 07:58 Blood Blood Culture - Final NO GROWTH AFTER 5 DAYS 10/23/17 07:58 Blood Gram Stain - Final TEST NOT PERFORMED 10/23/17 21:11 Nose MRSA Culture (Admit) - Final MRSA NOT DETECTED 10/23/17 08:15 Urine,Cueva Urine Culture - Final No Growth (<1,000 CFU/ML) Most Recent Lab Values WBC 10.1 K/uL (4.8-10.8) 11/03/17 06:05 RBC 4.99 Mil/uL (4.40-5.90) 11/03/17 06:05 Hgb 13.4 g/dL (12.0-18.0) 11/03/17 06:05 Hct 39.2 % (35.0-51.0) 11/03/17 06:05 MCV 78.4 fL (80.0-94.0) L 11/03/17 06:05 MCH 26.9 pg (27.0-31.0) L 11/03/17 06:05 MCHC 34.3 g/dL (33.0-37.0) 11/03/17 06:05 RDW 15.3 % (11.5-14.5) H 11/03/17 06:05 Plt Count 349 K/uL (130-400) 11/03/17 06:05 MPV 7.6 fL (7.2-11.7) 11/03/17 06:05 Neut % (Auto) 61.6 % (50.0-75.0) 11/03/17 06:05 Lymph % (Auto) 28.6 % (20.0-40.0) 11/03/17 06:05 [place] % (Auto) 8.3 % (0.0-10.0) 11/03/17 06:05 Eos % (Auto) 1.3 % (0.0-4.0) 11/03/17 06:05 Baso % (Auto) 0.2 % (0.0-2.0) 11/03/17 06:05 Neut # 6.2 K/uL (1.8-7.0) 11/03/17 06:05 Lymph # 2.9 K/uL (1.0-4.3) 11/03/17 06:05 [place] # 0.8 K/uL (0.0-0.8) 11/03/17 06:05 Eos # 0.1 K/uL (0.0-0.7) 11/03/17 06:05 Baso # 0.0 K/uL (0.0-0.2) 11/03/17 06:05 Neutrophils % (Manual) 84 % (50-75) H 10/27/17 07:02 Band Neutrophils % 1 % (0-2) 10/27/17 07:02 Lymphocytes % (Manual) 7 % (20-40) L 10/27/17 07:02 Reactive Lymphs % 3 % (0-0) H 10/25/17 05:59 Monocytes % (Manual) 8 % (0-10) 10/27/17 07:02 Eosinophils % (Manual) 1 % (0-4) 10/26/17 06:25 Nucleated RBC % 1 % (0-0) H 10/23/17 07:46 Toxic Granulation Present 10/25/17 05:59 Platelet Estimate Normal (NORMAL) 10/27/17 07:02 Large Platelets Present 10/25/17 05:59 RBC Morphology Normal 10/26/17 06:25 Polychromasia Slight 10/25/17 05:59 Hypochromasia (manual) Slight 10/24/17 06:38 Anisocytosis (manual) Slight 10/27/17 07:02 Microcytosis (manual) Slight 10/24/17 06:38 ESR 56 mm/hr (0-15) H 10/26/17 06:25 PT 10.8 SECONDS (9.7-12.2) 10/30/17 06:52 INR 1.0 10/30/17 06:52 APTT 25 SECONDS (21-34) 10/30/17 06:52 D-Dimer, Quantitative 2035 ng/mlDDU (0-243) H 10/23/17 07:46 Puncture Site Rr 10/26/17 05:55 pCO2 37 mm/Hg (35-45) 10/26/17 05:55 pO2 71 mm/Hg (80-100) L 10/26/17 05:55 HCO3 30.3 mmol/L (21-28) H 10/26/17 05:55 ABG pH 7.52 (7.35-7.45) H 10/26/17 05:55 ABG Total CO2 31.3 mmol/L (22-28) H 10/26/17 05:55 ABG O2 Saturation 97.6 % (95-98) 10/26/17 05:55 ABG Base Excess 7.0 mmol/L (-2.0-3.0) H 10/26/17 05:55 ABG Hemoglobin 12.6 g/dL (11.7-17.4) 10/26/17 05:55 ABG Carboxyhemoglobin 2.0 % (0.5-1.5) H 10/26/17 05:55 POC ABG HHb (Measured) 2.3 % (0.0-5.0) 10/26/17 05:55 ABG Methemoglobin 1.2 % (0.0-3.0) 10/26/17 05:55 Jamarcus Test Pos 10/26/17 05:55 ABG Potassium 3.3 mmol/L (3.6-5.2) L 10/24/17 00:32 VBG pH 7.28 (7.32-7.43) L 10/23/17 07:47 VBG pCO2 50 mmHg (40-60) 10/23/17 07:47 VBG HCO3 19.8 mmol/L 10/23/17 07:47 VBG Total CO2 25.0 mmol/L (22-28) 10/23/17 07:47 VBG O2 Sat (Calc) 25.5 % (40-65) L 10/23/17 07:47 VBG Base Excess -3.7 mmol/L (0.0-2.0) L 10/23/17 07:47 VBG Potassium 4.7 mmol/L (3.6-5.2) 10/23/17 07:47 A-a O2 Difference 395.0 mm/Hg 10/26/17 05:55 Respiratory Index 6.4 10/26/17 05:55 Hgb O2 Saturation 94.5 % (95.0-98.0) L 10/26/17 05:55 Sodium 135.0 mmol/l (132-148) 10/24/17 00:32 Chloride 100.0 mmol/L (98-107) 10/24/17 00:32 Glucose 171 mg/dl (75-110) H 10/24/17 00:32 Lactate 1.7 mmol/L (0.7-2.1) 10/24/17 00:32 Liter Flow 30.0 10/26/17 05:55 Vent Mode Bipap 10/23/17 11:14 FiO2 70.0 % 10/26/17 05:55 Inspiratory BiPAP 12 10/23/17 11:14 Expiratory BiPAP 5 10/23/17 11:14 Crit Value Called To Dr valadez 10/23/17 07:47 Crit Value Called By Daniel petty erp pm 10/23/17 07:47 Crit Value Read Back Y 10/23/17 07:47 Blood Gas Notified Time 750 10/23/17 07:47 Sodium 134 mmol/L (132-148) 11/03/17 06:05 Potassium 4.2 mmol/L (3.6-5.2) 11/03/17 06:05 Chloride 98 mmol/L (98-107) 11/03/17 06:05 Carbon Dioxide 26 mmol/L (22-30) 11/03/17 06:05 Anion Gap 14 (10-20) 11/03/17 06:05 BUN 18 mg/dL (9-20) 11/03/17 06:05 Creatinine 1.1 mg/dL (0.8-1.5) 11/03/17 06:05 Est GFR ( Amer) > 60 11/03/17 06:05 Est GFR (Non-Af Amer) > 60 11/03/17 06:05 POC Glucose (mg/dL) 165 mg/dL (65-110) H 10/23/17 07:43 Random Glucose 84 mg/dL (75-110) 11/03/17 06:05 Calcium 9.0 mg/dl (8.6-10.4) 11/03/17 06:05 Phosphorus 4.4 mg/dL (2.5-4.5) 11/03/17 06:05 Magnesium 1.9 mg/dL (1.6-2.3) 11/03/17 06:05 Total Bilirubin 0.7 mg/dL (0.2-1.3) 11/03/17 06:05 AST 79 U/L (17-59) H 11/03/17 06:05 ALT 320 U/L (21-72) H D 11/03/17 06:05 Alkaline Phosphatase 93 U/L (38-126) 11/03/17 06:05 Troponin I 0.1550 ng/mL (0.00-0.120) H* 10/26/17 06:25 C-React Prot High Sens > 15.00 mg/L (1.00-3.00) H 10/26/17 06:25 NT-Pro-B Natriuret Pep 225 pg/mL (0-450) 10/28/17 06:30 Total Protein 6.6 g/dL (6.3-8.3) 11/03/17 06:05 Albumin 3.6 g/dL (3.5-5.0) 11/03/17 06:05 Globulin 3.0 gm/dL (2.2-3.9) 11/03/17 06:05 Albumin/Globulin Ratio 1.2 (1.0-2.1) 11/03/17 06:05 Triglycerides 55 mg/dL (0-149) D 10/24/17 06:38 Cholesterol 124 mg/dL (0-199) 10/24/17 06:38 LDL Cholesterol Direct < 30 mg/dL (0-129) 10/24/17 06:38 HDL Cholesterol 47 mg/dL (30-70) 10/24/17 06:38 Free T4 0.83 ng/dL (0.78-2.19) 10/24/17 06:38 TSH 3rd Generation 0.15 mIU/L (0.46-4.68) L 10/24/17 06:38 Arterial Blood Potassium 3.3 mmol/L (3.6-5.2) L 10/24/17 00:32 Venous Blood Potassium 4.7 mmol/L (3.6-5.2) 10/23/17 07:47 Urine Color Yellow (YELLOW) 10/23/17 08:14 Urine Clarity Clear (Clear) 10/23/17 08:14 Urine pH 5.0 (5.0-8.0) 10/23/17 08:14 Ur Specific [place] 1.013 (1.003-1.030) 10/23/17 08:14 Urine Protein 1+ mg/dL (NEGATIVE) H 10/23/17 08:14 Urine Glucose (UA) Normal mg/dL (Normal) 10/23/17 08:14 Urine Ketones Trace mg/dL (NEGATIVE) 10/23/17 08:14 Urine Blood 1+ (NEGATIVE) H 10/23/17 08:14 Urine Nitrate Negative (NEGATIVE) 10/23/17 08:14 Urine Bilirubin Negative (NEGATIVE) 10/23/17 08:14 Urine Urobilinogen Normal mg/dL (0.2-1.0) 10/23/17 08:14 Ur Leukocyte Esterase Neg Vanda/uL (Negative) 10/23/17 08:14 Urine WBC (Auto) 2 /hpf (0-5) 10/23/17 08:14 Urine RBC (Auto) 3 /hpf (0-3) 10/23/17 08:14 Ur Squamous Epith Cells 2 /hpf (0-5) 10/23/17 08:14 Urine Bacteria Rare (<OCC) 10/23/17 08:14 Hyaline Casts 6-10 /lpf (0-2) H 10/23/17 08:14 Vancomycin Trough 13.7 ug/mL (5.0-10.0) H 11/02/17 06:58 Salicylates < 1.0 mg/dL 1 10/23/17 07:46 Urine Opiates Screen Positive (NEGATIVE) H 10/23/17 08:14 Urine Methadone Screen Negative (NEGATIVE) 10/23/17 08:14 Acetaminophen < 10.0 ug/mL (10.0-30.0) L 10/23/17 07:46 Ur Barbiturates Screen Negative (NEGATIVE) 10/23/17 08:14 Ur Phencyclidine Scrn Negative (NEGATIVE) 10/23/17 08:14 Ur Amphetamines Screen Negative (NEGATIVE) 10/23/17 08:14 U Benzodiazepines Scrn Negative (NEGATIVE) 10/23/17 08:14 U Oth Cocaine Metabols Negative (NEGATIVE) 10/23/17 08:14 U Cannabinoids Screen Negative (NEGATIVE) 10/23/17 08:14 Alcohol, Quantitative < 10 mg/dl (0-10) 10/23/17 07:46 DISHA Nuclear Membr Pat Negative (Negative) 10/26/17 06:25 Adenovirus Antibody 1:16 (<1:8) 10/26/17 06:25 Coxsackie Type B(1) Ab 1:8 H 10/26/17 06:25 Coxsackie Type B(2) Ab <1:8 10/26/17 06:25 Coxsackie Type B(3) Ab <1:8 10/26/17 06:25 Coxsackie Type B(4) Ab <1:8 10/26/17 06:25 Coxsackie Type B(5) Ab <1:8 10/26/17 06:25 Coxsackie Type B(6) Ab <1:8 10/26/17 06:25 CMV IgG Ab 0.64 U/mL H 10/26/17 06:25 CMV IgM Ab <30.00 AU/mL 10/26/17 06:25 Hepatitis A IgM Ab Negative (NEGATIVE) 10/23/17 14:52 Hep Bs Antigen Negative (NEGATIVE) 10/23/17 14:52 Hep B Core IgM Ab Negative (NEGATIVE) 10/23/17 14:52 Hepatitis C Antibody Negative (NEGATIVE) 10/23/17 14:52 Herpesvirus 6 IgG Ab 1:20 H 10/26/17 06:25 Herpesvirus 6 IgM Ab <1:20 10/26/17 06:25 Herpesvirus 6 Interp Past infection 10/26/17 06:25 HIV 1&2 Antibody Screen Negative (NEGATIVE) 10/23/17 14:52 Infectious [place] Assay Negative (NEGATIVE) 10/26/17 04:00 Influenza Typ A,B (EIA) Negative for flu a/b (NEGATIVE) 10/23/17 08:10 Ur L.pneumophila Ag Negative (NEGATIVE) 10/23/17 09:25 Mumps Virus IgG Ab 184.00 AU/mL 10/26/17 06:25 Mycoplasma pneumon IgG 2.25 (<=0.90) H 10/24/17 06:38 Mycoplasma pneumon IgM 60 U/mL (<770) 10/24/17 06:38 Parvovirus B19 IgG Ab 3.3 (<0.9) H 10/26/17 06:25 Parvovirus B19 IgM Ab 0.3 (<0.9) 10/26/17 06:25 Parvovirus Interpret (()) 10/26/17 06:25 RSV Antigen Negative (NEGATIVE) 10/26/17 04:00 Rubella IgG Antibody 2.69 index 10/26/17 06:25 Rubeola (Measles) IgG 206.00 AU/mL 10/26/17 06:25 Ur Strep pneumoniae Ag Not detected 10/23/17 07:11 - Hospital Course Hospital Course: Discharge Summary PMD: None Consults: Cardiology (Dr. See), Infectious Disease (Dr. Lynn), Pulmonary (Dr. Morgan) PRINCIPAL DISCHARGE DIAGNOSES: Heroin overdose CC: HISTORY OF PRESENT ILLNESS: 31 yo male present to the ER by ambulance after he was found down by his unconscious around 6am. stated vomitted food. He was last seen normal around 3am. Pt responded to 1 mg narcan on the field. Pt admints doing 2 bags of heroins after being off it for the past 6 weeks. Patient states he had heroin Thursday and (10/21 and 10/22) per . Pt has been complaining of SOB and fever 102.2 10/22/17 for the past 2day. Pt denies any PMH or surgical Hx, denies in other substance abuse disorder and currently complaining of retro-sternal non radiating chest pain, SOB, non productive cough. Denies any headache, fevers, cocaine use. Pt in ICU on BiPAP. SUMMARY OF COURSE:Will Jean is a 31 year old male was admitted to [facility] on 10/23/2017-11/03/2017 heroin overdose.While he was admitted he was seen by Cardiology, Infectious disease, Psychiatry and Pulmonary.While admitted he was found to have an elevation in troponin levels. Patient had a workup done for possible myocarditits infection with the following results: HSV6 past infection, coxsackie B1: 1:8 past or recent infection, coxsackie b2-6: negative , MMR, CMV , Parvovirus b19: IgG positive, IgM negative.The patient subsequently had a cardiac cath to check for any blockages. Cardiac cath didn't show any blockages and was normal. Imaging study results are stated below. Cardiology consult Dr. Block did an echocardiogram and determined that no cardiac intervention was needed at this time. Patient was provided with Narcotics anonymous information by Case Management . Patient was also provided the information to the [facility] clinic located in the [facility] to follow up at and establish care. Imaging: Chest xray: patchy airspace opacities throughout right darlene thorax, worrisome for pneumonia/ edema Chest CT PE Protocol: negative for pulmonary embolus. confluent airspace consolidations. Echo: EF 40%, moderate diffuse systolic dysfunction, negative for pericardial effusion, Repeat Echo was done but final read was not done at the time of discharge. Per Cardiology it was ok. Will call patient when final results are returned. Duplex scan lower extremity: Negative for DVT. DISCHARGE MEDICATIONS: Aspirin 81mg PO Daily, #30 Discharge Exam - Head Exam Head Exam: ATRAUMATIC, NORMAL INSPECTION, NORMOCEPHALIC - Eye Exam Eye Exam: EOMI, Normal appearance, PERRL. absent: Periorbital tenderness Pupil Exam: NORMAL ACCOMODATION, PERRL. absent: Irregular, Unequal - ENT Exam ENT Exam: Mucous Membranes Moist, Normal Oropharynx - Respiratory Exam Respiratory Exam: Clear to PA & Lateral, NORMAL BREATHING PATTERN, UNREMARKABLE - Cardiovascular Exam Cardiovascular Exam: REGULAR RHYTHM, RRR, +S1, +S2. absent: Gallop, Rubs - GI/Abdominal Exam GI & Abdominal Exam: Normal Bowel Sounds, Unremarkable. absent: Distended, Hypoactive Bowel Sounds, Organomegaly - Back Exam Back exam: NORMAL INSPECTION. absent: CVA tenderness (L), CVA tenderness (R), paraspinal tenderness - Neurological Exam Neurological exam: Alert, CN II-XII Intact, Normal Gait, Oriented x3 - Psychiatric Exam Psychiatric exam: Normal Affect, Normal Mood - Skin Skin Exam: Dry, Intact, Normal Color, Warm Discharge Plan - Discharge Medications Prescriptions: Aspirin [Adult Low Dose Aspirin EC] 81 mg PO DAILY #30 tablet. - Follow Up Plan Condition: CRITICAL Disposition: HOME/ ROUTINE Instructions: Aspirin (By mouth), Myocardial Infarction (DC), Heart Failure (DC ), Heart Healthy Diet (DC), Pneumonia (DC), Heart Catheterization (DC) Additional Instructions: Patient discharged with Narcotics Anonymous Information provided by Case Management. Patient [facility] basement [facility] where he will establish care. Patient advised to return to hospital for any new or worsening symptoms. Discharge patient after last dose of antibiotic given at 7p.m. Discharge Medications: 1.Aspirin 81mg PO Daily, #30 Referrals: [facility] [Outside] <Vinod Luis - Last Filed: 11/03/17 20:25> Provider - Provider Date of Admission: 10/23/17 09:10 Attending physician: Vinod Luis MD Hospital Course - Lab Results Lab Results: Micro Results 10/23/17 07:58 Blood Blood Culture - Final NO GROWTH AFTER 5 DAYS 10/23/17 07:58 Blood Gram Stain - Final TEST NOT PERFORMED 10/23/17 07:58 Blood Blood Culture - Final NO GROWTH AFTER 5 DAYS 10/23/17 07:58 Blood Gram Stain - Final TEST NOT PERFORMED 10/23/17 21:11 Nose MRSA Culture (Admit) - Final MRSA NOT DETECTED 10/23/17 08:15 Urine,Cueva Urine Culture - Final No Growth (<1,000 CFU/ML) Most Recent Lab Values WBC 10.1 K/uL (4.8-10.8) 11/03/17 06:05 RBC 4.99 Mil/uL (4.40-5.90) 11/03/17 06:05 Hgb 13.4 g/dL (12.0-18.0) 11/03/17 06:05 Hct 39.2 % (35.0-51.0) 11/03/17 06:05 MCV 78.4 fL (80.0-94.0) L 11/03/17 06:05 MCH 26.9 pg (27.0-31.0) L 11/03/17 06:05 MCHC 34.3 g/dL (33.0-37.0) 11/03/17 06:05 RDW 15.3 % (11.5-14.5) H 11/03/17 06:05 Plt Count 349 K/uL (130-400) 11/03/17 06:05 MPV 7.6 fL (7.2-11.7) 11/03/17 06:05 Neut % (Auto) 61.6 % (50.0-75.0) 11/03/17 06:05 Lymph % (Auto) 28.6 % (20.0-40.0) 11/03/17 06:05 [place] % (Auto) 8.3 % (0.0-10.0) 11/03/17 06:05 Eos % (Auto) 1.3 % (0.0-4.0) 11/03/17 06:05 Baso % (Auto) 0.2 % (0.0-2.0) 11/03/17 06:05 Neut # 6.2 K/uL (1.8-7.0) 11/03/17 06:05 Lymph # 2.9 K/uL (1.0-4.3) 11/03/17 06:05 [place] # 0.8 K/uL (0.0-0.8) 11/03/17 06:05 Eos # 0.1 K/uL (0.0-0.7) 11/03/17 06:05 Baso # 0.0 K/uL (0.0-0.2) 11/03/17 06:05 Neutrophils % (Manual) 84 % (50-75) H 10/27/17 07:02 Band Neutrophils % 1 % (0-2) 10/27/17 07:02 Lymphocytes % (Manual) 7 % (20-40) L 10/27/17 07:02 Reactive Lymphs % 3 % (0-0) H 10/25/17 05:59 Monocytes % (Manual) 8 % (0-10) 10/27/17 07:02 Eosinophils % (Manual) 1 % (0-4) 10/26/17 06:25 Nucleated RBC % 1 % (0-0) H 10/23/17 07:46 Toxic Granulation Present 10/25/17 05:59 Platelet Estimate Normal (NORMAL) 10/27/17 07:02 Large Platelets Present 10/25/17 05:59 RBC Morphology Normal 10/26/17 06:25 Polychromasia Slight 10/25/17 05:59 Hypochromasia (manual) Slight 10/24/17 06:38 Anisocytosis (manual) Slight 10/27/17 07:02 Microcytosis (manual) Slight 10/24/17 06:38 ESR 56 mm/hr (0-15) H 10/26/17 06:25 PT 10.8 SECONDS (9.7-12.2) 10/30/17 06:52 INR 1.0 10/30/17 06:52 APTT 25 SECONDS (21-34) 10/30/17 06:52 D-Dimer, Quantitative 2035 ng/mlDDU (0-243) H 10/23/17 07:46 Puncture Site Rr 10/26/17 05:55 pCO2 37 mm/Hg (35-45) 10/26/17 05:55 pO2 71 mm/Hg (80-100) L 10/26/17 05:55 HCO3 30.3 mmol/L (21-28) H 10/26/17 05:55 ABG pH 7.52 (7.35-7.45) H 10/26/17 05:55 ABG Total CO2 31.3 mmol/L (22-28) H 10/26/17 05:55 ABG O2 Saturation 97.6 % (95-98) 10/26/17 05:55 ABG Base Excess 7.0 mmol/L (-2.0-3.0) H 10/26/17 05:55 ABG Hemoglobin 12.6 g/dL (11.7-17.4) 10/26/17 05:55 ABG Carboxyhemoglobin 2.0 % (0.5-1.5) H 10/26/17 05:55 POC ABG HHb (Measured) 2.3 % (0.0-5.0) 10/26/17 05:55 ABG Methemoglobin 1.2 % (0.0-3.0) 10/26/17 05:55 Jamarcus Test Pos 10/26/17 05:55 ABG Potassium 3.3 mmol/L (3.6-5.2) L 10/24/17 00:32 VBG pH 7.28 (7.32-7.43) L 10/23/17 07:47 VBG pCO2 50 mmHg (40-60) 10/23/17 07:47 VBG HCO3 19.8 mmol/L 10/23/17 07:47 VBG Total CO2 25.0 mmol/L (22-28) 10/23/17 07:47 VBG O2 Sat (Calc) 25.5 % (40-65) L 10/23/17 07:47 VBG Base Excess -3.7 mmol/L (0.0-2.0) L 10/23/17 07:47 VBG Potassium 4.7 mmol/L (3.6-5.2) 10/23/17 07:47 A-a O2 Difference 395.0 mm/Hg 10/26/17 05:55 Respiratory Index 6.4 10/26/17 05:55 Hgb O2 Saturation 94.5 % (95.0-98.0) L 10/26/17 05:55 Sodium 135.0 mmol/l (132-148) 10/24/17 00:32 Chloride 100.0 mmol/L (98-107) 10/24/17 00:32 Glucose 171 mg/dl (75-110) H 10/24/17 00:32 Lactate 1.7 mmol/L (0.7-2.1) 10/24/17 00:32 Liter Flow 30.0 10/26/17 05:55 Vent Mode Bipap 10/23/17 11:14 FiO2 70.0 % 10/26/17 05:55 Inspiratory BiPAP 12 10/23/17 11:14 Expiratory BiPAP 5 10/23/17 11:14 Crit Value Called To Dr valadez 10/23/17 07:47 Crit Value Called By Daniel petty rrt 10/23/17 07:47 Crit Value Read Back Y 10/23/17 07:47 Blood Gas Notified Time 750 10/23/17 07:47 Sodium 134 mmol/L (132-148) 11/03/17 06:05 Potassium 4.2 mmol/L (3.6-5.2) 11/03/17 06:05 Chloride 98 mmol/L (98-107) 11/03/17 06:05 Carbon Dioxide 26 mmol/L (22-30) 11/03/17 06:05 Anion Gap 14 (10-20) 11/03/17 06:05 BUN 18 mg/dL (9-20) 11/03/17 06:05 Creatinine 1.1 mg/dL (0.8-1.5) 11/03/17 06:05 Est GFR ( Amer) > 60 11/03/17 06:05 Est GFR (Non-Af Amer) > 60 11/03/17 06:05 POC Glucose (mg/dL) 165 mg/dL (65-110) H 10/23/17 07:43 Random Glucose 84 mg/dL (75-110) 11/03/17 06:05 Calcium 9.0 mg/dl (8.6-10.4) 11/03/17 06:05 Phosphorus 4.4 mg/dL (2.5-4.5) 11/03/17 06:05 Magnesium 1.9 mg/dL (1.6-2.3) 11/03/17 06:05 Total Bilirubin 0.7 mg/dL (0.2-1.3) 11/03/17 06:05 AST 79 U/L (17-59) H 11/03/17 06:05 ALT 320 U/L (21-72) H D 11/03/17 06:05 Alkaline Phosphatase 93 U/L (38-126) 11/03/17 06:05 Troponin I 0.1550 ng/mL (0.00-0.120) H* 10/26/17 06:25 C-React Prot High Sens > 15.00 mg/L (1.00-3.00) H 10/26/17 06:25 NT-Pro-B Natriuret Pep 225 pg/mL (0-450) 10/28/17 06:30 Total Protein 6.6 g/dL (6.3-8.3) 11/03/17 06:05 Albumin 3.6 g/dL (3.5-5.0) 11/03/17 06:05 Globulin 3.0 gm/dL (2.2-3.9) 11/03/17 06:05 Albumin/Globulin Ratio 1.2 (1.0-2.1) 11/03/17 06:05 Triglycerides 55 mg/dL (0-149) D 10/24/17 06:38 Cholesterol 124 mg/dL (0-199) 10/24/17 06:38 LDL Cholesterol Direct < 30 mg/dL (0-129) 10/24/17 06:38 HDL Cholesterol 47 mg/dL (30-70) 10/24/17 06:38 Free T4 0.83 ng/dL (0.78-2.19) 10/24/17 06:38 TSH 3rd Generation 0.15 mIU/L (0.46-4.68) L 10/24/17 06:38 Arterial Blood Potassium 3.3 mmol/L (3.6-5.2) L 10/24/17 00:32 Venous Blood Potassium 4.7 mmol/L (3.6-5.2) 10/23/17 07:47 Urine Color Yellow (YELLOW) 10/23/17 08:14 Urine Clarity Clear (Clear) 10/23/17 08:14 Urine pH 5.0 (5.0-8.0) 10/23/17 08:14 Ur Specific [place] 1.013 (1.003-1.030) 10/23/17 08:14 Urine Protein 1+ mg/dL (NEGATIVE) H 10/23/17 08:14 Urine Glucose (UA) Normal mg/dL (Normal) 10/23/17 08:14 Urine Ketones Trace mg/dL (NEGATIVE) 10/23/17 08:14 Urine Blood 1+ (NEGATIVE) H 10/23/17 08:14 Urine Nitrate Negative (NEGATIVE) 10/23/17 08:14 Urine Bilirubin Negative (NEGATIVE) 10/23/17 08:14 Urine Urobilinogen Normal mg/dL (0.2-1.0) 10/23/17 08:14 Ur Leukocyte Esterase Neg Vanda/uL (Negative) 10/23/17 08:14 Urine WBC (Auto) 2 /hpf (0-5) 10/23/17 08:14 Urine RBC (Auto) 3 /hpf (0-3) 10/23/17 08:14 Ur Squamous Epith Cells 2 /hpf (0-5) 10/23/17 08:14 Urine Bacteria Rare (<OCC) 10/23/17 08:14 Hyaline Casts 6-10 /lpf (0-2) H 10/23/17 08:14 Vancomycin Trough 13.7 ug/mL (5.0-10.0) H 11/02/17 06:58 Salicylates < 1.0 mg/dL 1 10/23/17 07:46 Urine Opiates Screen Positive (NEGATIVE) H 10/23/17 08:14 Urine Methadone Screen Negative (NEGATIVE) 10/23/17 08:14 Acetaminophen < 10.0 ug/mL (10.0-30.0) L 10/23/17 07:46 Ur Barbiturates Screen Negative (NEGATIVE) 10/23/17 08:14 Ur Phencyclidine Scrn Negative (NEGATIVE) 10/23/17 08:14 Ur Amphetamines Screen Negative (NEGATIVE) 10/23/17 08:14 U Benzodiazepines Scrn Negative (NEGATIVE) 10/23/17 08:14 U Oth Cocaine Metabols Negative (NEGATIVE) 10/23/17 08:14 U Cannabinoids Screen Negative (NEGATIVE) 10/23/17 08:14 Alcohol, Quantitative < 10 mg/dl (0-10) 10/23/17 07:46 DISHA Nuclear Membr Pat Negative (Negative) 10/26/17 06:25 Adenovirus Antibody 1:16 (<1:8) 10/26/17 06:25 Coxsackie Type B(1) Ab 1:8 H 10/26/17 06:25 Coxsackie Type B(2) Ab <1:8 10/26/17 06:25 Coxsackie Type B(3) Ab <1:8 10/26/17 06:25 Coxsackie Type B(4) Ab <1:8 10/26/17 06:25 Coxsackie Type B(5) Ab <1:8 10/26/17 06:25 Coxsackie Type B(6) Ab <1:8 10/26/17 06:25 CMV IgG Ab 0.64 U/mL H 10/26/17 06:25 CMV IgM Ab <30.00 AU/mL 10/26/17 06:25 Hepatitis A IgM Ab Negative (NEGATIVE) 10/23/17 14:52 Hep Bs Antigen Negative (NEGATIVE) 10/23/17 14:52 Hep B Core IgM Ab Negative (NEGATIVE) 10/23/17 14:52 Hepatitis C Antibody Negative (NEGATIVE) 10/23/17 14:52 Herpesvirus 6 IgG Ab 1:20 H 10/26/17 06:25 Herpesvirus 6 IgM Ab <1:20 10/26/17 06:25 Herpesvirus 6 Interp Past infection 10/26/17 06:25 HIV 1&2 Antibody Screen Negative (NEGATIVE) 10/23/17 14:52 Infectious [place] Assay Negative (NEGATIVE) 10/26/17 04:00 Influenza Typ A,B (EIA) Negative for flu a/b (NEGATIVE) 10/23/17 08:10 Ur L.pneumophila Ag Negative (NEGATIVE) 10/23/17 09:25 Mumps Virus IgG Ab 184.00 AU/mL 10/26/17 06:25 Mycoplasma pneumon IgG 2.25 (<=0.90) H 10/24/17 06:38 Mycoplasma pneumon IgM 60 U/mL (<770) 10/24/17 06:38 Parvovirus B19 IgG Ab 3.3 (<0.9) H 10/26/17 06:25 Parvovirus B19 IgM Ab 0.3 (<0.9) 10/26/17 06:25 Parvovirus Interpret (()) 10/26/17 06:25 RSV Antigen Negative (NEGATIVE) 10/26/17 04:00 Rubella IgG Antibody 2.69 index 10/26/17 06:25 Rubeola (Measles) IgG 206.00 AU/mL 10/26/17 06:25 Ur Strep pneumoniae Ag Not detected 10/23/17 07:11 Attending/Attestation - Attestation I have personally seen and examined this patient.: Yes I have fully participated in the care of the patient.: Yes I have reviewed all pertinent clinical information, including history, physical exam and plan: Yes Notes (Text): 11/03/17 20:23 Patient was seen and examined at 1 PM 11/03/17 661 B Exam, assessment and plan, discharge instructions were gone over with the resident. Explained to patient that he must take ASA 81 mg PO 1x/day, follow up with [facility] ( information provided to him by [facility] Ann), and follow up with [facility]. Vinod Luis D.O.
[2017-11-03] MEDS ORDERED: Piperacillin/Tazobact 3.375 GM in Sodium Chloride 100 ML IVPB ONE (13:00)
[2017-11-03 15:45] VITALS: BP 115/66; PULSE 62; RESP 18; TEMP 98.1; O2SAT 98
--- NOTE | 2017-11-03 18:58 | PN ---
DATE: SUBJECTIVE: The patient denies any chest pain, shortness of breath or productive cough. PHYSICAL EXAMINATION: VITAL SIGNS: Blood pressure 116/70, heart rate 79, temperature 98.2, respirations 20. HEENT: Normocephalic. NECK: No JVD. CHEST: Clear. HEART: S1, S2, regular. ABDOMEN: Soft. EXTREMITIES: No edema. LABORATORY DATA: Hemoglobin and hematocrit 13.4 and 39.2, white count 10.1 and platelet count 349,000. SMA-7: Sodium 134, potassium 4.2, chloride 98, CO2 of 26, glucose 84, BUN 18, creatinine 1.1. Today's alkaline phosphatase is 93, ALT is 320 and AST is 79. I did review the echocardiographic study performed today and it did reveal normal ejection fraction. ASSESSMENT: 1. Reversed left ventricular systolic dysfunction to normal. 2. Heroin abuse. 3. Resolved pneumonia. 4. Improved hyponatremia. 5. Still elevated liver enzymes. RECOMMENDATIONS: Case was discussed with Dr. Vinod Luis. Continue aspirin and discontinue other cardiac meds including Coreg. The patient can be discharged on current medical management and was strongly advised to abstain from future opiate abuse. Patrice Guzman MD
[2017-11-03] MEDS ORDERED: Piperacillin/Tazobact 3.375 GM in Sodium Chloride 0.9% 100 ML IVPB ONE (19:00)
--- NOTE | 2017-11-03 23:04 | CARD ---
APPROVED REPORT EXAM: Two-dimensional and M-mode echocardiogram with Doppler and color Doppler. Other Information Quality : AverageRhythm : 2D DIMENSIONS IVSd1.0 (0.7-1.1cm)LVDd3.7 (3.9-5.9cm) PWd1.1 (0.7-1.1cm)LVDs2.7 (2.5-4.0cm) FS (%) 29.0 %LVEF (%)56.5 (>50%) M-Mode DIMENSIONS Left Atrium (MM)3.43 (2.5-4.0cm)Aortic Root3.04 (2.2-3.7cm) Aortic Cusp Exc.2.49 (1.5-2.0cm) Mitral Valve MV E Eylwzhcz37.7cm/sMV A Khlqwmfk18.3cm/sE/A ratio1.1 TDI E/Lateral E'0.0E/Medial E'0.0 Tricuspid Valve TR Peak Xkgjslgq805sj/sTR Peak Gr.[id number] LEFT VENTRICLE The left ventricle is normal size. There is normal left ventricular wall thickness. The left ventricular function is normal. The left ventricular ejection fraction is within the normal range. There is normal LV segmental wall motion. The left ventricular diastolic function is normal. RIGHT VENTRICLE The right ventricle is normal size. ATRIA The left atrium size is normal. The right atrium size is normal. AORTIC VALVE The aortic valve is normal in structure. MITRAL VALVE The mitral valve is normal in structure. TRICUSPID VALVE There is trace to mild tricuspid regurgitation. <Conclusion> Normal LV systolic function. Diastolic dysfunction. Normal chamber size.
== END 2017-11-03 20:05 | disposition home or self-care (01) | DRG 917 ==
LOC: C.ER 07:31 → C.9I 09:10 → C.6T 11-01 05:16
PROVIDERS: ADMIT Family Medicine; ATTEND Family Medicine
PROC: 5A09357 Assistance with Respiratory Ventilation, Less than 24 Consecutive Hours, Continuous Positive Airway Pressure (ICD-10-PCS; principal; 2017-10-23)
PROC: 4A023N7 Measurement of Cardiac Sampling and Pressure, Left Heart, Percutaneous Approach (ICD-10-PCS; 2017-10-30)
PROC: B2151ZZ Fluoroscopy of Left Heart using Low Osmolar Contrast (ICD-10-PCS; 2017-10-30)
PROC: B2111ZZ Fluoroscopy of Multiple Coronary Arteries using Low Osmolar Contrast (ICD-10-PCS; 2017-10-30)
DX: T40.1X1A Poisoning by heroin, accidental (unintentional), initial encounter (principal); J69.0 Pneumonitis due to inhalation of food and vomit; J96.01 Acute respiratory failure with hypoxia; I50.20 Unspecified systolic (congestive) heart failure; I42.9 Cardiomyopathy, unspecified; J96.92 Respiratory failure, unspecified with hypercapnia; F11.20 Opioid dependence, uncomplicated; E87.1 Hypo-osmolality and hyponatremia; E87.2 Acidosis; R74.8 Abnormal levels of other serum enzymes; J45.909 Unspecified asthma, uncomplicated; F32.9 Major depressive disorder, single episode, unspecified; D64.9 Anemia, unspecified; R79.1 Abnormal coagulation profile; R79.89 Other specified abnormal findings of blood chemistry; Y92.009 Unspecified place in unspecified non-institutional (private) residence as the place of occurrence of the external cause